=== PATIENT | male | born 1970 | race Caucasian/White ===

== ENCOUNTER 2018-03-15 10:19 | Emergency (ER) | payer MEDICAID, SELFPAY ==
[2018-03-15 10:20] VITALS: BP 207/126; PULSE 124; RESP 18; TEMP 36.4; O2SAT 98; BMI 34.8
--- NOTE | 2018-03-15 10:42 | EKG12_ITS ---
Test Reason : SOB Blood Pressure : / mmHG Vent. Rate : 107 BPM Atrial Rate : 107 BPM P-R Int : 154 ms QRS Dur : 100 ms QT Int : 342 ms P-R-T Axes : 047 016 053 degrees QTc Int : 456 ms Sinus tachycardia Otherwise normal ECG Confirmed by DOC ALVARADO, VICKI ([id number]), commercial production editor JEFF MROGAN ([id number]) on 03/20/2018 2:22:33 PM Referred By: YURIY Confirmed By:VICKI ROACH MD
--- NOTE | 2018-03-15 10:50 | RAD_ITS ---
STUDY: X-RAY CHEST REASON FOR EXAM: Male, 47 years old. 3 week history of right lower lateral rib pain. TECHNIQUE: Single AP portable view of the chest. COMPARISON: Comparison is made with prior study dated November 12, 2014. FINDINGS: Hyperinflation. Scattered calcified granulomas. No acute abnormality is seen. There is no demonstrated pleural abnormality. Normal size heart. Normal mediastinum and lupe. Normal visualized pulmonary arteries. There is atherosclerotic tortuosity of the aortic arch and descending thoracic aorta. There are diffuse degenerative changes of the visualized thoracic spine. Normal visualized ribs, clavicles, and shoulders. There is no demonstrated abnormality of the visualized soft tissue structures of the upper abdomen. RAD/Chest 1 View (Portable) IMPRESSION: No acute abnormality is seen. Electronically Signed: Iain Tracy MD at 11:18 EDT Tel [phone], Service support ,
[2018-03-15 10:53] VITALS: PULSE 105; RESP 18
[2018-03-15] MEDS: Ipratropium/Albuterol Sulfate 3 ML AMPUL.NEB INHALATION (10:53)
[2018-03-15 11:02] LABS: Absolute Lymphocyte Count 2.06 X10^3/ul (0.83-4.51); Absolute Neutrophil Count 4.1 X10^3/uL (2.0-7.7); Basophil# 0.03 X10^3/uL; Basophil% 0.4 % (0-1); Eosinophil# 0.17 X10^3/uL; Eosinophils% 2.4 % (0-5); Hematocrit 42.8 % (40-54); Hemoglobin 14.4 g/dl (13.0-16.5); Lymphocyte # 2.06 X10^3/ul (4.0); Lymphocyte % 29.5 % (19-41); Mean Corp Hgb Conc 33.6 g/gl (32-36); Mean Corpuscular Hgb 29.8 pg (27.0-32.0); Mean Corpuscular Volume 88.6 fL (80-94); Mean Platelet Vol. 8.5 fl (6.2-12.0); Monocyte# 0.59 X10^3/uL; Monocyte% 8.5 % (0-10); Neutrophil % 58.8 % (47-70); POSITIVE COUNT NO; POSITIVE DIFFERENTIAL NO; POSITIVE MORPHOLOGY NO; Platelet Count 309 K/mm3 (150-450); RBC Distribution Width CV 13.5 % (11.6-14.6); Red Blood Count 4.83 M/mm3 (4.6-6.2)
[2018-03-15 11:22] LABS: Anion Gap 8 (5-15); BUN 7 mg/dL (7-18); BUN/Creat Ratio 8.4 RATIO (10-20); Calcium,Total 8.6 mg/dL (8.5-10.1); Chloride 103 mmol/L (98-107); Creatinine, Serum 0.84 mg/dL (0.70-1.30); EST Glomerular Filtration Rate 104 mL/min (>60); Est Glom Filt Rate - Afr Amer 126 mL/min (>60); Estimated Creatinine Clearance 115.79 ml/min; Glucose 118 mg/dL (74-106); Sodium Level 137 mmol/L (136-145)
[2018-03-15 11:54] VITALS: BP 162/101; PULSE 105; RESP 17; O2SAT 93
[2018-03-15] MEDS: HYDROcodone Bitartrate/Apap 5/325 Tablet PO (11:59)
--- NOTE | 2018-03-15 12:33 | CT_ITS ---
STUDY: CTA CHEST REASON FOR EXAM: Male, 47 years old. Right-sided rib pain following cough. RADIATION DOSAGE (If Supplied By Facility): CTDIvol = ( 16.63 ) mGy, DLP = ( 702.53 ) mGycm TECHNIQUE: The examination was performed with the intravenous administration of 100 ml of Isovue 300 contrast material. Post-processing of the angiographic images was performed, with multiplanar reformation and 3D reconstruction. Individualized dose optimization techniques were used for this CT. COMPARISON: Comparison is made with prior study dated May 14, 2014. FINDINGS: Small nonocclusive intraluminal filling defects in branches of the right and left upper lobe pulmonary arteries in keeping with the small bilateral pulmonary emboli. There is also evidence of small intraluminal filling defects in branches of the left lower lobe pulmonary arterial branches. Normal thoracic aorta and visualized great vessels. There is no demonstrated aortic dissection. Normal heart and pericardium. There are visualized mediastinal lymph nodes, which are within normal size limits, and with normal morphology. Normal hilar regions. Normal visualized trachea and bronchi. The lungs are well expanded. Stable mild degree of emphysematous changes in the upper lobes with bullous formation worse in the right upper lobe. Normal pleura. Normal chest wall structures. There are degenerative changes of thoracic spine. Diffuse fatty infiltration of the liver. CT/CTA Chest W/WO Contrast IMPRESSION: Several small filling defects seen in branches of the right and left upper lobe pulmonary arterial branches as well as left lower lobe pulmonary arterial branches in keeping with pulmonary emboli. Electronically Signed: Iain Tracy MD at 13:14 EDT Tel [phone], Service support ,
[2018-03-15 13:11] VITALS: BP 164/127; PULSE 94; RESP 16; O2SAT 97
[2018-03-15 15:02] VITALS: BP 140/92; PULSE 86; RESP 18; O2SAT 100
--- NOTE | 2018-03-15 15:19 | ED.VISSUMM ---
- ER Visit Summary Date of Service: 03/15/18 Chief Complaint: [] History of Present Illness: The patient is a 47 M [] Physical Examination: [] Test Results: [] Emergency Department Course and Treatment: [] Treatment Plan: [] Disposition: [] Impression: [] This note was generated with [employer] dictation software. It may contain incorrect words, spelling, and punctuation that were not noted in review of the chart prior to signing ED Disposition - Plan for ED Patient: Disposition: Home or Assisted Living Chief Complaint: Chest Other Instructions: ED Strain Chest Wall Prescriptions: Hydrocodone Bitart/Apap 5-325 [[place] 5/325] 1 - 2 tab PO Q4H PRN PRN 5 Days #12 tab PRN Reason: Pain Naproxen [Naprosyn] 500 mg PO BID PRN #20 tab Referrals: Trevin Dacosta DO [Primary Care Provider] - 2 Days
[2018-03-15 15:28] VITALS: BP 147/89; PULSE 98; RESP 18; O2SAT 99
== END 2018-03-15 15:28 | disposition home or self-care (01) ==
PROVIDERS: Emergency Provider Emergency Medicine; Family Provider Family Medicine; PCP Family Medicine
DX: S29.011A Strain of muscle and tendon of front wall of thorax, initial encounter (principal); X58.XXXA Exposure to other specified factors, initial encounter; Y93.9 Activity, unspecified; Y92.9 Unspecified place or not applicable; R00.0 Tachycardia, unspecified; Z72.0 Tobacco use
CPT/HCPCS: 71045; 71275; 80048; 84484; 85025; 93005; 94640; 99285; Q9967; A4216

== ENCOUNTER 2018-03-22 05:38 | Observation (INO) | payer MEDICAID, SELFPAY ==
[2018-03-22] VITALS (14 sets, daily range): BP systolic 143–198; BP diastolic 89–114; PULSE 73–104; RESP 16–28; TEMP 36.2–37.1; O2SAT 92–97; BMI 37.8; BMI 36.7
--- NOTE | 2018-03-22 06:05 | EKG12_ITS ---
Test Reason : RIB PAIN Blood Pressure : / mmHG Vent. Rate : 098 BPM Atrial Rate : 098 BPM P-R Int : 166 ms QRS Dur : 104 ms QT Int : 360 ms P-R-T Axes : 041 027 073 degrees QTc Int : 459 ms Normal sinus rhythm Normal ECG Confirmed by DOC ALVARADO, VICKI ([id number]), editorial clerk JEFF MORGAN ([id number]) on 03/23/2018 1:17:52 PM Referred By: MAGGIE Confirmed By:VICKI ROACH MD
--- NOTE | 2018-03-22 06:08 | RAD_ITS ---
STUDY: X-RAY CHEST REASON FOR EXAM: Male, 47 years old. Chest pain TECHNIQUE: 1 view COMPARISON: None. FINDINGS: The lungs are clear and expanded. There is no demonstrated pleural abnormality. Normal size heart. Normal mediastinum and lupe. Normal visualized pulmonary arteries. Normal visualized aortic arch and descending thoracic aorta. Normal visualized thoracic spine. Normal visualized ribs, clavicles, and shoulders. There is no demonstrated abnormality of the visualized soft tissue structures of the upper abdomen. RAD/Chest 1 View (Portable) IMPRESSION: Normal x-ray examination of the chest. No acute findings in the lungs Electronically Signed: Dickson Charles, at 6:24 EDT Tel , Service support ,
[2018-03-22] MEDS: Ondansetron 4 MG/2 ML Vial IV (06:20)
[2018-03-22] MEDS: Morphine 4 MG/ML Syringe IV ×3 (06:21→19:44)
[2018-03-22 06:38] LABS: Absolute Lymphocyte Count 2.47 X10^3/ul (0.83-4.51); Absolute Neutrophil Count 3.9 X10^3/uL (2.0-7.7); Basophil# 0.03 X10^3/uL; Basophil% 0.4 % (0-1); Eosinophil# 0.24 X10^3/uL; Eosinophils% 3.2 % (0-5); Hemoglobin 13.2 g/dl (13.0-16.5); Lymphocyte # 2.47 X10^3/ul (4.0); Lymphocyte % 32.7 % (19-41); Mean Corp Hgb Conc 33.8 g/gl (32-36); Mean Corpuscular Volume 88.6 fL (80-94); Mean Platelet Vol. 8.9 fl (6.2-12.0); Monocyte# 0.85 X10^3/uL; Monocyte% 11.3 % (0-10); Neutrophil # 3.93 X10^3/uL (2.7-7.7); Platelet Count 382 K/mm3 (150-450); RBC Distribution Width SD 44.6 fl (35.1-43.9); White Blood Count 7.6 K/mm3 (4.4-11.0)
[2018-03-22 06:41] LABS: International Normalized Ratio 0.9; Prothrombin Time (Protime)PT. 12.3 SECONDS (11.7-14.9)
[2018-03-22 06:44] LABS: POSITIVE COUNT NO; POSITIVE DIFFERENTIAL NO; POSITIVE MORPHOLOGY NO
[2018-03-22 06:47] LABS: Anion Gap 10 (5-15); BUN 14 mg/dL (7-18); BUN/Creat Ratio 15.5 RATIO (10-20); Calcium,Total 9.4 mg/dL (8.5-10.1); Chloride 107 mmol/L (98-107); EST Glomerular Filtration Rate 95 mL/min (>60); Est Glom Filt Rate - Afr Amer 115 mL/min (>60); Estimated Creatinine Clearance 108.07 ml/min; Glucose 152 mg/dL (74-106); Potassium 3.8 mmol/L (3.5-5.1); Sodium Level 142 mmol/L (136-145)
--- NOTE | 2018-03-22 07:07 | PCM.HP.STD ---
Problem List (1) HTN (hypertension) Status: Chronic Qualifiers: Hypertension type: essential hypertension Qualified Code(s): I10 - Essential (primary) hypertension (2) Bipolar disorder Status: Chronic Qualifiers: Active/Remission status: remission status unspecified Qualified Code(s): F31.9 - Bipolar disorder, unspecified (3) Nicotine addiction Status: Chronic Qualifiers: Nicotine product type: cigarettes (4) Hepatitis C Status: Chronic Qualifiers: Viral hepatitis chronicity: chronic (5) Prediabetes Status: Chronic (6) Obesity (BMI 30-39.9) Status: Chronic History of Present Illness Date of Admission: 03/22/18 Chief Complaint: Chest pain The patient is a 47 y/o M w/ PMHx: Obesity, Tobacco use, Pre-Diabetes mellitus type II, HTN, Anxiety and Depression (Bipolar disorder), Possible Undiagnosed DHARMESH, Hepatitis C who presents to the [facility] ED on 03/22/18 w/ history of ongoing R sided focal lower rib pain, severe, wrapping around toward his back which started ~3-4 weeks prior when he had a severe coughing fit following a choking event with immediate sensation of something breaking following in this region w/ progressively worsening pain, severe debility with decreased activity and notably sedentary lifestyle w/ onset dyspnea, worse with deep inspiratory attempts over the last 2 weeks. He did present to the ED on 03/15/18 for this complaint and had evaluation at that time w/ dx chest wall strain. He returned as noted today and review of all studies from prior notable for CTPA study with evidence of several small filling defects in the branches of the right and left upper lobe pulmonary arterial branches as well as left lower lobe pulmonary arterial branches consistent with pulmonary emboli in addition to over-read today with noted displaced R 8th rib fracture. Given these findings and ongoing pain per discussion with ED physician, although likely secondary to decreased activity, obtained hypercoaguable panel to be cautious and patient initiated on xarelto therapy. Past Medical History Past Medical History (Chronic Problems): Chronic Problems Prediabetes (Chronic) Obesity (BMI 30-39.9) (Chronic) HTN (hypertension) (Chronic) Bipolar disorder (Chronic) Non-compliant patient (Chronic) Nicotine addiction (Chronic) Hepatitis C (Chronic) Allergies oxycodone [From OxyContin] Allergy (Verified 03/22/18 05:42) Itching Home Medications: Ambulatory Orders Medication Instructions Recorded Albuterol Sulfate [Ventolin Hfa] 2 puff INHALATION Q4H PRN PRN 03/15/18 Surgical History: total knee arthroplasty - On the left knee, - - Umbilical hernia repair, bilateral knee arthroscopic surgeries and ligament repair, great toe trauma with several follow-up surgical interventions. Psychiatric History: Anxiety, Bipolar - Not on any medication at the present time, Depression Lives: Alone Smoking Status: Current every day smoker - One half pack per day tobacco use ongoing. Tobacco Use: Cigarettes Alcohol: Occasional Drugs: Marijuana - Patient currently notes occasional cannabis but does admit to polysubstance use of various substances in the past. - *Family History Maternal History Items: High Cholesterol, Heart Disease, Hypertension Paternal History Items: High Cholesterol, Heart Disease, Hypertension Review of Systems Constitutional: Reports: Malaise, Weakness, Fatigue. Denies: Chills, Fever, Weight Change HEENT: Denies: Head Aches, Sinus Congestion, Sinus Drainage Cardiovascular: Reports: Chest Pain. Denies: Edema, Heaviness, Light Headedness, Orthopnea, Palpitations, Syncope Respiratory: Reports: Shortness of Breath, Shortness of breath at rest, Shortness of breath upon exertion. Denies: Cough, Sputum production, Wheezing Gastrointestinal: Denies: Abdominal Pain, Nausea, Vomiting Genitourinary: Denies: Dysuria Musculoskeletal: Reports: Back Pain. Denies: Joint Pain, Joint Tenderness Skin: Denies: Rash, Wounds Neurological: Denies: Numbness, Tingling, Focal weakness Psychiatric: Reports: Anxiety, Depression. Denies: Homicidal Ideations, Suicidal Ideations Hematologic/ Lymphatic: Denies: Easy Bruising, Easy Bleeding VTE Information - Inpt Only VTE Present on Admission: No VTE Mechan Device Prophylaxis: SCD's VTE Pharm Prophylaxis ordered?: Yes Subjective: Seated upright in bed, uncomfortable appearing. Objective: Physical Examination: General: awake, alert, oriented x 3 and cooperative, seated upright in bed in no apparent distress, but uncomfortable appearing. Skin: normal color, turgor, no icterus, cyanosis. HEENT: AT/NC, EOMI, PERRLA, mildly dry MM, no carotid bruits or JVD noted; however, thickened neck makes examination difficult. Lungs: Diminished BS bases, mild effort, reduced secondary to pain w/ increased effort, diffuse soft end expiratory wheeze noted, no rales or ronchi. Heart: Regular rate and rhythm; no gallop, rub audible. Abdomen: soft, obese, NTTP, ND, normal BS, no HSM; however, habitus makes examination difficult. Extremities: no cyanosis, clubbing, or edema. Neurological: patient awake, alert, oriented x 3; cognitive function intact; pupils equally reactive to light and accomodation; cranial nerves II-XII grossly normal, moving all 4 extremities, no focal deficits, strength moderately to severely globally decreased secondary to acute presentation. Psychiatric: affect appears normal, no acute evidence of depressive or anxiety feelings. - Physical Exam Vital Signs Temp Pulse Resp BP Pulse Ox 97.2 F L 104 H 28 H 173/114 H 96 03/22/18 05:38 03/22/18 05:38 03/22/18 05:38 03/22/18 05:38 03/22/18 05:38 Oxygen Flow Rate (L/min) 2 Oxygen Delivery Method Nasal Cannula Weight: 270 lb 11.642 oz Body Mass Index (BMI) 37.8 Laboratory Tests Past 24 Hrs 03/22/18 03/22/18 03/22/18 06:10 06:10 06:10 WBC 7.6 RBC 4.40 L Hgb 13.2 Hct 39.0 L MCV 88.6 MCH 30.0 MCHC 33.8 RDW 14.0 RDW Differential 44.6 H Plt Count 382 MPV 8.9 Immature Gran % (Auto) 0.400 Neut % (Auto) 52.0 Lymph % (Auto) 32.7 Orange % (Auto) 11.3 H Eos % (Auto) 3.2 Baso % (Auto) 0.4 Absolute Neuts (auto) 3.9 Absolute Lymphs (auto) 2.47 Total Counted Not Reportable PT 12.3 INR 0.9 Sodium 142 Potassium 3.8 Chloride 107 Carbon Dioxide 25.0 Anion Gap 10 BUN 14 Creatinine 0.90 Estim Creat Clear Calc 108.07 Est GFR (MDRD) Af Amer 115 Est GFR (MDRD) Non-Af 95 BUN/Creatinine Ratio 15.5 Glucose 152 H Calcium 9.4 Troponin I < 0.015 Assessment/Plan All Active Problems Chest pain on respiration (Acute) The patient is a 47 y/o M w/ PMHx: Obesity, Tobacco use, Pre-Diabetes mellitus type II, HTN, Anxiety and Depression, Possible Undiagnosed DHARMESH, Hepatitis C who presents to the [facility] ED on 03/22/18 w/ history of ongoing R sided focal lower rib pain, severe, wrapping around toward his back which started ~3-4 weeks prior when he had a severe coughing fit following a choking event with immediate sensation of something breaking following in this region w/ progressively worsening pain, severe debility with decreased activity and notably sedentary lifestyle w/ onset dyspnea, worse with deep inspiratory attempts over the last 2 weeks. (1) Dyspnea, chest pain secondary to Acute BL Pulmonary Embolism and Recent 8th R Rib Displaced fracture: EKG without acute findings, CXR without acute findings; however, review of prior 03/15/18 studies w/ noted CTPA study with evidence of several small filling defects in the branches of the right and left upper lobe pulmonary arterial branches as well as left lower lobe pulmonary arterial branches consistent with pulmonary emboli in addition to over-read today with noted displaced R 8th rib fracture, trop normal x 1, BNP obtained and normal. No family history of hypercoaguable state. Patient notes no marked recent travel but extremely sedentary following recent rib fracture. Will admit to PCU, maintain on cardiac telemetry. Will obtain ECHO. Preliminary read w/ negative BL LE DVT US. Hypercoaguable panel obtained in ED prior to administration anticoagulation w/ xarelto. Will continue therapeutic xarelto regimen with pending insurance oral regimen investigation. Rx sent to pharmacy and will discuss w/ CM in AM. (2) Hypertension, Untreated: BP elevated above goal since admission, has history noted, not on regimen, initiate low dose ACEI given concurrent DM as noted, continue to monitor and alter as needed, PRN hydralazine. (3) Diabetes mellitus type II, previous Pre-DM history: Not on regimen, HgBA1c obtained and noted 6.5% consistent now with diabetes mellitus type II diagnosis, will need to initiate metformin upon discharge, ADA diet initiated, accu checks w/ ISS, nutrition consultation for education and teaching. (4) Obesity: Weight loss and lifestyle changes encouraged, nutrition consulted for education and teaching. (5) Anxiety and Depression: Not on regimen, encourage outpatient follow-up. (6) Tobacco Abuse: Encouraged cessation, inpatient consultation per RT, NR if desired. (7) Possible DHARMESH: Notes fatigued during day, often wakes himself up at night, requested evaluation for possible set-up sleep study outpatient. (8) Chronic Hepatitis C: 05/15/15 noted HCV RNA quant testing, encouraged follow-up, admitted to remote polysubstance use in the past. (9) Suspect Possible Chronic COPD: Will initiate ATC duonebs, PRN albuterol, HOB, IS parameters. Notable wheezing on examination, tobacco use prolonged history, would benefit from PFTs outpatient. (10) DVT prophylaxis: SCDs (preliminary DVT studies negative, final read pending), Xarelto. Code Visit Inpatient E&M: 63273 Init Hosp L3
--- NOTE | 2018-03-22 07:12 | HP.PCM_ITS ---
Problem List (1) HTN (hypertension) Status: Chronic Qualifiers: Hypertension type: essential hypertension Qualified Code(s): I10 - Essential (primary) hypertension (2) Bipolar disorder Status: Chronic Qualifiers: Active/Remission status: remission status unspecified Qualified Code(s): F31.9 - Bipolar disorder, unspecified (3) Nicotine addiction Status: Chronic Qualifiers: Nicotine product type: cigarettes (4) Hepatitis C Status: Chronic Qualifiers: Viral hepatitis chronicity: chronic (5) Prediabetes Status: Chronic (6) Obesity (BMI 30-39.9) Status: Chronic History of Present Illness Date of Admission: 03/22/18 Chief Complaint: Chest pain The patient is a 47 y/o M w/ PMHx: Obesity, Tobacco use, Pre-Diabetes mellitus type II, HTN, Anxiety and Depression (Bipolar disorder), Possible Undiagnosed DHARMESH, Hepatitis C who presents to the [facility] ED on 03/22/18 w/ history of ongoing R sided focal lower rib pain, severe, wrapping around toward his back which started ~3-4 weeks prior when he had a severe coughing fit following a choking event with immediate sensation of something breaking following in this region w / progressively worsening pain, severe debility with decreased activity and notably sedentary lifestyle w/ onset dyspnea, worse with deep inspiratory attempts over the last 2 weeks. He did present to the ED on 03/15/18 for this complaint and had evaluation at that time w/ dx chest wall strain. He returned as noted today and review of all studies from prior notable for CTPA study with evidence of several small filling defects in the branches of the right and left upper lobe pulmonary arterial branches as well as left lower lobe pulmonary arterial branches consistent with pulmonary emboli in addition to over-read today with noted displaced R 8th rib fracture. Given these findings and ongoing pain per discussion with ED physician, although likely secondary to decreased activity, obtained hypercoaguable panel to be cautious and patient initiated on xarelto therapy. Past Medical History Past Medical History (Chronic Problems): Chronic Problems Prediabetes (Chronic) Obesity (BMI 30-39.9) (Chronic) HTN (hypertension) (Chronic) Bipolar disorder (Chronic) Non-compliant patient (Chronic) Nicotine addiction (Chronic) Hepatitis C (Chronic) Allergies oxycodone [From OxyContin] Allergy (Verified 03/22/18 05:42) Itching Home Medications: Ambulatory Orders Medication Instructions Recorded Albuterol Sulfate [Ventolin Hfa] 2 puff INHALATION Q4H PRN PRN 03/15/18 Surgical History: total knee arthroplasty - On the left knee, - - Umbilical hernia repair, bilateral knee arthroscopic surgeries and ligament repair, great toe trauma with several follow-up surgical interventions. Psychiatric History: Anxiety, Bipolar - Not on any medication at the present time, Depression Lives: Alone Smoking Status: Current every day smoker - One half pack per day tobacco use ongoing. Tobacco Use: Cigarettes Alcohol: Occasional Drugs: Marijuana - Patient currently notes occasional cannabis but does admit to polysubstance use of various substances in the past. - *Family History Maternal History Items: High Cholesterol, Heart Disease, Hypertension Paternal History Items: High Cholesterol, Heart Disease, Hypertension Review of Systems Constitutional: Reports: Malaise, Weakness, Fatigue. Denies: Chills, Fever, Weight Change HEENT: Denies: Head Aches, Sinus Congestion, Sinus Drainage Cardiovascular: Reports: Chest Pain. Denies: Edema, Heaviness, Light Headedness , Orthopnea, Palpitations, Syncope Respiratory: Reports: Shortness of Breath, Shortness of breath at rest, Shortness of breath upon exertion. Denies: Cough, Sputum production, Wheezing Gastrointestinal: Denies: Abdominal Pain, Nausea, Vomiting Genitourinary: Denies: Dysuria Musculoskeletal: Reports: Back Pain. Denies: Joint Pain, Joint Tenderness Skin: Denies: Rash, Wounds Neurological: Denies: Numbness, Tingling, Focal weakness Psychiatric: Reports: Anxiety, Depression. Denies: Homicidal Ideations, Suicidal Ideations Hematologic/ Lymphatic: Denies: Easy Bruising, Easy Bleeding VTE Information - Inpt Only VTE Present on Admission: No VTE Mechan Device Prophylaxis: SCD's VTE Pharm Prophylaxis ordered?: Yes Subjective: Seated upright in bed, uncomfortable appearing. Objective: Physical Examination: General: awake, alert, oriented x 3 and cooperative, seated upright in bed in no apparent distress, but uncomfortable appearing. Skin: normal color, turgor, no icterus, cyanosis. HEENT: AT/NC, EOMI, PERRLA, mildly dry MM, no carotid bruits or JVD noted; however, thickened neck makes examination difficult. Lungs: Diminished BS bases, mild effort, reduced secondary to pain w/ increased effort, diffuse soft end expiratory wheeze noted, no rales or ronchi. Heart: Regular rate and rhythm; no gallop, rub audible. Abdomen: soft, obese, NTTP, ND, normal BS, no HSM; however, habitus makes examination difficult. Extremities: no cyanosis, clubbing, or edema. Neurological: patient awake, alert, oriented x 3; cognitive function intact; pupils equally reactive to light and accomodation; cranial nerves II-XII grossly normal, moving all 4 extremities, no focal deficits, strength moderately to severely globally decreased secondary to acute presentation. Psychiatric: affect appears normal, no acute evidence of depressive or anxiety feelings. - Physical Exam Vital Signs Temp Pulse Resp BP Pulse Ox 97.2 F L 104 H 28 H 173/114 H 96 03/22/18 05:38 03/22/18 05:38 03/22/18 05:38 03/22/18 05:38 03/22/18 05:38 Oxygen Flow Rate (L/min) 2 Oxygen Delivery Method Nasal Cannula Weight: 270 lb 11.642 oz Body Mass Index (BMI) 37.8 Laboratory Tests Past 24 Hrs 03/22/18 03/22/18 03/22/18 06:10 06:10 06:10 WBC 7.6 RBC 4.40 L Hgb 13.2 Hct 39.0 L MCV 88.6 MCH 30.0 MCHC 33.8 RDW 14.0 RDW Differential 44.6 H Plt Count 382 MPV 8.9 Immature Gran % (Auto) 0.400 Neut % (Auto) 52.0 Lymph % (Auto) 32.7 Hudspeth % (Auto) 11.3 H Eos % (Auto) 3.2 Baso % (Auto) 0.4 Absolute Neuts (auto) 3.9 Absolute Lymphs (auto) 2.47 Total Counted Not Reportable PT 12.3 INR 0.9 Sodium 142 Potassium 3.8 Chloride 107 Carbon Dioxide 25.0 Anion Gap 10 BUN 14 Creatinine 0.90 Estim Creat Clear Calc 108.07 Est GFR (MDRD) Af Amer 115 Est GFR (MDRD) Non-Af 95 BUN/Creatinine Ratio 15.5 Glucose 152 H Calcium 9.4 Troponin I < 0.015 Assessment/Plan All Active Problems Chest pain on respiration (Acute) The patient is a 47 y/o M w/ PMHx: Obesity, Tobacco use, Pre-Diabetes mellitus type II, HTN, Anxiety and Depression, Possible Undiagnosed DHARMESH, Hepatitis C who presents to the [facility] ED on 03/22/18 w/ history of ongoing R sided focal lower rib pain, severe, wrapping around toward his back which started ~3-4 weeks prior when he had a severe coughing fit following a choking event with immediate sensation of something breaking following in this region w/ progressively worsening pain, severe debility with decreased activity and notably sedentary lifestyle w/ onset dyspnea, worse with deep inspiratory attempts over the last 2 weeks. (1) Dyspnea, chest pain secondary to Acute BL Pulmonary Embolism and Recent 8th R Rib Displaced fracture: EKG without acute findings, CXR without acute findings ; however, review of prior 03/15/18 studies w/ noted CTPA study with evidence of several small filling defects in the branches of the right and left upper lobe pulmonary arterial branches as well as left lower lobe pulmonary arterial branches consistent with pulmonary emboli in addition to over-read today with noted displaced R 8th rib fracture, trop normal x 1, BNP obtained and normal. No family history of hypercoaguable state. Patient notes no marked recent travel but extremely sedentary following recent rib fracture. Will admit to PCU , maintain on cardiac telemetry. Will obtain ECHO. Preliminary read w/ negative BL LE DVT US. Hypercoaguable panel obtained in ED prior to administration anticoagulation w/ xarelto. Will continue therapeutic xarelto regimen with pending insurance oral regimen investigation. Rx sent to pharmacy and will discuss w/ CM in AM. (2) Hypertension, Untreated: BP elevated above goal since admission, has history noted, not on regimen, initiate low dose ACEI given concurrent DM as noted, continue to monitor and alter as needed, PRN hydralazine. (3) Diabetes mellitus type II, previous Pre-DM history: Not on regimen, HgBA1c obtained and noted 6.5% consistent now with diabetes mellitus type II diagnosis , will need to initiate metformin upon discharge, ADA diet initiated, accu checks w/ ISS, nutrition consultation for education and teaching. (4) Obesity: Weight loss and lifestyle changes encouraged, nutrition consulted for education and teaching. (5) Anxiety and Depression: Not on regimen, encourage outpatient follow-up. (6) Tobacco Abuse: Encouraged cessation, inpatient consultation per RT, NR if desired. (7) Possible DHARMESH: Notes fatigued during day, often wakes himself up at night, requested evaluation for possible set-up sleep study outpatient. (8) Chronic Hepatitis C: 05/15/15 noted HCV RNA quant testing, encouraged follow- up, admitted to remote polysubstance use in the past. (9) Suspect Possible Chronic COPD: Will initiate ATC duonebs, PRN albuterol, HOB , IS parameters. Notable wheezing on examination, tobacco use prolonged history , would benefit from PFTs outpatient. (10) DVT prophylaxis: SCDs (preliminary DVT studies negative, final read pending ), Xarelto. Code Visit Inpatient E&M: 05670 Init Hosp L3
--- NOTE | 2018-03-22 07:16 | ED.VISSUMM ---
- ER Visit Summary Date of Service: 03/22/18 Chief Complaint: Rib pain History of Present Illness: The patient is a 47 M who presents with rib pain. This is been present for about 2 and half weeks. He complains of severe pain rated a 7 out of 10. This is worse with cough or deep inspiration. He states that he can feel a gap between his right lower ribs. He states he feels like he is going to explode. He was seen here last Monday. He was evaluated with labs and had a CTA of the chest which was reportedly normal. He is also seen his primary care physician. This is been attributed to chest wall strain. Physical Examination: Afebrile heart rate 104 respiratory rate 28 blood pressure 173/114 Moist mucous membranes Heart regular rhythm tachycardia Lungs are clear Abdomen soft nondistended upper quadrant tenderness there is a noticeable larger gap between ribs of the right lower lateral chest Test Results: EKG shows sinus rhythm at a rate of 98. CBC BMP unremarkable. Troponin negative. INR normal. Chest x-ray shows a displaced eighth rib fracture. Emergency Department Course and Treatment: Patient does have a new displaced eighth rib fracture. This is the reason for the palpable larger space of his lower ribs. The patient has been coughing. He denies any fall or traumatic injury. Of note on reviewing his recent CTA the CTA is notable for bilateral pulmonary emboli. There are bilateral upper pulmonary emboli as well as left lower pulmonary emboli. Patient does not have known risk factors. Patient was discussed with hospitalist. Hypercoagulable panel is drawn. Patient will be given Xarelto and admitted. He was given morphine for pain control here. Treatment Plan: [] Disposition: Admit Impression: Bilateral pulmonary emboli Right eighth rib fracture This note was generated with [employer] dictation software. It may contain incorrect words, spelling, and punctuation that were not noted in review of the chart prior to signing ED Disposition - Plan for ED Patient: Chief Complaint: Other, Pain/Inj Referrals: Chirag Calhoun MD [Primary Care Provider] -
[2018-03-22] MEDS: Rivaroxaban 15 MG Tablet PO ×2 (07:25→17:58)
[2018-03-22] MEDS: HYDROmorphone 1 MG/ML Syringe IV (08:14)
--- NOTE | 2018-03-22 08:27 | NURSING ---
Deepali notified patient may transfer to PCU.
--- NOTE | 2018-03-22 08:40 | VDLE_ITS ---
Reason For Study: PE RIGHT LEFT GSV is normal. GSV is normal. CFV is compressible, spontaneous, phasic, CFV is compressible, spontaneous, phasic, competent and demonstrates normal competent, and demonstrates normal augmentation. augmentation. FV is compressible, spontaneous, phasic, FV is compressible, spontaneous, phasic, competent and demonstrates normal competent and demonstrates normal augmentation. augmentation. POP V is compressible, spontaneous, phasic, POP V is compressible, spontaneous, phasic, competent and demonstrates normal competent and demonstrates normal augmentation. augmentation. T/P Trunk is compressible. T/P Trunk is compressible. PTV is compressible. PTV is compressible. RT PerV is compressible. LT PerV is compressible. Procedure Exam performed in department. The exam was diagnostic. A preliminary report was called and/or faxed to the pt's RN. Interpretation Summary Deep veins of the lower extremities are bilaterally patent and compressible segmentally. There is no evidence of deep vein thrombosis on either side. Valvular competence appears intact within the proximal deep venous systems bilaterally. The greater saphenous veins appear bilaterally patent and compressible segmentally. Ordering Physician: Kendra Menendez Performed By: Curtis Kenny RVT
--- NOTE | 2018-03-22 08:40 | ECHOCS_ITS ---
Reason For Study: CHEST PAIN Procedure This was a 2D Doppler, Color Flow transthoracic echocardiogram. The study was technically difficult. Exam performed portable in patient room. Left Ventricle Normal size and thickness. The estimated ejection fraction is 65 %. Normal diastology for age. No regional wall motion abnormalities noted. Right Ventricle Moderately dilated right ventricle. Normal systolic function. Atria Normal left atrium. Normal right atrium. Normal atrial septum. Mitral Valve The mitral valve is structurally normal. No prolapse or stenosis seen. Tricuspid Valve Normal tricuspid valve. Unable to estimate RV systolic pressure due to inadequate jet, pulmonary artery pressure probably normal. Aortic Valve Normal aortic valve. Trisinus/trileaflet aortic valve. Pulmonic Valve The pulmonic valve is not well visualized. Great Vessels Normal aortic root. Normal arch. Normal inferior vena cava. Inferior vena cava collapse with sniff. Pericardium/Pleural No pericardial effusion. Medication Diluted definity 2ml given slow IV push to enhance endocardial definition. MMode/2D Measurements & Calculations LVIDd: 4.0 cm IVSd: 1.4 cm Ao root diam: 3.8 cm LVIDs: 2.9 cm LVPWd: 1.5 cm LA dimension: 3.5 cm FS: 27.7 % LAV(MOD-sp4): 43.6 ml LA A4 area: 17.1 cm2 RA A4 area: 17.6 cm2 Time Measurements MV dec time: 0.33 sec Doppler Measurements & Calculations MV E max noah: 89.9 cm/sec Lat Peak E' Noah: 12.0 cm/sec Med Peak E' Noah: 10.7 cm/sec MV A max noah: 84.8 cm/sec E/E' lat: 7.5 E/E' med: 8.4 MV E/A: 1.1 Ao V2 max: 126.4 cm/sec LV V1 max: 105.2 cm/sec PA V2 max: 118.7 cm/sec Ao max P.4 mmHg LV V1 max P.4 mmHg Interpretation Summary The estimated ejection fraction is 65 %. Normal diastology for age. Moderately dilated right ventricle. Unable to estimate RV systolic pressure due to inadequate jet, pulmonary artery pressure probably normal. The study was technically difficult. There is no comparison study available. Contrast injection was performed. Ordering Physician: Melchor Menendez Referring Physician: MELCHOR BLANCAS Performed By: Mariah Hyman RDCS
[2018-03-22 08:51] LABS: Magnesium 1.7 mg/dL (1.6-2.6)
[2018-03-22 09:04] LABS: Hemoglobin A1c 6.5 % (4.2-6.3)
[2018-03-22 09:13] LABS: BNP,B-Type NATRIURETIC PEPTIDE 6.3 pg/mL (0-100)
[2018-03-22] MEDS: 0.9% Normal Saline 1,000 ML 125 ML IV (10:27)
[2018-03-22] MEDS: Famotidine 20 MG Tablet PO (10:27)
[2018-03-22] MEDS: Morphine 2 MG/ML Syringe IV (10:30)
[2018-03-22] MEDS: Albuterol 2.5 MG/3 ML VIAL.NEB. INHALATION (11:07)
[2018-03-22] MEDS: Ketorolac 30 MG/ML Syringe IV ×2 (12:48→17:58)
--- NOTE | 2018-03-22 14:35 | CASEMGMT ---
Face to Face with patient for initial transition planning/care coordination assessment. FLACO NAIDU introduced self and role at [facility], pt voices understanding and consents to assessment at this time. Pt is lying on left side in bed and grimaces in pain with movement. Pt is A/Ox4 at this time and answers all questions appropriately at this time. Care providers, pharmacy, and demographics verified. See attached link. Pt voices no further concerns/needs at this time. Advised pt to ask for CM if any further questions/concerns/needs arise, voices understanding. CM to follow for any further discharge planning/needs. PLAN: [place]
[2018-03-22] MEDS: Lisinopril 5 MG Tablet PO (16:30)
[2018-03-22 16:46] LABS: Bedside Glucose 119 mg/dL (70-110)
[2018-03-22] MEDS: oxyCODONE 5 MG Tablet PO ×2 (18:03→22:53)
[2018-03-22] MEDS: Ipratropium/Albuterol Sulfate 3 ML AMPUL.NEB INHALATION ×2 (19:15→22:56)
[2018-03-22] MEDS: 0.9% NaCl Peripheral Flush Adult/Peds IV (21:48)
[2018-03-22 23:36] LABS: Bedside Glucose 121 mg/dL (70-110)
[2018-03-23] VITALS (7 sets, daily range): BP systolic 132–164; BP diastolic 78–104; PULSE 78–103; RESP 16–18; TEMP 36.4–37.2; O2SAT 90–94
[2018-03-23] MEDS: Morphine 2 MG/ML Syringe IV (00:13)
[2018-03-23] MEDS: guaiFENesin 10 ML UDC (200MG/10ML) PO ×2 (00:13→06:55)
[2018-03-23] MEDS: 0.9% NaCl Peripheral Flush Adult/Peds IV ×2 (00:14→05:42)
[2018-03-23] MEDS: oxyCODONE 5 MG Tablet PO ×2 (04:02→08:02)
[2018-03-23] MEDS: Rivaroxaban 15 MG Tablet PO (05:41)
[2018-03-23] MEDS: Morphine 4 MG/ML Syringe IV ×2 (05:42→10:01)
[2018-03-23 06:26] LABS: Hematocrit 39.6 % (40-54); Hemoglobin 12.6 g/dl (13.0-16.5); Mean Corp Hgb Conc 31.8 g/gl (32-36); Mean Platelet Vol. 8.7 fl (6.2-12.0); Platelet Count 290 K/mm3 (150-450); RBC Distribution Width SD 46.4 fl (35.1-43.9); Red Blood Count 4.35 M/mm3 (4.6-6.2)
[2018-03-23 06:27] LABS: Scan Indicated on CBC? Y/N NO
[2018-03-23 06:48] LABS: Anion Gap 5 (5-15); BUN 10 mg/dL (7-18); BUN/Creat Ratio 13.2 RATIO (10-20); Calcium,Total 8.1 mg/dL (8.5-10.1); Chloride 107 mmol/L (98-107); Creatinine, Serum 0.76 mg/dL (0.70-1.30); EST Glomerular Filtration Rate 117 mL/min (>60); Est Glom Filt Rate - Afr Amer 141 mL/min (>60); Estimated Creatinine Clearance 127.98 ml/min; Glucose 115 mg/dL (74-106); Potassium 4.3 mmol/L (3.5-5.1); Sodium Level 139 mmol/L (136-145)
[2018-03-23] MEDS: Ipratropium/Albuterol Sulfate 3 ML AMPUL.NEB INHALATION ×2 (07:20→11:16)
--- NOTE | 2018-03-23 09:29 | CASEMGMT ---
Per Dr. Menendez, pt to be sent home on [facility] script and script was e-scribed to [facility] previously. Call to [facility] and per tech, med is covered and there is no co-pay for pt at this time. Pt provided with AD info per request at this time. Pt voices no further questions/concerns/needs at this time. Della SAM CM
[2018-03-23] MEDS: Lisinopril 5 MG Tablet PO (09:53)
[2018-03-23] MEDS: Famotidine 20 MG Tablet PO (09:53)
[2018-03-23 10:41] LABS: Bedside Glucose 127 mg/dL (70-110)
[2018-03-23] MEDS: fentaNYL 25 MCG Patch TRANSDERM. (10:49)
--- NOTE | 2018-03-23 11:58 | PCM.DC ---
- Discharge Diagnoses Current Active Problems: Current Active and Chronic Problems (1) Dyspnea, chest pain secondary to Acute BL Pulmonary Embolism and Recent 8th R Rib Displaced fracture (2) Hypertension, Untreated (3) Diabetes mellitus type II, previous Pre-DM history (4) Obesity (5) Anxiety and Depression (6) Tobacco Abuse (7) Possible DHARMESH (8) Chronic Hepatitis C (9) Suspect Possible Chronic COPD You will use the following diet at home:: Calorie/Carbohydrate Controlled (specify 1200, 1400, etc) - ADA/cardiac diet encouraged, 1800. Your food should be the consistency of: Regular Your liquids should be the consistency of: Regular/Thin Discharge Activity: - - Encourage regular activity. Out of bed during daytime. To table with all meals. Continue IS 10x/hr 7a-7p. You have requested utilization of a binder which again is not recommended for routine ongoing usage as this can lead to less inspiratory effort therefore we strongly recommend usage only with coughing. May resume sexual activity in: No Restrictions Weight Bearing Status: Weight bearing as tolerated Call your doctor if you observe: Fever of 101 or Higher, Inability to urinate, Inability to have a bowel movement, Shortness of breath, Dizziness, Fainting spells, Chest pain - Worsened or changed chest pain., Uncontrolled pain Instructions: Pulmonary Embolism, Rib Fracture (Broken Rib), Controlling High Blood Pressure, Taking JAY Inhibitors, Taking a Diuretic, What Are Snoring and Sleep Apnea?, Why Do You Smoke?, Planning to Quit Smoking, Getting Support for Quitting Smoking, Coping with Smoking Withdrawal, What Is Type 2 Diabetes?, Resources for People with Diabetes, Long-Term Complications of Diabetes, Oral Medications for Type 2 Diabetes Additional Instructions: During the admission several medications were added: Hypertension: Your blood pressures were elevated likely chronic and secondary to pain. We have started you on lisinopril/hydrochlorthiazide combination medication. Please have repeat basic metabolic panel at follow-up with your primary care physician as this may affect your electrolytes and renal function. Diabetes mellitus type II: Your HgbA1c is now consistent with diabetes mellitus. You have been started on metformin lower dose regimen twice daily with upward titration as able to tolerate per your primary care physician discretion. Pulmonary Embolism w/ R 8th Rib fracture: Please continue the xarelto dose pack. You will need to have refill from your primary care physician after the starter pack and will continue on this regimen for 6 months or per your primary care physician discretion. There are labs that are still pending to assess for an elevated risk of clotting that will need to be reviewed by your primary care physician. You have been given rx for pain regimen. Please also consider to follow with physical therapy to assist with improvement of your pain. Suspect Underlying Chronic Obstructive Pulmonary Disease: Given your tobacco use history and examination while admitted, we suspect underlying chronic disease. We have given you rx for inhalers. Please work with your primary care physician to perform pulmonary function testing once improved from your acute presentation to assess for this disease process. We encourage smoking cessation and nicotine rx has been given. Suspected Sleep Apnea: Please discuss sleep apnea testing with your primary care physician at follow-up. Allergies/Adverse Reactions: Allergies oxycodone [From OxyContin] Adverse Reaction (Mild, Verified 03/22/18 08:46) Itching Medications to take at Discharge Rivaroxaban [Xarelto] 1 tab PO UD #51 tab 03/22/18 Albuterol Sulfate [Ventolin Hfa] 2 puff INHALATION Q4H PRN PRN #1 hfa.aer.ad 03/23/18 Famotidine [Pepcid] 20 mg PO BID #60 tablet 03/23/18 Fluticasone/Salmeterol [Advair 250-50 Diskus] 1 ea IH BID #1 blst.w.dev 03/23/18 Guaifenesin [Robitussin] 10 ml PO Q6H PRN PRN #4 oz 03/23/18 Lisinopril/Hydrochlorothiazide [Zestoretic 10/12.5 Tablet] 1 tab PO DAILY #30 tab 03/23/18 Metformin HCl 500 mg PO BID #60 tab 03/23/18 Nicotine [Nicoderm] 14 mg TRANSDERM. DAILY #14 patch 03/23/18 Oxycodone [Oxyir] 5 - 10 mg PO Q4H PRN PRN 5 Days #30 tab 03/23/18 fentaNYL patch [Duragesic patch] 25 mcg TRANSDERM. Q3D 6 Days #2 patch 03/23/18 The following prescriptions were given: Albuterol Sulfate [Ventolin Hfa] 2 puff INHALATION Q4H PRN PRN #1 hfa.aer.ad PRN Reason: Sob &/Or Wheezing Oxycodone [Oxyir] 5 - 10 mg PO Q4H PRN PRN 5 Days #30 tab PRN Reason: Mod-Severe Pain (4-06/13) Guaifenesin [Robitussin] 10 ml PO Q6H PRN PRN #4 oz PRN Reason: COUGH fentaNYL patch [Duragesic patch] 25 mcg TRANSDERM. Q3D 6 Days #2 patch Lisinopril/Hydrochlorothiazide [Zestoretic 10/12.5 Tablet] 1 tab PO DAILY #30 tab Nicotine [Nicoderm] 14 mg TRANSDERM. DAILY #14 patch Rivaroxaban [Xarelto] 1 tab PO UD #51 tab Fluticasone/Salmeterol [Advair 250-50 Diskus] 1 ea IH BID #1 blst.w.dev Metformin HCl 500 mg PO BID #60 tab Primary Care Physician: Chirag Calhoun MD [Primary Care Provider] - Please follow up with your Primary Care Physician in: Follow-up 3-5 days to review admit, review new medications. Test Results: Test results from this visit will be discussed in further detail at your follow-up appointment, if applicable. Proposed Discharge Date: 03/23/18
--- NOTE | 2018-03-23 12:17 | PCM.DC.SUM ---
Discharge Date and Diagnosis Date of Admission: 03/22/18 Date of Discharge: 03/23/18 - Primary Discharge Diagnosis (1) Dyspnea, chest pain secondary to Acute BL Pulmonary Embolism and Recent 8th R Rib Displaced fracture (2) Hypertension, Untreated (3) Diabetes mellitus type II, previous Pre-DM history (4) Suspected COPD w/ Acute on Chronic Exacerbation (5) Obesity (6) Anxiety and Depression (7) Tobacco Abuse (8) Possible DHARMESH (9) Chronic Hepatitis C - Secondary Discharge Diagnosis Chronic Problems Prediabetes (Chronic) Obesity (BMI 30-39.9) (Chronic) HTN (hypertension) (Chronic) Bipolar disorder (Chronic) Non-compliant patient (Chronic) Nicotine addiction (Chronic) Hepatitis C (Chronic) Hospital Course and Treatment Operations: None Procedures: 2-D Echocardiogram, EKG Summary of Care Provided: The patient is a 47 y/o M w/ PMHx: Obesity, Tobacco use, Pre-Diabetes mellitus type II, HTN, Anxiety and Depression, Possible Undiagnosed DHARMESH, Hepatitis C who presented to the [facility] ED on 03/22/18 w/ history of ongoing R sided focal lower rib pain, severe, wrapping around toward his back which started ~3-4 weeks prior when he had a severe coughing fit following a choking event with immediate sensation of something breaking following in this region w/ progressively worsening pain, severe debility with decreased activity and notably sedentary lifestyle w/ onset dyspnea, worse with deep inspiratory attempts over the last 2 weeks. EKG without acute findings, CXR without acute findings; however, review of prior 03/15/18 studies w/ noted CTPA study with evidence of several small filling defects in the branches of the right and left upper lobe pulmonary arterial branches as well as left lower lobe pulmonary arterial branches consistent with pulmonary emboli in addition to over-read today with noted displaced R 8th rib fracture, trop normal x 1, BNP obtained and normal. No family history of hypercoaguable state. Patient notes no marked recent travel but extremely sedentary following recent rib fracture. Admitted to PCU, maintained on cardiac telemetry. ECHO obtained w/ estimated EF 65%, normal diastolic G for age, moderate dilated RV, unable to estimate RVSP secondary to inadequate jet however pulmonary artery pressure probably normal. Preliminary read DVT US w/ negative BL LE DVT US. Hypercoaguable panel obtained in ED prior to administration anticoagulation w/ xarelto w/ request for patient to follow-up these labs with his PCP. Maintained and discharged on therapeutic xarelto regimen which was noted to be affordable with $0 co-pay per case management investigation. Patient during admission with hypertension, uncontrolled, initiated on lisinopril-chlorothiazide regimen with encouragement for appropriate diet and follow-up with primary care physician with alterations as needed. Patient with previous history of prediabetes however hemoglobin A1c with 6.5% at this time therefore diabetic education initiated, maintain on ADA diet with Accu-Cheks with insulin sliding scale with nutrition consultation for education and teaching but patient refused. Patient amenable to oral metformin start upon discharge with continued ADA diet with glucometer prescription however deferred insulin sliding scale to avoid overload with encouraged PCP follow-up and initiation if appropriate. Encouraged tobacco cessation, inpatient consultation per RT, NR given upon discharge. Encourage patient to discuss DHARMESH evaluation secondary to ongoing daytime fatigue, waking himself up at night with audible snoring. Also suspected Underlying COPD with aerosols administered during admission secondary to wheezing with prolonged history of tobacco use with encouraged PFTs following acute presentation resolution per primary care direction w/ suspected Acute Exacerbation, Mild w/ IV solumedrol 125 mg IV x 1 administered and transitioned to prednisone 40 mg daily x 5 day burst with PRN albuterol inhaler refill and start on advair regimen. Patient discharged to home in improved condition with lessened pain with pain regimen, anticoagulation regimen, new hypertensive and diabetic regimen with follow-up with primary care physician within 3-5 days as well as with physical therapy outpatient recommendation and prescription given secondary to debility chronically with bilateral knee issues as well as acute pain with acute presentation. DAY OF DISCHARGE PROGRESS NOTE: Subjective: Patient without acute event overnight per self and nursing report. Patient this morning with pain regimen alterations with improvement with fentanyl low-dose patch and oral as needed breakthrough regimen. He is moving with greater ease. He was extremely adamant about using a brace during coughing which was started but strict instructions to not use continuously were given as this would encourage worsened atelectasis secondary to poor inspiratory expiratory effort and patient notes understanding. Patient also has ongoing wheezing mildly increased from day prior despite aerosols therefore he was willing to have IV Solu-Medrol and transition to a burst steroid regimen upon discharge. He notes breathing has improved. Patient agreeable to discharge to home with outpatient PT set-up given chronic knee OA and current acute R sided rib pain w/ fx and PEs. Patient will be discharged with follow-up with primary care physician within 3-5 days. Objective: T 99, heart rate 88, BP 132/78, respiratory rate 18, 92% room air, oxygenation testing performed with noted 98% on room air at rest, oxygenation ambulation on room air 89% therefore patient did not qualify. Physical Examination: General: awake, alert, oriented x 3 and cooperative, seated upright in the bedside chair, notes more comfortable with regimen changes. Skin: normal color, turgor, no icterus, cyanosis. HEENT: AT/NC, EOMI, PERRLA, MMM. Lungs: Improved air movement however ongoing expiratory wheezing mildly increased from day prior noted improved effort, no rales or rhonchi. Heart: Regular rate and rhythm; no gallop, rub audible. Abdomen: soft, obese, NTTP, ND, normal BS. Extremities: no cyanosis, clubbing or edema. Neurological: patient awake, alert, oriented x 3; cognitive function appears intact upon questioning,; pupils equally reactive to light and accomodation; cranial nerves II-XII grossly normal, moving all 4 extremities, strength improving, but remains moderately globally decreased secondary to acute presentation, discomfort. Psychiatric: affect appears normal, no acute evidence of depressive or anxiety feelings. Assessment and Plan: Please see hospital summary above. Discharge Activity: - - Encourage regular activity. Out of bed during daytime. To table with all meals. Continue IS 10x/hr 7a-7p. You have requested utilization of a binder which again is not recommended for routine ongoing usage as this can lead to less inspiratory effort therefore we strongly recommend usage only with coughing. May resume sexual activity in: No Restrictions Weight Bearing Status: Weight bearing as tolerated Call your doctor if you observe: Fever of 101 or Higher, Inability to urinate, Inability to have a bowel movement, Shortness of breath, Dizziness, Fainting spells, Chest pain - Worsened or changed chest pain., Uncontrolled pain Home Medications: Medications to take at Discharge Rivaroxaban [Xarelto] 1 tab PO UD #51 tab 03/22/18 Albuterol Sulfate [Ventolin Hfa] 2 puff INHALATION Q4H PRN PRN #1 hfa.aer.ad 03/23/18 Famotidine [Pepcid] 20 mg PO BID #60 tablet 03/23/18 Fluticasone/Salmeterol [Advair 250-50 Diskus] 1 ea IH BID #1 blst.w.dev 03/23/18 Guaifenesin [Robitussin] 10 ml PO Q6H PRN PRN #4 oz 03/23/18 Lisinopril/Hydrochlorothiazide [Zestoretic 10/12.5 Tablet] 1 tab PO DAILY #30 tab 03/23/18 Metformin HCl 500 mg PO BID #60 tab 03/23/18 Nicotine [Nicoderm] 14 mg TRANSDERM. DAILY #14 patch 03/23/18 Oxycodone [Oxyir] 5 - 10 mg PO Q4H PRN PRN 5 Days #30 tab 03/23/18 Prednisone [Deltasone] 40 mg PO DAILY 5 Days #10 tab 03/23/18 fentaNYL patch [Duragesic patch] 25 mcg TRANSDERM. Q3D 6 Days #2 patch 03/23/18 Following Prescrptions Were Given to Patient: Albuterol Sulfate [Ventolin Hfa] 2 puff INHALATION Q4H PRN PRN #1 hfa.aer.ad PRN Reason: Sob &/Or Wheezing Oxycodone [Oxyir] 5 - 10 mg PO Q4H PRN PRN 5 Days #30 tab PRN Reason: Mod-Severe Pain (4-06/13) Guaifenesin [Robitussin] 10 ml PO Q6H PRN PRN #4 oz PRN Reason: COUGH fentaNYL patch [Duragesic patch] 25 mcg TRANSDERM. Q3D 6 Days #2 patch Lisinopril/Hydrochlorothiazide [Zestoretic 10/12.5 Tablet] 1 tab PO DAILY #30 tab Nicotine [Nicoderm] 14 mg TRANSDERM. DAILY #14 patch Prednisone [Deltasone] 40 mg PO DAILY 5 Days #10 tab Rivaroxaban [Xarelto] 1 tab PO UD #51 tab Fluticasone/Salmeterol [Advair 250-50 Diskus] 1 ea IH BID #1 blst.w.dev Metformin HCl 500 mg PO BID #60 tab Other Amb Orders: Glucometer Location: None Selected Primary Care Physician: Chirag Calhoun MD [Primary Care Provider] - Please follow up with your Primary Care Physician in: Follow-up 3-5 days to review admit, review new medications. Patient Instructions: Pulmonary Embolism, Taking JAY Inhibitors, Controlling High Blood Pressure, Long-Term Complications of Diabetes, Resources for People with Diabetes, What Is Type 2 Diabetes?, Oral Medications for Type 2 Diabetes, What Are Snoring and Sleep Apnea?, Taking a Diuretic, Why Do You Smoke?, Planning to Quit Smoking, Getting Support for Quitting Smoking, Coping with Smoking Withdrawal, Rib Fracture (Broken Rib) Disposition: Home Minutes spent on discharge:: 35 Patient Condition:: Fair Medical Necessity - Tobacco Use Smoking Status: Current every day smoker - One half pack per day tobacco use ongoing. Tobacco Use: Cigarettes Meaningful Use Info Meaningful Use Diagnoses (Choose all that apply): VTE - VTE Anticoag overlap given w/in hospital stay or rx'd at dc?: No Pt receive overlap for 5 days?: No Reason overlap not ordered, prescribed, or given for 5 days: Treatment Not Indicated - Xarelto oral regimen. Code Visit Inpatient E&M: 31281 Disch Hosp
[2018-03-23] MEDS: Insulin Lispro 100 UNIT/ML INSULN.PEN SC (12:22)
[2018-03-23 12:41] LABS: Bedside Glucose 156 mg/dL (70-110)
[2018-03-23] MEDS: MethylPREDNISolone 125 MG/2 ML Vial IV (12:57)
--- NOTE | 2018-03-23 14:10 | CASEMGMT ---
This FLACO NAIDU received a call from Dr. Menendez stating that pt's advair script needs prior auth. Call to pharmacy and they verify the same. Call to [facility] prior auth line and per sales representative sales manager, the pt needs to trial Dulera, Brio or Airduo for 30 days before Advair will be authorized. Dr. Menendez aware and provided with phone number to [facility] to change this prescription at this time. SStaten FLACO NAIDU
--- NOTE | 2018-03-26 16:34 | CASEMGMT ---
RN CM Discharge F/U Phone Call LACE: 10 Strata: 3 Discharge date: 03/23/18 Call date: 03/26/18 Call time: [id number] Attempted to reach pt at this time without success at this time, message left with pt at this time to return call to this RN CM. SStaten RN CM Admission dx: Acute bilat PE
[2018-03-28 14:07] LABS: Protein C Antigen 116 % (60-150); Protein C, Functional 170 % (73-180)
[2018-03-28 14:47] LABS: Anti-Cardiolipin Ab, IgG, Qn < 9 GPL U/mL (0-14); Anti-Cardiolipin Ab, IgM, Qn < 9 MPL U/mL (0-12); Anti-Thrombin 3 AG, Immunol 89 % (72-124); Antithrombin 3 Function 120 % (75-135); Beta-2-Glycoprotein I IgA <9 (0-25); Beta-2-Glycoprotein I IgG <9 (0-20); Beta-2-Glycoprotein I IgM <9 (0-32)
== END 2018-03-23 13:29 | disposition home or self-care (01) | DRG 78 ==
LOC: ED 05:50 → PCU 07:43
PROVIDERS: Admitting Provider Family Medicine; Emergency Provider Emergency Medicine; Family Provider Family Medicine; PCP Family Medicine; Visit Provider Family Medicine
DX: I26.99 Other pulmonary embolism without acute cor pulmonale (principal); B18.2 Chronic viral hepatitis C; S22.31XA Fracture of one rib, right side, initial encounter for closed fracture; X58.XXXA Exposure to other specified factors, initial encounter; Y93.89 Activity, other specified; I10 Essential (primary) hypertension; E11.9 Type 2 diabetes mellitus without complications; E66.9 Obesity, unspecified; Z68.37 Body mass index [BMI] 37.0-37.9, adult; F31.9 Bipolar disorder, unspecified; F41.9 Anxiety disorder, unspecified; G47.33 Obstructive sleep apnea (adult) (pediatric); M17.0 Bilateral primary osteoarthritis of knee; F17.210 Nicotine dependence, cigarettes, uncomplicated; F12.90 Cannabis use, unspecified, uncomplicated; Z96.652 Presence of left artificial knee joint; Z91.14 Patient's other noncompliance with medication regimen; Z79.01 Long term (current) use of anticoagulants; Z79.84 Long term (current) use of oral hypoglycemic drugs; Z79.899 Other long term (current) drug therapy
CPT/HCPCS: 36415; 71045; 80048; 81240; 81241; 82962; 83036; 83735; 83880; 84484; 85025; 85027; 85300; 85301; 85302; 85303; 85610; 86146; 86147; 93005; 93306; 93970; 94640; 97162; 99218; 99283; 99406; J7030; Q9957; A4216; C8929; G0378; J2405

== ENCOUNTER 2018-03-27 07:04 | Inpatient (IN) | payer MEDICAID, SELFPAY ==
[2018-03-27] VITALS (12 sets, daily range): BP systolic 133–159; BP diastolic 82–105; PULSE 76–118; RESP 16–28; TEMP 36.5–37.1; O2SAT 91–96; BMI 36.2; BMI 35.8; BMI 36.3
--- NOTE | 2018-03-27 07:17 | CT_ITS ---
STUDY: CTA CHEST REASON FOR EXAM: Male, 47 years old. Shortness of breath and wheezing, recent pulmonary embolism. RADIATION DOSAGE (If Supplied By Facility): CTDIvol = ( 18.38 ) mGy, DLP = ( 1456.56 ) mGycm TECHNIQUE: The examination was performed with the intravenous administration of 200 ml of Isovue 300 contrast material. Post-processing of the angiographic images was performed, with multiplanar reformation and 3D reconstruction. The study was repeated due to suboptimal contrast enhancement. Despite the study being repeated, the contrast bolus remains somewhat suboptimal. Individualized dose optimization techniques were used for this CT. COMPARISON: 03/15/2018 FINDINGS: Normal enhancement of the main pulmonary artery and right and left pulmonary arteries. There is a filling defect within the lingular branch of the left pulmonary artery. Small filling defects are seen within the left lower lobe pulmonary artery branches filling defects are seen within the left and right upper lobe pulmonary artery branches. Findings are very similar to the comparison study. Normal thoracic aorta and visualized great vessels. There is no demonstrated aortic dissection. Normal heart and pericardium. Normal mediastinum. Normal hilar regions. Normal visualized trachea and bronchi. The lungs are well expanded. Emphysematous changes are similar. There is some pleural thickening on the right adjacent to the right-sided rib fractures. Normal chest wall structures. There are new fractures of the right posterior lateral seventh and eighth ribs. The liver demonstrates low attenuation consistent with steatosis. CT/CTA Chest W/WO Contrast IMPRESSION: There is no significant change to the multiple small bilateral subsegmental pulmonary emboli when compared to the study of 12 days previously. These are found within the upper lobes and left lower lobe. New right-sided seventh and eighth rib fractures compared to the prior CT. These were present on chest x-ray of 03/22/2018. Emphysematous changes without pneumothorax. Despite the study being repeated, the contrast bolus remains somewhat suboptimal. Electronically Signed: Robby Enriquez DO at 9:01 EDT Tel , Service support ,
--- NOTE | 2018-03-27 07:17 | EKG12_ITS ---
Test Reason : SOB Blood Pressure : / mmHG Vent. Rate : 099 BPM Atrial Rate : 099 BPM P-R Int : 148 ms QRS Dur : 102 ms QT Int : 356 ms P-R-T Axes : 031 023 071 degrees QTc Int : 456 ms Normal sinus rhythm Normal ECG Confirmed by MAIA ALVARADO, KHOI ([id number]), proposal editor JEFF MORGAN ([id number] on 03/30/2018 1:16:51 PM Referred By: ROXANA Confirmed By:KHOI CARVALHO MD
[2018-03-27] MEDS: Ipratropium/Albuterol Sulfate 3 ML AMPUL.NEB INHALATION ×2 (07:27→13:26)
[2018-03-27] MEDS: morphine 8 MG/ML Syringe IV (07:27)
[2018-03-27 07:30] LABS: Absolute Lymphocyte Count 2.59 X10^3/ul (0.83-4.51); Absolute Neutrophil Count 6.6 X10^3/uL (2.0-7.7); Basophil# 0.02 X10^3/uL; Basophil% 0.2 % (0-1); Eosinophil# 0.01 X10^3/uL; Eosinophils% 0.1 % (0-5); Hematocrit 42.7 % (40-54); Hemoglobin 14.3 g/dl (13.0-16.5); Lymphocyte # 2.59 X10^3/ul (4.0); Lymphocyte % 24.6 % (19-41); Mean Corp Hgb Conc 33.5 g/gl (32-36); Mean Corpuscular Hgb 29.9 pg (27.0-32.0); Mean Corpuscular Volume 89.3 fL (80-94); Monocyte# 1.23 X10^3/uL; Monocyte% 11.7 % (0-10); Neutrophil # 6.62 X10^3/uL (2.7-7.7); Platelet Count 474 K/mm3 (150-450); RBC Distribution Width CV 13.7 % (11.6-14.6); RBC Distribution Width SD 44.3 fl (35.1-43.9); Red Blood Count 4.78 M/mm3 (4.6-6.2); White Blood Count 10.5 K/mm3 (4.4-11.0)
[2018-03-27 07:31] LABS: POSITIVE COUNT NO; POSITIVE DIFFERENTIAL NO; POSITIVE MORPHOLOGY NO
[2018-03-27 07:53] LABS: Anion Gap 7 (5-15); BUN 20 mg/dL (7-18); BUN/Creat Ratio 16.7 RATIO (10-20); Calcium,Total 9.7 mg/dL (8.5-10.1); Chloride 98 mmol/L (98-107); EST Glomerular Filtration Rate 69 mL/min (>60); Est Glom Filt Rate - Afr Amer 83 mL/min (>60); Estimated Creatinine Clearance 81.05 ml/min; Glucose 148 mg/dL (74-106); Potassium 4.5 mmol/L (3.5-5.1); Sodium Level 135 mmol/L (136-145)
[2018-03-27] MEDS: Morphine 4 MG/ML Syringe IV (08:38)
--- NOTE | 2018-03-27 09:14 | ED.VISSUMM ---
- ER Visit Summary Date of Service: 03/27/18 Chief Complaint: Chest pain and shortness of breath History of Present Illness: The patient is a 47 M with chest pain and shortness of breath. The patient was admitted last week. He has bilateral PEs and right sided rib fractures. He was discharged with a prescription for fentanyl patches and he is taking Xarelto. He reports that his pain and shortness of breath have not improved and his pain is actually worsened despite taking his medications. His rib fractures occurred several weeks ago after a coughing fit. They were diagnosed on an x-ray on the . His PEs were diagnosed on the CTA on the . At this time, it is unclear what provoked his PEs. Physical Examination: Afebrile and vital signs unremarkable. Patient is tearful and appears very uncomfortable. Reluctant to move or take a deep breath. Skin appears normal without pallor or diaphoresis. Heart tachycardic but regular. Lungs diminished throughout secondary to poor inspiration. Calves soft and supple. Test Results: EKG showed sinus rhythm. No sign of acute ischemia or infarction pattern. CBC, BMP, troponin all unremarkable. CTA was repeated given his worsening symptoms. There was no sign of pneumothorax or hemothorax. He has the right seventh and eighth rib fractures and the bilateral small pulmonary embolisms, but nothing acute. Emergency Department Course and Treatment: Patient received a breathing treatment and morphine. This helped somewhat but he was still having a lot of pain. He required additional morphine. He was tearful and still very reluctant to move. I explained to him that I did not identify any other new issues or different issues on the workup, but it takes several weeks for his ribs to heal, and he may have pain from PEs for several weeks as well. Though I suspect most of the pain is from his rib fractures. I talked to the patient about increasing his pain medicine at home. It sounds like he is not doing very well. Having hard time functioning. He is not sure if he can get his pain medicines covered. He is not sure if he can afford them. He does not seem to be doing well at home secondary to this intractable pain. I spoke with the hospitalist about admitting him for pain control, and he will be admitted to [facility]. Treatment Plan: Above Disposition: Admit to [facility] Impression: 1. Intractable pain 2. Right-sided rib fractures, 7 and 8 3. Bilateral PEs This note was generated with SLID dictation software. It may contain incorrect words, spelling, and punctuation that were not noted in review of the chart prior to signing ED Disposition - Plan for ED Patient: Chief Complaint: Shortness of Breath Referrals: Chirag Calhoun MD [Primary Care Provider] -
--- NOTE | 2018-03-27 09:19 | ED.DCSUM_ITS ---
- ER Visit Summary Date of Service: 03/27/18 Chief Complaint: Chest pain and shortness of breath History of Present Illness: The patient is a 47 M with chest pain and shortness of breath. The patient was admitted last week. He has bilateral PEs and right sided rib fractures. He was discharged with a prescription for fentanyl patches and he is taking Xarelto. He reports that his pain and shortness of breath have not improved and his pain is actually worsened despite taking his medications. His rib fractures occurred several weeks ago after a coughing fit. They were diagnosed on an x-ray on the . His PEs were diagnosed on the CTA on the . At this time, it is unclear what provoked his PEs. Physical Examination: Afebrile and vital signs unremarkable. Patient is tearful and appears very uncomfortable. Reluctant to move or take a deep breath. Skin appears normal without pallor or diaphoresis. Heart tachycardic but regular. Lungs diminished throughout secondary to poor inspiration. Calves soft and supple. Test Results: EKG showed sinus rhythm. No sign of acute ischemia or infarction pattern. CBC, BMP, troponin all unremarkable. CTA was repeated given his worsening symptoms. There was no sign of pneumothorax or hemothorax. He has the right seventh and eighth rib fractures and the bilateral small pulmonary embolisms, but nothing acute. Emergency Department Course and Treatment: Patient received a breathing treatment and morphine. This helped somewhat but he was still having a lot of pain. He required additional morphine. He was tearful and still very reluctant to move. I explained to him that I did not identify any other new issues or different issues on the workup, but it takes several weeks for his ribs to heal, and he may have pain from PEs for several weeks as well. Though I suspect most of the pain is from his rib fractures. I talked to the patient about increasing his pain medicine at home. It sounds like he is not doing very well. Having hard time functioning. He is not sure if he can get his pain medicines covered. He is not sure if he can afford them. He does not seem to be doing well at home secondary to this intractable pain. I spoke with the hospitalist about admitting him for pain control, and he will be admitted to [facility]. Treatment Plan: Above Disposition: Admit to [facility] Impression: 1. Intractable pain 2. Right-sided rib fractures, 7 and 8 3. Bilateral PEs This note was generated with blueKiwi dictation software. It may contain incorrect words, spelling, and punctuation that were not noted in review of the chart prior to signing ED Disposition - Plan for ED Patient: Chief Complaint: Shortness of Breath Referrals: Chirag Calhoun MD [Primary Care Provider] -
--- NOTE | 2018-03-27 11:25 | PCM.HP.STD ---
Problem List (1) Prediabetes Status: Chronic (2) HTN (hypertension) Status: Chronic Qualifiers: Hypertension type: essential hypertension Qualified Code(s): I10 - Essential (primary) hypertension (3) Bipolar disorder Status: Chronic Qualifiers: Active/Remission status: remission status unspecified Qualified Code(s): F31.9 - Bipolar disorder, unspecified (4) Non-compliant patient Status: Chronic (5) Nicotine addiction Status: Chronic Qualifiers: Nicotine product type: cigarettes (6) Hepatitis C Status: Chronic Qualifiers: Viral hepatitis chronicity: chronic History of Present Illness Date of Admission: 03/27/18 Chief Complaint: Chest pain, shortness of breath. The patient is a 47 year old M with past medical history as mentioned above presented to the emergency room because of worsening right lateral chest pain or shortness of breath. On March 15, 2018, this patient presented to the emergency room because of chest pain and he was discharged home on pain medicine. On the same day, he had CTA chest that revealed several bilateral upper lungs as well as left lower lung pulmonary emboli. Patient returned back to ED on March 22, 2018 and and upon review of the CTA chest that was done on March 15, 2018, he tends to has multiple bilateral pulmonary emboli. He was discharged on March 23, 2018 on Xarelto for PEs as well as OxyIR and fentanyl patch for pain control. Patient returned back to ED today because of worsening right lateral chest pain and shortness of breath. He mentioned that his pain did not go away and has been getting worse over the last couple of days, it is on the right lateral chest, sharp pain, 9 out of 10 in severity, extends across the right lateral chest as well as underneath the right scapula, aggravated by movement and taking a deep breath, no relieving factor and associated with shallow breathing and shortness of breath. He reported vigorous coughing for the last few days with minimal sputum. He denies fever chills. He denied anterior chest pain, dizziness, lightheadedness, syncope or presyncope. In the emergency department, his blood pressure was slightly elevated, other vital signs were stable. He was in severe pain. He received a total of 12 mg of IV morphine without any improvement. His routine blood work was unremarkable. His EKG revealed normal sinus rhythm, normal GA interval, normal QRS and no evidence of acute ischemic changes. CTA chest done again today and revealed multiple small bilateral subsegmental pulmonary emboli on bilateral upper lobes as well as left lower lobe. Also, there is a new right-sided seventh and eighth rib fractures. He is being admitted for intractable right lateral chest pain due to rib fractures as well as probably secondary to multiple pulmonary emboli. Past Medical History Past Medical History (Chronic Problems): Chronic Problems Prediabetes (Chronic) Obesity (BMI 30-39.9) (Chronic) HTN (hypertension) (Chronic) Bipolar disorder (Chronic) Non-compliant patient (Chronic) Nicotine addiction (Chronic) Hepatitis C (Chronic) Allergies oxycodone [From OxyContin] Adverse Reaction (Mild, Verified 03/27/18 07:07) Itching Home Medications: Ambulatory Orders Medication Instructions Recorded Rivaroxaban [Xarelto] 1 tab PO UD #51 tab 03/22/18 Albuterol Sulfate [Ventolin Hfa] 2 puff INHALATION Q4H PRN PRN #1 03/23/18 hfa.aer.[email or web address] Famotidine [Pepcid] 20 mg PO BID #60 tablet 03/23/18 Fluticasone/Salmeterol [Advair 1 ea IH BID #1 blst.w.dev 03/23/18 250-50 Diskus] Guaifenesin [Robitussin] 10 ml PO Q6H PRN PRN #4 oz 03/23/18 Lisinopril/Hydrochlorothiazide 1 tab PO DAILY #30 tab 03/23/18 [Zestoretic 06/15.5 Tablet] Metformin HCl 500 mg PO BID #60 tab 03/23/18 Nicotine [Nicoderm] 14 mg TRANSDERM. DAILY #14 patch 03/23/18 Oxycodone [Oxyir] 5 - 10 mg PO Q4H PRN PRN 5 Days 03/23/18 #30 tab Prednisone [Deltasone] 40 mg PO DAILY 5 Days #10 tab 03/23/18 fentaNYL patch [Duragesic patch] 25 mcg TRANSDERM. Q3D 6 Days #2 03/23/18 patch Surgical History: total knee arthroplasty - On the left knee, - - Umbilical hernia repair, bilateral knee arthroscopic surgeries and ligament repair, great toe trauma with several follow-up surgical interventions. Psychiatric History: Anxiety, Bipolar - Not on any medication at the present time, Depression Smoking Status: Former smoker Alcohol: None Drugs: None - *Family History Maternal History Items: High Cholesterol, Heart Disease, Hypertension Paternal History Items: High Cholesterol, Heart Disease, Hypertension Review of Systems Constitutional: Denies: Anorexia, Chills, Fever, Weakness Eyes: Denies: Blurred vision, Double vision, Drainage, Redness HEENT: Denies: Difficulty Hearing, Ear Pain, Eye Pain, Nasal Congestion, Sore Throat Cardiovascular: Reports: Chest Pain. Denies: Chest Pressure, Chest Tightness, Edema, Heaviness, Light Headedness, Orthopnea, Paroxysmal Noc. Dyspnea, Syncope Respiratory: Reports: Cough, Pleuritic Pain, Shortness of Breath. Denies: Sputum production, Wheezing Gastrointestinal: Denies: Abdominal Pain, Constipation, Diarrhea, Nausea, Vomiting Genitourinary: Denies: Dysuria, Frequency, Hematuria Musculoskeletal: Denies: Arm Pain, Back Pain, Foot Pain Skin: Denies: Dryness, Rash Neurological: Denies: Balance problems, Double vision, Change in Speech, Slurred speech, Confusion, Focal weakness, Headaches, Incoordination, Numbness Psychiatric: Reports: Anxiety. Denies: Depression VTE Information - Inpt Only VTE Present on Admission: No VTE Mechan Device Prophylaxis: None VTE Pharm Prophylaxis ordered?: No - Physical Exam General: Alert, Oriented x3, Cooperative, - - He is in severe pain. HEENT: Atraumatic, PERRLA, EOMI, Normocephalic Oral: Moist Mucosa, No Gingival or Mucosal Lesions/ Ulcerations Neck: Supple, No JVD, Negative Carotid Bruits, Trachea Midline, Thyroid Normal Size and Texture Lungs: Clear to auscultation, No rhonchi, No wheeze, No rales, Diminished Cardiovascular: Regular rate, Regular Rhythm, Normal S1, Normal S2, No murmurs, PMI Normal Abdomen: Bowel Sounds Present, Soft, Non Tender, Non-Distended, No Hepato-splenomegaly Extremities: No clubbing, No cyanosis, No edema Skin: No rashes, No breakdown Lymphatic: No Cervical, Supraclavicular, or Inguinal Adenopathy Neurological: Cranial nerves II-XII grossly intact, Motor Exam 5/5 strength throughout Psych/Mental Status: Normal Affect, Appropriate, Alert and oriented to time, place, person, mood and affect Vital Signs Temp Pulse Resp BP Pulse Ox 97.7 F L 87 20 H 159/105 H 93 07/24/18 10:41 03/27/18 10:41 03/27/18 10:41 03/27/18 10:41 03/27/18 10:41 Oxygen Delivery Method Room Air Weight: 257 lb 0.944 oz Body Mass Index (BMI) 35.8 Laboratory Tests 03/27/18 03/27/18 Range/Units 07:20 07:20 WBC 10.5 (4.4-11.0) K/mm3 RBC 4.78 (4.6-6.2) M/mm3 Hgb 14.3 (13.0-16.5) g/dl Hct 42.7 (40-54) % MCV 89.3 (80-94) fL MCH 29.9 (27.0-32.0) pg MCHC 33.5 (32-36) g/gl RDW 13.7 (11.6-14.6) % RDW Differential 44.3 H (35.1-43.9) fl Plt Count 474 H (150-450) K/mm3 MPV 9.0 (6.2-12.0) fl Immature Gran % (Auto) 0.400 (0.0-0.9) % Neut % (Auto) 63.0 (47-70) % Lymph % (Auto) 24.6 (19-41) % [place] % (Auto) 11.7 H (0-10) % Eos % (Auto) 0.1 (0-5) % Baso % (Auto) 0.2 (0-1) % Absolute Neuts (auto) 6.6 (2.0-7.7) X10^3/uL Absolute Lymphs (auto) 2.59 (0.83-4.51) X10^3/ul Total Counted Not Reportable Sodium 135 L (136-145) mmol/L Potassium 4.5 (3.5-5.1) mmol/L Chloride 98 (98-107) mmol/L Carbon Dioxide 30.0 (21.0-32.0) mmol/L Anion Gap 7 (5-15) BUN 20 H (7-18) mg/dL Creatinine 1.20 (0.70-1.30) mg/dL Estim Creat Clear Calc 81.05 ml/min Est GFR (MDRD) Af Amer 83 (>60) mL/min Est GFR (MDRD) Non-Af 69 (>60) mL/min BUN/Creatinine Ratio 16.7 (10-20) RATIO Glucose 148 H (74-106) mg/dL Calcium 9.7 (8.5-10.1) mg/dL Troponin I < 0.015 (<0.045) ng/mL Clinical Impression(s) from Imaging Studies Chest CTA 03/27/18 07:17 IMPRESSION: There is no significant change to the multiple small bilateral subsegmental pulmonary emboli when compared to the study of 12 days previously. These are found within the upper lobes and left lower lobe. New right-sided seventh and eighth rib fractures compared to the prior CT. These were present on chest x-ray of 03/22/2018. Emphysematous changes without pneumothorax. Despite the study being repeated, the contrast bolus remains somewhat suboptimal. Electronically Signed: Robby Enriquez DO at 9:01 EDT Tel , Service support , Assessment/Plan This is a 47 years old male patient presented to the ED because of worsening right lateral chest pain and shortness of breath in context of recent diagnosis of multiple small bilateral upper lobes and left lower lobe PEs and he was found to have new acute right seventh and eighth rib fractures and he is being admitted for intractable right lateral chest pain that is not responding to IV narcotics in the ED. #1 intractable right lateral chest pain/shortness of breath: This is secondary to right seventh and eighth rib fractures and probably secondary to multiple PEs. It is pleuritic chest pain. EKG revealed normal sinus rhythm without evidence of acute ischemic changes. Troponin is negative. CTA chest reviewed, positive for PEs and rib fractures as mentioned, no pneumothorax or pleural effusion. Patient received total of 12 mg of IV morphine in the ED without improvement. His blood pressure slightly elevated, other vital signs are stable. Plan: Admit to MedSurg floor, cardiac monitoring, IV hydromorphone as needed for pain, IV Toradol as needed, [place] as needed, IV antiemetics, IV fluids, incentive spirometer, lidocaine patch topical to the right lateral chest, PT OT evaluation and treatment. #2 recent diagnosis of multiple small subsegmental bilateral pulmonary emboli: CTA chest from March 15, 2013 as well as from today reviewed, revealed small multiple bilateral upper lobe PEs as well as small PEs on the left lower lobe. During the last admission, patient had 2D echocardiogram done and revealed ejection fraction 65%, moderately dilated right ventricle. He has been on Xarelto. Plan to continue Xarelto for now. #3 acute right seventh and eighth rib fractures: This is a new finding on CTA chest that was done yesterday. It is likely due to vigorous and persistent strong cough. Patient denies any mechanical fall or trauma. Plan: IV hydromorphone as needed for pain, lidocaine patch topical, incentive spirometer. #4 hypertension: Blood pressure slightly elevated likely because of pain. Plan to continue Zestoretic, IV hydralazine as needed. #5 type 2 diabetes mellitus: ADA diet, Accu-Cheks, insulin sliding scale, continue metformin. #6 chronic hepatitis C: Not on treatment, recommend follow-up as outpatient with his doctor. #7 suspected chronic COPD: Based on prolonged history of smoking. He has been on albuterol and Advair at home. At this time, pulse ox is maintained on room air. Plan: DuoNeb every 6 hours, albuterol as needed, incentive spirometer. #8 anxiety/depression: Is not on any medication at home. #9 tobacco abuse: NicoDerm patch. #10 DVT prophylaxis: Continue Xarelto. This note was generated with [employer] dictation software. It may contain incorrect words, spelling, and punctuation that were not noted in checking the note before signing. Code Visit Inpatient E&M: 19552 Init Hosp L3
[2018-03-27] MEDS: HYDROmorphone 1 MG/ML Syringe IV ×4 (11:27→21:21)
--- NOTE | 2018-03-27 11:40 | NURSING ---
pt had 25mcg Fentanyl patch located on Left outer arm - pt states placed it yesterday 03/26 @ 1700. Patch was removed and flushed in toilet - witnessed by Ana SAM
[2018-03-27 12:00] LABS: Bedside Glucose 137 mg/dL (70-110)
[2018-03-27] MEDS: Famotidine 20 MG Tablet PO ×2 (12:43→21:21)
[2018-03-27] MEDS: Lidocaine 5% Patch 1 PATCH TOPICAL (12:56)
[2018-03-27] MEDS: Ketorolac 30 MG/ML Syringe IV ×2 (12:56→23:33)
[2018-03-27] MEDS: HYDROcodone Bitartrate/Apap 5/325 Tablet PO ×2 (12:57→23:32)
[2018-03-27] MEDS: Magnesium Hydroxide 30 ML UDC PO (12:57)
[2018-03-27] MEDS: Insulin Lispro 100 UNIT/ML INSULN.PEN SC ×2 (16:26→21:19)
[2018-03-27 17:00] LABS: Bedside Glucose 173 mg/dL (70-110)
[2018-03-27] MEDS: Rivaroxaban 15 MG Tablet PO (17:53)
[2018-03-27] MEDS: 0.9% NaCl Peripheral Flush Adult/Peds IV (18:18)
[2018-03-27 22:51] LABS: Bedside Glucose 167 mg/dL (70-110)
[2018-03-27] MEDS: guaiFENesin 10 ML UDC (200MG/10ML) PO (23:32)
[2018-03-28] VITALS (19 sets, daily range): BP systolic 114–158; BP diastolic 71–108; PULSE 74–106; RESP 18–21; TEMP 36.3–37.1; O2SAT 86–96
[2018-03-28] MEDS: HYDROmorphone 1 MG/ML Syringe IV ×8 (00:41→21:23)
[2018-03-28] MEDS: Ipratropium/Albuterol Sulfate 3 ML AMPUL.NEB INHALATION ×4 (01:09→23:10)
[2018-03-28] MEDS: HYDROcodone Bitartrate/Apap 5/325 Tablet PO (05:48)
[2018-03-28] MEDS: Rivaroxaban 15 MG Tablet PO ×2 (05:49→17:31)
[2018-03-28] MEDS: guaiFENesin 10 ML UDC (200MG/10ML) PO ×2 (05:49→13:03)
[2018-03-28 07:11] LABS: Bedside Glucose 126 mg/dL (70-110)
[2018-03-28] MEDS: Lidocaine 5% Patch 1 PATCH TOPICAL (08:34)
[2018-03-28] MEDS: Famotidine 20 MG Tablet PO ×2 (08:34→21:34)
[2018-03-28] MEDS: Lisinopril 10 MG Tablet PO (08:35)
[2018-03-28] MEDS: HYDROCHLOROTHIAZIDE 12.5 MG CAPSULE PO (08:35)
--- NOTE | 2018-03-28 08:48 | PCM.PROGNOTE ---
Subjective: Chief complaint: Follow-up after admission for intractable right lateral chest pain, acute right seventh and eighth rib fractures, recent history of PE. Patient seen and examined. No acute events overnight. He is still symptomatic with left right lateral chest pain, pain is not controlled. Pain is worsening upon taking a deep breath or movement. Also, he complains of shortness of breath and wheezing. His vital signs are stable. - Physical Exam General: Alert, Oriented x3, Cooperative, - - He is in mild to moderate pain. HEENT: Atraumatic, PERRLA, EOMI, Normocephalic Oral: Moist Mucosa, No Gingival or Mucosal Lesions/ Ulcerations Neck: Supple, No JVD, Negative Carotid Bruits, Trachea Midline, Thyroid Normal Size and Texture Lungs: No rales, Diminished, Rhonchi, Short of Breath, Wheezes, - - Decreased breath sounds bilateral, bilateral expiratory wheezes, rhonchi. Cardiovascular: Regular rate, Regular Rhythm, Normal S1, Normal S2, No murmurs, PMI Normal Abdomen: Bowel Sounds Present, Soft, Non Tender, Non-Distended, No Hepato-splenomegaly Extremities: No clubbing, No cyanosis, No edema Skin: No rashes, No breakdown Lymphatic: No Cervical, Supraclavicular, or Inguinal Adenopathy Neurological: Cranial nerves II-XII grossly intact, Motor Exam 5/5 strength throughout Psych/Mental Status: Normal Affect, Appropriate, Alert and oriented to time, place, person, mood and affect Vital Signs Temp Pulse Resp BP Pulse Ox 98.0 F 80 18 121/94 H 92 03/28/18 08:27 03/28/18 08:27 03/28/18 08:27 03/28/18 08:27 03/28/18 08:27 Oxygen Delivery Method Room Air Weight: 257 lb 0.944 oz Body Mass Index (BMI) 35.8 Intake and Output for Last 24 Hours 03/26/18 03/27/18 03/28/18 23:59 23:59 23:59 Intake Total 300 / 300 Output Total 250 / 250 Balance 50 / 50 POC Glucose 03/28/18 03/27/18 03/27/18 06:55 21:14 16:22 POC Glucose 126 H 167 H 173 H 03/27/18 11:51 POC Glucose 137 H Medical Necessity - Tobacco Use Smoking Status: Former smoker Assessment/Plan This is a 47 years old male patient presented to the ED because of worsening right lateral chest pain and shortness of breath in context of recent diagnosis of multiple small bilateral upper lobes and left lower lobe PEs and he was found to have new acute right seventh and eighth rib fractures and he is being admitted for intractable right lateral chest pain that is not responding to IV narcotics in the ED. #1 intractable right lateral chest pain/shortness of breath: IV Dilaudid, [place] as needed and lidocaine patch. He is still symptomatic, pain is not well controlled. His vital signs are stable. It is pleuritic chest pain. EKG revealed normal sinus rhythm without evidence of acute ischemic changes. Troponin is negative. CTA chest reviewed, positive for PEs and rib fractures as mentioned, no pneumothorax or pleural effusion. Plan: DC [place], start OxyIR, start Flexeril as needed, continue IV Dilaudid. #2 probable COPD exacerbation: Today, patient complains of increasing shortness of breath and wheezing. Chest auscultation revealed diffuse expiratory wheezes. Pulse ox is maintained on room air. Chest x-ray from yesterday reviewed, no acute findings. Plan: Change DuoNeb to every 4 hours, start oral prednisone. #3 recent diagnosis of multiple small subsegmental bilateral pulmonary emboli: Continue Xarelto. Respiratory status is stable. CTA chest from March 15, 2013 as well as from today reviewed, revealed small multiple bilateral upper lobe PEs as well as small PEs on the left lower lobe. During the last admission, patient had 2D echocardiogram done and revealed ejection fraction 65%, moderately dilated right ventricle. #4 acute right seventh and eighth rib fractures: Plan as above, encourage incentive spirometer. It is likely due to vigorous and persistent strong cough. Patient denies any mechanical fall or trauma. #5 hypertension: Blood pressure stable, continue Zestoretic, IV metoprolol as needed. #6 type 2 diabetes mellitus: Blood sugar stable, continue ADA diet, Accu-Cheks, insulin sliding scale, continue metformin. #7 chronic hepatitis C: Not on treatment, recommend follow-up as outpatient with his doctor. #8 anxiety/depression: Is not on any medication at home. #9 tobacco abuse: NicoDerm patch. #10 DVT prophylaxis: Continue Xarelto. This note was generated with [employer] software. It may contain incorrect words, spelling, and punctuation that were not noted in checking the note before signing. Code Visit Inpatient E&M: 13641 Subs Hosp L2
--- NOTE | 2018-03-28 08:56 | PN_ITS ---
Subjective: Chief complaint: Follow-up after admission for intractable right lateral chest pain, acute right seventh and eighth rib fractures, recent history of PE. Patient seen and examined. No acute events overnight. He is still symptomatic with left right lateral chest pain, pain is not controlled. Pain is worsening upon taking a deep breath or movement. Also, he complains of shortness of breath and wheezing. His vital signs are stable. - Physical Exam General: Alert, Oriented x3, Cooperative, - - He is in mild to moderate pain. HEENT: Atraumatic, PERRLA, EOMI, Normocephalic Oral: Moist Mucosa, No Gingival or Mucosal Lesions/ Ulcerations Neck: Supple, No JVD, Negative Carotid Bruits, Trachea Midline, Thyroid Normal Size and Texture Lungs: No rales, Diminished, Rhonchi, Short of Breath, Wheezes, - - Decreased breath sounds bilateral, bilateral expiratory wheezes, rhonchi. Cardiovascular: Regular rate, Regular Rhythm, Normal S1, Normal S2, No murmurs, PMI Normal Abdomen: Bowel Sounds Present, Soft, Non Tender, Non-Distended, No Hepato- splenomegaly Extremities: No clubbing, No cyanosis, No edema Skin: No rashes, No breakdown Lymphatic: No Cervical, Supraclavicular, or Inguinal Adenopathy Neurological: Cranial nerves II-XII grossly intact, Motor Exam 5/5 strength throughout Psych/Mental Status: Normal Affect, Appropriate, Alert and oriented to time, place, person, mood and affect Vital Signs Temp Pulse Resp BP Pulse Ox 98.0 F 80 18 121/94 H 92 03/28/18 08:27 03/28/18 08:27 03/28/18 08:27 03/28/18 08:27 03/28/18 08:27 Oxygen Delivery Method Room Air Weight: 257 lb 0.944 oz Body Mass Index (BMI) 35.8 Intake and Output for Last 24 Hours 03/26/18 03/27/18 03/28/18 23:59 23:59 23:59 Intake Total 300 / 300 Output Total 250 / 250 Balance 50 / 50 POC Glucose 03/28/18 03/27/18 03/27/18 06:55 21:14 16:22 POC Glucose 126 H 167 H 173 H 03/27/18 11:51 POC Glucose 137 H Medical Necessity - Tobacco Use Smoking Status: Former smoker Assessment/Plan This is a 47 years old male patient presented to the ED because of worsening right lateral chest pain and shortness of breath in context of recent diagnosis of multiple small bilateral upper lobes and left lower lobe PEs and he was found to have new acute right seventh and eighth rib fractures and he is being admitted for intractable right lateral chest pain that is not responding to IV narcotics in the ED. #1 intractable right lateral chest pain/shortness of breath: IV Dilaudid, [place] as needed and lidocaine patch. He is still symptomatic, pain is not well controlled. His vital signs are stable. It is pleuritic chest pain. EKG revealed normal sinus rhythm without evidence of acute ischemic changes. Troponin is negative. CTA chest reviewed, positive for PEs and rib fractures as mentioned, no pneumothorax or pleural effusion. Plan: DC [place], start OxyIR , start Flexeril as needed, continue IV Dilaudid. #2 probable COPD exacerbation: Today, patient complains of increasing shortness of breath and wheezing. Chest auscultation revealed diffuse expiratory wheezes. Pulse ox is maintained on room air. Chest x-ray from yesterday reviewed, no acute findings. Plan: Change DuoNeb to every 4 hours, start oral prednisone. #3 recent diagnosis of multiple small subsegmental bilateral pulmonary emboli: Continue Xarelto. Respiratory status is stable. CTA chest from March 15, 2013 as well as from today reviewed, revealed small multiple bilateral upper lobe PEs as well as small PEs on the left lower lobe. During the last admission, patient had 2D echocardiogram done and revealed ejection fraction 65%, moderately dilated right ventricle. #4 acute right seventh and eighth rib fractures: Plan as above, encourage incentive spirometer. It is likely due to vigorous and persistent strong cough. Patient denies any mechanical fall or trauma. #5 hypertension: Blood pressure stable, continue Zestoretic, IV metoprolol as needed. #6 type 2 diabetes mellitus: Blood sugar stable, continue ADA diet, Accu-Cheks, insulin sliding scale, continue metformin. #7 chronic hepatitis C: Not on treatment, recommend follow-up as outpatient with his doctor. #8 anxiety/depression: Is not on any medication at home. #9 tobacco abuse: NicoDerm patch. #10 DVT prophylaxis: Continue Xarelto. This note was generated with [employer] software. It may contain incorrect words, spelling, and punctuation that were not noted in checking the note before signing. Code Visit Inpatient E&M: 58108 Subs Hosp L2
[2018-03-28] MEDS: Polyethylene Glycol 3350 17 GM PACKET PO (10:10)
[2018-03-28] MEDS: 0.9% NaCl Peripheral Flush Adult/Peds IV ×4 (10:10→21:23)
[2018-03-28] MEDS: oxyCODONE 5 MG Tablet PO (10:29)
--- NOTE | 2018-03-28 11:44 | CASEMGMT ---
RN ELYSIA Face to Face with patient for initial transition planning/care coordination assessment. RN CM introduced self and role at [facility]. Patient lying in bed, alert and oriented. Patient willing to participate in assessment and is able to answer all questions appropriately. Care providers, pharmacy, and demographics verified. See link attached. Patient wishes to discharge home, denies need for home health at this time. Patient states he has no further needs or concerns at this time. CM to follow for discharge planning needs that may arise. Disposition Plan: Patient to discharge home with follow-up plans in place.
[2018-03-28 12:16] LABS: Bedside Glucose 110 mg/dL (70-110)
[2018-03-28] MEDS: ALPRAZolam 0.5 MG Tablet PO (13:03)
[2018-03-28] MEDS: predniSONE 20 MG Tablet 40 MG PO (13:03)
[2018-03-28] MEDS: Senna Tablet 2 TABLET PO (13:03)
--- NOTE | 2018-03-28 14:21 | NURSING ---
Nurse was ready to notify physician that pt's pain is worse than yesterday, and Dr. Morales walked into the room. Said he would notify Dr. López, and order a CT scan.
--- NOTE | 2018-03-28 14:23 | CT_ITS ---
STUDY: CT CHEST WITHOUT CONTRAST REASON FOR EXAM: Male, 47 years old. Pain. RADIATION DOSAGE (If Supplied By Facility): CTDIvol = ( 20.73 ) mGy, DLP = ( 605.02 ) mGycm TECHNIQUE: Transaxial imaging was performed without the administration of intravenous contrast material. Multiplanar coronal and sagittal images were reformatted. Individualized dose optimization techniques were used for this CT. COMPARISON: March 27, 2018. FINDINGS: There is emphysematous change with fibrotic densities of the right lung apex There is development of right mid and lower lung consolidation. There is mild left mid lung atelectasis . There is moderate right pleural effusion There is no demonstrated pleural abnormality. There are calcifications of the coronary arteries. This Normal mediastinum. Normal hilar regions. Normal unenhanced pulmonary arteries. Normal aorta arch and descending thoracic aorta. Right seventh and eighth rib fractures. There is fatty infiltration of the liver. CT/Chest without Contrast IMPRESSION: There is development of right lower lung consolidation and pleural effusion. Stable right rib fractures. Electronically Signed: Lex Calderón MD at 16:21 EDT , Service support ,
[2018-03-28 16:26] LABS: Bedside Glucose 178 mg/dL (70-110)
[2018-03-28] MEDS: Insulin Lispro 100 UNIT/ML INSULN.PEN SC ×2 (17:30→21:34)
--- NOTE | 2018-03-28 19:26 | NURSING ---
1824 Dr Moore visited pt, no new meds ordered, he is considering doing an intercostal nerve block on Monday, pt was given information about it.
[2018-03-28 22:41] LABS: Bedside Glucose 176 mg/dL (70-110)
[2018-03-29] VITALS (15 sets, daily range): BP systolic 136–161; BP diastolic 85–101; PULSE 73–102; RESP 16–18; TEMP 36.4–36.7; O2SAT 90–95
[2018-03-29] MEDS: HYDROmorphone 1 MG/ML Syringe IV ×7 (00:34→22:52)
[2018-03-29] MEDS: 0.9% NaCl Peripheral Flush Adult/Peds IV ×9 (00:46→17:29)
--- NOTE | 2018-03-29 01:02 | NURSING ---
pt has been reeducated on use if IS and encouraged to do deep breathing and coughing by nursing and respiratory. pt also encouraged to sit up in chair
[2018-03-29] MEDS: guaiFENesin 10 ML UDC (200MG/10ML) PO ×2 (04:54→21:15)
[2018-03-29] MEDS: Rivaroxaban 15 MG Tablet PO (05:13)
[2018-03-29] MEDS: Insulin Lispro 100 UNIT/ML INSULN.PEN SC ×4 (06:19→21:15)
[2018-03-29 06:26] LABS: Bedside Glucose 166 mg/dL (70-110)
[2018-03-29] MEDS: Ipratropium/Albuterol Sulfate 3 ML AMPUL.NEB INHALATION ×4 (06:53→23:55)
--- NOTE | 2018-03-29 07:32 | NURSING ---
RESTING IN BED, NO NEEDS VOICED AT THIS TIME
[2018-03-29] MEDS: Famotidine 20 MG Tablet PO ×2 (08:25→21:15)
[2018-03-29] MEDS: Lisinopril 10 MG Tablet PO (08:25)
[2018-03-29] MEDS: HYDROCHLOROTHIAZIDE 12.5 MG CAPSULE PO (08:26)
[2018-03-29] MEDS: Polyethylene Glycol 3350 17 GM PACKET PO (08:26)
[2018-03-29] MEDS: Lidocaine 5% Patch 1 PATCH TOPICAL (08:26)
--- NOTE | 2018-03-29 08:42 | PCM.PROGNOTE ---
Subjective: Chief complaint: Follow-up after admission for intractable right lateral chest pain, acute right seventh and eighth rib fractures and recent diagnosis of pulmonary embolism. Hospital course complicated by new right pleural effusion as well as right lower lobe consolidation consistent with probable pneumonia. Patient seen and examined. No acute events overnight. He is still symptomatic, complaining of right lateral chest pain, worsened with deep breathing and movement. Denies any significant shortness of breath. Denied fever chills. He has been afebrile, heart rate stable, blood pressure slightly elevated, pulse ox is 92% on room air. - Physical Exam General: Alert, Oriented x3, Cooperative, - - He is in moderate pain. HEENT: Atraumatic, PERRLA, EOMI, Normocephalic Oral: Moist Mucosa, No Gingival or Mucosal Lesions/ Ulcerations Neck: Supple, No JVD, Negative Carotid Bruits, Trachea Midline, Thyroid Normal Size and Texture Lungs: No rhonchi, No wheeze, No rales, Diminished, Short of Breath, - - Decreased breath sounds on the whole right lung, no other sounds and left lung is clear. Cardiovascular: Regular rate, Regular Rhythm, Normal S1, Normal S2, No murmurs, PMI Normal Abdomen: Bowel Sounds Present, Soft, Non Tender, Non-Distended, No Hepato-splenomegaly Extremities: No clubbing, No cyanosis, No edema Skin: No rashes, No breakdown Lymphatic: No Cervical, Supraclavicular, or Inguinal Adenopathy Neurological: Cranial nerves II-XII grossly intact, Motor Exam 5/5 strength throughout Psych/Mental Status: Normal Affect, Appropriate, Alert and oriented to time, place, person, mood and affect Vital Signs Temp Pulse Resp BP Pulse Ox 97.7 F L 92 18 161/101 H 93 03/29/18 08:22 03/29/18 08:22 03/29/18 08:22 03/29/18 08:22 03/29/18 08:22 Oxygen Flow Rate (L/min) 2 Oxygen Delivery Method Room Air Weight: 257 lb 0.944 oz Body Mass Index (BMI) 35.8 Intake and Output for Last 24 Hours 03/27/18 03/28/18 03/29/18 23:59 23:59 23:59 Intake Total 300 / 300 1260 / 1260 Output Total 650 / 650 1475 / 1475 Balance -350 / -350 -215 / -215 POC Glucose 03/29/18 03/28/18 03/28/18 06:18 21:33 16:23 POC Glucose 166 H 176 H 178 H 03/28/18 11:31 POC Glucose 110 Clinical Impression(s) from Imaging Studies Chest CT 03/28/18 14:23 IMPRESSION: There is development of right lower lung consolidation and pleural effusion. Stable right rib fractures. Electronically Signed: Lex Calderón MD at 16:21 EDT , Service support , Medical Necessity - Tobacco Use Smoking Status: Former smoker Assessment/Plan This is a 47 years old male patient presented to the ED because of worsening right lateral chest pain and shortness of breath in context of recent diagnosis of multiple small bilateral upper lobes and left lower lobe PEs and he was found to have new acute right seventh and eighth rib fractures and he is being admitted for intractable right lateral chest pain that is not responding to IV narcotics in the ED. while in the hospital, he developed new right pleural effusion and right lower lobe consolidation diagnosed with probable pneumonia #1 intractable right lateral chest pain/shortness of breath: He is on IV Dilaudid, Toradol, OxyIR, lidocaine patch and Flexeril. Patient still symptomatic, no significant improvement. Respiratory status is stable. Dr. El consulted and recommended nerve block which will be done tomorrow. Recommended to use incentive spirometer, ambulate. #2 probable right lower lobe pneumonia: Probably healthcare associated. CT scan chest without contrast revealed new right pleural effusion and right lower lobe consolidation. Patient has been complaining of productive cough. He has been afebrile. Plan: Stat CBC, BMP, start IV Zosyn, sputum culture. #3 new right pleural effusion: This was not evident on CTA chest that was done on admission. Could be due to hemothorax as patient has been on Xarelto or could be parapneumonic effusion. Plan to start IV antibiotic as above, hold Xarelto, pulmonology consult. #4 probable COPD exacerbation: He is on oral prednisone and bronchodilators. Respiratory status is stabilized, pulse ox is maintained on room air. Plan to continue same treatment. #5 recent diagnosis of multiple small subsegmental bilateral pulmonary emboli: He has been on Xarelto. CT chest revealed new pleural effusion could be hemothorax. Plan to hold Xarelto for now. #6 acute right seventh and eighth rib fractures: He is on pain medication as mentioned above but still symptomatic, pain is well controlled. He developed pleural effusion and consolidation on the right lung. Pain management consulted, planning for nerve block tomorrow. #7 hypertension: Blood pressure slightly elevated, continue Zestoretic, IV metoprolol as needed. #8 type 2 diabetes mellitus: Blood sugar stable, continue ADA diet, Accu-Cheks, insulin sliding scale, continue metformin. #9 chronic hepatitis C: Not on treatment, recommend follow-up as outpatient with his doctor. #10 anxiety/depression: Started on Xanax as needed. #11 tobacco abuse: NicoDerm patch. #12 DVT prophylaxis: DC Xarelto, start SCDs. This note was generated with [employer] dictation software. It may contain incorrect words, spelling, and punctuation that were not noted in checking the note before signing. Code Visit Inpatient E&M: 09570 Subs Hosp L3
[2018-03-29] MEDS: predniSONE 20 MG Tablet 40 MG PO (08:44)
[2018-03-29] MEDS: ALPRAZolam 0.5 MG Tablet PO ×2 (08:44→22:52)
[2018-03-29] MEDS: Senna Tablet 2 TABLET PO (08:44)
[2018-03-29 08:47] LABS: Absolute Lymphocyte Count 1.55 X10^3/ul (0.83-4.51); Absolute Neutrophil Count 10.1 X10^3/uL (2.0-7.7); Basophil# 0.01 X10^3/uL; Basophil% 0.1 % (0-1); Eosinophil# 0.01 X10^3/uL; Eosinophils% 0.1 % (0-5); Hematocrit 42.6 % (40-54); Hemoglobin 13.6 g/dl (13.0-16.5); Lymphocyte # 1.55 X10^3/ul (4.0); Mean Corp Hgb Conc 31.9 g/gl (32-36); Mean Corpuscular Hgb 29.4 pg (27.0-32.0); Mean Corpuscular Volume 92.2 fL (80-94); Mean Platelet Vol. 8.9 fl (6.2-12.0); Monocyte# 1.22 X10^3/uL; Monocyte% 9.4 % (0-10); Neutrophil # 10.12 X10^3/uL (2.7-7.7); Neutrophil % 78.1 % (47-70); POSITIVE COUNT NO; POSITIVE DIFFERENTIAL NO; POSITIVE MORPHOLOGY NO; Platelet Count 392 K/mm3 (150-450); RBC Distribution Width CV 13.6 % (11.6-14.6); RBC Distribution Width SD 45.3 fl (35.1-43.9); Red Blood Count 4.62 M/mm3 (4.6-6.2)
--- NOTE | 2018-03-29 08:52 | PN_ITS ---
Subjective: Chief complaint: Follow-up after admission for intractable right lateral chest pain, acute right seventh and eighth rib fractures and recent diagnosis of pulmonary embolism. Hospital course complicated by new right pleural effusion as well as right lower lobe consolidation consistent with probable pneumonia. Patient seen and examined. No acute events overnight. He is still symptomatic , complaining of right lateral chest pain, worsened with deep breathing and movement. Denies any significant shortness of breath. Denied fever chills. He has been afebrile, heart rate stable, blood pressure slightly elevated, pulse ox is 92% on room air. - Physical Exam General: Alert, Oriented x3, Cooperative, - - He is in moderate pain. HEENT: Atraumatic, PERRLA, EOMI, Normocephalic Oral: Moist Mucosa, No Gingival or Mucosal Lesions/ Ulcerations Neck: Supple, No JVD, Negative Carotid Bruits, Trachea Midline, Thyroid Normal Size and Texture Lungs: No rhonchi, No wheeze, No rales, Diminished, Short of Breath, - - Decreased breath sounds on the whole right lung, no other sounds and left lung is clear. Cardiovascular: Regular rate, Regular Rhythm, Normal S1, Normal S2, No murmurs, PMI Normal Abdomen: Bowel Sounds Present, Soft, Non Tender, Non-Distended, No Hepato- splenomegaly Extremities: No clubbing, No cyanosis, No edema Skin: No rashes, No breakdown Lymphatic: No Cervical, Supraclavicular, or Inguinal Adenopathy Neurological: Cranial nerves II-XII grossly intact, Motor Exam 5/5 strength throughout Psych/Mental Status: Normal Affect, Appropriate, Alert and oriented to time, place, person, mood and affect Vital Signs Temp Pulse Resp BP Pulse Ox 97.7 F L 92 18 161/101 H 93 03/29/18 08:22 03/29/18 08:22 03/29/18 08:22 03/29/18 08:22 03/29/18 08:22 Oxygen Flow Rate (L/min) 2 Oxygen Delivery Method Room Air Weight: 257 lb 0.944 oz Body Mass Index (BMI) 35.8 Intake and Output for Last 24 Hours 03/27/18 03/28/18 03/29/18 23:59 23:59 23:59 Intake Total 300 / 300 1260 / 1260 Output Total 650 / 650 1475 / 1475 Balance -350 / -350 -215 / -215 POC Glucose 03/29/18 03/28/18 03/28/18 06:18 21:33 16:23 POC Glucose 166 H 176 H 178 H 03/28/18 11:31 POC Glucose 110 Clinical Impression(s) from Imaging Studies Chest CT 03/28/18 14:23 IMPRESSION: There is development of right lower lung consolidation and pleural effusion. Stable right rib fractures. Electronically Signed: Lex Calderón MD at 16:21 EDT , Service support , Medical Necessity - Tobacco Use Smoking Status: Former smoker Assessment/Plan This is a 47 years old male patient presented to the ED because of worsening right lateral chest pain and shortness of breath in context of recent diagnosis of multiple small bilateral upper lobes and left lower lobe PEs and he was found to have new acute right seventh and eighth rib fractures and he is being admitted for intractable right lateral chest pain that is not responding to IV narcotics in the ED. while in the hospital, he developed new right pleural effusion and right lower lobe consolidation diagnosed with probable pneumonia #1 intractable right lateral chest pain/shortness of breath: He is on IV Dilaudid, Toradol, OxyIR, lidocaine patch and Flexeril. Patient still symptomatic, no significant improvement. Respiratory status is stable. Dr. El consulted and recommended nerve block which will be done tomorrow. Recommended to use incentive spirometer, ambulate. #2 probable right lower lobe pneumonia: Probably healthcare associated. CT scan chest without contrast revealed new right pleural effusion and right lower lobe consolidation. Patient has been complaining of productive cough. He has been afebrile. Plan: Stat CBC, BMP, start IV Zosyn, sputum culture. #3 new right pleural effusion: This was not evident on CTA chest that was done on admission. Could be due to hemothorax as patient has been on Xarelto or could be parapneumonic effusion. Plan to start IV antibiotic as above, hold Xarelto, pulmonology consult. #4 probable COPD exacerbation: He is on oral prednisone and bronchodilators. Respiratory status is stabilized, pulse ox is maintained on room air. Plan to continue same treatment. #5 recent diagnosis of multiple small subsegmental bilateral pulmonary emboli: He has been on Xarelto. CT chest revealed new pleural effusion could be hemothorax. Plan to hold Xarelto for now. #6 acute right seventh and eighth rib fractures: He is on pain medication as mentioned above but still symptomatic, pain is well controlled. He developed pleural effusion and consolidation on the right lung. Pain management consulted , planning for nerve block tomorrow. #7 hypertension: Blood pressure slightly elevated, continue Zestoretic, IV metoprolol as needed. #8 type 2 diabetes mellitus: Blood sugar stable, continue ADA diet, Accu-Cheks, insulin sliding scale, continue metformin. #9 chronic hepatitis C: Not on treatment, recommend follow-up as outpatient with his doctor. #10 anxiety/depression: Started on Xanax as needed. #11 tobacco abuse: NicoDerm patch. #12 DVT prophylaxis: DC Xarelto, start SCDs. This note was generated with [employer] dictation software. It may contain incorrect words, spelling, and punctuation that were not noted in checking the note before signing. Code Visit Inpatient E&M: 15534 Subs Hosp L3
[2018-03-29 08:58] LABS: Anion Gap 5 (5-15); BUN 12 mg/dL (7-18); BUN/Creat Ratio 14.5 RATIO (10-20); Calcium,Total 9.1 mg/dL (8.5-10.1); Chloride 96 mmol/L (98-107); Creatinine, Serum 0.82 mg/dL (0.70-1.30); EST Glomerular Filtration Rate 106 mL/min (>60); Est Glom Filt Rate - Afr Amer 128 mL/min (>60); Estimated Creatinine Clearance 118.61 ml/min; Glucose 152 mg/dL (74-106); Sodium Level 135 mmol/L (136-145)
[2018-03-29] MEDS: DiphenhydrAMINE 50 MG/ML Syringe 6.25 MG IV ×2 (10:38→17:29)
[2018-03-29] MEDS: oxyCODONE 5 MG Tablet PO ×3 (10:38→21:32)
[2018-03-29] MEDS: Ketorolac 30 MG/ML Syringe IV (10:39)
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
[2018-03-29 11:11] LABS: Bedside Glucose 208 mg/dL (70-110)
[2018-03-29] MEDS: Piperacil/Tazobactam 3.375 GM/50 ML ML IV ×2 (12:52→21:15)
[2018-03-29 16:11] LABS: Hematocrit 40.6 % (40-54); Hemoglobin 12.9 g/dl (13.0-16.5)
[2018-03-29 16:36] LABS: Bedside Glucose 210 mg/dL (70-110)
[2018-03-29 21:26] LABS: Bedside Glucose 165 mg/dL (70-110)
[2018-03-30] VITALS (17 sets, daily range): BP systolic 110–137; BP diastolic 67–94; PULSE 77–108; RESP 16–21; TEMP 36.4–36.9; O2SAT 92–96; BMI 35.8
[2018-03-30] MEDS: HYDROmorphone 1 MG/ML Syringe IV ×5 (03:02→20:44)
[2018-03-30] MEDS: Ipratropium/Albuterol Sulfate 3 ML AMPUL.NEB INHALATION ×4 (03:25→22:56)
--- NOTE | 2018-03-30 05:00 | EKG12_ITS ---
Test Reason : PRE OP Blood Pressure : / mmHG Vent. Rate : 077 BPM Atrial Rate : 077 BPM P-R Int : 150 ms QRS Dur : 112 ms QT Int : 388 ms P-R-T Axes : 030 039 073 degrees QTc Int : 439 ms Normal sinus rhythm Normal ECG Confirmed by MAIA ALVARADO, KHOI ([id number]), video news editor JEFF MORGAN ([id number] on 04/09/2018 4:06:16 PM Referred By: ARACELI HUSTON Confirmed By:KHOI CARVALHO MD
[2018-03-30] MEDS: Piperacil/Tazobactam 3.375 GM/50 ML ML IV ×3 (06:08→22:35)
[2018-03-30 06:21] LABS: Absolute Lymphocyte Count 2.14 X10^3/ul (0.83-4.51); Absolute Neutrophil Count 8.1 X10^3/uL (2.0-7.7); Basophil# 0.02 X10^3/uL; Basophil% 0.2 % (0-1); Eosinophil# 0.04 X10^3/uL; Eosinophils% 0.4 % (0-5); Hematocrit 41.1 % (40-54); Hemoglobin 12.8 g/dl (13.0-16.5); Lymphocyte # 2.14 X10^3/ul (4.0); Lymphocyte % 18.8 % (19-41); Mean Corp Hgb Conc 31.1 g/gl (32-36); Mean Corpuscular Hgb 29.1 pg (27.0-32.0); Mean Corpuscular Volume 93.4 fL (80-94); Mean Platelet Vol. 9.1 fl (6.2-12.0); Monocyte# 1.02 X10^3/uL; Neutrophil # 8.08 X10^3/uL (2.7-7.7); Platelet Count 407 K/mm3 (150-450); RBC Distribution Width CV 13.7 % (11.6-14.6); RBC Distribution Width SD 46.7 fl (35.1-43.9); White Blood Count 11.4 K/mm3 (4.4-11.0)
[2018-03-30 06:36] LABS: Anion Gap 8 (5-15); BUN 14 mg/dL (7-18); BUN/Creat Ratio 16.6 RATIO (10-20); Calcium,Total 8.9 mg/dL (8.5-10.1); Chloride 99 mmol/L (98-107); Creatinine, Serum 0.84 mg/dL (0.70-1.30); EST Glomerular Filtration Rate 103 mL/min (>60); Est Glom Filt Rate - Afr Amer 125 mL/min (>60); Estimated Creatinine Clearance 115.79 ml/min; Glucose 138 mg/dL (74-106); Potassium 4.4 mmol/L (3.5-5.1); Sodium Level 139 mmol/L (136-145)
[2018-03-30 06:37] LABS: POSITIVE COUNT NO; POSITIVE DIFFERENTIAL NO; POSITIVE MORPHOLOGY NO
[2018-03-30] MEDS: Insulin Lispro 100 UNIT/ML INSULN.PEN SC (06:45)
[2018-03-30 06:51] LABS: Bedside Glucose 178 mg/dL (70-110)
[2018-03-30] MEDS: DiphenhydrAMINE 50 MG/ML Syringe 6.25 MG IV ×2 (07:57→22:35)
[2018-03-30] MEDS: oxyCODONE 5 MG Tablet PO ×4 (07:58→22:36)
[2018-03-30] MEDS: ALPRAZolam 0.5 MG Tablet PO ×2 (07:58→22:35)
[2018-03-30] MEDS: 0.9% NaCl Peripheral Flush Adult/Peds IV ×2 (07:58→14:19)
--- NOTE | 2018-03-30 08:36 | NURSING ---
orders received to give pt mag citrate, ok to give after scheduled procedure
--- NOTE | 2018-03-30 08:55 | PN_ITS ---
Subjective: Chief complaint: Follow-up after admission for intractable right lateral chest pain, acute right seventh and eighth rib fractures and recent diagnosis of pulmonary embolism. Hospital course complicated by new right pleural effusion as well as right lower lobe consolidation consistent with probable pneumonia. Patient seen and examined. No acute events overnight. Still complaining of lateral chest pain, minimal improvement. Pain is worsened with movement or deep breath. His vital signs are stable, has been afebrile. - Physical Exam General: Alert, Oriented x3, Cooperative, - - He is in minimal pain. HEENT: Atraumatic, PERRLA, EOMI, Normocephalic Oral: Moist Mucosa, No Gingival or Mucosal Lesions/ Ulcerations Neck: Supple, No JVD, Negative Carotid Bruits, Trachea Midline, Thyroid Normal Size and Texture Lungs: No rales, Diminished, Rhonchi, Short of Breath, Wheezes, - - Decreased breath sounds on the right base,, rhonchi, occasional wheezes. Cardiovascular: Regular rate, Regular Rhythm, Normal S1, Normal S2, No murmurs Abdomen: Bowel Sounds Present, Soft, Non Tender, Non-Distended, No Hepato- splenomegaly Extremities: No clubbing, No cyanosis, No edema Skin: No rashes, No breakdown Lymphatic: No Cervical, Supraclavicular, or Inguinal Adenopathy Neurological: Cranial nerves II-XII grossly intact, Motor Exam 5/5 strength throughout Psych/Mental Status: Normal Affect, Appropriate, Alert and oriented to time, place, person, mood and affect Vital Signs Temp Pulse Resp BP Pulse Ox 97.8 F 77 20 H 124/82 H 96 03/30/18 08:00 03/30/18 08:00 03/30/18 08:00 03/30/18 08:00 03/30/18 08:00 Oxygen Flow Rate (L/min) 2 Oxygen Delivery Method Nasal Cannula Weight: 257 lb 0.944 oz Body Mass Index (BMI) 35.8 Intake and Output for Last 24 Hours 03/28/18 03/29/18 03/30/18 23:59 23:59 23:59 Intake Total 300 / 300 2019 / 2019 680 / 680 Output Total 650 / 650 1825 / 1825 3000 / 3000 Balance -350 / -350 195 / 195 -2320 / -2320 Laboratory Tests Past 24 Hrs 03/29/18 03/29/18 03/30/18 08:35 16:00 05:40 WBC 11.4 H RBC 4.40 L Hgb 12.9 L 12.8 L Hct 40.6 41.1 MCV 93.4 MCH 29.1 MCHC 31.1 L RDW 13.7 RDW Differential 46.7 H Plt Count 407 MPV 9.1 Immature Gran % (Auto) 0.600 Neut % (Auto) 71.0 H Lymph % (Auto) 18.8 L [place] % (Auto) 9.0 Eos % (Auto) 0.4 Baso % (Auto) 0.2 Absolute Neuts (auto) 8.1 H Absolute Lymphs (auto) 2.14 Total Counted Not Reportable Sodium 135 L Potassium 5.0 Chloride 96 L Carbon Dioxide 34.0 H Anion Gap 5 BUN 12 Creatinine 0.82 Estim Creat Clear Calc 118.61 Est GFR (MDRD) Af Amer 128 Est GFR (MDRD) Non-Af 106 BUN/Creatinine Ratio 14.5 Glucose 152 H Hemoglobin A1c Calcium 9.1 03/30/18 03/30/18 05:40 05:40 WBC RBC Hgb Hct MCV MCH MCHC RDW RDW Differential Plt Count MPV Immature Gran % (Auto) Neut % (Auto) Lymph % (Auto) [place] % (Auto) Eos % (Auto) Baso % (Auto) Absolute Neuts (auto) Absolute Lymphs (auto) Total Counted Sodium 139 Potassium 4.4 Chloride 99 Carbon Dioxide 32.0 Anion Gap 8 BUN 14 Creatinine 0.84 Estim Creat Clear Calc 115.79 Est GFR (MDRD) Af Amer 125 Est GFR (MDRD) Non-Af 103 BUN/Creatinine Ratio 16.6 Glucose 138 H Hemoglobin A1c Pending Calcium 8.9 POC Glucose 03/30/18 03/29/18 03/29/18 06:42 21:12 16:22 POC Glucose 178 H 165 H 210 H 03/29/18 10:52 POC Glucose 208 H Medical Necessity - Tobacco Use Smoking Status: Former smoker Assessment/Plan This is a 47 years old male patient presented to the ED because of worsening right lateral chest pain and shortness of breath in context of recent diagnosis of multiple small bilateral upper lobes and left lower lobe PEs and he was found to have new acute right seventh and eighth rib fractures and he is being admitted for intractable right lateral chest pain that is not responding to IV narcotics in the ED. while in the hospital, he developed new right pleural effusion and right lower lobe consolidation diagnosed with probable pneumonia #1 intractable right lateral chest pain/shortness of breath: Remains on on IV Dilaudid, Toradol, OxyIR, lidocaine patch and Flexeril. Still complaining of chest pain with minimal improvement. Respiratory status is stable. Dr. El consulted, plan for now block today. #2 probable right lower lobe pneumonia: Probably healthcare associated. Started on IV Zosyn empirically. Patient has been afebrile, white blood cell count is trending down. CT scan chest without contrast revealed new right pleural effusion and right lower lobe consolidation. Pulmonology on the case. #3 new right pleural effusion: Probably due to atelectasis versus parapneumonic effusion which is less likely. Hemothorax is the other differential but patient 's hemoglobin and hematocrit remained stable. Xarelto held. Plan to potassium treatment, close monitoring. #4 probable COPD exacerbation: He is on oral prednisone and bronchodilators. Pulse ox is maintained on 2 L. #5 recent diagnosis of multiple small subsegmental bilateral pulmonary emboli: Xarelto held because of concern of hemothorax. Hematocrit on hemoglobin are stable. Plan to keep holding Xarelto for now. #6 acute right seventh and eighth rib fractures: He is on pain medication as mentioned above but still symptomatic, pain is well controlled. He developed pleural effusion and consolidation on the right lung. Plan for nerve block today. #7 hypertension: Blood pressure under better control, continue Zestoretic, IV metoprolol as needed. #8 type 2 diabetes mellitus: Blood sugar stable, continue ADA diet, Accu-Cheks, insulin sliding scale, continue metformin. #9 chronic hepatitis C: Not on treatment, recommend follow-up as outpatient with his doctor. #10 anxiety/depression: on Xanax as needed. #11 tobacco abuse: NicoDerm patch. #12 DVT prophylaxis: SCDs. This note was generated with [employer] dictation software. It may contain incorrect words, spelling, and punctuation that were not noted in checking the note before signing. Code Visit Inpatient E&M: 36898 Subs Hosp L2
[2018-03-30] MEDS: Ondansetron 4 MG/2 ML Vial IV (10:41)
[2018-03-30 12:41] LABS: Bedside Glucose 109 mg/dL (70-110)
--- NOTE | 2018-03-30 12:55 | PN_ITS ---
Subjective: Patient continues to report significant right sided chest pain. Unfortunately, patient's block has been pushed off till 3:00 this afternoon. Patient has reported using incentive spirometer sporadically. Patient has walked in the hallways and reports some productive cough. No fever was noted overnight. Patient remains on 2 L nasal cannula oxygen. - Physical Exam General: Alert, Oriented x3, Cooperative, - - Mild distress. Obese. Speaking in full sentences. HEENT: Atraumatic, PERRLA, EOMI, Normocephalic, - - No scleral icterus or injection noted. Oral: Moist Mucosa, No Gingival or Mucosal Lesions/ Ulcerations, - - Fair dentition Neck: Supple, No JVD, No Nodes, Trachea Midline Lungs: No rhonchi, No wheeze, Diminished, Rales - Right base, - - Symmetric expansion. Patient not tolerating percussion Cardiovascular: Regular rate, Regular Rhythm, Normal S1, Normal S2, No murmurs, No rub noted, No Gallop Abdomen: Bowel Sounds Present, Soft, Non Tender, Non-Distended Extremities: No clubbing, No cyanosis, No edema Skin: No rashes, No breakdown Musculoskeletal: No Tenderness to Palpation of Joints or Extremities, No Muscle Wasting Lymphatic: No Cervical, Supraclavicular, or Inguinal Adenopathy Neurological: Cranial nerves II-XII grossly intact, Neuro grossly intact, Motor Exam 5/5 strength throughout Psych/Mental Status: Anxious, Restless Vital Signs Temp Pulse Resp BP Pulse Ox 36.5 C L 80 18 124/82 H 93 03/30/18 12:46 03/30/18 12:46 03/30/18 12:46 03/30/18 12:46 03/30/18 12:46 Oxygen Flow Rate (L/min) 2 Oxygen Delivery Method Room Air Weight: 116.6 kg Body Mass Index (BMI) 35.8 Intake and Output for Last 24 Hours 03/28/18 03/29/18 03/30/18 23:59 23:59 23:59 Intake Total 300 / 300 2019 765 / 765 Output Total 650 / 650 1825 / 1825 3400 / 3400 Balance -350 / -350 195 / 195 -2635 / -2635 Microbiology Past 72 Hours 03/29/18 11:10 Gram Stain - Final Sputum, Expectorated/Coughed Respiratory Culture - Preliminary Appears to be normal respiratory óscar. Further studies to follow. Laboratory Tests Past 24 Hrs 03/29/18 03/30/18 03/30/18 16:00 05:40 05:40 WBC 11.4 H RBC 4.40 L Hgb 12.9 L 12.8 L Hct 40.6 41.1 MCV 93.4 MCH 29.1 MCHC 31.1 L RDW 13.7 RDW Differential 46.7 H Plt Count 407 MPV 9.1 Immature Gran % (Auto) 0.600 Neut % (Auto) 71.0 H Lymph % (Auto) 18.8 L [place] % (Auto) 9.0 Eos % (Auto) 0.4 Baso % (Auto) 0.2 Absolute Neuts (auto) 8.1 H Absolute Lymphs (auto) 2.14 Total Counted Not Reportable Sodium 139 Potassium 4.4 Chloride 99 Carbon Dioxide 32.0 Anion Gap 8 BUN 14 Creatinine 0.84 Estim Creat Clear Calc 115.79 Est GFR (MDRD) Af Amer 125 Est GFR (MDRD) Non-Af 103 BUN/Creatinine Ratio 16.6 Glucose 138 H Hemoglobin A1c Calcium 8.9 03/30/18 05:40 WBC RBC Hgb Hct MCV MCH MCHC RDW RDW Differential Plt Count MPV Immature Gran % (Auto) Neut % (Auto) Lymph % (Auto) [place] % (Auto) Eos % (Auto) Baso % (Auto) Absolute Neuts (auto) Absolute Lymphs (auto) Total Counted Sodium Potassium Chloride Carbon Dioxide Anion Gap BUN Creatinine Estim Creat Clear Calc Est GFR (MDRD) Af Amer Est GFR (MDRD) Non-Af BUN/Creatinine Ratio Glucose Hemoglobin A1c Pending Calcium POC Glucose 03/30/18 03/30/18 03/29/18 12:22 06:42 21:12 POC Glucose 109 178 H 165 H 03/29/18 16:22 POC Glucose 210 H Medical Necessity - Tobacco Use Smoking Status: Former smoker Assessment/Plan RECOMMENDATIONS: 1. Encourage incentive spirometer 2. Await rib block 3. Repeat CBC in a.m. 4. Increase mobility as tolerated 5. Empiric antibiotics for 24-48 hours until culture negative 6. Hold anticoagulation, continue bronchodilator therapy 7. Steroids can be weaned over the next 12-14 days. IMPRESSIONS: 1. Pleural effusions associated with rib fracture Concern given patient is on full anticoagulation secondary to recent pulmonary embolism. Patient did not have any pleural effusion on presentation, but rib fractures were present. Some concern the patient is having atelectasis secondary to voluntary splinting. Patient would benefit from a rib block, improved compliance with incentive spirometer and ambulation. Patient's hemoglobin was relatively consistent over the last 24 hours. Low clinical suspicion for the development of a hemothorax. Timing of re-coagulation would be difficult. Patient encouraged to be better compliant with incentive spirometer, but I am waiting from a rib block. 2. Pulmonary embolism Patient on Xarelto therapy previously. Patient's anticoagulation has been held secondary to concern for possible hemothorax. Anticipate holding anticoagulation for 2 days. Patient may need to be initiated on heparin drip. Eliquis may be a better option moving forward if a 10 a inhibitor is requested. Patient will need to complete 3-6 months of therapy. 3. Probable COPD Patient does have an extensive smoking history. Significant emphysematous changes are noted throughout the lungs. Patient would need to have complete pulmonary function test completed as an outpatient, but this will likely be delayed given patient's current rib fractures. Obtaining PFT at this time would likely lead to spuriously low lung volumes and the impression of restriction. Continuing with bronchodilators and steroids are reasonable at this time. Code Visit Inpatient E&M: 34057 Subs Hosp L2
[2018-03-30 14:27] LABS: Hemoglobin A1c 6.3 % (4.2-6.3)
--- NOTE | 2018-03-30 15:22 | NURSING ---
PT OFF UNIT VIA BED FOR SCHEDULED PROCEDURE. REPORT CALLED TO MARIANNE IN [facility].
--- NOTE | 2018-03-30 16:40 | RAD_ITS ---
STUDY: X-RAY CHEST REASON FOR EXAM: Male, 47 years old. Pleural effusion TECHNIQUE: Frontal and lateral views of the chest. COMPARISON: CT March 28, 2018 FINDINGS: Bilateral lower lobe atelectasis. Question small bilateral pleural effusions. Normal size heart. Normal mediastinum and lupe. Normal visualized pulmonary arteries. Normal visualized aortic arch and descending thoracic aorta. Normal visualized thoracic spine. Healed right rib fractures. There is no demonstrated abnormality of the visualized soft tissue structures of the upper abdomen. RAD/O.R. Fluoro for C-Arm IMPRESSION: Bilateral lower lobe atelectasis. Question small bilateral pleural effusions. Electronically Signed: Eduar Archer MD at 8:45 EDT , Service support ,
[2018-03-30] MEDS: Triamcinolone Acetonide 40 MG/ML Vial (16:43)
[2018-03-30] MEDS: Bupivacaine 0.25% 30 ML Vial (16:44)
--- NOTE | 2018-03-30 17:10 | RAD_ITS ---
PROCEDURE: Intercostal nerve blocks DATE OF EXAMINATION: 03/30/2018 INDICATION: Male, 47 years old. Intractable pain PHYSICIAN: Dr. El FLUOROSCOPY TIME (if supplied): (0:40) minutes/seconds 3 fluoroscopic images obtained CONSENT: The risks, benefits and alternatives to the procedure were explained to the patient, and the patient agreed to the procedure and signed the consent. SEDATION: STERILE BARRIER TECHNIQUE: The following sterile barrier precautions were used during the procedure: hand hygiene; use of 2% chlorhexidine aseptic; use of a cap, mask, sterile gown, sterile gloves, sterile full body drape, and a large sterile sheet. PROCEDURE/TECHNIQUE: (All elements of maximal sterile barrier technique followed, including US elements as applicable) The risks, benefits, and alternatives to the procedure were explained to patient, and the patient agreed to the procedure and signed a consent form for the procedure. A timeout was performed to confirm the patient's identity, the type of procedure, to be performed and the site of entry. Patient has undergone intercostal nerve blocks T6, T7 and T8. 3 fluoroscopic images obtained. RAD/Fluoro Guided Needle Placement IMPRESSION: Intercostal nerve blocks at T6, T7, T8 Electronically Signed: Sony Wong MD at 21:26 EDT , Service support ,
--- NOTE | 2018-03-30 17:36 | NURSING ---
PT HAS RETURNED TO UNIT. FINISHED HIS LUNCH THAT HE ORDERED PRIOR TO HIS PROCEDURE AND IS NOW ORDERING SUPPER.
[2018-03-30] MEDS: HYDROCHLOROTHIAZIDE 12.5 MG CAPSULE PO (18:16)
[2018-03-30] MEDS: Lisinopril 10 MG Tablet PO (18:16)
[2018-03-30] MEDS: Magnesium Citrate 300 ML PO (18:17)
[2018-03-30] MEDS: predniSONE 20 MG Tablet 40 MG PO (18:17)
[2018-03-30] MEDS: guaiFENesin 10 ML UDC (200MG/10ML) PO (18:29)
[2018-03-30 18:31] LABS: Bedside Glucose 147 mg/dL (70-110)
[2018-03-30] MEDS: Famotidine 20 MG Tablet PO (22:37)
--- NOTE | 2018-03-30 23:14 | NURSING ---
Went in pt's room to place his telemetry leads back on. The telemetry unit and all of his leads are laying on his bedside table. He states they are driving him crazy and he wants them taken away. Will notify hospitalist.
[2018-03-31] MEDS: HYDROmorphone 1 MG/ML Syringe IV ×5 (00:23→15:08)
[2018-03-31] MEDS: guaiFENesin 10 ML UDC (200MG/10ML) PO ×2 (00:30→06:41)
[2018-03-31 01:11] LABS: Bedside Glucose 138 mg/dL (70-110)
[2018-03-31 02:34] VITALS: BP 127/86; PULSE 93; RESP 18; TEMP 36.7; O2SAT 93
[2018-03-31] MEDS: oxyCODONE 5 MG Tablet PO ×4 (02:45→23:00)
[2018-03-31] MEDS: Ipratropium/Albuterol Sulfate 3 ML AMPUL.NEB INHALATION ×4 (03:00→15:00)
[2018-03-31] MEDS: Insulin Lispro 100 UNIT/ML INSULN.PEN SC ×4 (06:41→22:02)
[2018-03-31] MEDS: Piperacil/Tazobactam 3.375 GM/50 ML ML IV ×3 (06:41→21:59)
[2018-03-31 06:55] LABS: Bedside Glucose 182 mg/dL (70-110)
[2018-03-31 07:19] LABS: Hematocrit 43.5 % (40-54); Mean Corp Hgb Conc 32.2 g/gl (32-36); Mean Corpuscular Volume 93.1 fL (80-94); Mean Platelet Vol. 9.4 fl (6.2-12.0); Platelet Count 513 K/mm3 (150-450); RBC Distribution Width CV 13.2 % (11.6-14.6); Red Blood Count 4.67 M/mm3 (4.6-6.2); White Blood Count 13.4 K/mm3 (4.4-11.0)
[2018-03-31 07:20] LABS: Scan Indicated on CBC? Y/N NO
[2018-03-31 07:37] VITALS: PULSE 88; RESP 16; O2SAT 91
[2018-03-31 08:29] VITALS: BP 152/84; PULSE 98; RESP 18; TEMP 36.7; O2SAT 92
[2018-03-31] MEDS: Famotidine 20 MG Tablet PO ×2 (08:33→22:00)
[2018-03-31] MEDS: predniSONE 20 MG Tablet 40 MG PO (08:33)
[2018-03-31] MEDS: Lisinopril 10 MG Tablet PO (08:33)
[2018-03-31] MEDS: HYDROCHLOROTHIAZIDE 12.5 MG CAPSULE PO (08:33)
[2018-03-31] MEDS: Polyethylene Glycol 3350 17 GM PACKET PO (08:34)
[2018-03-31] MEDS: Lidocaine 5% Patch 1 PATCH TOPICAL (08:34)
--- NOTE | 2018-03-31 09:01 | PN_ITS ---
Subjective: Chief complaint: Follow-up after admission for intractable right lateral chest pain, acute right seventh and eighth rib fractures and recent diagnosis of pulmonary embolism. Hospital course complicated by new right pleural effusion as well as right lower lobe consolidation consistent with probable pneumonia. Patient seen and examined. No acute events overnight. Nerve block procedure was performed yesterday. Today, patient reported some improvement of his pain mainly on the back but still having pain on the right lateral chest with minimal improvement. He still complaining of cough with sputum production. Denies fever chills. All over, is feeling a little bit better. His vital signs are stable, pulse ox is maintained on room air. - Physical Exam General: Alert, Oriented x3, Cooperative, - - Minimal discomfort, shortness of breath. HEENT: Atraumatic, PERRLA, EOMI Oral: Moist Mucosa, No Gingival or Mucosal Lesions/ Ulcerations Neck: Supple, No JVD, Negative Carotid Bruits, Trachea Midline, Thyroid Normal Size and Texture Lungs: No wheeze, Diminished, Rales, Rhonchi, - - Decreased breath sounds bilateral, bilateral rhonchi, crackles on the right lung. Cardiovascular: Regular rate, Regular Rhythm, Normal S1, Normal S2, No murmurs, No Ectopic Activity Abdomen: Soft, Non Tender, Non-Distended, No Hepato-splenomegaly Extremities: No clubbing, No cyanosis, No edema Skin: No rashes, No breakdown Lymphatic: No Cervical, Supraclavicular, or Inguinal Adenopathy Neurological: Cranial nerves II-XII grossly intact, Motor Exam 5/5 strength throughout Psych/Mental Status: Normal Affect, Appropriate, Alert and oriented to time, place, person, mood and affect Vital Signs Temp Pulse Resp BP Pulse Ox 98.1 F 98 18 152/84 H 92 03/31/18 08:29 03/31/18 08:29 03/31/18 08:29 03/31/18 08:29 03/31/18 08:29 Oxygen Flow Rate (L/min) 2 Oxygen Delivery Method Room Air Weight: 257 lb 0.944 oz Body Mass Index (BMI) 35.8 Intake and Output for Last 24 Hours 03/29/18 03/30/18 03/31/18 23:59 23:59 23:59 Intake Total 2019 / 2019 865 / 865 1700 / 1700 Output Total 1825 / 1825 3800 / 3800 2800 / 2800 Balance 195 / 195 -2935 / -2935 -1100 / -1100 Microbiology Past 72 Hours 03/29/18 11:10 Gram Stain - Final Sputum, Expectorated/Coughed Respiratory Culture - Preliminary Appears to be normal respiratory óscar. Further studies to follow. Laboratory Tests Past 24 Hrs 03/30/18 03/31/18 05:40 06:37 WBC 13.4 H RBC 4.67 Hgb 14.0 Hct 43.5 MCV 93.1 MCH 30.0 MCHC 32.2 RDW 13.2 RDW Differential 44.0 H Plt Count 513 H MPV 9.4 Hemoglobin A1c 6.3 POC Glucose 03/31/18 03/30/18 03/30/18 06:38 22:39 18:06 POC Glucose 182 H 138 H 147 H 03/30/18 12:22 POC Glucose 109 Medical Necessity - Tobacco Use Smoking Status: Former smoker Assessment/Plan This is a 47 years old male patient presented to the ED because of worsening right lateral chest pain and shortness of breath in context of recent diagnosis of multiple small bilateral upper lobes and left lower lobe PEs and he was found to have new acute right seventh and eighth rib fractures and he is being admitted for intractable right lateral chest pain that is not responding to IV narcotics in the ED. while in the hospital, he developed new right pleural effusion and right lower lobe consolidation diagnosed with probable pneumonia #1 intractable right lateral chest pain/shortness of breath: Status post nerve block, no operative report describing the procedure. Remains on on IV Dilaudid , Toradol, OxyIR, lidocaine patch and Flexeril. Patient reported some improvement of his symptoms, his back pain improved more than the right lateral chest. All over, he is feeling better. Vital signs stable. Plan to continue same treatment, encourage incentive spirometer, ambulate. #2 probable right lower lobe pneumonia: Probably healthcare associated. He is on IV Zosyn empirically. Patient has been afebrile, white blood cell count is trending up but he has been on prednisone. CT scan chest without contrast revealed new right pleural effusion and right lower lobe consolidation. Sputum culture revealed mixed respiratory óscar, final is pending. Plan to repeat chest x-ray tomorrow morning. #3 new right pleural effusion: Probably due to atelectasis versus parapneumonic effusion which is less likely. Hemoglobin and hematocrit are stable and hemothorax is slightly this time. Plan to encourage incentive spirometer, ambulate, repeat chest x-ray tomorrow morning. #4 probable COPD exacerbation: He is on oral prednisone and bronchodilators. Pulse ox is maintained on room air this morning. #5 recent diagnosis of multiple small subsegmental bilateral pulmonary emboli: Xarelto held because of concern of hemothorax. Hematocrit on hemoglobin are stable. Probably will resume Xarelto tomorrow after the chest x-ray. #6 acute right seventh and eighth rib fractures: Status post nerve block, no operative report describing the procedure. He is on pain medication as mentioned above. Patient reports some improvement as mentioned above. Plan to continue same treatment. #7 hypertension: Blood pressure under better control, continue Zestoretic, IV metoprolol as needed. #8 type 2 diabetes mellitus: Blood sugar stable, continue ADA diet, Accu-Cheks, insulin sliding scale, continue metformin. #9 chronic hepatitis C: Not on treatment, recommend follow-up as outpatient with his doctor. #10 anxiety/depression: on Xanax as needed. #11 tobacco abuse: NicoDerm patch. #12 DVT prophylaxis: SCDs. This note was generated with [employer] dictation software. It may contain incorrect words, spelling, and punctuation that were not noted in checking the note before signing. Code Visit Inpatient E&M: 26082 Subs Hosp L2
--- NOTE | 2018-03-31 10:30 | PCM.PROGNOTE ---
Subjective: Patient was able to get his rib block yesterday. Patient states this significantly helped his external pain, but is still feeling significant discomfort with inhalation from the inside. Patient has had a productive cough with significant improvement in oxygenation compared to previous. Patient has been walking and feels this is somewhat improved - Physical Exam General: Alert, Oriented x3, Cooperative, - - Mild distress HEENT: Atraumatic, PERRLA, EOMI, Normocephalic, - - Slight scleral injection without icterus Oral: Moist Mucosa, No Gingival or Mucosal Lesions/ Ulcerations Neck: Supple, No JVD, No Nodes, Trachea Midline Lungs: No wheeze, Diminished, Rales - Improved from previous, Rhonchi, - - Slightly decreased expansion on the right. No tympany noted. Cardiovascular: Normal S1, Normal S2, No murmurs, No rub noted, No Gallop, Tachycardic Abdomen: Bowel Sounds Present, Soft, Non Tender, Non-Distended, Obese Extremities: No clubbing, No cyanosis, No edema, Capillary Refill Less than 3 Seconds Skin: - - Grossly unchanged compared to previous Musculoskeletal: No Tenderness to Palpation of Joints or Extremities, No Muscle Wasting Lymphatic: No Cervical, Supraclavicular, or Inguinal Adenopathy Neurological: Cranial nerves II-XII grossly intact, Neuro grossly intact, Motor Exam 5/5 strength throughout Psych/Mental Status: Alert and oriented to time, place, person, mood and affect Vital Signs Temp Pulse Resp BP Pulse Ox 36.7 C 98 18 152/84 H 92 03/31/18 08:29 03/31/18 08:29 03/31/18 08:29 03/31/18 08:29 03/31/18 08:29 Oxygen Flow Rate (L/min) 2 Oxygen Delivery Method Room Air Weight: 116.6 kg Body Mass Index (BMI) 35.8 Intake and Output for Last 24 Hours 03/29/18 03/30/18 03/31/18 23:59 23:59 23:59 Intake Total 2019 865 / 865 1700 / 1700 Output Total 1825 / 1825 3800 / 3800 2800 / 2800 Balance 195 / 195 -2935 / -2935 -1100 / -1100 Microbiology Past 72 Hours 03/29/18 11:10 Gram Stain - Final Sputum, Expectorated/Coughed Respiratory Culture - Final Mixed normal respiratory óscar. No Haemophilus, Streptococcus pneumoniae, beta-hemolytic Streptococcus or Staphylococcus aureus isolated. Laboratory Tests Past 24 Hrs 03/30/18 03/31/18 05:40 06:37 WBC 13.4 H RBC 4.67 Hgb 14.0 Hct 43.5 MCV 93.1 MCH 30.0 MCHC 32.2 RDW 13.2 RDW Differential 44.0 H Plt Count 513 H MPV 9.4 Hemoglobin A1c 6.3 POC Glucose 03/31/18 03/30/18 03/30/18 06:38 22:39 18:06 POC Glucose 182 H 138 H 147 H 03/30/18 12:22 POC Glucose 109 Medical Necessity - Tobacco Use Smoking Status: Former smoker Assessment/Plan RECOMMENDATIONS: 1. Encourage incentive spirometer 2. Continue aggressive pulmonary toileting 3. Repeat CXR in a.m. 4. Increase mobility as tolerated 5. Okay to discontinue antibiotics from my perspective 6. Hold anticoagulation, continue bronchodilator therapy 7. Steroids can be weaned over the next 12-14 days 8. Likely reinitiate anticoagulation prior to discharge IMPRESSIONS: 1. Pleural effusions associated with rib fracture Patient reporting some improvement with rib block. Residual pain likely secondary to pleuritis associated with rib fractures. Patient is on Toradol therapy. Low clinical suspicion for hemothorax given improvement in hemoglobin compared to yesterday. Still with an element of leukocytosis, but patient is on steroid therapy. Sputum culture shows no growth to date. 2. Pulmonary embolism Patient on Xarelto therapy previously. Patient's anticoagulation has been held secondary to concern for possible hemothorax. Anticipate holding anticoagulation until discharge from the hospital. Eliquis may be a better option moving forward if a 10 a inhibitor is requested. Patient will need to complete 3-6 months of therapy. 3. Probable COPD Patient does have an extensive smoking history. Significant emphysematous changes are noted throughout the lungs. Patient would need to have complete pulmonary function test completed as an outpatient, but this will likely be delayed given patient's current rib fractures. Obtaining PFT at this time would likely lead to spuriously low lung volumes and the impression of restriction. Continuing with bronchodilators and steroids are reasonable at this time. Code Visit Inpatient E&M: 00172 Subs Hosp L2
[2018-03-31] MEDS: ALPRAZolam 0.5 MG Tablet PO ×2 (11:25→19:24)
[2018-03-31 11:40] VITALS: PULSE 99; RESP 18
[2018-03-31 11:45] LABS: Bedside Glucose 194 mg/dL (70-110)
[2018-03-31] MEDS: Ketorolac 30 MG/ML Syringe IV ×2 (13:49→22:07)
[2018-03-31 15:00] VITALS: PULSE 102; RESP 18
[2018-03-31] MEDS: Bisacodyl 10 MG Suppository RECTAL (15:15)
[2018-03-31 17:20] LABS: Bedside Glucose 212 mg/dL (70-110)
--- NOTE | 2018-03-31 19:26 | NURSING ---
This RN notified that patient notified that patient disconnected his own IV tubing and threw on floor and then went into bathroom and gave himself a shower. Patient then returned to bed and used call light - stated it was past time for his dilaudid and he wants it now. This RN entered room- notified patient that it is unacceptable to disconnect own IV tubing and noted that he was able to take a shower on his own. Patient stated, I've taken a shower before- just get me dilaudid. Patient yells, I don't need you telling me what I need to be doing I just need you to do your job and get my medicine. Patient resting in bed, watching TV- nonverbal pain score 5/10. Notified patient that we should transition to PO pain medication due to potential for discharge home and due to fact patient has been her 5 days and has had block. Patient became belligerent and states, oh you are my doctor now? This RN notified patient that he cannot take IV dilaudid home with him- pt states, just get me through the night and then I will worry about that when I return home. This RN asked patient directly how he would take care of it and pt stated don't worry about it. Patient notified that safety is this RN's job and that we have to make sure he will be able to be discharge home safely. reminded pt that he was taking oxyir5-10mg at home, and fentanyl [id number] and home and that those were the only prescriptions in home med summary. Patient reminded that here he has oxyir 5mg, xanax, lidoderm patch, flexeril and had block for pain. Patient began yelling and stated he was calling the physician himself- he began dialing numbers on room phone. patient yelling at RN- then your just going to leave me here and not give me anything? This RN reentered patient's room to give 5mg of oxy that was available until Doctor called this RN- Patient was staring down this RN with jaw set and had tape in his hand, repeatedly hitting on side table as he started at this nurse. called and this RN stepped outside of room to discuss with doctor schmidt. This RN spoke with Dr. Schmidt- notifying him of patient's behaviors (yelling at staff, disconnecting own IV, taking showers on own) and request for change in pain medications due to plan to d/c home and nonverbal pain of 5/10. Dr. Schmidt ordered for dilaudid to be d/c'ed per this RN's request and that oxyir be increased to 5-10mg. This RN notified Tamiko charger operator of situation and called security. All 3 of us entered patient's room and this RN attempted to give pt PO med, however, when this RN attempted to scan patient's bracelet he yanked his arm away. He looked at security and stated, what are you doing here? Security notified patient that he was here because staff were concerned about his behavior. Patient notified of new orders- that dilaudid was discontinued and that oxyir was increased to 5-10mg q4h prn and that all other pain medication remains the same. patient states if you discontinue the dilaudid you will have to increase all of the other ones. Notified patient that cannot be done. New order for 10mg oxyir given to patient and he took pills and threw med cup on floor in anger. This RN apologized that patient feels this RN is being mean- but educated him that this RN's job includes patient safety and monitoring medications. Patient put his hand up and looked away from this RN.
[2018-03-31 20:00] VITALS: BP 145/83; PULSE 96; RESP 20; TEMP 36.9; O2SAT 94
[2018-03-31 22:15] LABS: Bedside Glucose 236 mg/dL (70-110)
[2018-04-01 02:00] VITALS: BP 153/88; PULSE 79; RESP 18; TEMP 37; O2SAT 94
--- NOTE | 2018-04-01 02:55 | NURSING ---
In to see pt. Pt sleeping in bed. Pt did not awake after his name was said 3x. Placed hand on pt shoulder and said his name several time in order to wake him, After waking pt he stated his pain was a 9/10 and was unable to rest all night.VS were obtained and pt was given prn pain medication.
[2018-04-01] MEDS: oxyCODONE 5 MG Tablet PO ×2 (02:57→06:58)
[2018-04-01] MEDS: Piperacil/Tazobactam 3.375 GM/50 ML ML IV (05:25)
[2018-04-01 07:05] LABS: Bedside Glucose 144 mg/dL (70-110)
[2018-04-01 08:00] VITALS: PULSE 80
[2018-04-01 08:11] VITALS: O2SAT 94
--- NOTE | 2018-04-01 08:15 | RAD_ITS ---
STUDY: X-RAY CHEST REASON FOR EXAM: Male, 47 years old. Pleural effusion TECHNIQUE: Frontal and lateral views of the chest. COMPARISON: CT March 28, 2018 FINDINGS: Bilateral lower lobe atelectasis. Question small bilateral pleural effusions. Normal size heart. Normal mediastinum and lupe. Normal visualized pulmonary arteries. Normal visualized aortic arch and descending thoracic aorta. Normal visualized thoracic spine. Healed right rib fractures. There is no demonstrated abnormality of the visualized soft tissue structures of the upper abdomen. RAD/Chest PA and Lateral IMPRESSION: Bilateral lower lobe atelectasis. Question small bilateral pleural effusions. Electronically Signed: Eduar Archer MD at 8:45 EDT , Service support ,
[2018-04-01] MEDS: ALPRAZolam 0.5 MG Tablet PO (08:45)
[2018-04-01] MEDS: predniSONE 20 MG Tablet 40 MG PO (09:05)
[2018-04-01] MEDS: Lidocaine 5% Patch 1 PATCH TOPICAL (09:05)
[2018-04-01] MEDS: Lisinopril 10 MG Tablet PO (09:05)
[2018-04-01] MEDS: HYDROCHLOROTHIAZIDE 12.5 MG CAPSULE PO (09:06)
[2018-04-01] MEDS: Famotidine 20 MG Tablet PO (09:06)
--- NOTE | 2018-04-01 09:11 | NURSING ---
0845 to room as per pt reported to Dr. Hernandez when he was in seeing pt that pt would like his xanax. Said nurse to room. pt will not make eye contact with said nurse. prn medication given. updated on plan as per Dr. Hernandez. Pt states i am leaving today whether i am discharged today or not. informed pt that is his right, informed the same as per yesterday verbal instructions that were provided on same, if he is not discharged medically, he can sign out AMA, he can agree to sign the ama paper or not sign, however, we request that he notify the nurses he wants to leave so his IV can be removed prior to him leaving. asked if pt has any further questions or concerns- pt holds his hand up towards this nurse and says no.
[2018-04-01] MEDS: guaiFENesin 10 ML UDC (200MG/10ML) PO (09:12)
[2018-04-01 09:22] VITALS: O2SAT 88
[2018-04-01 09:24] VITALS: O2SAT 88; O2SAT 97
--- NOTE | 2018-04-01 09:34 | PCM.DC ---
You will use the following diet at home:: Calorie/Carbohydrate Controlled (specify 1200, 1400, etc) - 1800 yaa, Cardiac Your food should be the consistency of: Regular Discharge Activity: Return to Normal Activity, May not drive while taking narcotic pain medications. Weight Bearing Status: Weight bearing as tolerated Call your doctor if you observe: Fever of 101 or Higher, Shortness of breath, Dizziness, Fainting spells, Chest pain, Increased palpitations (irregular heartbeat), Uncontrolled pain Instructions: Rib Fracture (Broken Rib), Discharge Instructions for Pulmonary Embolism, Atelectasis Allergies/Adverse Reactions: Allergies oxycodone [From OxyContin] Adverse Reaction (Mild, Verified 03/27/18 07:07) Itching Medications to take at Discharge Rivaroxaban [Xarelto] 1 tab PO UD #51 tab 03/22/18 Albuterol Sulfate [Ventolin Hfa] 2 puff INHALATION Q4H PRN PRN #1 hfa.aer.ad 03/23/18 Famotidine [Pepcid] 20 mg PO BID #60 tablet 03/23/18 Fluticasone/Salmeterol [Advair 250-50 Diskus] 1 ea IH BID #1 blst.w.dev 03/23/18 Guaifenesin [Robitussin] 10 ml PO Q6H PRN PRN #4 oz 03/23/18 Lisinopril/Hydrochlorothiazide [Zestoretic 06/15.5 Tablet] 1 tab PO DAILY #30 tab 03/23/18 Metformin HCl 500 mg PO BID #60 tab 03/23/18 Nicotine [Nicoderm] 14 mg TRANSDERM. DAILY #14 patch 03/23/18 Cyclobenzaprine [Flexeril] 10 mg PO TID PRN PRN #20 tab 04/01/18 Levofloxacin [Levaquin] 750 mg PO DAILY #5 tab 04/01/18 Oxycodone [Oxyir] 5 - 10 mg PO Q4H PRN PRN 5 Days #30 tab 04/01/18 Prednisone 10 mg PO DAILY #30 tab 04/01/18 The following prescriptions were given: Oxycodone [Oxyir] 5 - 10 mg PO Q4H PRN PRN 5 Days #30 tab PRN Reason: Mod-Severe Pain (-06/13) Cyclobenzaprine [Flexeril] 10 mg PO TID PRN PRN #20 tab PRN Reason: Muscle spasm, pain Levofloxacin [Levaquin] 750 mg PO DAILY #5 tab Prednisone 10 mg PO DAILY #30 tab Primary Care Physician: Chirag Calhoun MD [Primary Care Provider] - Please follow up with your Primary Care Physician in: 1 week. Test Results: Test results from this visit will be discussed in further detail at your follow-up appointment, if applicable.
--- NOTE | 2018-04-01 10:19 | NURSING ---
spoke with Jalyn manager [employer] regarding pt concerns for pre-authorization for medications due to [employer] per pt report. Jalyn states unable to do pre-authorizations on weekends. Suggests to phone pharmacy and check pricing with them. Said nurse phoned [facility] and spoke with male pharmacist- states he should have no copays for any of his medications (levaquin, prednisone, flexeril, oxyir). pt updated
[2018-04-01] MEDS: Rivaroxaban 20 MG Tablet PO (10:46)
--- NOTE | 2018-04-01 11:13 | PCM.DC.SUM ---
Discharge Date and Diagnosis Date of Admission: 03/27/18 Date of Discharge: 04/01/18 - Primary Discharge Diagnosis #1 acute nontraumatic right seventh and eighth rib fractures. #2 intractable right lateral chest pain. #3 probable right lower lobe pneumonia, possibly healthcare associated. #4 new small right pleural effusion. #5 recent diagnosis of multiple small subsegmental bilateral mammary emboli. #6 probable COPD exacerbation. - Secondary Discharge Diagnosis Chronic Problems Prediabetes (Chronic) Obesity (BMI 30-39.9) (Chronic) HTN (hypertension) (Chronic) Bipolar disorder (Chronic) Non-compliant patient (Chronic) Nicotine addiction (Chronic) Hepatitis C (Chronic) Hospital Course and Treatment Imaging Results: 04/01/18 08:15 CXR [Chest PA and Lateral] [RAD] AM (NON MEDS) Clinical Impression(s) from Imaging Studies Chest CTA 03/27/18 07:17 IMPRESSION: There is no significant change to the multiple small bilateral subsegmental pulmonary emboli when compared to the study of 12 days previously. These are found within the upper lobes and left lower lobe. New right-sided seventh and eighth rib fractures compared to the prior CT. These were present on chest x-ray of 03/22/2018. Emphysematous changes without pneumothorax. Despite the study being repeated, the contrast bolus remains somewhat suboptimal. Electronically Signed: Robby Enriquez DO at 9:01 EDT Tel , Service support , ADDENDUM: 03/28/[address] 03/28/18 14:23 IMPRESSION: There is development of right lower lung consolidation and pleural effusion. Stable right rib fractures. Electronically Signed: Lex Calderón MD at 16:21 EDT , Service support , Guidance Fluoroscopy 03/30/18 17:10 IMPRESSION: Intercostal nerve blocks at T6, T7, T8 Electronically Signed: Sony Wong MD at 21:26 EDT , Service support , Chest X-Ray 04/01/18 08:15 IMPRESSION: Bilateral lower lobe atelectasis. Question small bilateral pleural effusions. Electronically Signed: Eduar Archer MD at 8:45 EDT , Service support , Dr. Ibrahim, pulmonology. Operations: None Procedures: - - Nerve block for right seventh and eighth rib fractures. Summary of Care Provided: Patient seen and examined on the day of discharge and appeared to be stable to be discharged home. He continued to complain of right lateral chest pain. Yesterday, we tried to cut down on his IV Dilaudid and he was very upset. He has been on Toradol, OxyIR and IV Dilaudid. His symptoms improved as well as his respiratory status and he has been maintaining pulse ox on room air. Again this morning, he was upset again because he did not receive his IV Dilaudid. I explained to him that we need to go down on those IV pain medicine once the pain started to get better and he was not convinced. Chest x-ray done today and revealed small bilateral pleural effusion when bilateral atelectasis. His walking pulse oximeter was normal, pulse ox went down to 80% with ambulation but went up to 97% very quick with amputation as well. Patient was seen again and felt to be stable to be discharged home. - Physical Exam General: Alert, Oriented x3, Cooperative. HEENT: Atraumatic, PERRLA, EOMI. Neck: Supple, No JVD, Negative Carotid Bruits, Trachea Midline, Thyroid Normal. Lungs: Decreased breath sounds at the bases, more on the right base, rhonchi. No wheeze, No rales. Cardiovascular: Regular rate, Regular Rhythm, Normal S1, Normal S2, PMI Normal. Abdomen: Bowel Sounds Present, Soft, Non Tender, Non-Distended, No Hepato-splenomegaly. Extremities: No clubbing, No cyanosis, No edema Skin: No rashes, No breakdown Neurological: Neuro grossly intact Vital Signs are stable. Hospital course: The patient is a 47 year old M admitted because of intractable right lateral chest pain and shortness of breath in context of recent diagnosis of multiple small bilateral upper lobe and left lower lobe pulmonary emboli and he was found to have new acute nontraumatic right seventh and eighth rib fractures. Upon admission, CTA chest done and revealed multiple small bilateral subsegmental PEs and also found to have new right seventh and eighth rib fractures. He was treated with IV Dilaudid, OxyIR and IV Toradol as well as incentive spirometer. Patient symptoms were very difficult to control. Patient continued to complain of severe intractable right lateral chest pain for which CT scan chest without contrast performed and revealed development of right lower lobe consolidation and small pleural effusion. He was started on empiric IV antibiotics for probable pneumonia. His routine blood work was remarkable for mild leukocytosis which is attributed for steroids. His EKG revealed no acute ischemic changes. He was started on oral prednisone for probable COPD exacerbation and also started on bronchodilators. Dr. El was consulted and patient underwent nerve block procedure for right seventh and eighth rib fractures. After the procedure, patient felt better and he was able to manage his pain with pain medication. We tried to cut down on his IV Dilaudid but patient was very upset. I explained to the patient that we needed to cut down on his IV Dilaudid and control his pain with oral pain medications. He was upset again and he was not convinced. Chest x-ray was done on the day of discharge and revealed small bilateral pleural effusion and atelectasis, x-ray looked better actually. Walking pulse oximeter was done and his pulse ox went down to 80% but went up to 97% right away when he was asked to take a deep breath. He did not qualify for home oxygen. Patient discharged home in a stable medical condition, discharged on Levaquin 750 g p.o. daily for 5 days of treatment, discharged on tapering course of prednisone, resumed back on Xarelto for recent history of PE, discharged on OxyIR as needed for pain, Flexeril as needed for pain, recommended to use incentive spirometer, recommended follow-up with PCP in 1 week. Discharge Activity: Return to Normal Activity, May not drive while taking narcotic pain medications. Weight Bearing Status: Weight bearing as tolerated Call your doctor if you observe: Fever of 101 or Higher, Shortness of breath, Dizziness, Fainting spells, Chest pain, Increased palpitations (irregular heartbeat), Uncontrolled pain Home Medications: Medications to take at Discharge Rivaroxaban [Xarelto] 1 tab PO UD #51 tab 07/19/18 Albuterol Sulfate [Ventolin Hfa] 2 puff INHALATION Q4H PRN PRN #1 hfa.aer.ad 03/23/18 Famotidine [Pepcid] 20 mg PO BID #60 tablet 03/23/18 Fluticasone/Salmeterol [Advair 250-50 Diskus] 1 ea IH BID #1 blst.w.dev 03/23/18 Guaifenesin [Robitussin] 10 ml PO Q6H PRN PRN #4 oz 03/23/18 Lisinopril/Hydrochlorothiazide [Zestoretic 06/15.5 Tablet] 1 tab PO DAILY #30 tab 03/23/18 Metformin HCl 500 mg PO BID #60 tab 03/23/18 Nicotine [Nicoderm] 14 mg TRANSDERM. DAILY #14 patch 03/23/18 Cyclobenzaprine [Flexeril] 10 mg PO TID PRN PRN #20 tab 04/01/18 Levofloxacin [Levaquin] 750 mg PO DAILY #5 tab 04/01/18 Oxycodone [Oxyir] 5 - 10 mg PO Q4H PRN PRN 5 Days #30 tab 04/01/18 Prednisone 10 mg PO DAILY #30 tab 04/01/18 Following Prescrptions Were Given to Patient: Oxycodone [Oxyir] 5 - 10 mg PO Q4H PRN PRN 5 Days #30 tab PRN Reason: Mod-Severe Pain (4-10/10) Cyclobenzaprine [Flexeril] 10 mg PO TID PRN PRN #20 tab PRN Reason: Muscle spasm, pain Levofloxacin [Levaquin] 750 mg PO DAILY #5 tab Prednisone 10 mg PO DAILY #30 tab Primary Care Physician: Chirag Calhoun MD [Primary Care Provider] - Please follow up with your Primary Care Physician in: 1 week. Patient Instructions: Atelectasis, Rib Fracture (Broken Rib), Discharge Instructions for Pulmonary Embolism Disposition: Home Minutes spent on discharge:: 34 Patient Condition:: Stable Medical Necessity - Tobacco Use Smoking Status: Former smoker Meaningful Use Info Meaningful Use Diagnoses (Choose all that apply): None applicable Code Visit Inpatient E&M: 41526 Disch Hosp
--- NOTE | 2018-04-01 11:25 | DS.PCM_ITS ---
Discharge Date and Diagnosis Date of Admission: 03/27/18 Date of Discharge: 04/01/18 - Primary Discharge Diagnosis #1 acute nontraumatic right seventh and eighth rib fractures. #2 intractable right lateral chest pain. #3 probable right lower lobe pneumonia, possibly healthcare associated. #4 new small right pleural effusion. #5 recent diagnosis of multiple small subsegmental bilateral mammary emboli. #6 probable COPD exacerbation. - Secondary Discharge Diagnosis Chronic Problems Prediabetes (Chronic) Obesity (BMI 30-39.9) (Chronic) HTN (hypertension) (Chronic) Bipolar disorder (Chronic) Non-compliant patient (Chronic) Nicotine addiction (Chronic) Hepatitis C (Chronic) Hospital Course and Treatment Imaging Results: 04/01/18 08:15 CXR [Chest PA and Lateral] [RAD] AM (NON MEDS) Clinical Impression(s) from Imaging Studies Chest CTA 03/27/18 07:17 IMPRESSION: There is no significant change to the multiple small bilateral subsegmental pulmonary emboli when compared to the study of 12 days previously. These are found within the upper lobes and left lower lobe. New right-sided seventh and eighth rib fractures compared to the prior CT. These were present on chest x-ray of 03/22/2018. Emphysematous changes without pneumothorax. Despite the study being repeated, the contrast bolus remains somewhat suboptimal. Electronically Signed: Robby Enriquez DO at 9:01 EDT Tel , Service support , ADDENDUM: 03/28/[address] 03/28/18 14:23 IMPRESSION: There is development of right lower lung consolidation and pleural effusion. Stable right rib fractures. Electronically Signed: Lex Calderón MD at 16:21 EDT , Service support , Guidance Fluoroscopy 03/30/18 17:10 IMPRESSION: Intercostal nerve blocks at T6, T7, T8 Electronically Signed: Sony Wong MD at 21:26 EDT , Service support , Chest X-Ray 04/01/18 08:15 IMPRESSION: Bilateral lower lobe atelectasis. Question small bilateral pleural effusions. Electronically Signed: Eduar Archer MD at 8:45 EDT , Service support , Dr. Ibrahim, pulmonology. Operations: None Procedures: - - Nerve block for right seventh and eighth rib fractures. Summary of Care Provided: Patient seen and examined on the day of discharge and appeared to be stable to be discharged home. He continued to complain of right lateral chest pain. Yesterday, we tried to cut down on his IV Dilaudid and he was very upset. He has been on Toradol, OxyIR and IV Dilaudid. His symptoms improved as well as his respiratory status and he has been maintaining pulse ox on room air. Again this morning, he was upset again because he did not receive his IV Dilaudid. I explained to him that we need to go down on those IV pain medicine once the pain started to get better and he was not convinced. Chest x-ray done today and revealed small bilateral pleural effusion when bilateral atelectasis. His walking pulse oximeter was normal, pulse ox went down to 80% with ambulation but went up to 97% very quick with amputation as well. Patient was seen again and felt to be stable to be discharged home. - Physical Exam General: Alert, Oriented x3, Cooperative. HEENT: Atraumatic, PERRLA, EOMI. Neck: Supple, No JVD, Negative Carotid Bruits, Trachea Midline, Thyroid Normal. Lungs: Decreased breath sounds at the bases, more on the right base, rhonchi. No wheeze, No rales. Cardiovascular: Regular rate, Regular Rhythm, Normal S1, Normal S2, PMI Normal. Abdomen: Bowel Sounds Present, Soft, Non Tender, Non-Distended, No Hepato- splenomegaly. Extremities: No clubbing, No cyanosis, No edema Skin: No rashes, No breakdown Neurological: Neuro grossly intact Vital Signs are stable. Hospital course: The patient is a 47 year old M admitted because of intractable right lateral chest pain and shortness of breath in context of recent diagnosis of multiple small bilateral upper lobe and left lower lobe pulmonary emboli and he was found to have new acute nontraumatic right seventh and eighth rib fractures. Upon admission, CTA chest done and revealed multiple small bilateral subsegmental PEs and also found to have new right seventh and eighth rib fractures. He was treated with IV Dilaudid, OxyIR and IV Toradol as well as incentive spirometer. Patient symptoms were very difficult to control. Patient continued to complain of severe intractable right lateral chest pain for which CT scan chest without contrast performed and revealed development of right lower lobe consolidation and small pleural effusion. He was started on empiric IV antibiotics for probable pneumonia. His routine blood work was remarkable for mild leukocytosis which is attributed for steroids. His EKG revealed no acute ischemic changes. He was started on oral prednisone for probable COPD exacerbation and also started on bronchodilators. Dr. El was consulted and patient underwent nerve block procedure for right seventh and eighth rib fractures. After the procedure, patient felt better and he was able to manage his pain with pain medication. We tried to cut down on his IV Dilaudid but patient was very upset. I explained to the patient that we needed to cut down on his IV Dilaudid and control his pain with oral pain medications. He was upset again and he was not convinced. Chest x-ray was done on the day of discharge and revealed small bilateral pleural effusion and atelectasis, x- ray looked better actually. Walking pulse oximeter was done and his pulse ox went down to 80% but went up to 97% right away when he was asked to take a deep breath. He did not qualify for home oxygen. Patient discharged home in a stable medical condition, discharged on Levaquin 750 g p.o. daily for 5 days of treatment, discharged on tapering course of prednisone, resumed back on Xarelto for recent history of PE, discharged on OxyIR as needed for pain, Flexeril as needed for pain, recommended to use incentive spirometer, recommended follow-up with PCP in 1 week. Discharge Activity: Return to Normal Activity, May not drive while taking narcotic pain medications. Weight Bearing Status: Weight bearing as tolerated Call your doctor if you observe: Fever of 101 or Higher, Shortness of breath, Dizziness, Fainting spells, Chest pain, Increased palpitations (irregular heartbeat), Uncontrolled pain Home Medications: Medications to take at Discharge Rivaroxaban [Xarelto] 1 tab PO UD #51 tab 07/19/18 Albuterol Sulfate [Ventolin Hfa] 2 puff INHALATION Q4H PRN PRN #1 hfa.aer.ad Famotidine [Pepcid] 20 mg PO BID #60 tablet 03/23/18 Fluticasone/Salmeterol [Advair 250-50 Diskus] 1 ea IH BID #1 blst.w.dev Guaifenesin [Robitussin] 10 ml PO Q6H PRN PRN #4 oz 03/23/18 Lisinopril/Hydrochlorothiazide [Zestoretic 06/15.5 Tablet] 1 tab PO DAILY #30 tab 03/23/18 Metformin HCl 500 mg PO BID #60 tab 03/23/18 Nicotine [Nicoderm] 14 mg TRANSDERM. DAILY #14 patch 03/23/18 Cyclobenzaprine [Flexeril] 10 mg PO TID PRN PRN #20 tab 04/01/18 Levofloxacin [Levaquin] 750 mg PO DAILY #5 tab 04/01/18 Oxycodone [Oxyir] 5 - 10 mg PO Q4H PRN PRN 5 Days #30 tab 04/01/18 Prednisone 10 mg PO DAILY #30 tab 04/01/18 Following Prescrptions Were Given to Patient: Oxycodone [Oxyir] 5 - 10 mg PO Q4H PRN PRN 5 Days #30 tab PRN Reason: Mod-Severe Pain (4-10/10) Cyclobenzaprine [Flexeril] 10 mg PO TID PRN PRN #20 tab PRN Reason: Muscle spasm, pain Levofloxacin [Levaquin] 750 mg PO DAILY #5 tab Prednisone 10 mg PO DAILY #30 tab Primary Care Physician: Chirag Calhoun MD [Primary Care Provider] - Please follow up with your Primary Care Physician in: 1 week. Patient Instructions: Atelectasis, Rib Fracture (Broken Rib), Discharge Instructions for Pulmonary Embolism Disposition: Home Minutes spent on discharge:: 34 Patient Condition:: Stable Medical Necessity - Tobacco Use Smoking Status: Former smoker Meaningful Use Info Meaningful Use Diagnoses (Choose all that apply): None applicable Code Visit Inpatient E&M: 05171 Disch Hosp
--- NOTE | 2018-04-02 15:54 | CASEMGMT ---
RN CM Discharge Follow-up Phone Call: LUIS: Mansi Strata: 4 Call Date: 04/02/18 Discharge Date: 04/01/18 Time of Call: 1555 Duration: 1 min Admitting Diagnosis: Intractable rib/chest pain SOB RN ELYSIA attempted to complete follow up phone call after recent hospitalization. Phone number not working and unable to leave contact information.
== END 2018-04-01 10:48 | disposition home or self-care (01) | DRG 78 ==
LOC: ED 07:20 → MS3 09:57
PROVIDERS: Anesthesiology; Anesthesiology Pain Medicine; Internal Medicine Critical Care Medicine; Admitting Provider Hospitalist; Emergency Provider Emergency Medicine; Family Provider Family Medicine; PCP Family Medicine; Visit Provider Hospitalist
PROC: 3E0T3BZ Introduction of Anesthetic Agent into Peripheral Nerves and Plexi, Percutaneous Approach (ICD-10-PCS; principal; 2018-03-30 07:25)
DX: I26.99 Other pulmonary embolism without acute cor pulmonale (principal); S22.41XA Multiple fractures of ribs, right side, initial encounter for closed fracture; B18.2 Chronic viral hepatitis C; J90 Pleural effusion, not elsewhere classified; J44.1 Chronic obstructive pulmonary disease with (acute) exacerbation; J18.9 Pneumonia, unspecified organism; J98.11 Atelectasis; I10 Essential (primary) hypertension; E11.9 Type 2 diabetes mellitus without complications; F41.9 Anxiety disorder, unspecified; F31.9 Bipolar disorder, unspecified; F17.200 Nicotine dependence, unspecified, uncomplicated; E66.9 Obesity, unspecified; Z91.19 Patient's noncompliance with other medical treatment and regimen; Z79.01 Long term (current) use of anticoagulants
CPT/HCPCS: 36415; 71046; 71250; 71275; 76000; 77002; 80048; 82962; 83036; 84484; 85014; 85018; 85025; 85027; 87070; 87205; 93005; 94640; 97110; 97116; 97162; 97165; 97530; 99283; 99406; Q9967; A4216; J2405

== ENCOUNTER 2018-04-25 15:50 | Emergency (ER) | payer MEDICAID, SELFPAY ==
[2018-04-25 15:51] VITALS: BP 153/101; PULSE 135; RESP 36; TEMP 36.8; O2SAT 98; BMI 36.2
[2018-04-25 15:57] VITALS: O2SAT 98
--- NOTE | 2018-04-25 16:03 | ED.VISSUMM ---
- ER Visit Summary Date of Service: 04/25/18 Chief Complaint: Dyspnea History of Present Illness: The patient is a 47 M who presents with shortness of breath and chest pain that became worse today. Patient was recently diagnosed with rib fractures, pneumonia, and pulmonary embolism and was admitted here. Patient states that the pain became worse again today. Patient states his breathing is worse with any exertion. Patient states his pain is worse with any movement of his chest. Patient admits to subjective chills and sweats. Patient states the pain is over the right side of his chest and into his back. Patient denies any nausea or vomiting. Patient states he has been compliant with his medications. Physical Examination: Vital signs show blood pressure 153/101, heart rate of 135, respiratory rate of 36, pulse oximeter of 98% on room air. Patient is afebrile. Oral mucosa is pink and moist. Neck is supple. There is no JVD noted. Heart was regular and tachycardic. Lungs showed diffuse expiratory wheezing. There are diminished breath sounds as well due to the patient's lack of effort. There is reproducible tenderness over the right chest and right thoracic area. There is no edema or ecchymosis noted. Abdomen is soft and nontender. Cranial nerves II through XII are intact. There are no focal motor or sensory deficits noted. Test Results: EKG showed sinus tachycardia with a rate of 124. There are no acute ST or T-wave changes. This was unchanged compared to previous EKG dated 03/30/2018. Chest x-ray does not show any acute cardiopulmonary process. CBC shows a slight leukocytosis of 11.4. Basic metabolic profile shows sodium 135 and potassium was slightly elevated at 5.4. Glucose was slightly elevated 156. Troponin was normal. Emergency Department Course and Treatment: Patient was given a DuoNeb aerosol here. Patient was given IV fluids. Patient was given injections of morphine. Patient states his pain is improved. His heart rate has improved to 106. Patient was given a prescription for a short course of [place]. Patient was instructed to follow-up with his primary care physician in 3-5 days. Patient was instructed on signs and symptoms which should prompt return to the emergency department. Patient understood and was agreeable with the plan. All questions were answered. Disposition: Discharged home Impression: Dyspnea This note was generated with [employer] / ?.??ation software. It may contain incorrect words, spelling, and punctuation that were not noted in review of the chart prior to signing ED Disposition - Plan for ED Patient: Disposition: Home or Assisted Living Chief Complaint: Shortness of Breath Diagnosis: Dyspnea Instructions: ED Dyspnea Shortness of Breath Prescriptions: Hydrocodone Bitart/Apap 5-325 [[place] 5MG-325MG] 1 tab PO Q6H PRN PRN 3 Days #10 tab PRN Reason: Pain Referrals: Chirag Calhoun MD [Primary Care Provider] -
[2018-04-25 16:17] VITALS: PULSE 122; RESP 22
[2018-04-25] MEDS: 0.9% Normal Saline 1,000 ML 1000 ML IV (16:17)
[2018-04-25] MEDS: Ipratropium/Albuterol Sulfate 3 ML AMPUL.NEB INHALATION (16:18)
[2018-04-25] MEDS: Morphine 4 MG/ML Syringe IV ×2 (16:18→17:28)
[2018-04-25 16:21] LABS: Absolute Lymphocyte Count 3.34 X10^3/ul (0.83-4.51); Basophil# 0.02 X10^3/uL; Basophil% 0.2 % (0-1); Eosinophils% 0.9 % (0-5); Hematocrit 44.7 % (40-54); Hemoglobin 15.1 g/dl (13.0-16.5); Lymphocyte # 3.34 X10^3/ul (4.0); Lymphocyte % 29.2 % (19-41); Mean Corp Hgb Conc 33.8 g/gl (32-36); Mean Corpuscular Hgb 30.1 pg (27.0-32.0); Mean Platelet Vol. 8.8 fl (6.2-12.0); Monocyte# 0.97 X10^3/uL; Monocyte% 8.5 % (0-10); Neutrophil # 6.97 X10^3/uL (2.7-7.7); Platelet Count 355 K/mm3 (150-450); RBC Distribution Width CV 13.4 % (11.6-14.6); RBC Distribution Width SD 43.5 fl (35.1-43.9); Red Blood Count 5.02 M/mm3 (4.6-6.2); White Blood Count 11.4 K/mm3 (4.4-11.0)
[2018-04-25 16:27] LABS: POSITIVE COUNT NO; POSITIVE DIFFERENTIAL NO; POSITIVE MORPHOLOGY NO
[2018-04-25 16:36] LABS: International Normalized Ratio 0.9; Prothrombin Time (Protime)PT. 12.5 SECONDS (11.7-14.9)
[2018-04-25 16:37] LABS: Partial Thromboplast Time 25.2 Seconds (24.1-36.2)
[2018-04-25 16:45] LABS: Anion Gap 13 (5-15); BUN 10 mg/dL (7-18); BUN/Creat Ratio 7.8 RATIO (10-20); Chloride 100 mmol/L (98-107); Creatinine, Serum 1.28 mg/dL (0.70-1.30); EST Glomerular Filtration Rate 64 mL/min (>60); Est Glom Filt Rate - Afr Amer 77 mL/min (>60); Estimated Creatinine Clearance 75.99 ml/min; Glucose 156 mg/dL (74-106); Potassium 5.4 mmol/L (3.5-5.1); Sodium Level 135 mmol/L (136-145)
[2018-04-25 17:29] VITALS: BP 142/101; PULSE 119; RESP 27; O2SAT 94
--- NOTE | 2018-04-25 18:34 | ED.RN ---
PT REPORTS TO THIS RN THAT HE RAN OUT OF HIS XARELTO AND HAS NOT BEEN TAKING IT FOR A COUPLE OF DAYS. DR. ANNE INFORMED.
[2018-04-25 18:53] VITALS: BP 142/110; PULSE 104; RESP 22; O2SAT 94
--- NOTE | 2018-04-25 18:54 | ED.RN ---
PT GIVEN WRITTEN AND VERBAL DISCHARGE INSTRUCTIONS AND HOME GOING INSTRUCTIONS. PT VERBALIZES UNDERSTANDING. PT EDUCATED NOT TO DRIVE WHEN TAKING MEDICATIONS THAT ARE NARCOTIC. PT IV D/C AND COVERED WITH 2X2 GAUZE DRESSING. PT EDUCATED ON IMPORTANCE OF TAKING MEDICATION AND FOLLOWING UP WITH DR. BLANCAS.
--- NOTE | 2018-04-26 12:57 | CM.ED ---
ED CALLBACK: Follow-up call, to patient, attempted. Message states number listed is not a working number.
== END 2018-04-25 18:57 | disposition home or self-care (01) ==
PROVIDERS: Emergency Provider Emergency Medicine; Family Provider Family Medicine; PCP Family Medicine
DX: R06.00 Dyspnea, unspecified (principal); R07.9 Chest pain, unspecified; Z86.711 Personal history of pulmonary embolism; Z79.01 Long term (current) use of anticoagulants; Z79.899 Other long term (current) drug therapy
CPT/HCPCS: 71046; 80048; 84484; 85025; 85610; 85730; 93005; 94640; 96361; 96374; 96376; 99285; J7030; A4216

== ENCOUNTER 2018-07-05 07:47 | Emergency (ER) | payer MEDICAID, SELFPAY ==
[2018-07-05 07:48] VITALS: BP 192/140; PULSE 101; RESP 22; TEMP 36.7; O2SAT 95; BMI 33.9
[2018-07-05 07:50] VITALS: PULSE 110; RESP 24
--- NOTE | 2018-07-05 07:54 | CT_ITS ---
STUDY: CTA CHEST REASON FOR EXAM: Male, 47 years old. Chest pain. Right rib pain. Emphysema. RADIATION DOSAGE (If Supplied By Facility): CTDIvol = ( 23.37 ) mGy, DLP = ( 750.90 ) mGycm TECHNIQUE: The examination was performed with the intravenous administration of 100 ml of Isovue 370 contrast material. Post-processing of the angiographic images was performed, with multiplanar reformation and 3D reconstruction. Individualized dose optimization techniques were used for this CT. COMPARISON: Comparison is made with prior examination dated March 28, 2018. FINDINGS: Normal enhancement of the main pulmonary artery and right and left pulmonary arteries. Normal enhancement of the bilateral peripheral pulmonary arteries. There is no demonstrated pulmonary embolism. Normal thoracic aorta and visualized great vessels. There is no demonstrated aortic dissection. There are calcifications of the coronary arteries. Normal mediastinum. Normal hilar regions. Normal visualized trachea and bronchi. Hyperinflation. There is evidence of emphysema with cystic changes worse in the right upper lobe. There is evidence of multiple healed right rib fractures with focal pleural thickening. Normal chest wall structures. There are degenerative changes of thoracic spine. There is fatty infiltration of the liver. CT/CTA Chest W/WO Contrast IMPRESSION: No evidence of pulmonary embolism. Healed multiple right rib fractures with underlying pleural thickening. Emphysematous changes. Electronically Signed: Iain Tracy MD at 9:40 EDT Tel [phone], Service support ,
--- NOTE | 2018-07-05 07:56 | ED.VISSUMM ---
- ER Visit Summary Date of Service: 07/05/18 Chief Complaint: Right lower rib pain History of Present Illness: The patient is a 47 M who presents with right lower rib pain. It started when he woke up today. Patient had similar symptoms back in February. After multiple visits it was found he had seventh and eighth rib fractures as well as pulmonary embolism at that time. They had a hard time controlling his pain and he had a readmission for intractable pain. He was placed on fentanyl patches at that time. He went home with patches at that time but has not had anything since. He is supposed to be taking Xarelto for the PEs but he did not fill this once he was out. He feels like it hurts to take a deep breath. He denies any fevers. Physical Examination: Vital signs reviewed. HEENT exam unremarkable. Heart is regular rate and rhythm without murmurs. Lungs are clear to auscultation. Chest wall is tender on the right lower rib area. There is a palpable gap which is been there previously which he states is from the rib fractures. Abdomen is soft and nontender. Extremities reveal no edema. Skin exam normal. Neurologic exam normal. Test Results: Laboratory studies normal except for glucose of 142. CT of the chest reveals no PE. Healed rib fractures noted. CAT scan of the abdomen pelvis reveals healed rib fractures with a fatty liver. Emergency Department Course and Treatment: She required fentanyl, morphine, Toradol and then finally Dilaudid for pain control. I informed him that his CAT scan revealed no pulmonary embolism. However, I did recommend he restart his Xarelto since we do not know what provoked his pulmonary embolism. He states that he did not want to restart it as he did not see the reason why he needed to. He keeps saying that there is something wrong with the right chest wall area that his got protrude through his ribs. He does have some separation of his ribs which was seen on a CAT scan a few months ago. I told him that he needs to see his primary care physician who can do further testing to find the etiology of this pain. However, I do not feel that admission to the hospital for pain control would be prudent. During his last admission they had a hard time weaning him off of Dilaudid. I will send her home with some [place] for pain. Treatment Plan: [] Disposition: Discharge Impression: Right chest wall pain This note was generated with [employer] dictation software. It may contain incorrect words, spelling, and punctuation that were not noted in review of the chart prior to signing ED Disposition - Plan for ED Patient: Chief Complaint: Chest Other Referrals: Chirag Calhoun MD [Primary Care Provider] -
[2018-07-05] MEDS: fentaNYL 100 MCG/2 ML Ampul 50 MCG IV (08:11)
[2018-07-05 08:18] LABS: Absolute Lymphocyte Count 2.12 X10^3/ul (0.83-4.51); Absolute Neutrophil Count 4.4 X10^3/uL (2.0-7.7); Basophil# 0.04 X10^3/uL; Basophil% 0.5 % (0-1); Eosinophil# 0.13 X10^3/uL; Eosinophils% 1.7 % (0-5); Hemoglobin 15.7 g/dl (13.0-16.5); Lymphocyte # 2.12 X10^3/ul (4.0); Lymphocyte % 28.5 % (19-41); Mean Corp Hgb Conc 33.4 g/gl (32-36); Mean Corpuscular Hgb 30.4 pg (27.0-32.0); Mean Corpuscular Volume 90.9 fL (80-94); Mean Platelet Vol. 9.4 fl (6.2-12.0); Monocyte# 0.71 X10^3/uL; Monocyte% 9.5 % (0-10); Neutrophil # 4.41 X10^3/uL (2.7-7.7); Neutrophil % 59.3 % (47-70); Platelet Count 411 K/mm3 (150-450); RBC Distribution Width CV 13.3 % (11.6-14.6); Red Blood Count 5.17 M/mm3 (4.6-6.2); White Blood Count 7.5 K/mm3 (4.4-11.0)
[2018-07-05 08:19] LABS: POSITIVE COUNT NO; POSITIVE DIFFERENTIAL NO; POSITIVE MORPHOLOGY NO
[2018-07-05] MEDS: morphine 8 MG/ML Syringe IV (08:31)
[2018-07-05 08:32] VITALS: BP 183/132; PULSE 93; RESP 20; O2SAT 95
[2018-07-05] MEDS: Albuterol 2.5 MG/3 ML VIAL.NEB. INHALATION (08:32)
[2018-07-05 08:41] LABS: Anion Gap 10 (5-15); BUN 11 mg/dL (7-18); BUN/Creat Ratio 11.4 RATIO (10-20); Calcium,Total 8.8 mg/dL (8.5-10.1); Chloride 102 mmol/L (98-107); Creatinine, Serum 0.97 mg/dL (0.70-1.30); EST Glomerular Filtration Rate 88 mL/min (>60); Est Glom Filt Rate - Afr Amer 107 mL/min (>60); Estimated Creatinine Clearance 103.33 ml/min; Glucose 142 mg/dL (74-106); Potassium 4.3 mmol/L (3.5-5.1); Sodium Level 140 mmol/L (136-145)
[2018-07-05] MEDS: Ketorolac 30 MG/ML Syringe IV (09:10)
--- NOTE | 2018-07-05 09:48 | CT_ITS ---
STUDY: CT ABDOMEN AND PELVIS WITHOUT CONTRAST REASON FOR EXAM: Male, 47 years old. Abdominal pain. Frequent urination. RADIATION DOSAGE (If Supplied By Facility): CTDIvol = ( 23.00 ) mGy, DLP = ( 1264.29 ) mGycm TECHNIQUE: Transaxial images were obtained from the dome of the diaphragm to the symphysis pubis without oral contrast, and without intravenous contrast. Sagittal and coronal images were reconstructed. Individualized dose optimization techniques were used for this CT. COMPARISON: Comparison is made with prior study dated December 24, 2015. FINDINGS: There is evidence of a healed rib fractures in the lower right hemithorax with a resultant overlying pleural thickening. The visualized portions of the heart are within normal limits. There is decreased attenuation of the liver consistent with steatosis. Normal gallbladder and extrahepatic biliary system. Normal spleen. Normal pancreas. Normal bilateral adrenal glands. Normal right kidney. Normal left kidney. There is a small hiatal hernia. Normal small intestine. Moderate amount of fecal material is seen in the colon. There is non-visualization of the appendix. There is scattered atherosclerotic calcification of the abdominal aorta, without a demonstrated aneurysm. Normal inferior vena cava. Normal retroperitoneum. Normal urinary bladder. There is a small umbilical hernia containing fat. The neck of the hernia measures 2.9 cm. There are degenerative changes of the visualized lumbar spine. CT/Abdomen/Pelvis without Cont IMPRESSION: Diffuse fatty infiltration of the liver. Healed right lower rib fractures with overlying pleural thickening. Electronically Signed: Iian Tracy MD at 10:57 EDT Tel [phone], Service support ,
[2018-07-05 10:20] VITALS: BP 159/68; PULSE 86; RESP 18; O2SAT 96
[2018-07-05] MEDS: HYDROmorphone 1 MG/ML Syringe IV (10:58)
--- NOTE | 2018-07-05 11:02 | ED.DEP ---
ED Disposition - Plan for ED Patient: Disposition: Home or Assisted Living Chief Complaint: Chest Other Instructions: ED Chest Pain Atypical Unkn Cause Prescriptions: Hydrocodone Bitart/Apap 5-325 [[place] 5MG-325MG] 1 tab PO Q6H PRN PRN 3 Days #10 tab PRN Reason: Pain Referrals: Chirag Calhoun MD [Primary Care Provider] -
[2018-07-05 11:08] VITALS: BP 239/146; PULSE 87; RESP 16; O2SAT 98
== END 2018-07-05 11:09 | disposition home or self-care (01) ==
PROVIDERS: Emergency Provider Emergency Medicine; Family Provider Family Medicine; PCP Family Medicine
DX: R07.89 Other chest pain (principal); Z86.711 Personal history of pulmonary embolism; Z79.01 Long term (current) use of anticoagulants; Z72.0 Tobacco use
CPT/HCPCS: 71275; 74176; 80048; 84484; 85025; 94640; 96374; 96375; 99285; Q9967

== ENCOUNTER 2019-07-30 01:56 | Observation (INO) | payer MEDICAID, SELFPAY ==
[2019-07-30] VITALS (26 sets, daily range): BP systolic 152–194; BP diastolic 89–136; PULSE 72–128; RESP 16–23; TEMP 36.4–37.2; O2SAT 88–97; BMI 35.9; BMI 31.7; BMI 31.8
--- NOTE | 2019-07-30 02:00 | EKG12_ITS ---
Test Reason : SOB Blood Pressure : / mmHG Vent. Rate : 114 BPM Atrial Rate : 114 BPM P-R Int : 160 ms QRS Dur : 108 ms QT Int : 332 ms P-R-T Axes : 049 039 080 degrees QTc Int : 457 ms Sinus tachycardia Incomplete right bundle branch block Borderline ECG Confirmed by DOC ALVARADO, VICKI ([id number]), mapping editor AMADA HARDY ([id number]) on 07/31/2019 10:47:43 AM Referred By: [facility] Confirmed By:VICKI ROACH MD
--- NOTE | 2019-07-30 02:00 | RAD_ITS ---
STUDY: X-RAY CHEST REASON FOR EXAM: Male, 48 years old. Left-sided chest pain and shortness of breath x1 week, history of COPD. Right-sided rib pain secondary to injury over a year ago. TECHNIQUE: Single AP portable view of the chest. COMPARISON: 04/25/2018. 04/01/2018. FINDINGS: There are superimposed monitor leads. Mild elevation right hemidiaphragm. Component off COPD, mild interstitial prominence in the left base increased since previous examination. There is no focal parenchymal abnormality.. Pleural thickening along the right lower chest wall, decreased since previous exam. Normal size heart. Normal mediastinum and lupe. Normal visualized pulmonary arteries. Normal visualized aortic arch and descending thoracic aorta. Normal visualized thoracic spine. Healed right rib deformities. Remote healed distal right clavicular deformity. There is no demonstrated abnormality of the visualized soft tissue structures of the upper abdomen. RAD/Chest 1 View (Portable) IMPRESSION: Component of COPD and chronic appearing interstitial lung disease, increased interstitial markings in the left base possible due to an inflammatory process. No confluent pneumonia or pneumothorax. Remote healed right rib deformities, decreased pleural thickening. Electronically Signed: Kenisha Mota MD at 2:26 EST , Service support ,
--- NOTE | 2019-07-30 02:02 | ED.DCSUM_ITS ---
History of Present Illness Chief Complaint: Chest Pain Informant: Patient Onset: Days Context: Gradual Onset Timing: Continuous Current Severity: Moderate Maximum Severity: Moderate Narrative: Patient is a 48-year-old male with significant smoking history and history of prior pulmonary embolus the presents to the emergency department left-sided chest pain. Patient states this pain began about 3 days ago. He states he woke and had some pain especially when you take a deep breath. He describes cough with sputum. He states he also just feels like he cannot catch his breath. He has not had fever. He denies any chills or sweats. He states he had the similar symptoms before when he had blood clots with pneumonia. He is not currently on anticoagulants. He does smoke. He states has not seen a doctor in some time. Prior similar symptoms: Yes Recent Illness/Hospitalization: No Past Medical History - Allergies and Home Meds Allergies/Adverse Reactions: Allergies oxycodone [From OxyContin] Adverse Reaction (Mild, Verified 07/05/18 07:51) Itching Primary Care Physician: Chirag Calhoun MD [Primary Care Provider] - Prior records reviewed: Yes Past Medical History: - - Prior PE, smoking, prior rib fracture Surgical History: total knee arthroplasty - On the left knee, - - Umbilical hernia repair, bilateral knee arthroscopic surgeries and ligament repair, great toe trauma with several follow-up surgical interventions. Smoking Status: Current every day smoker - Family History Maternal Family History: Reports: High Cholesterol, Heart Disease, Hypertension Paternal Family History: Reports: High Cholesterol, Heart Disease, Hypertension Review of Systems General: Denies: Chills, Fever, Sweats Eyes: Denies: Visual changes - bilaterally, Diplopia ENT: Denies: Rhinorrhea, Sore throat Cardiovascular: Reports: Chest pain. Denies: Palpitations Respiratory: Reports: Dyspnea. Denies: Cough, Dyspnea on exertion Gastrointestinal: Denies: Abdominal pain, Nausea, Vomiting, Diarrhea, Melena, Hematochezia Genitourinary: Denies: Dysuria, Hematuria, Frequency Musculoskeletal: Denies: Back pain, Extremity Pain Skin: Denies: Rash, Wounds Neurological: Denies: Headache, Weakness, Numbness Physical Exam Vital Signs/Narrative: Vital Signs Temp Pulse Resp BP Pulse Ox 07/30/19 01:57 98.9 F 128 H 21 H 194/136 H 94 Inital Vital Signs reviewed: Yes General: Well nourished, Well developed, No Acute Distress Head: Normocephalic, Atraumatic Eyes: Perrl, EOMI ENT: Moist mucous membranes, No rhinorrhea Neck: Supple, Nontender Cardiovascular: Regular rate, Regular rhythm, No murmurs Respiratory: No distress, Chest nontender, Wheezing, Decreased Air Movement Abdomen: Soft, Nontender, Nondistended, Normal bowel sounds Back: Nontender, Normal Inspection Extremities: Nontender, No edema Skin: Normal color, No rash Neurological: Alert, Oriented x3, Cranial nerves II-XII grossly intact, Normal Strength, Normal Sensation Psychological: Normal affect, Normal Mood Diagnostic/Tx/Re-eval Chest X-Ray - ED: 1 View, Normal, Heart, Lungs, Mediastinum, Right Rib Fx Clinical Impression(s) from Imaging Studies Chest X-Ray 07/30/19 02:00 IMPRESSION: Component of COPD and chronic appearing interstitial lung disease, increased interstitial markings in the left base possible due to an inflammatory process. No confluent pneumonia or pneumothorax. Remote healed right rib deformities, decreased pleural thickening. Electronically Signed: Kenisha Mota MD at 2:26 EST , Service support , Abnormal Lab Results 07/30/19 07/30/19 02:03 02:03 WBC 10.0 RBC 5.63 Hgb 16.9 H Hct 50.1 MCV 89.0 MCH 30.0 MCHC 33.7 RDW Std Deviation 42.7 RDW Coeff of Shirin 13.2 Plt Count 401 MPV 8.4 Immature Gran % (Auto) 0.200 Neut % (Auto) 41.3 L Lymph % (Auto) 48.8 H [place] % (Auto) 8.6 Eos % (Auto) 0.4 Baso % (Auto) 0.7 Absolute Neuts (auto) 4.1 Absolute Lymphs (auto) 4.89 H Nucleated RBC % 0 Sodium 140 Potassium 3.3 L Chloride 101 Carbon Dioxide 24.0 Anion Gap 15 BUN 8 Creatinine 0.82 Estim Creat Clear Calc 120.92 Est GFR (MDRD) Af Amer 129 Est GFR (MDRD) Non-Af 107 BUN/Creatinine Ratio 9.8 L Glucose 131 H Calcium 9.0 Troponin I < 0.015 - Rhythm Strip Rhythm Strip: Sinus Tach Rate: 115 Ectopy: None - EKG Initial EKG Interpretation: No Acute Injury Pattern, Sinus Tachycardia Prior: Unchanged - Medical Decision Making The patient presents to the emergency department left-sided chest pain, shortness of breath, and dyspnea. He does have wheezing in all lung eddy. He was given nebulized breathing treatments and steroids. He was also given pain control. EKG demonstrates sinus tachycardia without acute ischemic change. It was unchanged from prior. Chest x-ray shows healed fractures on the right, but no focal infiltrative process. With the patient's tachycardia and tachypnea, along with his history of pulmonary embolus, I did feel that this effectively needed to be ruled out as a cause of his symptoms. CTA was obtained. There is no evidence of acute PE, pneumothorax, or infiltrative process. After nebulized breathing treatments, the patient's aeration had improved. However, he was now requiring supplemental oxygen. When he was removed the oxygen just in the room, his oxygen saturation was 88%. I do feel that this is more likely a COPD exacerbation. I do feel the patient will benefit from admission for continued respiratory care especially given his hypoxia. He is comfortable with this plan. Impression 1. COPD exacerbation with hypoxia ED Disposition - Plan for ED Patient: Referrals: Chirag Calhoun MD [Primary Care Provider] -
[2019-07-30] MEDS: MethylPREDNISolone 125 MG/2 ML Vial IV (02:09)
[2019-07-30 02:10] LABS: Absolute Lymphocyte Count 4.89 X10^3/uL (0.83-4.51); Absolute Neutrophil Count 4.1 X10^3/uL (2.0-7.7); Basophil# 0.07 X10^3/uL; Basophil% 0.7 % (0-1); Eosinophil# 0.04 X10^3/uL; Eosinophils% 0.4 % (0-5); Hematocrit 50.1 % (40-54); Hemoglobin 16.9 g/dL (13.0-16.5); Lymphocyte # 4.89 X10^3/ul (4.0); Lymphocyte % 48.8 % (19-41); Mean Corp Hgb Conc 33.7 g/dL (32-36); Mean Platelet Vol. 8.4 fl (6.2-12.0); Monocyte# 0.86 X10^3/uL; Monocyte% 8.6 % (0-10); NRBC Flagged by Analyzer 0 % (0-5); Neutrophil # 4.14 X10^3/uL (2.7-7.7); Neutrophil % 41.3 % (47-70); Platelet Count 401 K/mm3 (150-450); RBC Distribution Width CV 13.2 % (11.6-14.6); RBC Distribution Width SD 42.7 fl (35.1-43.9); Red Blood Count 5.63 M/mm3 (4.6-6.2)
[2019-07-30] MEDS: Ondansetron 4 MG/2 ML Vial IV ×2 (02:10→20:31)
[2019-07-30] MEDS: 0.9% Normal Saline 1,000 ML 999 ML IV (02:10)
[2019-07-30] MEDS: Morphine 4 MG/ML Syringe IV (02:10)
[2019-07-30] MEDS: Ipratropium/Albuterol Sulfate 3 ML AMPUL.NEB INHALATION ×6 (02:15→22:55)
[2019-07-30] MEDS: Albuterol 2.5 MG/3 ML VIAL.NEB. INHALATION ×2 (02:15)
--- NOTE | 2019-07-30 02:19 | CT_ITS ---
STUDY: CTA CHEST REASON FOR EXAM: Male, 48 years old. Left-sided chest pain x1 week, shortness of breath, elevated blood pressure. History of asthma, hypertension, diabetes, hepatitis C, PE, smoker RADIATION DOSAGE (If Supplied By Facility): CTDIvol = ( 14.76 ) mGy, DLP = ( 532.56 ) mGycm TECHNIQUE: The examination was performed with the intravenous administration of IV 100mL Isovue-370 100ML. Post-processing of the angiographic images was performed, with multiplanar reformation and 3D reconstruction. There is image blurring as a result of cardiac motion. Diagnostic accuracy is somewhat reduced. However, there is substantial diagnostic information remaining available on this study. Individualized dose optimization techniques were used for this CT. COMPARISON: CTA chest 07/05/2018. 03/27/2018. FINDINGS: Normal enhancement of the main pulmonary artery and right and left pulmonary arteries. Normal enhancement of the bilateral peripheral pulmonary arteries. There is no demonstrated pulmonary embolism. Normal thoracic aorta and visualized great vessels. There is no demonstrated aortic dissection. Normal heart and pericardium. Normal mediastinum. Normal hilar regions. Normal visualized trachea and bronchi. The lungs are hyper expanded, with flattening of the hemidiaphragms. Right greater than left [id number] centrilobular emphysema in the upper lobes. Large platelike atelectatic changes involving the right lower lobe new since previous exam. Normal pleura. Right lateral lung parenchymal herniation between the eighth and ninth right rib with additional pleural thickening and distortion of parenchyma, and lateral upper abdominal wall herniation superior to the ninth right rib.. Mild degenerative changes of the thoracic spine, mild levoscoliosis of the upper thoracic spine. Normal osseous structures multiple healed right rib deformities predominantly posterior-lateral right hemithorax, anterior right third and fourth rib, pseudoarthrosis formation of the seventh rib, resume surgical defect with missing 1.2 cm distance of the eighth rib. There is diffuse fatty infiltration of the liver. CT/CTA Chest W/WO Contrast IMPRESSION: No demonstrated pulmonary embolism, aneurysm, and the or arterial dissection. New platelike atelectasis right lower lobe. Stable emphysema right upper lobe greater than left upper lobe. Stable right lower lobe parenchymal herniation along the lateral chest wall, stable right abdominal wall herniation along the right inferior hemithorax, stable rib deformities, hepatic steatosis and degenerative changes. Electronically Signed: Kenisha Mota MD at 3:37 EST , Service support ,
[2019-07-30 02:28] LABS: Anion Gap 15 (5-15); BUN 8 mg/dL (7-18); BUN/Creat Ratio 9.8 RATIO (10-20); Chloride 101 mmol/L (98-107); Creatinine, Serum 0.82 mg/dL (0.70-1.30); EST Glomerular Filtration Rate 107 mL/min (>60); Est Glom Filt Rate - Afr Amer 129 mL/min (>60); Estimated Creatinine Clearance 120.92 ml/min; Glucose 131 mg/dL (74-106); Potassium 3.3 mmol/L (3.5-5.1); Sodium Level 140 mmol/L (136-145)
--- NOTE | 2019-07-30 04:01 | HP.PCM_ITS ---
Problem List (1) Prediabetes Status: Chronic (2) Obesity (BMI 30-39.9) Status: Chronic (3) HTN (hypertension) Status: Chronic Qualifiers: Hypertension type: essential hypertension Qualified Code(s): I10 - Essential (primary) hypertension (4) Bipolar disorder Status: Chronic Qualifiers: Active/Remission status: remission status unspecified Qualified Code(s): F31.9 - Bipolar disorder, unspecified (5) Non-compliant patient Status: Chronic (6) Nicotine addiction Status: Chronic Qualifiers: Nicotine product type: cigarettes (7) Hepatitis C Status: Chronic Qualifiers: Viral hepatitis chronicity: chronic (8) Alcohol dependence Status: Chronic (9) Alcohol withdrawal Status: Acute History of Present Illness Date of Admission: 07/30/19 Chief Complaint: chest pain The patient is a 48 year old M with a previous history of rib deformities, tobacco abuse; PE and alcoholism who presented to the ED with left sided chest pain that began to radiate to her right chest. His symptoms started about 3 days prior to presentation. He describes his pain as sharp; and at times dull and aching. At rest his pain is 3 out of 10. However if he coughs or take a deep breath his pain increases to 7 or 8 on a scale scale of 1-10. Associated with his symptoms is dry cough; nausea without vomiting. He denies diaphoresis. His symptoms began about 3 to 4 days ago. Patient reported he was on multiple medications but he took himself of these medication and after taking himself of these medications he felt better. Past Medical History Past Medical History (Chronic Problems): Chronic Problems Alcohol dependence (Chronic) Prediabetes (Chronic) Obesity (BMI 30-39.9) (Chronic) HTN (hypertension) (Chronic) Bipolar disorder (Chronic) Non-compliant patient (Chronic) Nicotine addiction (Chronic) Hepatitis C (Chronic) Allergies oxycodone [From OxyContin] Adverse Reaction (Mild, Verified 07/05/18 07:51) Itching Home Medications: Ambulatory Orders Medication Instructions Recorded NK 07/30/19 Surgical History: total knee arthroplasty - On the left knee, - - Umbilical hernia repair, bilateral knee arthroscopic surgeries and ligament repair, great toe trauma with several follow-up surgical interventions. Psychiatric History: Anxiety, Bipolar - Not on any medication at the present time, Depression Lives: Alone Smoking Status: Current every day smoker Drugs: Marijuana - *Family History Maternal History Items: - - he states his mother from having a tooth extracted....when she went home sheburnt up Paternal History Items: - - his doctor put him on medication for diabetes and it killed him Review of Systems Constitutional: Denies: Chills, Fever, Weight Change HEENT: Denies: Head Aches, Sinus Congestion, Sinus Drainage Cardiovascular: Reports: Chest Pain. Denies: Palpitations Respiratory: Reports: Cough, Shortness of Breath. Denies: Sputum production Gastrointestinal: Denies: Abdominal Pain, Nausea, Vomiting Genitourinary: Denies: Dysuria Musculoskeletal: Denies: Joint Pain, Joint Tenderness Skin: Denies: Rash, Wounds Neurological: Denies: Numbness, Tingling, Focal weakness Psychiatric: Reports: Anxiety. Denies: Depression, Homicidal Ideations, Suicidal Ideations Hematologic/ Lymphatic: Denies: Easy Bruising, Easy Bleeding VTE Information - Inpt Only VTE Present on Admission: No VTE Mechan Device Prophylaxis: None VTE Pharm Prophylaxis ordered?: Yes Patient Problems: Active and Suspected Problems Alcohol withdrawal (Acute) - Physical Exam Vitals/I&O's: Vital Signs Temp Pulse Resp BP Pulse Ox 98.9 F 117 H 23 H 153/96 H 88 07/30/19 01:57 07/30/19 02:23 07/30/19 02:23 07/30/19 02:23 07/30/19 03:43 Oxygen Delivery Method Room Air Weight: 120.202 kg Body Mass Index (BMI) 35.9 General: Alert, Oriented x3, Cooperative HEENT: Atraumatic, PERRLA, EOMI, Normocephalic Neck: Supple, No JVD, Negative Carotid Bruits Lungs: Clear to auscultation, Diminished - Patient reported that he cannot take a deep breath as it hurts to take a deep breath., Tachypneic, - - Tender left chest Cardiovascular: Normal S1, Normal S2, No murmurs, Tachycardic Abdomen: Bowel Sounds Present, Soft, Non Tender Extremities: No edema, Capillary Refill Less than 3 Seconds Skin: No rashes, No breakdown Musculoskeletal: No Tenderness to Palpation of Joints or Extremities Neurological: Cranial nerves II-XII grossly intact, - - Noted to have tremors. Asterixis on stretch hands. Psych/Mental Status: Normal Affect, Appropriate Laboratory Results 07/30/19 02:03: WBC 10.0, RBC 5.63, Hgb 16.9 H, Hct 50.1, MCV 89.0, MCH 30.0, MCHC 33.7, RDW Std Deviation 42.7, RDW Coeff of Shirin 13.2, Plt Count 401, MPV 8.4, Immature Gran % (Auto) 0.200, Neut % (Auto) 41.3 L, Lymph % (Auto) 48.8 H, [place] % (Auto) 8.6, Eos % (Auto) 0.4, Baso % (Auto) 0.7, Absolute Neuts (auto) 4.1, Absolute Lymphs (auto) 4.89 H, Nucleated RBC % 0 07/30/19 02:03: Sodium 140, Potassium 3.3 L, Chloride 101, Carbon Dioxide 24.0, Anion Gap 15, BUN 8, Creatinine 0.82, Estim Creat Clear Calc 120.92, Est GFR (MDRD) Af Amer 129, Est GFR (MDRD) Non-Af 107, BUN/Creatinine Ratio 9.8 L, Glucose 131 H, Calcium 9.0, Troponin I < 0.015 Current Medications Sodium Chloride () 1,000 mls @ 150 mls/hr IV .[id number] ONE Stop: 07/30/19 08:39 Assessment/Plan All Active Problems Alcohol withdrawal (Acute) The patient is a 48 year old M with a previous history of rib deformities, tobacco abuse; PE and alcoholism who presented to the ED with left sided chest pain the muscle skeletal; probable COPD exacerbation; and probable alcohol withdrawal. Chest pain EKG at the emergency department did not show any ST or T wave abnormalities. Likely muscular as it is tender to touch.. We will put patient on telemetry Tylenol as needed Trend troponin. COPD exacerbation Received Solu-Medrol the emergency department. We will put patient on prednisone 40 mg daily. Received azithromycin at the emergency department. Clinically does not look like patient may be having bacterial infection. Will hold off azithromycin at this time. Scheduled DuoNeb and PRN albuterol ordered. Cough medicine ordered Alcohol withdrawal Patient was noted to have tremors. He attributed tremors to the breathing treatment. However, can rule out alcohol withdrawal. Will put patient on CIWA protocol with Ativan; multivitamin; folic acid and thiamine. Counselled. Will put patient on beta-minnie as patient has elevated blood pressure. Elevated blood pressure without diagnosis of hypertension. Unclear whether patient has a history of hypertension. However on presentation his blood pressure is not within goal. This could be due to alcohol withdrawal or essential hypertension. Beta-minnie as above Trend blood pressures and adjust blood pressure medication. Prediabetes Noted to have elevated blood glucose. Accu-Chek with sliding scale insulin ordered. Tobacco abuse counseled Patient declined nicotine patch. Marijuana abuse Counselled DVT prophylaxis Subcutaneous Lovenox. Code Visit Inpatient E&M: 36397 Init Hosp L3
[2019-07-30] MEDS: 0.9% Normal Saline 1,000 ML 150 ML IV (04:48)
[2019-07-30] MEDS: Metoprolol Tartrate 25 MG Tablet 12.5 MG PO ×2 (06:10→22:43)
[2019-07-30] MEDS: Acetaminophen 325 MG Tablet 650 MG PO ×3 (06:11→22:42)
[2019-07-30 06:20] LABS: Bedside Glucose 173 mg/dL (70-110)
--- NOTE | 2019-07-30 06:32 | NURSING ---
Pt refusing seizure pads on siderails of bed, states that they're too confining. Explained indications for seizure pads and pt understands risks of leaving them off the bed.
[2019-07-30] MEDS: Insulin Lispro 100 UNIT/ML INSULN.PEN SC ×4 (06:59→22:47)
[2019-07-30] MEDS: Folic Acid 1 MG Tablet PO (08:43)
[2019-07-30] MEDS: Multivitamins,Therapeutic Tablet 1 TABLET PO (08:43)
[2019-07-30] MEDS: predniSONE 20 MG Tablet 40 MG PO (08:43)
[2019-07-30] MEDS: Thiamine Hydrochloride 100 MG Tablet PO (08:44)
[2019-07-30] MEDS: LORazepam 1 MG Tablet 2 MG PO ×3 (08:53→20:30)
--- NOTE | 2019-07-30 10:33 | CASEMGMT ---
Assessment- SW went to patient's room to complete assessment. His room was dark and he was lying in bed. He did agree to complete assessment with SW. Living situation- Patient lives alone in a 2 story apartment with several entry steps. PCP: Dr Calhoun Specialists: None Pharmacy: [facility] DME: cane, walker, crutches, and wheelchair ADL's/IADL's: Patient is normally independent with most activities. He uses his cane and crutches most of the time as he has a bad knee. He does not drive. He uses cabs or [employer] for transportation. Past SNF/rehab: None Past HH: None LW: None and not interested POA: None and not interested SW spoke with patient about his Bipolar Disorder. He said he no longer goes to [facility] for his treatment as he feels they overmedicated him. He also stopped taking all of his other medications and he said he feels fine. SW asked if he would like to connect with another mental health agency and he declined. SW asked about his alcohol use. He said he drinks a 1/2 of a 1/2 gallon of whiskey Fridays and Saturdays. He said he doesn't drink on any other days. SW asked him if he would like resources to help him with his alcohol abuse. He declined stating he does not feel he has a problem. Patient told SW he is in pain right now. SW told him if he would like to talk with SW when he is feeling better to just ask his nurse. SW will try and talk with patient again when he is feeling better as it is concerning that he is not taking any of his medications including his Bipolar medications. Georgina JUNIOR MSW
[2019-07-30] MEDS: Enoxaparin 40 MG/0.4 ML Syringe SC (10:53)
[2019-07-30] MEDS: guaiFENesin 1,200 MG Tablet 1200 MG PO ×2 (10:53→22:44)
[2019-07-30] MEDS: hydrOXYzine PAM 25 MG Capsule 50 MG PO (11:01)
[2019-07-30] MEDS: Methocarbamol 750 MG Tablet PO (11:01)
[2019-07-30] MEDS: Dicyclomine 10 MG Capsule 20 MG PO ×2 (11:01→20:31)
[2019-07-30 11:21] LABS: Bedside Glucose 221 mg/dL (70-110)
[2019-07-30 16:35] LABS: Bedside Glucose 232 mg/dL (70-110)
[2019-07-30] MEDS: 0.9% Saline Lock 10 ML Syringe IV ×3 (20:31→23:56)
[2019-07-30 22:55] LABS: Bedside Glucose 260 mg/dL (70-110)
--- NOTE | 2019-07-30 23:33 | NURSING ---
Patient wanting to sign out AMA he is painful and he wants stronger pain med than Tylenol, discussed with him Doctors are not going to order stronger pain meds. Read AMA papers to him with his primary nurse FLACO Diaz in room. He agreed to stay if he could have sleeping pill. Talked with Dr. Sinha and he agreed to Melatonin po and Toradol prn.
[2019-07-31] VITALS (10 sets, daily range): BP systolic 130–137; BP diastolic 77–89; PULSE 68–90; RESP 18–20; TEMP 36.4–36.7; O2SAT 91–95
[2019-07-31] MEDS: Ketorolac 15 MG/ML Vial IV ×3 (00:05→12:01)
[2019-07-31] MEDS: MELATONIN 3 MG TABLET 6 MG PO (00:05)
[2019-07-31] MEDS: 0.9% Saline Lock 10 ML Syringe IV ×2 (00:06→06:44)
[2019-07-31] MEDS: Methocarbamol 750 MG Tablet PO (05:03)
[2019-07-31] MEDS: LORazepam 1 MG Tablet 2 MG PO (05:04)
[2019-07-31] MEDS: Acetaminophen 325 MG Tablet 650 MG PO (05:04)
--- NOTE | 2019-07-31 05:15 | NURSING ---
pt discussing leaving [facility]a with this RN. educated pt regarding dayshift hospitalist rounding and the disadvantages to leaving [facility]. pt states i'd like to just go get a bottle of whiskey and go home. emotional support and education continuously provided regarding pt's POC and medication options. pt agreed to try medications offered and wait to see MD today.
[2019-07-31 06:50] LABS: Bedside Glucose 157 mg/dL (70-110)
[2019-07-31] MEDS: Insulin Lispro 100 UNIT/ML INSULN.PEN SC ×2 (06:50→12:04)
[2019-07-31] MEDS: Ipratropium/Albuterol Sulfate 3 ML AMPUL.NEB INHALATION ×3 (07:05→15:19)
[2019-07-31] MEDS: Multivitamins,Therapeutic Tablet 1 TABLET PO (09:23)
[2019-07-31] MEDS: guaiFENesin 1,200 MG Tablet 1200 MG PO (09:23)
[2019-07-31] MEDS: Folic Acid 1 MG Tablet PO (09:23)
[2019-07-31] MEDS: Enoxaparin 40 MG/0.4 ML Syringe SC (09:23)
[2019-07-31] MEDS: predniSONE 20 MG Tablet 40 MG PO (09:23)
[2019-07-31] MEDS: Metoprolol Tartrate 25 MG Tablet 12.5 MG PO (09:23)
[2019-07-31] MEDS: Thiamine Hydrochloride 100 MG Tablet PO (09:23)
[2019-07-31] MEDS: Glucerna Shake 120 ML LIQUID PO (09:24)
--- NOTE | 2019-07-31 10:29 | NURSING ---
resting with eyes closed
[2019-07-31 12:11] LABS: Bedside Glucose 151 mg/dL (70-110)
--- NOTE | 2019-07-31 12:53 | PN_ITS ---
Patient Problems: Active and Suspected Problems Alcohol withdrawal (Acute) Subjective: Still with some SOB and chest wall pain Vitals/I&O's: Vital Signs Temp Pulse Resp BP Pulse Ox 98.1 F 90 18 132/89 H 94 07/31/19 12:19 07/31/19 12:19 07/31/19 12:19 07/31/19 12:19 07/31/19 12:19 Oxygen Flow Rate (L/min) 2 Oxygen Delivery Method Room Air Weight: 234 lb 2.095 oz Body Mass Index (BMI) 31.7 Intake and Output for Last 24 Hours 07/29/19 07/30/19 07/31/19 23:59 23:59 23:59 Intake Total 2782.5 / 3202.5 1020 / 1020 Balance 2782.5 / 3202.5 1020 / 1020 General: Alert, Oriented x3, Cooperative, No apparent distress HEENT: Atraumatic, PERRLA, EOMI, Normocephalic Oral: Moist Mucosa Neck: Supple, No JVD Lungs: Clear to auscultation, Normal air movement, No rhonchi, No wheeze, No rales, Diminished, - - Pain to palpation of the left chest Cardiovascular: Regular rate, Regular Rhythm, Normal S1, Normal S2, No murmurs Abdomen: Soft, Non Tender, Non-Distended, No Hepato-splenomegaly Extremities: No edema, Capillary Refill Less than 3 Seconds Skin: No rashes, No breakdown Neurological: Neuro grossly intact, Sensory exam intact to light touch and pain Psych/Mental Status: Anxious Laboratory Results 07/30/19 16:13: POC Glucose 232 H 07/30/19 22:47: POC Glucose 260 H 07/31/19 06:47: POC Glucose 157 H 07/31/19 12:03: POC Glucose 151 H Current Medications Acetaminophen (Tylenol) 650 mg PO Q6H PRN PRN PRN Reason: Pain Score 1-10/Temp > 100.7 F Last Admin: 07/31/19 05:04 Dose: 650 mg Documented by: Albuterol Sulfate (Ventolin Aerosols) 2.5 mg INHALATION Q2H PRN PRN PRN Reason: Shortness of Breath/Wheezing Albuterol/Ipratropium (Duoneb) 3 ml INHALATION Q4H.RT EDWARD Last Admin: 07/31/19 11:12 Dose: 3 ml Documented by: Dextrose (D50w Syringe) 0 gm IV X1 PRN; Protocol PRN Reason: Hypoglycemia Dicyclomine HCl (Bentyl) 20 mg PO Q6H PRN PRN PRN Reason: abdominal discomfort Last Admin: 07/30/19 20:31 Dose: 20 mg Documented by: Enoxaparin Sodium (Lovenox) 40 mg SC DAILY@1000 EDWARD Last Admin: 07/31/19 09:23 Dose: 40 mg Documented by: Folic Acid (Folic Acid) 1 mg PO DAILYCM [facility] Stop: 08/01/19 08:01 Last Admin: 07/31/19 09:23 Dose: 1 mg Documented by: Glucagon () 1 mg IM .X1 PRN PRN Reason: Hypoglycemia Guaifenesin (Mucinex) 1,200 mg PO BID [facility] Last Admin: 07/31/19 09:23 Dose: 1,200 mg Documented by: Hydroxyzine Pamoate (Vistaril Pamoate Capsule) 50 mg PO Q6H PRN PRN PRN Reason: Mild Anxiety (score 1/3) Last Admin: 07/30/19 11:01 Dose: 50 mg Documented by: Sodium Chloride () 250 mls @ 15 mls/hr IV .[id number] PRN PRN Reason: Saline Flush Insulin Human Lispro (Humalog Kwikpen (Bkc)) 0 unit SC [facility]; Protocol Last Admin: 07/31/19 12:04 Dose: 1 u Documented by: Ketorolac Tromethamine (Toradol) 15 mg IV Q6H PRN PRN PRN Reason: Pain Score 4-10/10 Stop: 08/04/19 23:29 Last Admin: 07/31/19 12:01 Dose: 15 mg Documented by: Lorazepam (Ativan) 2 mg IV X1 PRN PRN Reason: Seizure Lorazepam (Ativan) 2 mg PO Q2H PRN PRN; Protocol PRN Reason: CIWA score > 8 but <15 Last Admin: 07/31/19 05:04 Dose: 2 mg Documented by: Lorazepam (Ativan) 2 mg PO UD PRN; Protocol PRN Reason: CIWA score >/=15. Lorazepam (Ativan) 2 mg IV Q2H PRN PRN; Protocol PRN Reason: CIWA score > 8 but <15 Lorazepam (Ativan) 2 mg IV UD PRN; Protocol PRN Reason: CIWA score >/=15. Melatonin (Melatonin) 6 mg PO QHS PRN PRN PRN Reason: SLEEP Last Admin: 07/31/19 00:05 Dose: 6 mg Documented by: Methocarbamol (Methocarbamol) 750 mg PO Q6H PRN PRN PRN Reason: Muscle Aches Last Admin: 07/31/19 05:03 Dose: 750 mg Documented by: Metoprolol Tartrate (Lopressor (Beta Samantha)) 12.5 mg PO BID [facility] Last Admin: 07/31/19 09:23 Dose: 12.5 mg Documented by: [facility]ivit[facility] ([facility]ivitamin) [facility] Last Admin: 07/31/19 09:23 Dose: 1 tablet Documented by: Nutritional Formula (Lactose Free) (Glucerna Shake) 120 ml PO 4X/DAY [facility] Last Admin: 07/31/19 09:24 Dose: 120 ml Documented by: Ondansetron HCl (Zofran) 4 mg IV Q8H PRN PRN PRN Reason: Nausea Last Admin: 07/30/19 20:31 Dose: 4 mg Documented by: Prednisone () 40 mg PO DAILY@0800 [facility] Last Admin: 07/31/19 09:23 Dose: 40 mg Documented by: Sodium Chloride () 10 - 40 ml IV UD PRN PRN Reason: SALINE FLUSH Last Admin: 07/31/19 06:44 Dose: 10 ml Documented by: Thiamine HCl (Vitamin B1) [facility] Stop: 08/01/19 08:01 Last Admin: 07/31/19 09:23 Dose: 100 mg Documented by: STROKE Vital Signs/Narrative: Vital Signs Temp Pulse Resp BP Pulse Ox 07/31/19 12:19 98.1 F 90 18 132/89 H 94 07/31/19 11:12 78 18 07/31/19 09:23 85 Medical Necessity - Tobacco Use Smoking Status: Current every day smoker Tobacco Use: Cigarettes Assessment/Plan All Active Problems Alcohol withdrawal (Acute) 1. Cough with chest pain and sputum production with possible COPD/Tobacco abuse - He has not been officially diagnosed with COPD, would recommend outpt PFT given his smoking history - C/w prednisone and inhaler - CTA chest was negative for pneumonia and PE - EKG and troponin unremarkable, there is tenderness to palpation therefore not cardiac - counseled on cessation 2. Alcohol use - States that he has never gone through withdrawal and he only drinks on fridays and monday - C/w CIWA last score was a 7 - C/w withdrawal protocol 3. Prediabetes - no formal diagnosis - c/w ssi and accucheck DVT: Lovenox Code Visit Inpatient E&M: 35285 Subs Hosp L2
--- NOTE | 2019-07-31 16:48 | NURSING ---
pt used call light told nursing home assistant administrator i want pain meds or i'm going to leave. this RN went in to room read to pt what medications were available for pain. pt unhappy with medications. pt stated i want what they gave me in ER. expressed if he does no get anything stronger he will leave. this RN explained risks of leaving AMA. pt states understanding. this RN called dr. lam, he was not agreeable to give pt narcotics at this time. this RN told patient dr. lam response. pt unhappy. stated he will go home and get narcotics himself and whiskey for pain this RN brought AMA paper for pt. he did not want a copy.
== END 2019-07-31 16:44 | disposition left against medical advice (07) | DRG 140 ==
LOC: ED 02:49 → PCU 05:11
PROVIDERS: Admitting Provider Hospitalist; Emergency Provider Emergency Medicine; Family Provider Family Medicine; PCP Family Medicine; Visit Provider Family Medicine
DX: R07.89 Other chest pain (principal); F17.210 Nicotine dependence, cigarettes, uncomplicated; F10.239 Alcohol dependence with withdrawal, unspecified; Y90.9 Presence of alcohol in blood, level not specified; R73.03 Prediabetes; Z86.711 Personal history of pulmonary embolism; Z91.14 Patient's other noncompliance with medication regimen; Z53.29 Procedure and treatment not carried out because of patient's decision for other reasons; E66.9 Obesity, unspecified; Z68.31 Body mass index [BMI] 31.0-31.9, adult; I10 Essential (primary) hypertension; F12.10 Cannabis abuse, uncomplicated; B18.2 Chronic viral hepatitis C
CPT/HCPCS: 36415; 71045; 71275; 80048; 82962; 84484; 85025; 93005; 94640; 97161; 97165; 97802; 99218; 99285; 99406; J7030; J7050; Q9967; A4216; G0378; J2405

== ENCOUNTER 2020-04-18 17:47 | Inpatient (IN) | payer MEDICAID, SELFPAY ==
[2019-07-30 05:12] VITALS: BMI 31.7
[2020-04-18] VITALS (8 sets, daily range): BP systolic 144–182; BP diastolic 91–119; PULSE 77–90; RESP 14–22; TEMP 36.2–37; O2SAT 95–99; BMI 30.9; BMI 30.4; BMI 30.5
--- NOTE | 2020-04-18 18:23 | CT_ITS ---
STUDY: CT ABDOMEN AND PELVIS WITH CONTRAST REASON FOR EXAM: Male, 49 years old. ABDOMEN AND LOW BACK PAIN,DIARRHEA,CHILLS,COUGH AND HEADACHE RADIATION DOSAGE (If Supplied By Facility): CTDIvol = ( 12.57 ) mGy, DLP = ( 1176.50 ) mGycm TECHNIQUE: Transaxial images were obtained from the dome of the diaphragm to the symphysis pubis without oral contrast. IV 100mL Isovue-300 was administered. Sagittal and coronal images were reconstructed. Individualized dose optimization techniques were used for this CT. COMPARISON: 07/05/2018. FINDINGS: The visualized lung bases are unremarkable. The visualized portions of the heart are within normal limits. There is decreased attenuation of the liver consistent with steatosis. There is hepatomegaly. Normal gallbladder and extrahepatic biliary system. Normal spleen. Normal pancreas. Normal bilateral adrenal glands. Normal right kidney. Normal left kidney. Evaluation of the GI tract is limited by absence of oral contrast. Cannot exclude stomach wall thickening. There is a 3.3 cm duodenal diverticulum. No dilated loops of bowel or evidence for obstruction. Cannot exclude segmental thickening of the crabtree of the small or large bowel. Cannot exclude enteritis or colitis. Moderate diffuse fecal retention. Appendix within normal limits. Normal abdominal aorta. Normal inferior vena cava. Normal retroperitoneum. Normal urinary bladder. Normal abdominal wall. There are diffuse degenerative changes of the visualized lumbar spine. CT/Abdomen/Pelvis W IV Cont ONLY IMPRESSION: Fatty liver and hepatomegaly, no definite acute or significant abnormality seen. Electronically Signed: Shaun Melara MD at 20:59 EDT , Service support ,
--- NOTE | 2020-04-18 18:24 | EKG12_ITS ---
Test Reason : GEN ILLNESS Blood Pressure : / mmHG Vent. Rate : 088 BPM Atrial Rate : 088 BPM P-R Int : 130 ms QRS Dur : 104 ms QT Int : 418 ms P-R-T Axes : 040 067 063 degrees QTc Int : 505 ms Normal sinus rhythm Incomplete right bundle branch block Nonspecific ST abnormality Prolonged QT Abnormal ECG Confirmed by DOC ALVARADO, VICKI ([id number]), commissioning editor AMADA HARDY ([id number]) on 04/20/2020 2:41:41 PM Referred By: ROXANA Confirmed By:VICKI ROACH MD
--- NOTE | 2020-04-18 19:02 | RAD_ITS ---
STUDY: X-RAY CHEST REASON FOR EXAM: Male, 49 years old. low back pain with chills TECHNIQUE: Single AP portable view of the chest. COMPARISON: 07/30/2019. FINDINGS: There is hyperinflation of the lungs consistent with chronic obstructive lung disease (COPD). No infiltrates or effusions. There is no demonstrated pleural abnormality. Normal size heart. Normal mediastinum and lupe. Normal visualized pulmonary arteries. Normal visualized aortic arch and descending thoracic aorta. Normal visualized thoracic spine. Stable old right rib fractures. There is no demonstrated abnormality of the visualized soft tissue structures of the upper abdomen. RAD/Chest 1 View (Portable) IMPRESSION: There are findings consistent with COPD. There is no evidence of acute chest disease. Electronically Signed: Shaun Melara MD at 19:51 EDT , Service support ,
[2020-04-18] MEDS: Morphine 4 MG/ML Syringe IV (19:11)
[2020-04-18] MEDS: Ondansetron 4 MG/2 ML Vial IV (19:11)
[2020-04-18 19:23] LABS: Absolute Lymphocyte Count 1.56 X10^3/uL (0.83-4.51); Absolute Neutrophil Count 7.1 X10^3/uL (2.0-7.7); Basophil# 0.04 X10^3/uL; Basophil% 0.4 % (0-1); Eosinophil# 0.03 X10^3/uL; Eosinophils% 0.3 % (0-5); Hematocrit 43.2 % (40-54); Hemoglobin 14.7 g/dL (13.0-16.5); Lymphocyte # 1.56 X10^3/ul (4.0); Lymphocyte % 16.6 % (19-41); Mean Corpuscular Hgb 30.8 pg (27.0-32.0); Mean Corpuscular Volume 90.4 fL (80-94); Mean Platelet Vol. 8.9 fl (6.2-12.0); Monocyte# 0.69 X10^3/uL; Monocyte% 7.3 % (0-10); NRBC Flagged by Analyzer 0 % (0-5); Neutrophil # 7.05 X10^3/uL (2.7-7.7); Neutrophil % 75.2 % (47-70); Platelet Count 295 K/mm3 (150-450); RBC Distribution Width SD 42.7 fl (35.1-43.9); Red Blood Count 4.78 M/mm3 (4.6-6.2); White Blood Count 9.4 K/mm3 (4.4-11.0)
[2020-04-18 19:30] LABS: Alcohol, Blood (Medical)-Serum < 3.0 mg/dL
[2020-04-18] MEDS: HYDROmorphone 1 MG/ML Syringe IV (19:38)
[2020-04-18 19:40] LABS: Prothrombin Time (Protime)PT. 12.8 SECONDS (11.7-14.9)
[2020-04-18 19:41] LABS: Partial Thromboplast Time 23.7 Seconds (24.1-36.2)
[2020-04-18 19:43] LABS: Lactic Acid 2.8 mmol/L (0.4-1.9)
[2020-04-18 19:57] LABS: AST(SGOT) 92 U/L (15-37); Alanine Aminotransfer ALT/SGPT 93 U/L (16-61); Alkaline Phosphatase 98 U/L (45-117); Anion Gap 11 (5-15); BUN 12 mg/dL (7-18); BUN/Creat Ratio 15.9 RATIO (10-20); Calcium,Total 8.3 mg/dL (8.5-10.1); Chloride 102 mmol/L (98-107); Creatinine, Serum 0.76 mg/dL (0.70-1.30); EST Glomerular Filtration Rate 116 mL/min (>60); Est Glom Filt Rate - Afr Amer 141 mL/min (>60); Estimated Creatinine Clearance 125.22 ml/min; Globulin 4.2 g/dL (2.2-4.2); Glucose 132 mg/dL (74-106); Potassium 3.7 mmol/L (3.5-5.1); Protein, Total 8.2 g/dL (6.4-8.2); Sodium Level 138 mmol/L (136-145)
--- NOTE | 2020-04-18 21:33 | ED.VISSUMM ---
- ER Visit Summary Date of Service: 04/18/20 Chief Complaint: Back pain History of Present Illness: The patient is a 49 M with bilateral low back pain since yesterday. Nothing seemed to bring this on. Nothing made it worse. Nothing seems to make it better. Associated with shakes, chills, body aches, and diarrhea. Patient denies COVID exposure. He said he had similar symptoms in the past and ended up on dialysis years ago, but he could not provide further information. He is not currently on dialysis. He does have a history of hepatitis C, diabetes, hypertension, bipolar disorder. History of alcohol and drug abuse. He uses marijuana now but does not endorse any opioid use. His last alcohol use was yesterday, he had 2 shots. He denies regular alcohol use. He is a smoker. Physical Examination: Afebrile. Blood pressure 160/108. Otherwise vitals normal. Patient is shaking and will not make eye contact. He has back pain diffusely and bilateral CVA tenderness. Abdomen is soft and nontender. Heart is regular. Lungs are clear. Skin appears normal. Test Results: EKG showed sinus rhythm at a rate of [address] segment changes, right bundle branch block pattern, QTC 505. CBC normal. Glucose 132, ALT and AST in the 90s. INR and PTT unremarkable. Urinalysis pending. Troponin normal. Lactate 2.8. Cultures pending. Alcohol negative. Tox screen pending. COVID test pending. Chest x-ray showed COPD findings. CT abdomen and pelvis showed fatty liver and hepatomegaly. Emergency Department Course and Treatment: Patient was treated with IV fluids and morphine/Zofran. He required additional pain medicine received Dilaudid. He was more comfortable on reevaluation. Work-up as above. He has a lactic acidosis, but no signs of sepsis. I am awaiting urinalysis and urine drug screen. Awaiting COVID testing. Patient denies any recent opioid abuse. He said that he is not withdrawing from alcohol or opioids. I am not sure what is causing his lactic acidosis. He is not septic. He received IV fluids. Kidney function is normal. I believe he is appropriate for observation for pain control and fluids. Again, urinalysis, tox screen, and COVID testing pending. Hospitalist was contacted. Treatment Plan: As above Disposition: Observation Impression: Back pain, lactic acidosis This note was generated with [employer] dictation software. It may contain incorrect words, spelling, and punctuation that were not noted in review of the chart prior to signing ED Disposition - Plan for ED Patient: Referrals: Chirag Calhoun MD [Primary Care Provider] -
--- NOTE | 2020-04-18 21:45 | PCM.HP.STD ---
Problem List (1) Intractable back pain Status: Acute (2) Diarrhea Status: Acute Qualifiers: Diarrhea type: unspecified type Qualified Code(s): R19.7 - Diarrhea, unspecified (3) Alcohol withdrawal Status: Acute Qualifiers: Complication of substance-induced condition: with unspecified complication Qualified Code(s): F10.239 - Alcohol dependence with withdrawal, unspecified (4) HLD (hyperlipidemia) Status: Chronic Qualifiers: Hyperlipidemia type: unspecified Qualified Code(s): E78.5 - Hyperlipidemia, unspecified (5) Prediabetes Status: Chronic (6) Obesity (BMI 30-39.9) Status: Chronic (7) HTN (hypertension) Status: Chronic Qualifiers: Hypertension type: essential hypertension Qualified Code(s): I10 - Essential (primary) hypertension (8) Bipolar disorder Status: Chronic Qualifiers: Active/Remission status: remission status unspecified Qualified Code(s): F31.9 - Bipolar disorder, unspecified (9) Nicotine addiction Status: Chronic Qualifiers: Nicotine product type: cigarettes Substance use status: unspecified nicotine-induced disorder Qualified Code(s): F17.219 - Nicotine dependence, cigarettes, with unspecified nicotine-induced disorders History of Present Illness Date of Admission: 04/18/20 Chief Complaint: Headache, Cough, Back pain, Diarrhea The patient is a 49 y/o M w/ PMHx: HTN, HLD, Prediabetes mellitus type II, Chronic Hepatitis C, Hx Prior Opiate Abuse, Bipolar disorder, Obesity, Tobacco use, ? DHARMESH, Prior PE, Chronic COPD, Alcohol abuse who presents to the [facility] ED on 04/18/20 with history of ongoing lumbar back discomfort, worse with certain movements, ranging from 5-10/10 in severity over the last week with recent chills, diaphoresis, non-productive cough with dyspnea in addition to frontal throbbing headache as well as diarrhea (3x on day of ED presentation) without marked abdominal pain prompting eventual ED presentation. He denies any urinary symptoms. He denies any recent ill contacts. He denies any recent alteration to sense of taste or smell. Work-up in the ED included T 97.7, heart rate 90, BP 160/108, respiratory rate 17, 99% on room air, CBC with WBC 9.4, hemoglobin 14.7, platelet 295 without market shift, coags with PT 12.8, INR 1.0, PTT 23.7, lactic acid 2.8, CMP with glucose 132, calcium 8.3, AST/ALT 92/93, troponin less than 0.015, ethyl alcohol less than 3, COVID pending upon requested evaluation of patient, culture x2 pending per ED, chest x-ray with chronic COPD changes with no acute cardiopulmonary findings, CT abdomen and pelvis with fatty liver and hepatomegaly with no acute intra-abdominal finding, EKG with sinus rhythm with nonspecific changes with no acute evidence of ischemia. In the ED patient ministered normal saline, Zofran, morphine, Dilaudid. Past Medical History Past Medical History (Chronic Problems): Chronic Problems Alcohol dependence (Chronic) HLD (hyperlipidemia) (Chronic) Prediabetes (Chronic) Obesity (BMI 30-39.9) (Chronic) HTN (hypertension) (Chronic) Bipolar disorder (Chronic) Non-compliant patient (Chronic) Nicotine addiction (Chronic) Hepatitis C (Chronic) Allergies oxycodone [From OxyContin] Adverse Reaction (Mild, Verified 04/18/20 17:53) Itching Home Medications: Ambulatory Orders Medication Instructions Recorded NK 07/30/19 Surgical History: total knee arthroplasty - On the left knee, - - Umbilical hernia repair, bilateral knee arthroscopic surgeries and ligament repair, great toe trauma with several follow-up surgical interventions. Psychiatric History: Anxiety, Bipolar - Not on any medication at the present time, Depression Lives: Alone Smoking Status: Current every day smoker - Going 1 pack/day cigarette tobacco usage. Tobacco Use: Cigarettes Alcohol: Heavy - Patient reports 1/2-1 bottle of whiskey over the weekends; however, he notes this is decreased from his previous and does not consider this abuse. Drugs: Marijuana, - - Historically prior opiate abuse. - *Family History Maternal History Items: High Cholesterol, Heart Disease, Hypertension Paternal History Items: High Cholesterol, Heart Disease, Hypertension Review of Systems Constitutional: Reports: Anorexia, Chills, Malaise, Weakness, Fatigue. Denies: Fever, Weight Change HEENT: Reports: Head Aches, Nasal Congestion. Denies: Sinus Congestion, Sinus Drainage Cardiovascular: Denies: Chest Pain, Chest Pressure, Chest Tightness, Light Headedness, Orthopnea, Palpitations, Syncope Respiratory: Reports: Cough, Shortness of Breath, Shortness of breath at rest, Shortness of breath upon exertion. Denies: Sputum production, Wheezing Gastrointestinal: Reports: Diarrhea, Nausea, Vomiting. Denies: Abdominal Pain Genitourinary: Denies: Dysuria Musculoskeletal: Reports: Back Pain, Joint Pain. Denies: Joint Tenderness Skin: Denies: Rash, Wounds Neurological: Reports: Headaches, Tremor. Denies: Focal weakness, Numbness, Tingling Psychiatric: Denies: Anxiety, Depression, Homicidal Ideations, Suicidal Ideations Hematologic/ Lymphatic: Reports: Easy Bruising, Easy Bleeding VTE Information - Inpt Only VTE Present on Admission: No VTE Mechan Device Prophylaxis: SCD's VTE Pharm Prophylaxis ordered?: Yes Patient Problems: Active and Suspected Problems Intractable back pain (Acute) Diarrhea (Acute) Subjective: Seated upright in the ED bed, tremors evident, no obvious distress but stating he is having ongoing back pain. Objective: Physical Examination: General: awake, alert, oriented x 3 and cooperative, seated upright in the ED bed in no apparent distress, active tremoring, notes ongoing back discomfort but moving for examination with more ease than expected. Skin: normal color, turgor, no icterus, cyanosis. HEENT: AT/NC, EOMI, PERRLA, dry MM, no carotid bruits or JVD noted. Lungs: Diminished breath sounds, greater bilateral bases, occasional end expiratory wheeze, no obvious rales or rhonchi, noted deformity to the right inferior chest with evidence of a hernia between 2 ribs sections. Heart: Regular rate and rhythm; no gallop, rub audible. Abdomen: soft, obese, NTTP, ND, normal BS, no HSM. Extremities: no cyanosis, clubbing, or edema. Neurological: patient awake, alert, oriented x 3; cognitive function intact; pupils equally reactive to light and accomodation; cranial nerves II-XII grossly normal, moving all 4 extremities, no focal deficits, strength moderately to severely globally decreased secondary to acute presentation, active tremors evident. Psychiatric: affect appears fatigued otherwise normal, no acute evidence of depressive or anxiety feelings. - Physical Exam Vitals/I&O's: Vital Signs Temp Pulse Resp BP Pulse Ox 98.0 F 77 14 153/97 H 95 04/18/20 20:55 04/18/20 20:55 04/18/20 20:55 04/18/20 20:55 04/18/20 20:55 Oxygen Delivery Method Room Air Weight: 221 lb 12.56 oz Body Mass Index (BMI) 30.9 Laboratory Results 04/18/20 18:30: Sodium 138, Potassium 3.7, Chloride 102, Carbon Dioxide 25.0, Anion Gap 11, BUN 12, Creatinine 0.76, Estim Creat Clear Calc 125.22, Est GFR (MDRD) Af Amer 141, Est GFR (MDRD) Non-Af 116, BUN/Creatinine Ratio 15.9, Glucose 132 H, Calcium 8.3 L, Total Bilirubin 0.60, AST 92 H, ALT 93 H, Alkaline Phosphatase 98, Troponin I < 0.015, Total Protein 8.2, Albumin 4.0, Globulin 4.2, Albumin/Globulin Ratio 1.0 04/18/20 18:30: WBC 9.4, RBC 4.78, Hgb 14.7, Hct 43.2, MCV 90.4, MCH 30.8, MCHC 34.0, RDW Std Deviation 42.7, RDW Coeff of Shirin 13.0, Plt Count 295, MPV 8.9, Immature Gran % (Auto) 0.200, Neut % (Auto) 75.2 H, Lymph % (Auto) 16.6 L, [place] % (Auto) 7.3, Eos % (Auto) 0.3, Baso % (Auto) 0.4, Absolute Neuts (auto) 7.1, Absolute Lymphs (auto) 1.56, Nucleated RBC % 0 04/18/20 18:30: Lactic Acid 2.8 H* 04/18/20 18:40: COVID-19 (DOUG) Pending 04/18/20 18:50: Ethyl Alcohol < 3.0 04/18/20 19:24: PT 12.8, INR 1.0, APTT 23.7 L Assessment/Plan All Active Problems Alcohol withdrawal (Acute) Intractable back pain (Acute) Diarrhea (Acute) The patient is a 49 y/o M w/ PMHx: HTN, HLD, Prediabetes mellitus type II, Chronic Hepatitis C, Hx Prior Opiate Abuse, Bipolar disorder, Obesity, Tobacco use, Chronic COPD, Alcohol abuse who presents to the [facility] ED on 04/18/20 with history of ongoing lumbar back discomfort, worse with certain movements, ranging from 5-10/10 in severity over the last week with recent chills, diaphoresis, non-productive cough with dyspnea in addition to frontal throbbing headache as well as diarrhea without marked abdominal pain. 1. Headache, Dyspnea, Cough, Back pain, unclear etiology, Possible Acute viral syndrome with Lactic Acidosis: Will admit MS, awaiting COVID testing and if negative with plan regular floor otherwise COVID unit, if necessary will obtain COVID panel testing, plan to obtain also urinalysis in addition to stool culture and C. difficile, pending urine drug screen per ED as some concern opiate withdrawal as etiology, will initiate DuoNeb therapy as well as PRN albuterol as patient underlying COPD history previously on inhalers, continue judicious hydration, trend lactic acid, plan repeat CBC, CMP in a.m. 2. Acute EtOH Withdrawal: Patient denies ongoing heavy EtOH usage however when discussing his current intake he notes half a bottle to 1 bottle of whiskey over the weekends with last intake the day prior noting 2 shots. Given appearance in the ED with significant tremoring will initiate phenobarbital taper as well as scheduled gabapentin for seizure prophylaxis. Mag, phos pending. Maintain on CIWA protocol concurrently. 3. Hypertension: Not on regimen per current list but previously had been on lisinopril, hydrochlorothiazide 10/12.5 mg, will resume given elevated blood pressures, PRN IV hydralazine. 4. Chronic COPD: Patient previously had been on Advair and as needed albuterol, will maintain during current presentation on ATC duonebs, PRN albuterol, HOB, IS parameters. 5. History of pulmonary emboli: PE in 2017, at that time had been on Xarelto, no longer taking. 6. Tobacco Abuse: Encouraged cessation, inpatient consultation per RT, NR if desired. 7. Pre-diabetes mellitus type 2: Previously had been on metformin, will obtain A1c to assess current status, in interim will maintain on ADA diet, Accu-Cheks with insulin sliding scale. 8. GERD: We will place on famotidine. 9. ? DHARMESH: Encourage outpatient assessment. 10. DVT prophylaxis: SCDs, Lovenox. OBSV E&M: 81912 Initial observation care L3
[2020-04-18] MEDS: HYDROmorphone 0.5 MG/0.5 ML SYRINGE IV (22:18)
[2020-04-18 22:33] LABS: Probe Check PASS; Specimen Processing Control PASS
[2020-04-18 22:58] LABS: Reflex Lactate? Y
[2020-04-18 22:58] LABS: Bacteria 0 SEEN /hpf (None Seen); Mucous, Urine 0 SEEN /hpf (<or=2+); Red Blood Cells-Urine 0 SEEN /hpf (0-5); White Blood Cells 0 SEEN /hpf (0-5)
[2020-04-18 23:01] LABS: Color, Urine Yellow (Yellow); Glucose, Dipstick Normal (Normal); Leukocyte Esterase-Dipstick 25 /ul (Negative); Nitrite-Dipstick Negative (Negative); Occult Blood-Urine Negative /ul (Negative); Protein-Dipstick 15 mg/dl (Negative); Urine Bilirubin Dipstick Negative (Negative); Urine Clarity Clear (Clear); Urine Urobilinogen 1 mg/dl (Normal); Urine pH 6.5 (5.0 - 8.0)
[2020-04-18 23:08] LABS: Ketone-Dipstick 150 mg/dl (Negative)
[2020-04-18 23:15] LABS: Hyaline Cast 0-5 SEEN /lpf (0-5)
[2020-04-18 23:16] LABS: Transitional Epithelial - Ur 0-5 SEEN /hpf (0-5)
[2020-04-18 23:19] LABS: Squamous Epithelial Cells - UA 0-5 SEEN /hpf (0-5)
[2020-04-18 23:21] LABS: Amphetamine Urine VISTA NEGATIVE (<1000 ng/mL); Barbiturate Urine VISTA NEGATIVE (< 200 ng/mL); Benzodiazepine Urine VISTA NEGATIVE (< 200 ng/mL); Cocaine Urine VISTA NEGATIVE (< 300 ng/mL); Ecstacy Urine VISTA NEGATIVE (< 500 ng/mL); Methadone Urine VISTA NEGATIVE (< 300 ng/mL); PCP Urine VISTA NEGATIVE (< 25 ng/mL); THC Urine VISTA POSITIVE (< 50 ng/mL); Vista UDS pH Range 6
[2020-04-18 23:56] LABS: Lactic Acid 0.8 mmol/L (0.4-1.9)
[2020-04-19] VITALS (9 sets, daily range): BP systolic 108–177; BP diastolic 72–114; PULSE 72–82; RESP 18–20; TEMP 36.6–36.8; O2SAT 91–96
[2020-04-19] MEDS: 0.9% Normal Saline 1,000 ML 125 ML IV ×3 (00:09→17:19)
[2020-04-19] MEDS: hydrALAZINE 20 MG/ML Vial 10 MG IV ×2 (00:13→20:07)
[2020-04-19 00:18] LABS: Magnesium 1.5 mg/dL (1.6-2.6); Phosphorus 2.8 mg/dL (2.5-4.9)
[2020-04-19 00:21] LABS: Bedside Glucose 153 mg/dL (70-110)
[2020-04-19] MEDS: Ondansetron 4 MG/2 ML Vial IV (00:24)
[2020-04-19 00:28] LABS: Procalcitonin 0.07 ng/mL (0.00-0.09)
[2020-04-19] MEDS: Insulin Lispro 100 UNIT/ML INSULN.PEN SC ×2 (00:30→12:04)
[2020-04-19] MEDS: Famotidine 20 MG Tablet PO ×3 (00:31→21:58)
[2020-04-19] MEDS: Phenobarbital 32.4 MG Tablet 64.8 MG PO ×7 (00:31→23:15)
[2020-04-19] MEDS: HYDROmorphone 1 MG/ML Syringe IV ×4 (00:51→21:51)
[2020-04-19] MEDS: Ipratropium/Albuterol Sulfate 3 ML AMPUL.NEB INHALATION ×2 (01:23→19:00)
[2020-04-19] MEDS: proCHLORPERazine 10 MG/2 ML Vial 5 MG IV (04:26)
[2020-04-19] MEDS: Acetaminophen 325 MG Tablet 650 MG PO ×2 (05:00→17:32)
[2020-04-19 05:49] LABS: Absolute Lymphocyte Count 2.24 X10^3/uL (0.83-4.51); Absolute Neutrophil Count 4.8 X10^3/uL (2.0-7.7); Basophil# 0.02 X10^3/uL; Basophil% 0.3 % (0-1); Eosinophil# 0.05 X10^3/uL; Eosinophils% 0.6 % (0-5); Hemoglobin 13.5 g/dL (13.0-16.5); Lymphocyte # 2.24 X10^3/ul (4.0); Lymphocyte % 28.7 % (19-41); Mean Corp Hgb Conc 32.1 g/dL (32-36); Mean Corpuscular Hgb 30.7 pg (27.0-32.0); Mean Corpuscular Volume 95.5 fL (80-94); Mean Platelet Vol. 8.9 fl (6.2-12.0); Monocyte# 0.71 X10^3/uL; Monocyte% 9.1 % (0-10); NRBC Flagged by Analyzer 0 % (0-5); Neutrophil # 4.77 X10^3/uL (2.7-7.7); Platelet Count 232 K/mm3 (150-450); RBC Distribution Width CV 13.2 % (11.6-14.6); RBC Distribution Width SD 46.1 fl (35.1-43.9); White Blood Count 7.8 K/mm3 (4.4-11.0)
[2020-04-19 06:07] LABS: ALB/GLOB Ratio 0.8 RATIO (0.9-2.4); AST(SGOT) 55 U/L (15-37); Alanine Aminotransfer ALT/SGPT 73 U/L (16-61); Albumin, Serum 3.2 g/dL (3.2-5.0); Alkaline Phosphatase 83 U/L (45-117); Anion Gap 6 (5-15); BUN 12 mg/dL (7-18); BUN/Creat Ratio 20.9 RATIO (10-20); Calcium,Total 7.4 mg/dL (8.5-10.1); Chloride 102 mmol/L (98-107); Creatinine, Serum 0.57 mg/dL (0.70-1.30); EST Glomerular Filtration Rate 160 mL/min (>60); Est Glom Filt Rate - Afr Amer 194 mL/min (>60); Estimated Creatinine Clearance 166.97 ml/min; Globulin 3.8 g/dL (2.2-4.2); Glucose 110 mg/dL (74-106); Potassium 3.3 mmol/L (3.5-5.1); Sodium Level 138 mmol/L (136-145)
[2020-04-19 06:55] LABS: Bedside Glucose 142 mg/dL (70-110)
[2020-04-19 08:01] LABS: Hemoglobin A1c 5.7 % (3.8-5.6)
[2020-04-19] MEDS: Enoxaparin 40 MG/0.4 ML Syringe SC (09:13)
[2020-04-19] MEDS: Thiamine Hydrochloride 100 MG Tablet PO ×2 (09:13→17:25)
[2020-04-19] MEDS: Folic Acid 1 MG Tablet PO (09:13)
[2020-04-19] MEDS: Multivitamins,Ther W-Minerals Tablet 1 TABLET PO (09:13)
--- NOTE | 2020-04-19 10:53 | PCM.PN.HOSP ---
Patient Problems: Active and Suspected Problems Intractable back pain (Acute) Diarrhea (Acute) Subjective: Patient seen and examined. He was admitted with a complaint of headache, cough, back pain and diarrhea. He also had lactic acidosis on admission. He still complains of back pain today and is mainly in the lumbar region. Headache is better he denies any cough, nausea vomiting. Review of systems otherwise negative. He has remained hemodynamically stable. Labs and vitals reviewed. Vitals/I&O's: Vital Signs Temp Pulse Resp BP Pulse Ox 98.2 F 72 18 141/83 H 93 04/19/20 08:57 04/19/20 08:57 04/19/20 08:57 04/19/20 08:57 04/19/20 08:57 Oxygen Delivery Method Room Air Weight: 218 lb 7.649 oz Body Mass Index (BMI) 30.4 Intake and Output for Last 24 Hours 04/17/20 04/18/20 04/19/20 23:59 23:59 23:59 Intake Total 500 / 500 1225.25 / 1225.25 Output Total 200 / 200 Balance 500 / 500 1025.25 / 1025.25 General: Alert, Oriented x3, Cooperative, No apparent distress HEENT: Atraumatic, PERRLA, EOMI, Normocephalic Oral: Dry Mucosa Neck: Supple, No JVD, Negative Carotid Bruits Lungs: - - has some wheezing and coarse crackles bilaterally. on room air. Cardiovascular: Regular rate, Regular Rhythm, Normal S1, Normal S2, No murmurs Abdomen: Bowel Sounds Present, Soft, Non Tender Extremities: No clubbing, No cyanosis, No edema, Capillary Refill Less than 3 Seconds Skin: No rashes, No breakdown Musculoskeletal: No Tenderness to Palpation of Joints or Extremities Lymphatic: No Cervical, Supraclavicular, or Inguinal Adenopathy Neurological: Cranial nerves II-XII grossly intact, Neuro grossly intact, Motor Exam 5/5 strength throughout Psych/Mental Status: Normal Affect, Appropriate, Alert and oriented to time, place, person, mood and affect Microbiology Past 72 Hours 04/19/20 01:15 Mucosa - Nasopharyngeal Respiratory Panel (PCR) - Final Laboratory Results 04/18/20 18:30: Sodium 138, Potassium 3.7, Chloride 102, Carbon Dioxide 25.0, Anion Gap 11, BUN 12, Creatinine 0.76, Estim Creat Clear Calc 125.22, Est GFR (MDRD) Af Amer 141, Est GFR (MDRD) Non-Af 116, BUN/Creatinine Ratio 15.9, Glucose 132 H, Calcium 8.3 L, Total Bilirubin 0.60, AST 92 H, ALT 93 H, Alkaline Phosphatase 98, Troponin I < 0.015, Total Protein 8.2, Albumin 4.0, Globulin 4.2, Albumin/Globulin Ratio 1.0 04/18/20 18:30: WBC 9.4, RBC 4.78, Hgb 14.7, Hct 43.2, MCV 90.4, MCH 30.8, MCHC 34.0, RDW Std Deviation 42.7, RDW Coeff of Shirin 13.0, Plt Count 295, MPV 8.9, Immature Gran % (Auto) 0.200, Neut % (Auto) 75.2 H, Lymph % (Auto) 16.6 L, Yell % (Auto) 7.3, Eos % (Auto) 0.3, Baso % (Auto) 0.4, Absolute Neuts (auto) 7.1, Absolute Lymphs (auto) 1.56, Nucleated RBC % 0 04/18/20 18:30: Lactic Acid 2.8 H* 04/18/20 18:30: Phosphorus 2.8, Magnesium 1.5 L 04/18/20 18:30: Procalcitonin 0.07 04/18/20 18:40: COVID-19 (DOUG) Negative 04/18/20 18:50: Ethyl Alcohol < 3.0 04/18/20 19:24: PT 12.8, INR 1.0, APTT 23.7 L 04/18/20 22:55: Urine Opiates Screen POSITIVE H, Urine Methadone Screen NEGATIVE, Ur Barbiturates Screen NEGATIVE, Ur Phencyclidine Scrn NEGATIVE, Ur Amphetamines Screen NEGATIVE, U Methamphetamin-MDMA NEGATIVE, U Benzodiazepines Scrn NEGATIVE, Urine Cocaine Screen NEGATIVE, U Cannabinoids Screen POSITIVE H, Ur Drug Screen Comment 04/18/20 22:55: Urine Color Yellow, Urine Clarity Clear, Urine pH 6.5, Ur Specific [place] 1.010, Urine Protein 15 H, Urine Glucose (UA) Normal, Urine Ketones 150 H, Urine Occult Blood Negative, Urine Nitrite Negative, Urine Bilirubin Negative, Urine Urobilinogen 1 H, Ur Leukocyte Esterase 25 H, Urine RBC 0 SEEN, Urine WBC 0 SEEN, Ur Squamous Epith Cells 0-5 SEEN, Ur Transition Epith Cell 0-5 SEEN, Urine Bacteria 0 SEEN, Hyaline Casts 0-5 SEEN, Urine Mucus 0 SEEN 04/18/20 23:20: Lactic Acid 0.8 04/19/20 00:10: POC Glucose 153 H 04/19/20 05:36: WBC 7.8, RBC 4.40 L, Hgb 13.5, Hct 42.0, MCV 95.5 H D, MCH 30.7, MCHC 32.1 D, RDW Std Deviation 46.1 H, RDW Coeff of Shirin 13.2, Plt Count 232, MPV 8.9, Immature Gran % (Auto) 0.300, Neut % (Auto) 61.0, Lymph % (Auto) 28.7, Yell % (Auto) 9.1, Eos % (Auto) 0.6, Baso % (Auto) 0.3, Absolute Neuts (auto) 4.8, Absolute Lymphs (auto) 2.24, Nucleated RBC % 0 04/19/20 05:36: Sodium 138, Potassium 3.3 L, Chloride 102, Carbon Dioxide 30.0, Anion Gap 6, BUN 12, Creatinine 0.57 L, Estim Creat Clear Calc 166.97, Est GFR (MDRD) Af Amer 194, Est GFR (MDRD) Non-Af 160, BUN/Creatinine Ratio 20.9 H, Glucose 110 H, Calcium 7.4 L, Total Bilirubin 0.50, AST 55 H, ALT 73 H, Alkaline Phosphatase 83, Total Protein 7.0, Albumin 3.2, Globulin 3.8, Albumin/Globulin Ratio 0.8 L 04/19/20 05:36: Hemoglobin A1c 5.7 H 04/19/20 06:39: POC Glucose 142 H Diagnostic Data Abdomen/Pelvis CT 04/18/20 18:23 IMPRESSION: Fatty liver and hepatomegaly, no definite acute or significant abnormality seen. Electronically Signed: Shaun Melara MD at 20:59 EDT , Service support , Chest X-Ray 04/18/20 19:02 IMPRESSION: There are findings consistent with COPD. There is no evidence of acute chest disease. Electronically Signed: Shaun Melara MD at 19:51 EDT , Service support , Current Medications Acetaminophen (Tylenol) 650 mg PO Q6H PRN PRN PRN Reason: Pain Score 1-10/Temp > 100.7 F Last Admin: 04/19/20 05:00 Dose: 650 mg Documented by: Al Hydroxide/Mg Hydroxide (Mylanta Ii) 30 ml PO Q6H PRN PRN PRN Reason: Gastric Burning Albuterol Sulfate (Ventolin Aerosols) 2.5 mg INHALATION Q2H PRN PRN PRN Reason: Dyspnea, wheezing Albuterol/Ipratropium (Duoneb) 3 ml INHALATION Q6HWA.RT [facility] Last Admin: 04/19/20 07:07 Dose: Not Given Documented by: Dicyclomine HCl (Bentyl) 20 mg PO Q6H PRN PRN PRN Reason: abdominal discomfort Diphenhydramine HCl (Benadryl) 25 mg IV Q6H PRN PRN PRN Reason: PRURITIS Enoxaparin Sodium (Lovenox) 40 mg SC DAILY [facility] Last Admin: 04/19/20 09:13 Dose: 40 mg Documented by: Famotidine (Pepcid) 20 mg PO BID [facility] Last Admin: 04/19/20 09:13 Dose: 20 mg Documented by: Folic Acid (Folic Acid) 1 mg PO DAILY@0800 [facility] Stop: 04/21/20 08:01 Last Admin: 04/19/20 09:13 Dose: 1 mg Documented by: Gabapentin (Neurontin) 300 mg PO Q8H PRN PRN PRN Reason: moderate to severe anxiety Guaifenesin (Robitussin) 20 ml PO Q4H PRN PRN PRN Reason: COUGH Hydralazine HCl (Apresoline Iv) 10 mg IV Q4H PRN PRN PRN Reason: SBP > 160 Last Admin: 04/19/20 00:13 Dose: 10 mg Documented by: Hydromorphone HCl (Dilaudid Inj) 1 mg IV Q4H PRN PRN PRN Reason: Pain Score 6-10/10 Last Admin: 04/19/20 05:01 Dose: 1 mg Documented by: Hydroxyzine Pamoate (Vistaril Pamoate Capsule) 50 mg PO Q4H PRN PRN PRN Reason: mild anxiety Sodium Chloride () 1,000 mls @ 125 mls/hr IV .Q8H [facility] Last Admin: 04/19/20 09:13 Dose: 125 mls/hr Documented by: Insulin Human Lispro (Humalog Kwikpen (Bkc)) 0 unit SC [facility]; Protocol Last Admin: 04/19/20 06:41 Dose: Not Given Documented by: Lorazepam (Ativan) 2 mg PO Q2H PRN PRN; Protocol PRN Reason: CIWA score > 8 but <15 Lorazepam (Ativan) 2 mg PO UD PRN; Protocol PRN Reason: CIWA score >/=15. Lorazepam (Ativan) 2 mg IV Q2H PRN PRN; Protocol PRN Reason: CIWA score > 8 but <15 Lorazepam (Ativan) 2 mg IV UD PRN; Protocol PRN Reason: CIWA score >/=15. Multivitamins/Minerals (Multivitamin With Minerals (Bkc)) 1 tablet PO DAILYCM [facility] Last Admin: 04/19/20 09:13 Dose: 1 tablet Documented by: Nicotine (Nicoderm Cq (Pbkc)) 21 mg TRANSDERM. DAILY PRN PRN Reason: Nicotine Craving Ondansetron HCl (Zofran) 4 mg IV Q8H PRN PRN PRN Reason: NAUSEA/VOMITING Last Admin: 04/19/20 00:24 Dose: 4 mg Documented by: Oxycodone HCl (Oxyir) 10 mg PO Q4H PRN PRN PRN Reason: Pain Score 4-5/10 Phenobarbital (Phenobarbital) 97.2 mg PO Q4H [facility]; Taper Stop: 04/23/20 08:14 Last Admin: 04/19/20 09:13 Dose: 97.2 mg Documented by: Prochlorperazine Edisylate (Compazine Iv) 5 mg IV Q4H PRN PRN PRN Reason: Breakthrough nausea/vomiting Last Admin: 04/19/20 04:26 Dose: 5 mg Documented by: Sodium Chloride () 10 - 40 ml IV UD PRN PRN Reason: SALINE FLUSH Temazepam (Restoril) 15 mg PO QHS PRN PRN PRN Reason: INSOMNIA Thiamine HCl (Vitamin B1) 100 mg PO BIDCM [facility] Stop: 04/21/20 17:01 Last Admin: 04/19/20 09:13 Dose: 100 mg Documented by: Throat Lozenges (Cepacol Sore Throat Lozenge) 1 lozenge MUCOUS MEM Q2H PRN PRN PRN Reason: SORE THROAT Trazodone HCl (Desyrel) 100 mg PO QHS PRN PRN PRN Reason: INSOMNIA STROKE Vital Signs/Narrative: Vital Signs Temp Pulse Resp BP Pulse Ox 04/19/20 08:57 98.2 F 72 18 141/83 H 93 04/19/20 07:07 94 Medical Necessity - Tobacco Use Smoking Status: Current every day smoker Tobacco Use: Cigarettes Assessment/Plan All Active Problems Alcohol withdrawal (Acute) Intractable back pain (Acute) Diarrhea (Acute) #Back pain still complaining of back pain again. has mild tenderness in lumbar paraspinal muscles CT of the abdomen and pelvis showed fatty liver and hepatosplenomegaly with no definite acute or significant abnormality seen. There were diffuse degenerative changes of the visualized lumbar spine. Will get x-ray of the lumbar spine. Give pain meds as needed. #Lactic acidosis: Resolved. Was admitted with headache, shortness of breath, as well as cough. It was thought to be due to acute viral syndrome. These have all however resolved. continue to monitor #Acute alcohol withdrawal Drinks about half to 1 bottle of whiskey over the weekends with last intake being the day prior. On phenobarbital withdrawal protocol. Monitor CIWA score. #Hypertension: On lisinopril and hydrochlorothiazide. #COPD: Does have some coarse crackles in his lungs. On room air. On Advair and DuoNebs as needed. #: Prediabetes: A1c is 5.7. On insulin sliding scale. Accu-Cheks AC at bedtime. Says he used to be on metformin but is now stopped. To follow-up with his PCP. #GERD: On famotidine #History of PE: Had PE in March 2018 and was on Xarelto but this has been discontinued. #Nicotine dependence: Counseled to quit. Nicotine patch 21 mg daily. DVT prophylaxis: Lovenox Inpatient E&M: 07161 Subs Hosp L2
--- NOTE | 2020-04-19 11:20 | RAD_ITS ---
STUDY: X-RAY - LUMBAR SPINE REASON FOR EXAM: Male, 49 years old. LOW BACK PAIN. NKI TECHNIQUE: 3 view(s) of the lumbar spine were obtained. COMPARISON: CT scan 07/05/2019 FINDINGS: Normal lumbar lordosis. There is no substantial scoliosis. There is a normal alignment of the vertebrae. Mild partial compression fractures of T12 and L2, not present on the previous CT scan. Otherwise normal vertebral bodies and endplates. Stable moderate to marked degenerative disc disease at L5-S1. Otherwise normal disc space heights. The soft tissue structures are unremarkable. RAD/Lumbar Spine 2 or 3 Views IMPRESSION: Degenerative disc disease at L5-S1. Mild compression fractures of the superior endplates of L2 and T12 of indeterminate age. Electronically Signed: Shaun Melara MD at 15:55 EDT , Service support ,
[2020-04-19 12:06] LABS: Bedside Glucose 156 mg/dL (70-110)
[2020-04-19 17:36] LABS: Bedside Glucose 142 mg/dL (70-110)
[2020-04-19] MEDS: oxyCODONE 5 MG Tablet 10 MG PO (20:06)
[2020-04-19] MEDS: 0.9% Saline Lock 10 ML Syringe IV ×2 (20:07→21:51)
[2020-04-19 22:01] LABS: Bedside Glucose 149 mg/dL (70-110)
[2020-04-19] MEDS: hydroCHLOROthiazide 12.5mg 12.5 MG PO (23:16)
[2020-04-19] MEDS: Lisinopril 10 MG Tablet PO (23:17)
[2020-04-20] VITALS (12 sets, daily range): BP systolic 133–156; BP diastolic 91–109; PULSE 71–95; RESP 16–20; TEMP 36.4–36.6; O2SAT 88–95
[2020-04-20] MEDS: 0.9% Normal Saline 1,000 ML 125 ML IV ×2 (01:25→09:27)
[2020-04-20] MEDS: oxyCODONE 5 MG Tablet 10 MG PO ×4 (01:25→21:32)
[2020-04-20] MEDS: HYDROmorphone 1 MG/ML Syringe IV ×6 (02:22→23:37)
[2020-04-20] MEDS: DiphenhydrAMINE 50 MG/ML Syringe 25 MG IV ×3 (02:22→19:42)
[2020-04-20] MEDS: 0.9% Saline Lock 10 ML Syringe IV ×4 (02:22→23:37)
[2020-04-20] MEDS: Phenobarbital 32.4 MG Tablet 64.8 MG PO ×6 (05:09→23:37)
[2020-04-20 06:33] LABS: Bedside Glucose 101 mg/dL (70-110)
[2020-04-20] MEDS: Ipratropium/Albuterol Sulfate 3 ML AMPUL.NEB INHALATION ×3 (07:14→18:57)
[2020-04-20] MEDS: Thiamine Hydrochloride 100 MG Tablet PO ×2 (07:35→16:23)
[2020-04-20] MEDS: Multivitamins,Ther W-Minerals Tablet 1 TABLET PO (07:35)
[2020-04-20] MEDS: Acetaminophen 325 MG Tablet 650 MG PO ×2 (07:35→19:42)
[2020-04-20] MEDS: Gabapentin 300 MG Capsule PO ×2 (07:35→21:32)
--- NOTE | 2020-04-20 07:35 | PCM.PN.HOSP ---
Patient Problems: Active and Suspected Problems Intractable back pain (Acute) Diarrhea (Acute) Flail chest (Acute) Reason for Visit: Follow-up on back pain Subjective: Patient was seen and examined. He complains of severe lower back pain, paraspinal, worse on the right side. He has evidence of right lower ribs bulging that he believes is related to his pain. History of trauma with rib fractures almost 2 years ago. He denies any fever or chills. Objective: Physical exam: General: Alert, Oriented x3, Cooperative, No apparent distress HEENT: Atraumatic, PERRLA, EOMI, Normocephalic Oral: Dry Mucosa Neck: Supple, No JVD, Negative Carotid Bruits Lungs: - - has some wheezing and coarse crackles bilaterally. on room air. Cardiovascular: Regular rate, Regular Rhythm, Normal S1, Normal S2, No murmurs Abdomen: Bowel Sounds Present, Soft, Non Tender Extremities: No clubbing, No cyanosis, No edema, Capillary Refill Less than 3 Seconds Skin: No rashes, No breakdown Musculoskeletal: No Tenderness to Palpation of Joints or Extremities Lymphatic: No Cervical, Supraclavicular, or Inguinal Adenopathy Neurological: Cranial nerves II-XII grossly intact, Neuro grossly intact, Motor Exam 5/5 strength throughout Psych/Mental Status: Normal Affect, Appropriate, Alert and oriented to time, place, person, mood and affect Vitals/I&O's: Vital Signs Temp Pulse Resp BP Pulse Ox 97.7 F L 84 20 H 149/99 H 90 04/20/20 02:31 04/20/20 07:14 04/20/20 07:14 04/20/20 03:16 04/20/20 07:14 Oxygen Delivery Method Room Air Weight: 99.1 kg Body Mass Index (BMI) 30.4 Intake and Output for Last 24 Hours 04/18/20 04/19/20 04/20/20 23:59 23:59 23:59 Intake Total 500 / 500 3125.25 / 3125.25 1360 / 1360 Output Total 750 / 750 1600 / 1600 Balance 500 / 500 2375.25 / 2375.25 -240 / -240 Microbiology Past 72 Hours 04/19/20 16:15 Stool C. difficile DNA Amplification - Final 04/19/20 01:15 Mucosa - Nasopharyngeal Respiratory Panel (PCR) - Final Laboratory Results 04/19/20 05:36: Hemoglobin A1c 5.7 H 04/19/20 12:00: POC Glucose 156 H 04/19/20 17:15: POC Glucose 142 H 04/19/20 21:54: POC Glucose 149 H 04/20/20 06:26: POC Glucose 101 Current Medications Acetaminophen (Tylenol) 650 mg PO Q6H PRN PRN PRN Reason: Pain Score 1-10/Temp > 100.7 F Last Admin: 04/19/20 17:32 Dose: 650 mg Documented by: Al Hydroxide/Mg Hydroxide (Mylanta Ii) 30 ml PO Q6H PRN PRN PRN Reason: Gastric Burning Albuterol Sulfate (Ventolin Aerosols) 2.5 mg INHALATION Q2H PRN PRN PRN Reason: Dyspnea, wheezing Albuterol/Ipratropium (Duoneb) 3 ml INHALATION Q6HWA.RT [facility] Last Admin: 04/20/20 07:14 Dose: 3 ml Documented by: Dicyclomine HCl (Bentyl) 20 mg PO Q6H PRN PRN PRN Reason: abdominal discomfort Diphenhydramine HCl (Benadryl) 25 mg IV Q6H PRN PRN PRN Reason: PRURITIS Last Admin: 04/20/20 02:22 Dose: 25 mg Documented by: Enoxaparin Sodium (Lovenox) 40 mg SC DAILY [facility] Last Admin: 04/19/20 09:13 Dose: 40 mg Documented by: Famotidine (Pepcid) 20 mg PO BID [facility] Last Admin: 04/19/20 21:58 Dose: 20 mg Documented by: Folic Acid (Folic Acid) 1 mg PO DAILY@0800 [facility] Stop: 04/21/20 08:01 Last Admin: 04/19/20 09:13 Dose: 1 mg Documented by: Gabapentin (Neurontin) 300 mg PO Q8H PRN PRN PRN Reason: moderate to severe anxiety Guaifenesin (Robitussin) 20 ml PO Q4H PRN PRN PRN Reason: COUGH Hydralazine HCl (Apresoline Iv) 10 mg IV Q4H PRN PRN PRN Reason: SBP > 160 Last Admin: 04/19/20 20:07 Dose: 10 mg Documented by: Hydrochlorothiazide () 12.5 mg PO DAILY [facility] Last Admin: 04/19/20 23:16 Dose: 12.5 mg Documented by: Hydromorphone HCl (Dilaudid Inj) 1 mg IV Q4H PRN PRN PRN Reason: Pain Score 6-10/10 Last Admin: 04/20/20 06:21 Dose: 1 mg Documented by: Hydroxyzine Pamoate (Vistaril Pamoate Capsule) 50 mg PO Q4H PRN PRN PRN Reason: mild anxiety Sodium Chloride () 1,000 mls @ 125 mls/hr IV .Q8H [facility] Last Admin: 04/20/20 01:25 Dose: 125 mls/hr Documented by: Insulin Human Lispro (Humalog Kwikpen (Bkc)) 0 unit SC [facility]; Protocol Last Admin: 04/20/20 06:27 Dose: Not Given Documented by: Lisinopril (Zestril) 10 mg PO DAILY [facility] Last Admin: 04/19/20 23:17 Dose: 10 mg Documented by: Lorazepam (Ativan) 2 mg PO Q2H PRN PRN; Protocol PRN Reason: CIWA score > 8 but <15 Lorazepam (Ativan) 2 mg PO UD PRN; Protocol PRN Reason: CIWA score >/=15. Lorazepam (Ativan) 2 mg IV Q2H PRN PRN; Protocol PRN Reason: CIWA score > 8 but <15 Lorazepam (Ativan) 2 mg IV UD PRN; Protocol PRN Reason: CIWA score >/=15. Multivitamins/Minerals (Multivitamin With Minerals (Bkc)) [facility] Last Admin: 04/19/20 09:13 Dose: 1 tablet Documented by: Nicotine (Nicoderm Cq (Pbkc)) 21 mg TRANSDERM. DAILY PRN PRN Reason: Nicotine Craving Ondansetron HCl (Zofran) 4 mg IV Q8H PRN PRN PRN Reason: NAUSEA/VOMITING Last Admin: 04/19/20 00:24 Dose: 4 mg Documented by: Oxycodone HCl (Oxyir) 10 mg PO Q4H PRN PRN PRN Reason: Pain Score 4-5/10 Last Admin: 04/20/20 01:25 Dose: 10 mg Documented by: Phenobarbital (Phenobarbital) 97.2 mg PO Q4H [facility]; Taper Stop: 04/23/20 08:14 Last Admin: 04/20/20 05:09 Dose: 97.2 mg Documented by: Prochlorperazine Edisylate (Compazine Iv) 5 mg IV Q4H PRN PRN PRN Reason: Breakthrough nausea/vomiting Last Admin: 04/19/20 04:26 Dose: 5 mg Documented by: Sodium Chloride () 10 - 40 ml IV UD PRN PRN Reason: SALINE FLUSH Last Admin: 04/20/20 06:21 Dose: 10 ml Documented by: Temazepam (Restoril) 15 mg PO QHS PRN PRN PRN Reason: INSOMNIA Thiamine HCl (Vitamin B1) 100 mg PO BIDCM [facility] Stop: 04/21/20 17:01 Last Admin: 04/19/20 17:25 Dose: 100 mg Documented by: Throat Lozenges (Cepacol Sore Throat Lozenge) 1 lozenge MUCOUS MEM Q2H PRN PRN PRN Reason: SORE THROAT Trazodone HCl (Desyrel) 100 mg PO QHS PRN PRN PRN Reason: INSOMNIA STROKE Vital Signs/Narrative: Vital Signs Pulse Resp Pulse Ox 04/20/20 07:14 84 20 H 90 Medical Necessity - Tobacco Use Smoking Status: Current every day smoker Tobacco Use: Cigarettes Assessment/Plan All Active Problems Alcohol withdrawal (Acute) Intractable back pain (Acute) Diarrhea (Acute) Flail chest (Acute) 1. Acute on chronic back pain contrary to compression fractures in T12 and L2, indeterminate age Continue with pain control, add Flexeril, Pain management consulted, PT and OT to evaluate 2. Right lower rib mass/abnormality, secondary to flail chest, nontender to touch Appreciate general surgery consult and recommendations Will recommend cardiothoracic surgery in the outpatient 3. Lactic acidosis, resolved 4. Acute alcohol withdrawal, continue with withdrawal protocol 5. Hypertension, controlled, continue on hydrochlorothiazide, lisinopril 6. COPD, stable, not in acute exacerbation, Continue prn breathing treatments 7. GERD, on famotidine 8. DVT PPx- Lovenox SC Inpatient E&M: 25389 Subs Hosp L2
[2020-04-20] MEDS: Enoxaparin 40 MG/0.4 ML Syringe SC (07:36)
[2020-04-20] MEDS: Famotidine 20 MG Tablet PO ×2 (07:36→21:31)
[2020-04-20] MEDS: Folic Acid 1 MG Tablet PO (07:36)
[2020-04-20 08:22] LABS: ALB/GLOB Ratio 0.9 RATIO (0.9-2.4); AST(SGOT) 40 U/L (15-37); Alanine Aminotransfer ALT/SGPT 60 U/L (16-61); Albumin, Serum 3.2 g/dL (3.2-5.0); Alkaline Phosphatase 80 U/L (45-117); Anion Gap 5 (5-15); BUN 5 mg/dL (7-18); BUN/Creat Ratio 9.3 RATIO (10-20); Calcium,Total 7.8 mg/dL (8.5-10.1); Chloride 104 mmol/L (98-107); Creatinine, Serum 0.54 mg/dL (0.70-1.30); EST Glomerular Filtration Rate 172 mL/min (>60); Est Glom Filt Rate - Afr Amer 208 mL/min (>60); Estimated Creatinine Clearance 176.24 ml/min; Globulin 3.6 g/dL (2.2-4.2); Glucose 103 mg/dL (74-106); Potassium 3.3 mmol/L (3.5-5.1); Protein, Total 6.8 g/dL (6.4-8.2); Sodium Level 138 mmol/L (136-145)
[2020-04-20] MEDS: LORazepam 1 MG Tablet 2 MG PO ×3 (08:24→19:35)
[2020-04-20] MEDS: Lisinopril 10 MG Tablet PO (08:31)
[2020-04-20] MEDS: hydroCHLOROthiazide 12.5mg 12.5 MG PO (08:32)
[2020-04-20] MEDS: cycloBENZAPRine HCl 10 MG Tablet PO ×2 (10:29→19:26)
--- NOTE | 2020-04-20 10:31 | CON.PCM_ITS ---
Problem List (1) Flail chest Status: Acute Qualifiers: Encounter type: initial encounter Fracture type: closed Qualified Code(s): S22.5XXA - Flail chest, initial encounter for closed fracture Reason for Consult Date of Consultation: 04/20/20 History of Present Illness: The patient is a 49 year old M who I have been asked to see by Dr. Murphy for a suspected ventral hernia and a written copy of my surgical consult and recommendations will be present in the chart. 49-year-old gentleman. He is admitted on April 18, 2020 with intractable back pain diarrhea alcohol withdrawal in addition to his chronic medical illnesses. He complains that he feels that a right chest wall problem is etiologic to his back pain. He had lumbar x-rays showing mild compression of L2 and T12 indeterminate age. Chest x-ray was interpreted as COPD no acute findings. The chest x-ray does not discuss the fact that the patient has evidence of previous multiple right-sided rib fractures. A previous CTA of the chest performed July 30, 2019 suggested right lateral lung parenchymal herniation between the eighth and ninth ribs on the right with pleural thickening and distortion of the parenchyma. The lateral upper abdominal wall herniation superior to the ninth rib. Rib deformities posterior lateral right hemithorax and anterior right third and fourth ribs with pseudarthrosis formation of the seventh rib. Surgical defect with missing 1.2 cm distance of the eighth rib. The patient claims that he previously had to give himself a Heimlich maneuver and subsequently caused rib fractures on the right. The patient has bipolar disorder and I did not get a consistent history regarding this particular problem. It is additionally of note that the patient's had a supraumbilical ventral hernia repaired. He suggest this was done by Dr. Razia Escobar but he is unsure. He recognizes that he does have a recurrence there as well but that is not what is of interest to him today. He states that the right thoracic cage problem with herniation is what he thinks is causing his back pain and that the two are linked. Past Medical History Past Medical History (Chronic Problems): Chronic Problems Alcohol dependence (Chronic) HLD (hyperlipidemia) (Chronic) Prediabetes (Chronic) Obesity (BMI 30-39.9) (Chronic) HTN (hypertension) (Chronic) Bipolar disorder (Chronic) Non-compliant patient (Chronic) Nicotine addiction (Chronic) Hepatitis C (Chronic) Allergies oxycodone [From OxyContin] Adverse Reaction (Mild, Verified 04/18/20 17:53) Itching Home Medications: Ambulatory Orders Medication Instructions Recorded NK 07/30/19 Surgical History: total knee arthroplasty - On the left knee, - - Umbilical hernia repair, bilateral knee arthroscopic surgeries and ligament repair, great toe trauma with several follow-up surgical interventions. Psychiatric History: Anxiety, Bipolar - Not on any medication at the present time, Depression Lives: Alone Smoking Status: Current every day smoker Tobacco Use: Cigarettes Alcohol: Heavy - Patient reports 1/2-1 bottle of whiskey over the weekends; however, he notes this is decreased from his previous and does not consider this abuse. Drugs: Marijuana, - - Historically prior opiate abuse. - *Family History Maternal History Items: High Cholesterol, Heart Disease, Hypertension Paternal History Items: High Cholesterol, Heart Disease, Hypertension Review of Systems Constitutional: Denies: Fever Cardiovascular: Reports: - - Patient claims some discomfort right chest wall Respiratory: Reports: - - Patient has a chronic cough from tobacco use Gastrointestinal: Reports: - - Vertical incision superior to the umbilicus with palpable defect at that location and palpable defect approximately 3 cm to the right lateral Neurological: Reports: - - Tert replies Patient Problems: Active and Suspected Problems Intractable back pain (Acute) Diarrhea (Acute) Flail chest (Acute) - Physical Exam Vitals/I&O's: Vital Signs Temp Pulse Resp BP Pulse Ox 97.6 F L 84 16 149/109 H 92 04/20/20 07:58 04/20/20 07:58 04/20/20 07:58 04/20/20 07:58 04/20/20 07:58 Oxygen Delivery Method Room Air Weight: 218 lb 7.649 oz Body Mass Index (BMI) 30.4 Intake and Output for Last 24 Hours 04/18/20 04/19/20 04/20/20 23:59 23:59 23:59 Intake Total 500 / 500 3125.25 / 3125.25 2360 / 2360 Output Total 750 / 750 1600 / 1600 Balance 500 / 500 2375.25 / 2375.25 760 / 760 General: Alert, No apparent distress Oral: Moist Mucosa Lungs: Clear to auscultation, - - Paradoxical motion of the right inferior mid lateral chest wall with palpable chest wall separation defect. Nontender Cardiovascular: Regular rate, Regular Rhythm Abdomen: - - Superior to umbilicus recurrent ventral incisional hernia with a vertical incision and palpable defect there and a palpable defect 2 cm right lateral Extremities: No Calf Tenderness Neurological: - - Cognition intact Microbiology Past 72 Hours 04/19/20 20:00 Sputum, Expectorated/Coughed Respiratory Culture - Preliminary Appears to be normal respiratory óscar. Further studies to follow. 04/18/20 22:55 Urine, Clean Catch Urine Culture - Preliminary Culture exhibits no growth. 04/19/20 16:15 Stool C. difficile DNA Amplification - Final 04/19/20 01:15 Mucosa - Nasopharyngeal Respiratory Panel (PCR) - Final Laboratory Results 04/19/20 12:00: POC Glucose 156 H 04/19/20 17:15: POC Glucose 142 H 04/19/20 21:54: POC Glucose 149 H 04/20/20 06:26: POC Glucose 101 04/20/20 07:50: Sodium 138, Potassium 3.3 L, Chloride 104, Carbon Dioxide 29.0, Anion Gap 5, BUN 5 L, Creatinine 0.54 L, Estim Creat Clear Calc 176.24, Est GFR (MDRD) Af Amer 208, Est GFR (MDRD) Non-Af 172, BUN/Creatinine Ratio 9.3 L, Glucose 103, Calcium 7.8 L, Total Bilirubin 0.30, AST 40 H, ALT 60, Alkaline Phosphatase 80, Total Protein 6.8, Albumin 3.2, Globulin 3.6, Albumin/Globulin Ratio 0.9 Current Medications Acetaminophen (Tylenol) 650 mg PO Q6H PRN PRN PRN Reason: Pain Score 1-10/Temp > 100.7 F Last Admin: 04/20/20 07:35 Dose: 650 mg Documented by: Al Hydroxide/Mg Hydroxide (Mylanta Ii) 30 ml PO Q6H PRN PRN PRN Reason: Gastric Burning Albuterol Sulfate (Ventolin Aerosols) 2.5 mg INHALATION Q2H PRN PRN PRN Reason: Dyspnea, wheezing Albuterol/Ipratropium (Duoneb) 3 ml INHALATION Q6HWA.RT [facility] Last Admin: 04/20/20 07:14 Dose: 3 ml Documented by: Cyclobenzaprine HCl (Flexeril) 10 mg PO TID PRN PRN PRN Reason: SPASMS Dicyclomine HCl (Bentyl) 20 mg PO Q6H PRN PRN PRN Reason: abdominal discomfort Diphenhydramine HCl (Benadryl) 25 mg IV Q6H PRN PRN PRN Reason: PRURITIS Last Admin: 04/20/20 08:24 Dose: 25 mg Documented by: Enoxaparin Sodium (Lovenox) 40 mg SC DAILY [facility] Last Admin: 04/20/20 07:36 Dose: 40 mg Documented by: Famotidine (Pepcid) 20 mg PO BID [facility] Last Admin: 04/20/20 07:36 Dose: 20 mg Documented by: Folic Acid (Folic Acid) 1 mg PO DAILY@0800 [facility] Stop: 04/21/20 08:01 Last Admin: 04/20/20 07:36 Dose: 1 mg Documented by: Gabapentin (Neurontin) 300 mg PO Q8H PRN PRN PRN Reason: moderate to severe anxiety Last Admin: 04/20/20 07:35 Dose: 300 mg Documented by: Guaifenesin (Robitussin) 20 ml PO Q4H PRN PRN PRN Reason: COUGH Hydralazine HCl (Apresoline Iv) 10 mg IV Q4H PRN PRN PRN Reason: SBP > 160 Last Admin: 04/19/20 20:07 Dose: 10 mg Documented by: Hydrochlorothiazide () 12.5 mg PO DAILY [facility] Last Admin: 04/20/20 08:32 Dose: 12.5 mg Documented by: Hydromorphone HCl (Dilaudid Inj) 1 mg IV Q4H PRN PRN PRN Reason: Pain Score 6-10/10 Last Admin: 04/20/20 06:21 Dose: 1 mg Documented by: Hydroxyzine Pamoate (Vistaril Pamoate Capsule) 50 mg PO Q4H PRN PRN PRN Reason: mild anxiety Sodium Chloride () 1,000 mls @ 125 mls/hr IV .Q8H [facility] Last Admin: 04/20/20 09:27 Dose: 125 mls/hr Documented by: Insulin Human Lispro (Humalog Kwikpen (Bkc)) 0 unit SC [facility]; Protocol Last Admin: 04/20/20 06:27 Dose: Not Given Documented by: Lisinopril (Zestril) 10 mg PO DAILY [facility] Last Admin: 04/20/20 08:31 Dose: 10 mg Documented by: Lorazepam (Ativan) 2 mg PO Q2H PRN PRN; Protocol PRN Reason: CIWA score > 8 but <15 Last Admin: 04/20/20 08:24 Dose: 2 mg Documented by: Lorazepam (Ativan) 2 mg PO UD PRN; Protocol PRN Reason: CIWA score >/=15. Lorazepam (Ativan) 2 mg IV Q2H PRN PRN; Protocol PRN Reason: CIWA score > 8 but <15 Lorazepam (Ativan) 2 mg IV UD PRN; Protocol PRN Reason: CIWA score >/=15. Multivitamins/Minerals (Multivitamin With Minerals (Bkc)) [facility] Last Admin: 04/20/20 07:35 Dose: 1 tablet Documented by: Nicotine (Nicoderm Cq (Pbkc)) 21 mg TRANSDERM. DAILY PRN PRN Reason: Nicotine Craving Last Admin: 04/20/20 07:36 Dose: 21 mg Documented by: Ondansetron HCl (Zofran) 4 mg IV Q8H PRN PRN PRN Reason: NAUSEA/VOMITING Last Admin: 04/19/20 00:24 Dose: 4 mg Documented by: Oxycodone HCl (Oxyir) 10 mg PO Q4H PRN PRN PRN Reason: Pain Score 4-5/10 Last Admin: 04/20/20 08:23 Dose: 10 mg Documented by: Phenobarbital (Phenobarbital) 97.2 mg PO Q4H [facility]; Taper Stop: 04/23/20 08:14 Last Admin: 04/20/20 08:32 Dose: 64.8 mg Documented by: Prochlorperazine Edisylate (Compazine Iv) 5 mg IV Q4H PRN PRN PRN Reason: Breakthrough nausea/vomiting Last Admin: 04/19/20 04:26 Dose: 5 mg Documented by: Sodium Chloride () 10 - 40 ml IV UD PRN PRN Reason: SALINE FLUSH Last Admin: 04/20/20 06:21 Dose: 10 ml Documented by: Temazepam (Restoril) 15 mg PO QHS PRN PRN PRN Reason: INSOMNIA Thiamine HCl (Vitamin B1) [facility] Stop: 04/21/20 17:01 Last Admin: 08/17/20 07:35 Dose: 100 mg Documented by: Throat Lozenges (Cepacol Sore Throat Lozenge) 1 lozenge MUCOUS MEM Q2H PRN PRN PRN Reason: SORE THROAT Trazodone HCl (Desyrel) 100 mg PO QHS PRN PRN PRN Reason: INSOMNIA Assessment/Plan All Active Problems Alcohol withdrawal (Acute) Intractable back pain (Acute) Diarrhea (Acute) Flail chest (Acute) 49-year-old gentleman with history of right chest wall trauma rib fractures and rib separation with some eventration of some pulmonary parenchymal tissue. Findings are consistent with a flail chest wall with paradoxical motion. This does not however appear to be embarrassing his respiratory capacity. This appears to be a chronic issue present for a year and a half perhaps longer. This is outside of the realm of general surgery consultation. The patient would need to see a noncardiac chest surgeon for consultation. My suspicion is that the repair would lead to more pain and complication than benefit but this is not my area of expertise Regarding the patient's recurrent ventral incisional hernia located superior to the umbilicus. I have offered him consideration for future repair. He is not interested at this time. I appreciate the opportunity of assisting with his surgical care Henry Knox M.D., F.A.C.S.
--- NOTE | 2020-04-20 10:50 | CASEMGMT ---
RN ELYSIA Face to Face with patient for initial transition planning/care coordination assessment. RN CM introduced self and role at [facility]. Patient lying in bed, alert and oriented. Patient willing to participate in assessment and is able to answer all questions appropriately. Care providers, pharmacy, and demographics verified. Patient wishes to discharge home, denies need for home health at this time. Patient states he has no further needs or concerns at this time. CM to follow for discharge planning needs that may arise. PCP: Lj Specialists: none Preferred Pharmacy: [facility] Insurance: [employer] Prescription Benefit: yes Living Will/HPOA: none LNOK: Niece Living Arrangements: Patient lives alone in a 2nd floor apartment with stairs. Patient states he is independent at home and is able to ambulate stairs. [facility] DME/HHC: Patient states he has shower chair, cane, crutches, and grab bars at home. Patient interested in walker at discharge and possible nebulizer. Patient prefers [employer] for DME Disposition Plan: Patient to discharge home with follow-up plans in place. aJlyn ARAYA, RN, CM
[2020-04-20 11:11] LABS: Bedside Glucose 113 mg/dL (70-110)
--- NOTE | 2020-04-20 15:31 | CASEMGMT ---
Social Work Note Pt has history of alcohol use, currently going through alcohol withdrawal. SW in to speak with pt. SW introduced self and role at [facility]. Pt is alert and orientated x3. Pt denied wanting substance abuse or counseling resources. Jalyn Harris ROTARY PLANER SET UP OPERATOR, OUTGOING INSPECTOR
[2020-04-20 16:31] LABS: Bedside Glucose 99 mg/dL (70-110)
[2020-04-20 21:41] LABS: Bedside Glucose 122 mg/dL (70-110)
[2020-04-20] MEDS: Albuterol 2.5 MG/3 ML VIAL.NEB. INHALATION (23:15)
[2020-04-21] MEDS: Phenobarbital 32.4 MG Tablet 64.8 MG PO ×2 (05:10→08:13)
[2020-04-21] MEDS: 0.9% Saline Lock 10 ML Syringe IV ×2 (05:10→05:23)
[2020-04-21] MEDS: HYDROmorphone 1 MG/ML Syringe IV (05:10)
[2020-04-21 05:14] VITALS: BP 157/105; PULSE 93; RESP 18; TEMP 36.5; O2SAT 92
[2020-04-21] MEDS: DiphenhydrAMINE 50 MG/ML Syringe 25 MG IV (05:23)
[2020-04-21] MEDS: Ondansetron 4 MG/2 ML Vial IV (05:24)
[2020-04-21] MEDS: oxyCODONE 5 MG Tablet 10 MG PO ×2 (06:35→10:38)
[2020-04-21 06:36] LABS: Bedside Glucose 120 mg/dL (70-110)
[2020-04-21 06:53] VITALS: PULSE 93; RESP 16; O2SAT 90
[2020-04-21] MEDS: Ipratropium/Albuterol Sulfate 3 ML AMPUL.NEB INHALATION ×2 (06:53→13:27)
[2020-04-21 07:49] VITALS: BP 149/82; PULSE 78; RESP 18; TEMP 36.7; O2SAT 98
[2020-04-21] MEDS: Multivitamins,Ther W-Minerals Tablet 1 TABLET PO (08:14)
[2020-04-21] MEDS: Folic Acid 1 MG Tablet PO (08:14)
[2020-04-21] MEDS: Thiamine Hydrochloride 100 MG Tablet PO (08:14)
[2020-04-21] MEDS: hydroCHLOROthiazide 12.5mg 12.5 MG PO (08:18)
[2020-04-21] MEDS: Famotidine 20 MG Tablet PO (08:19)
[2020-04-21] MEDS: Enoxaparin 40 MG/0.4 ML Syringe SC (08:19)
[2020-04-21] MEDS: Lisinopril 10 MG Tablet PO (08:19)
[2020-04-21 11:36] LABS: Bedside Glucose 120 mg/dL (70-110)
--- NOTE | 2020-04-21 11:45 | NURSING ---
Upon entering room pt snoring. Awake to do blood sugar assessment. Pt upset that he was awakened. When Awakened and asked what pain was. patient stated it was 7/10. Education provided on pain medications that patient will be going home with and encouraged to use oral pain meds to control pain to ensure they will be effective for discharge. Offered to give patient tylenol or flexeril for pain. Patient refused stating, get the fuck out of my room. This nurse paged the hospitalist. Hospitalist stated she was d/c the dilaudid and that she just got off the phone with Dr. El and would be up to speak to the patient and to discharge. Pt currently angry and cursing in room setting bed exit off refusing to wear oxygen.
--- NOTE | 2020-04-21 11:57 | DCINST_ITS ---
- Discharge Diagnoses Current Active Problems: Current Active and Chronic Problems HLD (hyperlipidemia) (Chronic) Intractable back pain (Acute) Diarrhea (Acute) Flail chest (Acute) Reason(s) for Visit for Discharge Instructions: Back pain You will use the following diet at home:: Regular Your food should be the consistency of: Regular Your liquids should be the consistency of: Regular/Thin Discharge Activity: Return to Normal Activity Instructions: Alcoholism: Resources for Family and Friends, The Impact of Alcoholism, Alcoholism: Getting Help Additional Instructions: Follow-up with Dr. El in pain management. You have been discharged on oxycodone and Flexeril. You are strongly advised not to drive or use heavy machinery whilst on these medications. Allergies/Adverse Reactions: Allergies oxycodone [From OxyContin] Adverse Reaction (Mild, Verified 04/18/20 17:53) Itching Medications to take at Discharge Ipratropium/Albuterol Sulfate [Duoneb] 3 ml INHALATION Q6HWA.RT 30 Days #30 ampul.neb 04/21/20 Multivitamins,Ther W-Minerals [Multivitamin With Minerals (BKC)] 1 tab PO DAILYCM 30 Days #30 tab 04/21/20 Nicotine [Nicoderm Cq] 21 mg TRANSDERM. DAILY PRN 30 Days #30 patch 04/21/20 Oxycodone [Oxyir] 10 mg PO Q4H PRN PRN 5 Days #20 tablet 04/21/20 Thiamine Hydrochloride [Vitamin B1] 100 mg PO BIDCM 30 Days #60 tab 04/21/20 cycloBENZAPRine HCl [Flexeril] 10 mg PO TID PRN PRN 10 Days #30 tab 04/21/20 hydroCHLOROthiazide [Hydrochlorothiazide] 12.5 mg PO DAILY 30 Days #30 cap 04/21/20 The following prescriptions were given: Ipratropium/Albuterol Sulfate [Duoneb] 3 ml INHALATION Q6HWA.RT 30 Days #30 ampul.neb Transmission Status: Pending to [facility] #30 cycloBENZAPRine HCl [Flexeril] 10 mg PO TID PRN PRN 10 Days #30 tab PRN Reason: Spasms Transmission Status: Pending to [facility] #30 hydroCHLOROthiazide [Hydrochlorothiazide] 12.5 mg PO DAILY 30 Days #30 cap Transmission Status: Pending to [facility] Multivitamins,Ther W-Minerals [Multivitamin With Minerals (BKC)] 1 tab PO DAILYCM 30 Days #30 tab Transmission Status: Pending to [facility] Nicotine [Nicoderm Cq] 21 mg TRANSDERM. DAILY PRN 30 Days #30 patch PRN Reason: Nicotine Craving Transmission Status: Pending to [facility] Oxycodone [Oxyir] 10 mg PO Q4H PRN PRN 5 Days #20 tablet PRN Reason: Pain Score 4-10/10 Transmission Status: Sent to [facility] Thiamine Hydrochloride [Vitamin B1] 100 mg PO BIDCM 30 Days #60 tab Transmission Status: Pending to [facility] Primary Care Physician: Chirag Calhoun MD [Primary Care Provider] - Please follow up with your Primary Care Physician in: within 1-2 weeks Test Results: Test results from this visit will be discussed in further detail at your follow- up appointment, if applicable. Please Follow Up With: Kendall El MD When: on 04/27/20 Proposed Discharge Date: 04/21/20
--- NOTE | 2020-04-21 12:01 | PCM.DC.SUM ---
Discharge Date and Diagnosis Date of Admission: 04/18/20 Date of Discharge: 04/21/20 - Primary Discharge Diagnosis Acute Problems: Active Problems Acute intractable back pain Chronic flail chest Lactic acidosis Acute alcohol withdrawal - Secondary Discharge Diagnosis Chronic Problems: Chronic Problems Alcohol dependence (Chronic) HLD (hyperlipidemia) (Chronic) Prediabetes (Chronic) Obesity (BMI 30-39.9) (Chronic) HTN (hypertension) (Chronic) Bipolar disorder (Chronic) Non-compliant patient (Chronic) Nicotine addiction (Chronic) Hepatitis C (Chronic) Hospital Course and Treatment Imaging Results: Clinical Impression(s) from Imaging Studies Abdomen/Pelvis CT 04/18/20 18:23 IMPRESSION: Fatty liver and hepatomegaly, no definite acute or significant abnormality seen. Electronically Signed: Shaun Melara MD at 20:59 EDT , Service support , Chest X-Ray 04/18/20 19:02 IMPRESSION: There are findings consistent with COPD. There is no evidence of acute chest disease. Electronically Signed: Shaun Melara MD at 19:51 EDT , Service support , Lumbar Spine X-Ray 04/19/20 11:20 IMPRESSION: Degenerative disc disease at L5-S1. Mild compression fractures of the superior endplates of L2 and T12 of indeterminate age. Electronically Signed: Shaun Melara MD at 15:55 EDT , Service support , Pain management Operations: None Procedures: None Summary of Care Provided: The patient is a 49 year old M with past medical history of hypertension, hyperlipidemia, bipolar disorder, nicotine dependence, alcohol use disorder who comes in complaints of back pain, worse with movement, associated with chills, diaphoresis and cough. Patient initially had an elevated lactic acid believed likely to be due to a viral syndrome. COVID testing was negative. Lactic acid then resolved. He was also managed as acute alcohol withdrawal and acute on chronic low back pain. Patient was on different pain management. Showed the lumbar spine showed mild compression fractures in T12 and L2. Pain management was consulted. Patient however was fast asleep and could not be seen by pain management. Patient continued to complain of pain. He was managed on Flexeril, oxycodone, IV Dilaudid. He was discharged on oxycodone, Flexeril and asked to follow-up with pain management in the next day at 4 PM. During this hospital stay, patient was seen by general surgery for concern for chronic right lower rib mass. General surgery believes it was secondary to flu chest from history of rib fractures. Recommended patient follows up with cardiothoracic surgery for further management. Patient was insistent on the day of discharge that he be given IV Dilaudid or oral Dilaudid. He was discharged on oxycodone and highly recommended to follow-up with pain management in the next day. Subjective: On the day of discharge, patient was seen and examined. Complains of severe back pain. He insists on being given IV Dilaudid or oral Dilaudid. Objective: Physical exam: General: Alert, Oriented x3, Cooperative, No apparent distress HEENT: Atraumatic, PERRLA, EOMI, Normocephalic Oral: Dry Mucosa Neck: Supple, No JVD, Negative Carotid Bruits Lungs: - -Diminished at the lung bases, right lower thorax mass with evidence of rib bulging during coughing Cardiovascular: Regular rate, Regular Rhythm, Normal S1, Normal S2, No murmurs Abdomen: Bowel Sounds Present, Soft, Non Tender Extremities: No edema, Capillary Refill Less than 3 Seconds Skin: No rashes, No breakdown Musculoskeletal: Tenderness on palpation to the paraspinal muscles. Lymphatic: No Cervical, Supraclavicular, or Inguinal Adenopathy Neurological: Cranial nerves II-XII grossly intact, Neuro grossly intact, Motor Exam 5/5 strength throughout Psych/Mental Status: Normal Affect, Appropriate, Alert and oriented to time, place, person, mood and affect - Physical Exam Vitals/I&O's: Vital Signs Temp Pulse Resp BP Pulse Ox 98.1 F 78 18 149/82 H 98 04/21/20 07:49 04/21/20 07:49 04/21/20 07:49 04/21/20 07:49 04/21/20 07:49 Oxygen Flow Rate (L/min) 2 Oxygen Delivery Method Nasal Cannula Weight: 99.1 kg Body Mass Index (BMI) 30.4 Intake and Output for Last 24 Hours 04/19/20 04/20/20 04/21/20 23:59 23:59 23:59 Intake Total 3125.25 / 3125.25 4176.67 / 4776.67 1140 / 1140 Output Total 750 / 750 2600 / 3600 1800 / 1800 Balance 2375.25 / 2375.25 1576.67 / 1176.67 -660 / -660 Microbiology Past 72 Hours 04/18/20 19:24 Blood Culture (Wb) - No Site/Description Given Blood Culture - Preliminary No growth in 48 hours. 04/18/20 18:30 Blood Culture (Wb) - Anticubital Left Blood Culture - Preliminary No growth in 48 hours. 04/19/20 20:00 Sputum, Expectorated/Coughed Gram Stain - Final 04/19/20 20:00 Sputum, Expectorated/Coughed Respiratory Culture - Preliminary Appears to be normal respiratory óscar. Further studies to follow. 04/18/20 22:55 Urine, Clean Catch Urine Culture - Final Culture exhibits no growth. 04/19/20 16:15 Stool Enteric Bacteriology - Final 04/19/20 16:15 Stool C. difficile DNA Amplification - Final 04/19/20 01:15 Mucosa - Nasopharyngeal Respiratory Panel (PCR) - Final Laboratory Results 04/20/20 16:19: POC Glucose 99 04/20/20 21:36: POC Glucose 122 H 04/21/20 06:32: POC Glucose 120 H 04/21/20 11:28: POC Glucose 120 H Current Medications Acetaminophen (Tylenol) 650 mg PO Q6H PRN PRN PRN Reason: Pain Score 1-10/Temp > 100.7 F Last Admin: 04/20/20 19:42 Dose: 650 mg Documented by: Al Hydroxide/Mg Hydroxide (Mylanta Ii) 30 ml PO Q6H PRN PRN PRN Reason: Gastric Burning Albuterol Sulfate (Ventolin Aerosols) 2.5 mg INHALATION Q2H PRN PRN PRN Reason: Dyspnea, wheezing Last Admin: 04/20/20 23:15 Dose: 2.5 mg Documented by: Albuterol/Ipratropium (Duoneb) 3 ml INHALATION Q6HWA.RT EDWARD Last Admin: 04/21/20 06:53 Dose: 3 ml Documented by: Cyclobenzaprine HCl (Flexeril) 10 mg PO TID PRN PRN PRN Reason: SPASMS Last Admin: 04/20/20 19:26 Dose: 10 mg Documented by: Dicyclomine HCl (Bentyl) 20 mg PO Q6H PRN PRN PRN Reason: abdominal discomfort Enoxaparin Sodium (Lovenox) 40 mg SC DAILY [facility] Last Admin: 04/21/20 08:19 Dose: 40 mg Documented by: Famotidine (Pepcid) 20 mg PO BID [facility] Last Admin: 04/21/20 08:19 Dose: 20 mg Documented by: Guaifenesin (Robitussin) 20 ml PO Q4H PRN PRN PRN Reason: COUGH Hydrochlorothiazide () 12.5 mg PO DAILY [facility] Last Admin: 04/21/20 08:18 Dose: 12.5 mg Documented by: Hydroxyzine Pamoate (Vistaril Pamoate Capsule) 50 mg PO Q4H PRN PRN PRN Reason: mild anxiety Insulin Human Lispro (Humalog Avelinoikpen (Bkc)) 0 unit SC [facility]; Protocol Last Admin: 04/21/20 11:29 Dose: Not Given Documented by: Lisinopril (Zestril) 10 mg PO DAILY [facility] Last Admin: 04/21/20 08:19 Dose: 10 mg Documented by: Lorazepam (Ativan) 2 mg PO Q2H PRN PRN; Protocol PRN Reason: CIWA score > 8 but <15 Last Admin: 04/20/20 19:35 Dose: 2 mg Documented by: Lorazepam (Ativan) 2 mg PO UD PRN; Protocol PRN Reason: CIWA score >/=15. Lorazepam (Ativan) 2 mg IV Q2H PRN PRN; Protocol PRN Reason: CIWA score > 8 but <15 Lorazepam (Ativan) 2 mg IV UD PRN; Protocol PRN Reason: CIWA score >/=15. Multivitamins/Minerals ([facility]ivitamin With Minerals (Bkc)) [facility] Last Admin: 04/21/20 08:14 Dose: 1 tablet Documented by: Nicotine (Nicoderm Cq (Pbkc)) 21 mg TRANSDERM. DAILY PRN PRN Reason: Nicotine Craving Last Admin: 04/21/20 06:35 Dose: 21 mg Documented by: Ondansetron HCl (Zofran) 4 mg IV Q8H PRN PRN PRN Reason: NAUSEA/VOMITING Last Admin: 04/21/20 05:24 Dose: 4 mg Documented by: Oxycodone HCl (Oxyir) 10 mg PO Q4H PRN PRN PRN Reason: Pain Score 4-10/10 Last Admin: 04/21/20 10:38 Dose: 10 mg Documented by: Phenobarbital (Phenobarbital) 64.8 mg PO Q6H EDWARD; Taper Stop: 04/23/20 08:14 Last Admin: 04/21/20 08:13 Dose: 64.8 mg Documented by: Prochlorperazine Edisylate (Compazine Iv) 5 mg IV Q4H PRN PRN PRN Reason: Breakthrough nausea/vomiting Last Admin: 04/19/20 04:26 Dose: 5 mg Documented by: Sodium Chloride () 10 - 40 ml IV UD PRN PRN Reason: SALINE FLUSH Last Admin: 04/21/20 05:23 Dose: 10 ml Documented by: Temazepam (Restoril) 15 mg PO QHS PRN PRN PRN Reason: INSOMNIA Thiamine HCl (Vitamin B1) 100 mg PO BIDCM [facility] Stop: 04/21/20 17:01 Last Admin: 04/21/20 08:14 Dose: 100 mg Documented by: Throat Lozenges (Cepacol Sore Throat Lozenge) 1 lozenge MUCOUS MEM Q2H PRN PRN PRN Reason: SORE THROAT Trazodone HCl (Desyrel) 100 mg PO QHS PRN PRN PRN Reason: INSOMNIA Discharge Diet: No Restrictions Discharge Activity: Return to Normal Activity Home Medications: Medications to take at Discharge Albuterol IH (ProAir) [Proair Hfa] 2 puff INHALATION Q4H PRN PRN 30 Days #1 inhaler 04/21/20 Ipratropium/Albuterol Sulfate [Duoneb] 3 ml INHALATION Q6HWA.RT 30 Days #30 ampul.neb 04/21/20 Multivitamins,Ther W-Minerals [Multivitamin With Minerals (BKC)] 1 tab PO DAILYCM 30 Days #30 tab 04/21/20 Nicotine [Nicoderm Cq] 21 mg TRANSDERM. DAILY PRN 30 Days #30 patch 04/21/20 Oxycodone HCl 10 mg PO Q4H PRN PRN 3 Days #20 tab 04/21/20 Thiamine Hydrochloride [Vitamin B1] 100 mg PO BIDCM 30 Days #60 tab 04/21/20 cycloBENZAPRine HCl [Flexeril] 10 mg PO TID PRN PRN 10 Days #30 tab 04/21/20 hydroCHLOROthiazide [Hydrochlorothiazide] 12.5 mg PO DAILY 30 Days #30 cap 04/21/20 Following Prescriptions Were Given to Patient: Ipratropium/Albuterol Sulfate [Duoneb] 3 ml INHALATION Q6HWA.RT 30 Days #30 ampul.neb Transmission Status: Received by [facility] cycloBENZAPRine HCl [Flexeril] 10 mg PO TID PRN PRN 10 Days #30 tab PRN Reason: Spasms Transmission Status: Received by [facility] hydroCHLOROthiazide [Hydrochlorothiazide] 12.5 mg PO DAILY 30 Days #30 cap Transmission Status: Received by [facility] Multivitamins,Ther W-Minerals [Multivitamin With Minerals (BKC)] 1 tab PO DAILYCM 30 Days #30 tab Transmission Status: Received by [facility] Nicotine [Nicoderm Cq] 21 mg TRANSDERM. DAILY PRN 30 Days #30 patch PRN Reason: Nicotine Craving Transmission Status: Received by [facility] Oxycodone HCl 10 mg PO Q4H PRN PRN 3 Days #20 tab PRN Reason: severe pain Albuterol IH (ProAir) [Proair Hfa] 2 puff INHALATION Q4H PRN PRN 30 Days #1 inhaler PRN Reason: Sob &/Or Wheezing Transmission Status: Received by [facility] Thiamine Hydrochloride [Vitamin B1] 100 mg PO BIDCM 30 Days #60 tab Transmission Status: Received by [facility] Primary Care Physician: Chirag Calhoun MD [Primary Care Provider] - Please follow up with your Primary Care Physician in: within 1-2 weeks Please Follow Up With: Kendall El MD When: on 04/27/20 Patient Instructions: The Impact of Alcoholism, Alcoholism: Resources for Family and Friends, Alcoholism: Getting Help Disposition: Home Minutes spent on discharge:: 40 Patient Condition:: Stable Medical Necessity - Tobacco Use Smoking Status: Current every day smoker Tobacco Use: Cigarettes Meaningful Use Info Meaningful Use Diagnoses (Choose all that apply): None applicable Inpatient E&M: 05588 Disch Hosp
[2020-04-21] MEDS: cycloBENZAPRine HCl 10 MG Tablet PO (13:16)
[2020-04-21] MEDS: Acetaminophen 325 MG Tablet 650 MG PO (13:16)
[2020-04-21 13:27] VITALS: PULSE 95; RESP 14
--- NOTE | 2020-04-21 13:34 | CASEMGMT ---
Social Work Note Pt is currently upset, wanting to leave [facility] stating he is going to go home and take his oxycodone more than prescribed and drink alcohol. SW in to speak with pt. Pt states he is still in a lot of pain and every time he leaves this hospital he doesn't get fixed. SW offered support to pt and offered to provide pt with patient advocate number to express his concerns. Pt denied. Pt states I don't need it I am not coming back to this hospital. SW asked pt about his comment about going home and taking his oxycodone more than prescribed with alcohol. Pt states they ain't going to prescribe me any pain medications, I would only take it for the pain. SW asked pt about suicidal/homicidal thoughts/plans/ideations. Pt denied any current suicidal/homicidal thoughts/plans/ideations. Jalyn Harris [employer], SENIOR DIRECTOR
--- NOTE | 2020-04-21 13:45 | CASEMGMT ---
FLACO NAIDU updated by nursing that patient will need nebulizer at discharge. Therapy also updated FLACO NAIDU that patient will need walker. FLACO NAIDU back to discuss DME with patient. Patient would like [employer]. Patient states that he is leaving now and is not waiting for DME. 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 FLACO NAIDU explained that equipment could be delivered to patient's home next day and billed to insurance if he did not want to pick it up or wait for delivery to hospital. Patient agrees to have equipment delivered to his home tomorrow. FLACO NAIDU updated hospitalist and nursing. Script received for nebulizer and [place] and [place] [facility] [place]
--- NOTE | 2020-04-23 15:24 | CASEMGMT ---
FLACO NAIDU Discharge Follow-up Phone Call: LUIS: William Strata: 3 Call Date: 04/23/20 Discharge Date: 04/21/20 Time of Call: 1524 Duration: 1 min Admitting Diagnosis: Lactic acidosis, Acute Viral Syndrome FLACO NAIDU attempted to complete follow-up phone call after recent hospitalization. No answer, voice message left with return contact information. Patient had follow-up appts scheduled prior to discharge.
== END 2020-04-21 13:43 | disposition home or self-care (01) | DRG 347 ==
LOC: ED 18:49 → MS3 22:42
PROVIDERS: Student in an Organized Health Care Education/Training Program; Admitting Provider Family Medicine; Emergency Provider Emergency Medicine; PCP Family Medicine; Visit Provider Internal Medicine
DX: M48.54XA Collapsed vertebra, not elsewhere classified, thoracic region, initial encounter for fracture (principal); M48.56XA Collapsed vertebra, not elsewhere classified, lumbar region, initial encounter for fracture; M54.5 Low back pain; G89.29 Other chronic pain; S22.5XXS Flail chest, sequela; X58.XXXS Exposure to other specified factors, sequela; Y93.9 Activity, unspecified; Y92.9 Unspecified place or not applicable; Y99.9 Unspecified external cause status; E87.2 Acidosis; F10.239 Alcohol dependence with withdrawal, unspecified; I10 Essential (primary) hypertension; R73.03 Prediabetes; E78.5 Hyperlipidemia, unspecified; G47.33 Obstructive sleep apnea (adult) (pediatric); K21.9 Gastro-esophageal reflux disease without esophagitis; F17.210 Nicotine dependence, cigarettes, uncomplicated; E66.9 Obesity, unspecified; Z68.30 Body mass index [BMI] 30.0-30.9, adult; Z91.19 Patient's noncompliance with other medical treatment and regimen; Z79.899 Other long term (current) drug therapy; Z86.19 Personal history of other infectious and parasitic diseases; Z86.711 Personal history of pulmonary embolism; Z96.652 Presence of left artificial knee joint
CPT/HCPCS: 36415; 71045; 72100; 74177; 80053; 80307; 80320; 81001; 82962; 83036; 83605; 83735; 84100; 84145; 84484; 85025; 85610; 85730; 87040; 87070; 87086; 87205; 87493; 87506; 87633; 87635; 93005; 94640; 94667; 94668; 94799; 97162; 97166; 97802; 99251; 99285; 99406; J7030; Q9967; A4216; G0463; G0480; J2405; U0003

== ENCOUNTER 2021-02-06 06:41 | Observation (INO) | payer MEDICAID, SELFPAY ==
[2020-04-18 23:45] VITALS: BMI 30.4
[2021-02-06 06:42] VITALS: BP 149/85; PULSE 120; RESP 20; TEMP 36.6; O2SAT 95; BMI 32.5
--- NOTE | 2021-02-06 07:00 | CT_ITS ---
STUDY: CT ABDOMEN AND PELVIS WITHOUT CONTRAST REASON FOR EXAM: Male, 50 years old. back pain, n/v RADIATION DOSAGE (If Supplied By Facility): CTDIvol = ( 15.70 ) mGy, DLP = ( 819.77 ) mGycm TECHNIQUE: Transaxial images were obtained from the dome of the diaphragm to the symphysis pubis without oral contrast, and without intravenous contrast. Sagittal and coronal images were reconstructed. Individualized dose optimization techniques were used for this CT. COMPARISON: None. FINDINGS: The visualized lung bases are unremarkable. The visualized portions of the heart are within normal limits. Normal liver. Normal gallbladder and extrahepatic biliary system. Normal spleen. Normal pancreas. Normal bilateral adrenal glands. Normal right kidney. Normal left kidney. Normal visualized stomach. Diverticulum of the second portion the duodenum. Normal colon. The appendix is visualized and appears normal. Normal abdominal aorta. Normal inferior vena cava. Normal retroperitoneum. Normal urinary bladder. Small hernia in the midline in the intra-abdominal wall superior to the iliacus containing fat. Normal osseous structures. CT/Abdomen/Pelvis without Cont IMPRESSION: No acute abnormality. Electronically Signed: Sebastián Noel MD at 8:45 EDT Tel , Service support ,
--- NOTE | 2021-02-06 07:01 | EX.ED.DYSGE1 ---
HPI History of Present Illness Chief Complaint: Flank Pain Informant: patient Onset/Context/Timing Onset: Today Context: Gradual Onset Timing: Continuous Quality: achy Location: bilat low back Current Severity: Severe Maximum Severity: Severe Worsened by: nothing Relieved by: nothing Associated Symptoms Associated Symptoms: n/v and hardly urinating. no abd/chest pain. Narrative Narrative: Patient states this discomfort started gradually in the middle of the night at some point, gradually worsening to the point of severity. Patient states it is on both sides of his back as far as the pain, it is making him vomit. States it feels like something renal. He has a history of renal failure at one point in the past, but he does not remember history of stones or prostate problems. He states he is hardly urinating since this started but it has only been several hours. He denies any hematuria. No fevers. Well before this. PFSH PFSH Medical History Anxiety Bipolar disorder Chronic pain COPD (chronic obstructive pulmonary disease) Depression Flail chest HTN (hypertension) Hypertension Prediabetes Smoker Allergy/AdvReac Type Severity Reaction Status Date / Time oxycodone [From OxyContin] AdvReac Mild Itching Verified 02/06/21 06:46 Social History Smoking Status: Current every day smoker tobacco type: cigarettes ROS ROS ED Constitutional Constitutional ED: Denies chills or fever(s) Eyes Eyes: Denies change in vision or diplopia ENT ENT ED: Denies rhinorrhea or sore throat Cardiovascular Cardiovascular: Denies chest pain or palpitations Respiratory/Chest Respiratory/Chest: Denies cough or dyspnea Gastrointestinal Gastrointestinal: Reports as per HPI, nausea and vomiting; Denies abdominal pain or diarrhea Genitourinary Genitourinary ED: Reports as per HPI and decreased urination; Denies dysuria or hematuria Musculoskeletal Musculoskeletal: Reports as per HPI and back pain; Denies neck pain Integumentary Denies abscess or rash Neurologic Neurologic: Denies headache(s), paresthesias or weakness Psychiatric Psychiatric: Reports anxiety; Denies suicidal thoughts EXAM Physical Exam Const Vital Signs: 02/06/21 06:42 Temperature 97.8 F Temperature Source Oral Pulse Rate 120 H Respiratory Rate 20 H Blood Pressure 149/85 H Blood Pressure Mean 106 Pulse Ox 95 Oxygen Delivery Method Room Air Positive well nourished and well developed Constitutional Narrative: painful distress, sitting on side of bed dry heaving General Appearance ED: well developed HEENT Reports moist mucous membranes normocephalic and atraumatic Eyes PERRL and EOMs intact bilaterally Neck full ROM and supple Chest Wall Chest Narrative: Patient has a gap between approximately right ribs 8 and 9 and the more proximal ones. There is a large soft tissue defect in this area in between the ribs, he states this occurred due to an injury remotely, and this is a chronic deformity, he has no tenderness or pain here, states his pain does not seem to be related to this chronic deformity. Resp normal respiratory effort and clear to auscultation bilaterally Cardio regular rate, regular rhythm and no murmurs Rate: tachycardic GI non-tender, non-distended and no masses Inspection: Negative for fluid wave present Auscultation: normoactive bowel sounds Palpation: soft; Negative for pulsatile mass Back/Spine normal to inspection and straight leg raise negative bilaterally General Back: CVA tenderness bilateral (with no superficial pain to muscular palpation) and other FROM Extremity normal to inspection General Extremety ED: Negative for edema, pulses abnormal or tenderness General Extremity: Negative for edema or pulses abnormal Neuro oriented x3, CN's II-XII intact bilaterally and no sensory deficits noted Sensorium / Orientation: awake and alert Motor Exam: strength 5/5 throughout and clonus absent Deep Tendon Reflexes: Rt Patellar (L4): 2+, Lt Patellar (L4): 2+, Rt Ankle (S1): 2+ and Lt Ankle (S1): 2+ Deep Tendon Reflexes Back: Rt Patellar (L4): 2+, Lt Patellar (L4): 2+, Rt Ankle (S1): 2+ and Lt Ankle (S1): 2+ Plantar Reflex: Downgoing: bilateral Psych thought process normal Skin no rashes or lesions noted and no wounds MDM MDM MDM Narrative Medical decision making narrative: Patient was initially given IV Zofran and morphine because he appeared to be in significant discomfort, he states that did nothing for his pain so he was given another 10 mg of morphine which did help. He ended up lying left lateral decubitus the majority of his stay because lying on his back made it hurt worse. He does not have pleuritic pulmonary discomfort. The discomfort is lower in his back, more like T9 or 10 and down a little, but not as low as his sacrum. His initial CT scanning was performed without contrast and was completely normal as shown below. On reexamining him, and considering other emergent problems such as spinal canal and aortic dissection, I reexamined him carefully. He has equal bilateral 2+/4 dorsalis pedis pulses, normal reflexes in his lower extremities, downgoing toes, negative straight leg raises. His neurologic exam is essentially normal. I cannot reproduce his pain in his back easily with palpation, and with him sitting up, there is no significant increase in his pain and actively using the musculature. I sent him back for CT angiography of the chest, abdomen, pelvis, it was negative for dissection or renal perfusion defect. His pain was again treated. My suspicion given the normal appearance of the spinal canal on CT is that he could have a ruptured disc in his back. He states he is in too much pain to go home, he lives alone and fears he will not be able to function. I do think this patient is having real pain, and I will seek inpatient observation for him. He states he did have pain similar to this 5 years ago or so, however he had coexisting renal failure for which he was admitted to the hospital for some time and ended up with temporary dialysis. He has good renal perfusion now with normal function although he does have proteinuria which he does not always have, which is of unknown significance at this time. Lab Data Attestation: I reviewed the patient's lab results. Labs: Laboratory Results - last 24 hr 02/06/21 02/06/21 02/06/21 06:45 06:45 06:45 WBC 18.5 H RBC 4.90 Hgb 14.6 Hct 45.3 MCV 92.4 MCH 29.8 MCHC 32.2 RDW Std Deviation 43.4 RDW Coeff of Shirin 12.8 Plt Count 421 MPV 8.7 Immature Gran % (Auto) 0.400 Neut % (Auto) 82.2 H Lymph % (Auto) 7.6 L [place] % (Auto) 9.4 Eos % (Auto) 0.1 Baso % (Auto) 0.3 Absolute Neuts (auto) 15.2 H Absolute Lymphs (auto) 1.41 Nucleated RBC % 0 [address] Review May foll Sodium 136 Potassium 4.1 Chloride 102 Carbon Dioxide 24.0 Anion Gap 10 BUN 9 Creatinine 1.13 Estim Creat Clear Calc 83.30 Est GFR (MDRD) Af Amer 88 Est GFR (MDRD) Non-Af 73 BUN/Creatinine Ratio 8.0 L Glucose 160 H Calcium 8.0 L Total Bilirubin 0.50 Direct Bilirubin 0.16 AST 45 H ALT 70 H Alkaline Phosphatase 107 Total Protein 8.7 H Albumin 4.2 Globulin 4.5 H Lipase 164 Urine Color Urine Clarity Urine pH Ur Specific [place] Urine Protein Urine Glucose (UA) Urine Ketones Urine Occult Blood Urine Nitrite Urine Bilirubin Urine Urobilinogen Ur Leukocyte Esterase Urine RBC Urine WBC Ur Squamous Epith Cells Urine Bacteria Urine Mucus 02/06/21 08:55 WBC RBC Hgb Hct MCV MCH MCHC RDW Std Deviation RDW Coeff of Shirin Plt Count MPV Immature Gran % (Auto) Neut % (Auto) Lymph % (Auto) [place] % (Auto) Eos % (Auto) Baso % (Auto) Absolute Neuts (auto) Absolute Lymphs (auto) Nucleated RBC % Diff Path Review Sodium Potassium Chloride Carbon Dioxide Anion Gap BUN Creatinine Estim Creat Clear Calc Est GFR (MDRD) Af Amer Est GFR (MDRD) Non-Af BUN/Creatinine Ratio Glucose Calcium Total Bilirubin Direct Bilirubin AST ALT Alkaline Phosphatase Total Protein Albumin Globulin Lipase Urine Color Yellow Urine Clarity Sl. Cloudy Urine pH 7.0 Ur Specific [place] 1.010 Urine Protein 500 H Urine Glucose (UA) 50 H Urine Ketones Negative Urine Occult Blood 10 H Urine Nitrite Negative Urine Bilirubin Negative Urine Urobilinogen Normal Ur Leukocyte Esterase Negative Urine RBC 0-5 SEEN Urine WBC 0 SEEN Ur Squamous Epith Cells 0-5 SEEN Urine Bacteria RARE Urine Mucus 1+ Radiography Diagnostic Testing: Radiology Impression Abdomen/Pelvis CT 02/06/21 07:00 IMPRESSION: No acute abnormality. Electronically Signed: Sebastián Noel MD at 8:45 EDT Tel , Service support , Chest/Abdomen/Pelvis CTA 02/06/21 09:34 IMPRESSION: 1. No evidence of aortic dissection or aneurysm. No evidence of definitive underlying pulmonary embolism. 2. Right lower lateral wall pleural base scarring and rib irregularity, clinically correlate for previous injury/surgery. Otherwise no evidence of acute cardiopulmonary or intra-abdominal process. Electronically Signed: Rolando Rodriguez DO at 10:40 EDT , Service support , Discharge Plan Dx/Rx/DC Orders Clinical Impression: Intractable back pain Disposition Disposition: Acute Care Hospital [facility]
[2021-02-06 07:08] LABS: Absolute Lymphocyte Count 1.41 X10^3/uL (0.83-4.51); Absolute Neutrophil Count 15.2 X10^3/uL (2.0-7.7); Basophil# 0.06 X10^3/uL; Basophil% 0.3 % (0-1); Eosinophil# 0.02 X10^3/uL; Eosinophils% 0.1 % (0-5); Hematocrit 45.3 % (40-54); Hemoglobin 14.6 g/dL (13.0-16.5); Lymphocyte # 1.41 X10^3/ul (0.83-4.51); Lymphocyte % 7.6 % (19-41); Mean Corp Hgb Conc 32.2 g/dL (32-36); Mean Corpuscular Hgb 29.8 pg (27.0-32.0); Mean Corpuscular Volume 92.4 fL (80-94); Mean Platelet Vol. 8.7 fl (6.2-12.0); Monocyte# 1.73 X10^3/uL; Monocyte% 9.4 % (0-10); NRBC Flagged by Analyzer 0 % (0-5); Neutrophil # 15.17 X10^3/uL (2.7-7.7); Neutrophil % 82.2 % (47-70); POSITIVE DIFFERENTIAL YES; Platelet Count 421 K/mm3 (150-450); RBC Distribution Width CV 12.8 % (11.6-14.6); RBC Distribution Width SD 43.4 fl (35.1-43.9); White Blood Count 18.5 K/mm3 (4.4-11.0)
[2021-02-06] MEDS: Ondansetron 4 MG/2 ML Vial IV (07:09)
[2021-02-06 07:12] LABS: Differential Indicated SCAN CRITERIA MET
[2021-02-06] MEDS: Morphine 4 MG/ML Syringe IV ×2 (07:16→10:09)
[2021-02-06 07:20] LABS: Anion Gap 10 (5-15); BUN 9 mg/dL (7-18); Chloride 102 mmol/L (98-107); Creatinine, Serum 1.13 mg/dL (0.70-1.30); EST Glomerular Filtration Rate 73 mL/min (>60); Est Glom Filt Rate - Afr Amer 88 mL/min (>60); Glucose 160 mg/dL (74-106); Potassium 4.1 mmol/L (3.5-5.1); Sodium Level 136 mmol/L (136-145)
[2021-02-06] MEDS: Ketorolac 15 MG/ML Vial IV (07:32)
[2021-02-06] MEDS: morphine 8 MG/ML Syringe IV (07:34)
[2021-02-06 08:39] LABS: AST(SGOT) 45 U/L (15-37); Alanine Aminotransfer ALT/SGPT 70 U/L (16-61); Albumin, Serum 4.2 g/dL (3.2-5.0); Alkaline Phosphatase 107 U/L (45-117); Bilirubin, Direct 0.16 mg/dL (0.00-0.30); Globulin 4.5 g/dL (2.2-4.2); Lipase 164 U/L (73-393); Protein, Total 8.7 g/dL (6.4-8.2)
[2021-02-06 09:11] LABS: White Blood Cells 0 SEEN /hpf (0-5)
[2021-02-06 09:19] LABS: Color, Urine Yellow (Yellow); Glucose, Dipstick 50 mg/dl (Normal); Ketone-Dipstick Negative (Negative); Leukocyte Esterase-Dipstick Negative /ul (Negative); Nitrite-Dipstick Negative (Negative); Occult Blood-Urine 10 /ul (Negative); Protein-Dipstick 500 mg/dl (Negative); Urine Bilirubin Dipstick Negative (Negative); Urine Clarity Sl. Cloudy (Clear); Urine Urobilinogen Normal (Normal)
[2021-02-06 09:27] LABS: Bacteria RARE /hpf (None Seen); Mucous, Urine 1+ /hpf (<or=2+); Red Blood Cells-Urine 0-5 SEEN /hpf (0-5); Squamous Epithelial Cells - UA 0-5 SEEN /hpf (0-5)
--- NOTE | 2021-02-06 09:34 | CT_ITS ---
STUDY: CTA CHEST AND CT ABDOMEN/PELVIS WITH CONTRAST REASON FOR EXAM: Male, 50 years old. back pain, proteinuria, neg CT RADIATION DOSAGE (If Supplied By Facility): CTDIvol = ( 23.41 ) mGy, DLP = ( 2956.71 ) mGycm TECHNIQUE: The examination was performed with the intravenous administration of IV 100mL Isovue-370. Post-processing of the angiographic images was performed, with multiplanar reformation and 3D reconstruction. Individualized dose optimization techniques were used for this CT. COMPARISON: 02/06/2021 CT abdomen, 07/30/2019 CT chest FINDINGS: CTA Chest Normal enhancement of the main pulmonary artery and right and left pulmonary arteries. Normal enhancement of the bilateral peripheral pulmonary arteries. There is no demonstrated pulmonary embolism. Normal thoracic aorta and visualized great vessels. There is no demonstrated aortic dissection. Normal heart and pericardium. Normal mediastinum. Normal hilar regions. Normal visualized trachea and bronchi. The lungs are well expanded. Diffuse predominantly upper lobe centrilobular emphysematous changes are present. Right lower lobe peripheral pleural-based scarring is noted likely from previous injury given appearance. Right lower rib likely previous injury versus postsurgical change with noted rib cortical irregularities and pleural-based scarring, clinically correlate. Normal osseous structures. Normal visualized upper abdomen. CT Abdomen T Pelvis The visualized lung bases are unremarkable. The visualized portions of the heart are within normal limits. Normal liver. Normal gallbladder and extrahepatic biliary system. Normal spleen. Normal pancreas. Normal bilateral adrenal glands. Normal right kidney. Normal left kidney. Normal visualized stomach. Normal small intestine. Normal colon. The appendix is visualized and appears normal. Atherosclerotic calcifications of the lower abdominal aorta extending to the iliac arteries are present with noted patency of contrast extending to the proximal femoral arteries. Normal inferior vena cava. Normal retroperitoneum. Bladder is contracted. Normal abdominal wall. Normal osseous structures. CT/CTA Chst, Abd, Pel W and/or WO IMPRESSION: 1. No evidence of aortic dissection or aneurysm. No evidence of definitive underlying pulmonary embolism. 2. Right lower lateral wall pleural base scarring and rib irregularity, clinically correlate for previous injury/surgery. Otherwise no evidence of acute cardiopulmonary or intra-abdominal process. Electronically Signed: Rolando Rodriguez DO at 10:40 EDT , Service support ,
--- NOTE | 2021-02-06 11:00 | NURSING ---
MED SURG OBS KITTOE INTRACTABLE BACK PAIN
--- NOTE | 2021-02-06 11:02 | PCM.HP.STD ---
HPI - General General Date of Admission: 02/06/21 Date of Service: 02/06/21 Chief Complaint: Bilateral flank pain HPI Narrative SOHA DE LA PAZ, is a 50 M with past medical history segment for compression fractures involving the thoracolumbar spine, dyslipidemia, tobacco dependence who presented with bilateral flank pain. Patient symptoms started a day prior to coming in. Per patient symptoms started suddenly. He felt he was experiencing renal colic he subsequently presented to the emergency department imaging studies obtained in the ED came back unremarkable patient was however found to have leukocytosis with WBC count of 18.5 with no infectious etiology. In view of patient persistent pain decision was made to admit patient to the regular nursing floor for symptomatic treatment [facility] Medical History Anxiety Bipolar disorder Chronic pain COPD (chronic obstructive pulmonary disease) Depression Flail chest HTN (hypertension) Hypertension Prediabetes Smoker Allergy/AdvReac Type Severity Reaction Status Date / Time oxycodone [From OxyContin] AdvReac Mild Itching Verified 02/06/21 06:46 Family History (Updated 02/06/21 @ 11:[address] Percy Hoff MD) Mother Hypertension Social History Smoking Status: Current every day smoker tobacco type: cigarettes ROS ROS Narrative GENERAL: denies fever, chills, night sweats, HEENT: denies headache, sinus congestion, RESPIRATORY: denies cough, sputum production, CARDIAC: denies chest pain, palpitations, orthopnea, GASTROINTESTINAL: denies abdominal pain, nausea, GENITOURINARY: denies dysuria, urgency, frequency, EXTREMITY: denies swelling MUSCULOSKELETAL: Bilateral flank pain NEUROLOGIC: denies focal numbness, weakness, tingling HEMATOLOGIC: denies easy bruising and/or hemorrhage INTEGUMENT: denies rashes PSYCHIATRIC: denies suicidal or homicidal ideation Vital Signs Vital Signs Vital Signs: 02/06/21 06:42 Temperature 97.8 F Temperature Source Oral Pulse Rate 120 H Respiratory Rate 20 H Blood Pressure 149/85 H Blood Pressure Mean 106 Pulse Ox 95 Oxygen Delivery Method Room Air Weight Weight: 105.8 kg Body Mass Index (BMI) 32.5 Physical Exam Narrative GENERAL: cooperative but appears to be in some discomfort HEENT: Atraumatic; EYES; Anicteric, Normal Conjunctiva NECK; supple, normal thyroid, RESPIRATORY: Diminished to auscultation CARDIOVASCULAR: Regular S1 S2, GI: soft, normoactive bowel sounds, : No Renal angle tenderness; EXTREMITIES: No edema, no clubbing, MUSCULOSKELETAL: no muscle waisting NEURO: Awake; no lateralizing signs. SKIN: No Rash PSYCH; Flat affect Results Lab / Micro Data Result Diagrams: 02/06/21 06:45 02/06/21 06:45 Labs: Laboratory Results - last 24 hr 02/06/21 02/06/21 02/06/21 06:45 06:45 06:45 WBC 18.5 H RBC 4.90 Hgb 14.6 Hct 45.3 MCV 92.4 MCH 29.8 MCHC 32.2 RDW Std Deviation 43.4 RDW Coeff of Shirin 12.8 Plt Count 421 MPV 8.7 Immature Gran % (Auto) 0.400 Neut % (Auto) 82.2 H Lymph % (Auto) 7.6 L [place] % (Auto) 9.4 Eos % (Auto) 0.1 Baso % (Auto) 0.3 Absolute Neuts (auto) 15.2 H Absolute Lymphs (auto) 1.41 Nucleated RBC % 0 Diff Path Review May foll Sodium 136 Potassium 4.1 Chloride 102 Carbon Dioxide 24.0 Anion Gap 10 BUN 9 Creatinine 1.13 Estim Creat Clear Calc 83.30 Est GFR (MDRD) Af Amer 88 Est GFR (MDRD) Non-Af 73 BUN/Creatinine Ratio 8.0 L Glucose 160 H Calcium 8.0 L Total Bilirubin 0.50 Direct Bilirubin 0.16 AST 45 H ALT 70 H Alkaline Phosphatase 107 Total Protein 8.7 H Albumin 4.2 Globulin 4.5 H Lipase 164 Urine Color Urine Clarity Urine pH Ur Specific [place] Urine Protein Urine Glucose (UA) Urine Ketones Urine Occult Blood Urine Nitrite Urine Bilirubin Urine Urobilinogen Ur Leukocyte Esterase Urine RBC Urine WBC Ur Squamous Epith Cells Urine Bacteria Urine Mucus 02/06/21 08:55 WBC RBC Hgb Hct MCV MCH MCHC RDW Std Deviation RDW Coeff of Shirin Plt Count MPV Immature Gran % (Auto) Neut % (Auto) Lymph % (Auto) [place] % (Auto) Eos % (Auto) Baso % (Auto) Absolute Neuts (auto) Absolute Lymphs (auto) Nucleated RBC % Diff Path Review Sodium Potassium Chloride Carbon Dioxide Anion Gap BUN Creatinine Estim Creat Clear Calc Est GFR (MDRD) Af Amer Est GFR (MDRD) Non-Af BUN/Creatinine Ratio Glucose Calcium Total Bilirubin Direct Bilirubin AST ALT Alkaline Phosphatase Total Protein Albumin Globulin Lipase Urine Color Yellow Urine Clarity Sl. Cloudy Urine pH 7.0 Ur Specific [place] 1.010 Urine Protein 500 H Urine Glucose (UA) 50 H Urine Ketones Negative Urine Occult Blood 10 H Urine Nitrite Negative Urine Bilirubin Negative Urine Urobilinogen Normal Ur Leukocyte Esterase Negative Urine RBC 0-5 SEEN Urine WBC 0 SEEN Ur Squamous Epith Cells 0-5 SEEN Urine Bacteria RARE Urine Mucus 1+ Radiology Impression Abdomen/Pelvis CT 02/06/21 07:00 IMPRESSION: No acute abnormality. Electronically Signed: Sebastián Noel MD at 8:45 EDT Tel , Service support , Chest/Abdomen/Pelvis CTA 02/06/21 09:34 IMPRESSION: 1. No evidence of aortic dissection or aneurysm. No evidence of definitive underlying pulmonary embolism. 2. Right lower lateral wall pleural base scarring and rib irregularity, clinically correlate for previous injury/surgery. Otherwise no evidence of acute cardiopulmonary or intra-abdominal process. Electronically Signed: Rolando Rodriguez DO at 10:40 EDT , Service support , Assessment & Plan Assessment/Plan (1) Intractable back pain: PLAN: Patient is a 50-year-old gentleman who presented with bilateral paraspinal back pain 1. Acute back pain ?Work-up so far unremarkable. Patient has history of compression fractures involving the thoracolumbar spine. Admitted to regular nursing floor for symptomatic management 2. Leukocytosis ?Possibly stress related infectious work-up so far negative to date 3. Hyperglycemia ?Patient is not a known diabetic ordered hemoglobin A1c to rule out diabetes mellitus type 2 4. Dyslipidemia ?Apparently managed with diet 5. Obesity with BMI of 32.5 ?Weight loss advised 6. Tobacco dependence - Counseled on cessation, offered nicotine patch for tobacco cravings 7. Previous history of alcohol dependence with withdrawal ?Patient states he is remained relatively sober and drinks mainly on the weekends 8. History of hep C ?Patient to follow-up with PCP for subsequent care 9. DVT prophylaxis - On enoxaparin Charges/Coding Visit Charges OBSV E&M: 89657 Initial observation care L3
--- NOTE | 2021-02-06 11:06 | NURSING ---
DR MUHAMMAD IN ROOM
[2021-02-06 11:21] VITALS: BP 141/111; PULSE 90; RESP 18; TEMP 36.4; O2SAT 95
[2021-02-06 11:37] LABS: Hemoglobin A1c 5.6 % (3.8-5.6)
[2021-02-06] MEDS: Enoxaparin 40 MG/0.4 ML Syringe SC (12:37)
[2021-02-06] MEDS: 0.9% Normal Saline 1,000 ML 100 ML IV ×2 (12:37→22:34)
[2021-02-06] MEDS: HYDROmorphone 1 MG/ML Syringe IV ×3 (12:38→22:32)
[2021-02-06 12:43] VITALS: BP 149/90; PULSE 95; RESP 16; TEMP 36.8; O2SAT 94
[2021-02-06 12:47] VITALS: BMI 31.6
[2021-02-06] MEDS: DiphenhydrAMINE 50 MG/ML Syringe IV ×2 (13:32→21:30)
[2021-02-06] MEDS: 0.9% Saline Lock 10 ML Syringe IV (18:35)
[2021-02-06 20:00] VITALS: BP 126/94; PULSE 86; RESP 18; TEMP 36.8; O2SAT 94
[2021-02-06] MEDS: cycloBENZAPRine HCl 10 MG Tablet PO (21:30)
[2021-02-06] MEDS: Acetaminophen 325 MG Tablet 650 MG PO (21:30)
[2021-02-07] MEDS: HYDROmorphone 1 MG/ML Syringe IV ×6 (02:46→23:40)
[2021-02-07 02:53] VITALS: BP 128/86; PULSE 90; RESP 18; TEMP 36.8; O2SAT 96
[2021-02-07 06:01] LABS: Absolute Lymphocyte Count 1.46 X10^3/uL (0.83-4.51); Absolute Neutrophil Count 5.7 X10^3/uL (2.0-7.7); Basophil# 0.02 X10^3/uL; Basophil% 0.2 % (0-1); Eosinophil# 0.19 X10^3/uL; Eosinophils% 2.2 % (0-5); Hematocrit 40.6 % (40-54); Hemoglobin 13.1 g/dL (13.0-16.5); Lymphocyte # 1.46 X10^3/ul (0.83-4.51); Mean Corp Hgb Conc 32.3 g/dL (32-36); Mean Corpuscular Hgb 30.4 pg (27.0-32.0); Mean Corpuscular Volume 94.2 fL (80-94); Monocyte# 1.23 X10^3/uL; Monocyte% 14.3 % (0-10); NRBC Flagged by Analyzer 0 % (0-5); Neutrophil # 5.68 X10^3/uL (2.7-7.7); Neutrophil % 66.2 % (47-70); Platelet Count 323 K/mm3 (150-450); RBC Distribution Width CV 12.7 % (11.6-14.6); RBC Distribution Width SD 44.5 fl (35.1-43.9); Red Blood Count 4.31 M/mm3 (4.6-6.2); White Blood Count 8.6 K/mm3 (4.4-11.0)
[2021-02-07 06:19] LABS: Anion Gap 4 (5-15); BUN 17 mg/dL (7-18); BUN/Creat Ratio 10.8 RATIO (10-20); Calcium,Total 7.6 mg/dL (8.5-10.1); Chloride 109 mmol/L (98-107); Creatinine, Serum 1.58 mg/dL (0.70-1.30); EST Glomerular Filtration Rate 50 mL/min (>60); Est Glom Filt Rate - Afr Amer 60 mL/min (>60); Estimated Creatinine Clearance 59.57 ml/min; Glucose 110 mg/dL (74-106); Phosphorus 4.5 mg/dL (2.5-4.9); Potassium 3.8 mmol/L (3.5-5.1); Sodium Level 141 mmol/L (136-145)
[2021-02-07] MEDS: cycloBENZAPRine HCl 10 MG Tablet PO ×3 (06:42→22:30)
[2021-02-07 07:18] VITALS: O2SAT 90
--- NOTE | 2021-02-07 07:32 | PN.HOSP_ITS ---
Subjective Subjective Patient symptoms somewhat improved plan is for patient to be discharged home this morning Objective Data Objective Data Vital Signs: Vital Signs Temp Pulse Resp BP Pulse Ox 98.2 F 90 18 128/86 H 96 02/07/21 02:53 02/07/21 02:53 02/07/21 02:53 02/07/21 02:53 02/07/21 02:53 Oxygen Delivery Method Room Air Weight: 103 kg Body Mass Index (BMI) 31.6 Intake & Output: Intake and Output for Last 24 Hours 02/05/21 02/06/21 02/07/21 23:59 23:59 23:59 Intake Total 1250.68 / 1750.68 500 / 500 Output Total 1350 / 1350 Balance 1250.68 / 1000.68 -850 / -850 Lab / Micro Data Result Diagrams: 02/07/21 05:28 02/07/21 05:28 Labs: Laboratory Results - last 24 hr 02/06/21 02/06/21 02/06/21 06:45 06:45 08:55 WBC RBC Hgb Hct MCV MCH MCHC RDW Std Deviation RDW Coeff of Shirin Plt Count MPV Immature Gran % (Auto) Neut % (Auto) Lymph % (Auto) [place] % (Auto) Eos % (Auto) Baso % (Auto) Absolute Neuts (auto) Absolute Lymphs (auto) Nucleated RBC % Sodium Potassium Chloride Carbon Dioxide Anion Gap BUN Creatinine Estim Creat Clear Calc Est GFR (MDRD) Af Amer Est GFR (MDRD) Non-Af BUN/Creatinine Ratio Glucose Hemoglobin A1c 5.6 Calcium Phosphorus Magnesium Total Bilirubin 0.50 Direct Bilirubin 0.16 AST 45 H ALT 70 H Alkaline Phosphatase 107 Total Protein 8.7 H Albumin 4.2 Globulin 4.5 H Lipase 164 Urine Color Yellow Urine Clarity Sl. Cloudy Urine pH 7.0 Ur Specific [place] 1.010 Urine Protein 500 H Urine Glucose (UA) 50 H Urine Ketones Negative Urine Occult Blood 10 H Urine Nitrite Negative Urine Bilirubin Negative Urine Urobilinogen Normal Ur Leukocyte Esterase Negative Urine RBC 0-5 SEEN Urine WBC 0 SEEN Ur Squamous Epith Cells 0-5 SEEN Urine Bacteria RARE Urine Mucus 1+ 02/07/21 02/07/21 05:28 05:28 WBC 8.6 RBC 4.31 L Hgb 13.1 Hct 40.6 MCV 94.2 H MCH 30.4 MCHC 32.3 RDW Std Deviation 44.5 H RDW Coeff of Shirin 12.7 Plt Count 323 MPV 9.0 Immature Gran % (Auto) 0.100 Neut % (Auto) 66.2 Lymph % (Auto) 17.0 L [place] % (Auto) 14.3 H Eos % (Auto) 2.2 Baso % (Auto) 0.2 Absolute Neuts (auto) 5.7 Absolute Lymphs (auto) 1.46 Nucleated RBC % 0 Sodium 141 Potassium 3.8 Chloride 109 H Carbon Dioxide 28.0 Anion Gap 4 L BUN 17 Creatinine 1.58 H Estim Creat Clear Calc 59.57 Est GFR (MDRD) Af Amer 60 Est GFR (MDRD) Non-Af 50 L BUN/Creatinine Ratio 10.8 Glucose 110 H Hemoglobin A1c Calcium 7.6 L Phosphorus 4.5 Magnesium 2.0 Total Bilirubin Direct Bilirubin AST ALT Alkaline Phosphatase Total Protein Albumin Globulin Lipase Urine Color Urine Clarity Urine pH Ur Specific [place] Urine Protein Urine Glucose (UA) Urine Ketones Urine Occult Blood Urine Nitrite Urine Bilirubin Urine Urobilinogen Ur Leukocyte Esterase Urine RBC Urine WBC Ur Squamous Epith Cells Urine Bacteria Urine Mucus Radiography Diagnostic Testing: Radiology Impression Abdomen/Pelvis CT 02/06/21 07:00 IMPRESSION: No acute abnormality. Electronically Signed: Sebastián Noel MD at 8:45 EDT Tel , Service support , Chest/Abdomen/Pelvis CTA 02/06/21 09:34 IMPRESSION: 1. No evidence of aortic dissection or aneurysm. No evidence of definitive underlying pulmonary embolism. 2. Right lower lateral wall pleural base scarring and rib irregularity, clinically correlate for previous injury/surgery. Otherwise no evidence of acute cardiopulmonary or intra-abdominal process. Electronically Signed: Rolando Rodriguez DO at 10:40 EDT , Service support , Physical Exam Narrative GENERAL: cooperative but appears to be in some discomfort HEENT: Atraumatic; EYES; Anicteric, Normal Conjunctiva NECK; supple, normal thyroid, RESPIRATORY: Diminished to auscultation CARDIOVASCULAR: Regular S1 S2, GI: soft, normoactive bowel sounds, : No Renal angle tenderness; EXTREMITIES: No edema, no clubbing, MUSCULOSKELETAL: no muscle waisting NEURO: Awake; no lateralizing signs. SKIN: No Rash PSYCH; Flat affect Assessment & Plan Assessment/Plan (1) Intractable back pain: PLAN: Patient is a 50-year-old gentleman who presented with bilateral paraspinal back pain 1. Acute back pain ?Work-up so far unremarkable. Patient has history of compression fractures involving the thoracolumbar spine. Admitted to regular nursing floor for symptomatic management 2. Leukocytosis ?Possibly stress related infectious work-up so far negative to date 3. Hyperglycemia ?Patient is not a known diabetic ordered hemoglobin A1c to rule out diabetes mellitus type 2 4. Dyslipidemia ?Apparently managed with diet 5. Obesity with BMI of 32.5 ?Weight loss advised 6. Tobacco dependence - Counseled on cessation, offered nicotine patch for tobacco cravings 7. Previous history of alcohol dependence with withdrawal ?Patient states he is remained relatively sober and drinks mainly on the weeken ds 8. History of hep C ?Patient to follow-up with PCP for subsequent care 9. DVT prophylaxis - On enoxaparin
[2021-02-07 08:55] VITALS: BP 130/93; PULSE 94; RESP 18; TEMP 36.9; O2SAT 96
[2021-02-07] MEDS: Enoxaparin 40 MG/0.4 ML Syringe SC (08:58)
--- NOTE | 2021-02-07 09:17 | DS.PCM_ITS ---
Providers Date of Admission: 02/06/21 Primary Care Physician: Dr. Chirag Calhoun MD Reason For Visit: BILATERAL FLANK PAIN Diagnosis Discharge Diagnosis (1) Intractable back pain: Status: Acute Code(s): M54.9 - Dorsalgia, unspecified Medications at Discharge Home Medications acetaminophen [Tylenol] 650 mg PO Q6H PRN PRN #0 tab 02/07/21 cyclobenzaprine 10 mg PO TID PRN PRN #30 tab 02/07/21 ibuprofen 400 mg PO Q6H #20 tab 02/07/21 pantoprazole [Protonix] 40 mg PO DAILY #30 tab 02/07/21 Hospital Course Summary of Care Provided Minutes Spent on Discharge: 35 Hospital Course: Patient is a 50-year-old gentleman who presented with bilateral paraspinal back pain 1. Acute back pain ?Work-up so far unremarkable. Patient has history of compression fractures involving the thoracolumbar spine. Admitted to regular nursing floor for symptomatic management 2. Leukocytosis ?Possibly stress related infectious work-up so far negative to date -; Resolved at the time of discharge 3. Hyperglycemia ?Patient is not a known diabetic ordered hemoglobin A1c to rule out diabetes mellitus type 2 -Patient's hemoglobin globin A1c was 5.6 not consistent with diabetes 4. Dyslipidemia ?Apparently managed with diet 5. Obesity with BMI of 32.5 ?Weight loss advised 6. Tobacco dependence - Counseled on cessation, offered nicotine patch for tobacco cravings 7. Previous history of alcohol dependence with withdrawal ?Patient states he is remained relatively sober and drinks mainly on the weekends 8. History of hep C ?Patient to follow-up with PCP for subsequent care 9. DVT prophylaxis - On enoxaparin Physical Exam Narrative GENERAL: cooperative HEENT: Atraumatic; EYES; Anicteric, Normal Conjunctiva NECK; supple, normal thyroid, RESPIRATORY: Diminished to auscultation CARDIOVASCULAR: Regular S1 S2, GI: soft, normoactive bowel sounds, : No Renal angle tenderness; EXTREMITIES: No edema, no clubbing, MUSCULOSKELETAL: no muscle waisting NEURO: Awake; no lateralizing signs. SKIN: No Rash PSYCH; Flat affect ABG / Lab / Microbiology Data Result Diagrams: 02/07/21 05:28 02/07/21 05:28 Laboratory: Laboratory Results - last 24 hr 02/06/21 02/06/21 02/07/21 06:45 08:55 05:28 WBC 8.6 RBC 4.31 L Hgb 13.1 Hct 40.6 MCV 94.2 H MCH 30.4 MCHC 32.3 RDW Std Deviation 44.5 H RDW Coeff of Shirin 12.7 Plt Count 323 MPV 9.0 Immature Gran % (Auto) 0.100 Neut % (Auto) 66.2 Lymph % (Auto) 17.0 L [place] % (Auto) 14.3 H Eos % (Auto) 2.2 Baso % (Auto) 0.2 Absolute Neuts (auto) 5.7 Absolute Lymphs (auto) 1.46 Nucleated RBC % 0 Sodium Potassium Chloride Carbon Dioxide Anion Gap BUN Creatinine Estim Creat Clear Calc Est GFR (MDRD) Af Amer Est GFR (MDRD) Non-Af BUN/Creatinine Ratio Glucose Hemoglobin A1c 5.6 Calcium Phosphorus Magnesium Urine Color Yellow Urine Clarity Sl. Cloudy Urine pH 7.0 Ur Specific [place] 1.010 Urine Protein 500 H Urine Glucose (UA) 50 H Urine Ketones Negative Urine Occult Blood 10 H Urine Nitrite Negative Urine Bilirubin Negative Urine Urobilinogen Normal Ur Leukocyte Esterase Negative Urine RBC 0-5 SEEN Urine WBC 0 SEEN Ur Squamous Epith Cells 0-5 SEEN Urine Bacteria RARE Urine Mucus 1+ 02/07/21 05:28 WBC RBC Hgb Hct MCV MCH MCHC RDW Std Deviation RDW Coeff of Shirin Plt Count MPV Immature Gran % (Auto) Neut % (Auto) Lymph % (Auto) [place] % (Auto) Eos % (Auto) Baso % (Auto) Absolute Neuts (auto) Absolute Lymphs (auto) Nucleated RBC % Sodium 141 Potassium 3.8 Chloride 109 H Carbon Dioxide 28.0 Anion Gap 4 L BUN 17 Creatinine 1.58 H Estim Creat Clear Calc 59.57 Est GFR (MDRD) Af Amer 60 Est GFR (MDRD) Non-Af 50 L BUN/Creatinine Ratio 10.8 Glucose 110 H Hemoglobin A1c Calcium 7.6 L Phosphorus 4.5 Magnesium 2.0 Urine Color Urine Clarity Urine pH Ur Specific [place] Urine Protein Urine Glucose (UA) Urine Ketones Urine Occult Blood Urine Nitrite Urine Bilirubin Urine Urobilinogen Ur Leukocyte Esterase Urine RBC Urine WBC Ur Squamous Epith Cells Urine Bacteria Urine Mucus Radiography Diagnostic Testing: Radiology Impression Chest/Abdomen/Pelvis CTA 02/06/21 09:34 IMPRESSION: 1. No evidence of aortic dissection or aneurysm. No evidence of definitive underlying pulmonary embolism. 2. Right lower lateral wall pleural base scarring and rib irregularity, clinically correlate for previous injury/surgery. Otherwise no evidence of acute cardiopulmonary or intra-abdominal process. Electronically Signed: Rolando Rodriguez DO at 10:40 EDT , Service support , D/C Instructions Discharge Diet: No restrictions Discharge Activity: Return to Normal Activity Call your doctor if you observe: Fever of 101 or Higher, Shortness of breath, Fainting spells and Chest pain Meaningful Use Info Meaningful Use Diagnoses (Choose all that apply): None applicable Discharge Plan Admission Admit Date/Time: 02/06/21 11:01 Primary Reason for Your Visit: Low back pain Attending Provider: Percy Hoff Primary Care Provider: Chirag Calhoun Discharge Orders/Prescriptions Prescriptions: New cyclobenzaprine 10 mg Tablet 10 mg PO TID PRN PRN (Reason: Muscle Spasm) Qty: 30 RF: 0 ibuprofen 400 mg tablet 400 mg PO Q6H Qty: 20 RF: 0 pantoprazole [Protonix] 40 mg tablet,delayed release (DR/EC) 40 mg PO DAILY Qty: 30 RF: 0 acetaminophen [Tylenol] 325 mg Tablet 650 mg PO Q6H PRN PRN (Reason: Pain Score 1-10/Temp > 100.7 F) Qty: 0 RF: 0 Referrals / Follow Up: Chirag Calhoun MD [Primary Care Provider] - In 1 Week Disposition Disposition (needs filled in before D/C Order can be placed): Home, self care Charges/Coding Visit Charges OBSV E&M: 79362 Observation care discharge
[2021-02-07] MEDS: 0.9% Saline Lock 10 ML Syringe IV ×2 (10:54→19:19)
--- NOTE | 2021-02-07 12:29 | MRI_ITS ---
EXAM: MR LUMBAR SPINE WITHOUT INTRAVENOUS CONTRAST : 1970 CLINICAL INDICATION: Intractable back pain TECHNIQUE: Multiplanar and multisequence MR images of the lumbar spine without intravenous contrast. This report was created using [employer] report ByRead technology. COMPARISON: CT abdomen and pelvis February 06, 2021 FINDINGS: VERTEBRAE: Endplate deformities at the T12, L1 and L2 levels appear to be chronic. Vertebral body heights are preserved. Normal alignment. No spondylolisthesis. There is preservation of the normal lumbar lordosis. INTERSPACES: Multilevel disc space narrowing and vertebral body hypertrophy noted. SPINAL CORD: Unremarkable. Normal position and signal intensity of the conus medullaris. SOFT TISSUES: Unremarkable. DISCS/SPINAL CANAL/NEURAL FORAMINA: L1-L2: Normal spinal canal, lateral recesses and neuroforamina. L2-L3: Normal spinal canal, lateral recesses and neuroforamina. L3-L4: Normal spinal canal, lateral recesses and neuroforamina. L4-L5: Neural foraminal narrowing at the L4-5 level related to facet hypertrophy and prominent disc osteophyte complexes. L5-S1: Mild narrowing of the L5-S1 neural foramina related to disc osteophyte complex and facet arthropathy. MRI/Spine Lumbar (Routine) IMPRESSION: 1. Multilevel disc degeneration and facet arthropathy. 2. No spinal stenosis. 3. Neural foraminal narrowing at L4-5 and L5-S1 related to facet arthropathy and prominent disc osteophyte complexes. at 1056 Reported and signed by: Filipe Ayoub MD Electronically Signed: Filipe Ayoub MD at 10:55 EDT Tel , Service support ,
[2021-02-07] MEDS: 0.9% Normal Saline 1,000 ML 150 ML IV ×2 (14:22→22:28)
[2021-02-07 14:26] VITALS: BP 134/78; PULSE 80; RESP 18; TEMP 36.5; O2SAT 96
[2021-02-07 20:50] VITALS: BP 158/89; PULSE 79; RESP 18; TEMP 36.6; O2SAT 95
[2021-02-07] MEDS: Acetaminophen 325 MG Tablet 650 MG PO (22:30)
[2021-02-08] VITALS (8 sets, daily range): BP systolic 157–173; BP diastolic 91–115; PULSE 72–82; RESP 16–20; TEMP 36.6–37.2; O2SAT 93–98
[2021-02-08] MEDS: HYDROmorphone 1 MG/ML Syringe IV ×6 (03:37→23:10)
[2021-02-08] MEDS: 0.9% Normal Saline 1,000 ML 150 ML IV ×2 (05:11→14:19)
[2021-02-08] MEDS: cycloBENZAPRine HCl 10 MG Tablet PO ×2 (07:58→21:09)
[2021-02-08] MEDS: 0.9% Saline Lock 10 ML Syringe IV ×6 (07:59→23:11)
[2021-02-08] MEDS: Enoxaparin 40 MG/0.4 ML Syringe SC (08:10)
--- NOTE | 2021-02-08 13:15 | PCM.PN.HOSP ---
Subjective Subjective Patient was seen and examined. Complains of severe low back pain. MRI of the back showed multilevel disc degeneration and facet arthropathy with neural foraminal narrowing at L4-L5 and L5-S1. Objective Data Objective Data Vital Signs: Vital Signs Temp Pulse Resp BP Pulse Ox 97.9 F 82 18 166/91 H 96 02/08/21 08:04 02/08/21 08:04 02/08/21 08:04 02/08/21 08:04 02/08/21 08:04 Oxygen Delivery Method Room Air Weight: 103 kg Body Mass Index (BMI) 31.6 Intake & Output: Intake and Output for Last 24 Hours 02/06/21 02/07/21 02/08/21 23:59 23:59 23:59 Intake Total 1250.68 / 1750.68 3750 / 4500 2767.5 / 2767.5 Output Total 3350 / 4650 2150 / 2150 Balance 1250.68 / 1000.68 400 / -150 617.5 / 617.5 Lab / Micro Data Result Diagrams: 02/07/21 05:28 02/07/21 05:28 Radiography Diagnostic Testing: Radiology Impression Lumbar Spine MRI 02/07/21 12:29 IMPRESSION: 1. Multilevel disc degeneration and facet arthropathy. 2. No spinal stenosis. 3. Neural foraminal narrowing at L4-5 and L5-S1 related to facet arthropathy and prominent disc osteophyte complexes. at 1056 Reported and signed by: Filipe Ayoub MD Electronically Signed: Filipe Ayoub MD at 10:55 EDT Tel , Service support , Physical Exam Narrative Physical exam: General: Alert, Oriented x3, Cooperative, in moderate pain, Well developed HEENT: Atraumatic Oral: Moist Mucosa Neck: Supple Lungs: Diminished at lung bases Cardiovascular: HS I+II, regular, no murmurs Abdomen: Bowel Sounds Present, Soft, Non Tender Extremities: No edema Assessment & Plan Assessment/Plan (1) Intractable back pain: (2) Nicotine addiction: QUALIFIERS: Nicotine product type: cigarettes Substance use status: unspecified nicotine-induced disorder Qualified Code(s): F17.219 - Nicotine dependence, cigarettes, with unspecified nicotine-induced disorders (3) Obesity (BMI 30-39.9): PLAN: 1. Acute on chronic intractable back pain, pain remains uncontrolled Patient could not be discharged yesterday on account of uncontrolled pain. MRI of the back showed degenerative changes at the multilevel Pain management consulted; will follow up on recommendations PT/OT to evaluate and treat. 2. AMAURY, likely pre-renal, on IVF Will recheck renal function 3. Obesity, BMI 31.7, complicates care, lifestyle modification recommended Charges/Coding Visit Charges Inpatient E&M: 64297 Subs Hosp L2
[2021-02-08 13:30] LABS: Pathologist Review Reviewed
[2021-02-08 14:18] LABS: ALB/GLOB Ratio 0.8 RATIO (0.9-2.4); AST(SGOT) 36 U/L (15-37); Alanine Aminotransfer ALT/SGPT 48 U/L (16-61); Albumin, Serum 3.3 g/dL (3.2-5.0); Alkaline Phosphatase 97 U/L (45-117); Anion Gap 8 (5-15); BUN 8 mg/dL (7-18); BUN/Creat Ratio 8.8 RATIO (10-20); Calcium,Total 9.1 mg/dL (8.5-10.1); Chloride 105 mmol/L (98-107); Creatinine, Serum 0.91 mg/dL (0.70-1.30); EST Glomerular Filtration Rate 94 mL/min (>60); Est Glom Filt Rate - Afr Amer 114 mL/min (>60); Estimated Creatinine Clearance 103.43 ml/min; Globulin 4.4 g/dL (2.2-4.2); Glucose 131 mg/dL (74-106); Potassium 3.8 mmol/L (3.5-5.1); Protein, Total 7.7 g/dL (6.4-8.2); Sodium Level 139 mmol/L (136-145)
--- NOTE | 2021-02-08 16:11 | NURSING ---
Pt was sleeping but when awakened to get vitals, Pt states he is still painful. Bp obtained and while it was being obtained, pt fell back to sleep. BP elevated still. Cortext sent to Dr. Estrada regarding hypertension.
[2021-02-08] MEDS: hydrALAZINE 20 MG/ML Vial 5 MG IV (18:04)
[2021-02-08] MEDS: oxyCODONE 5 MG Tablet PO ×2 (18:05→22:11)
[2021-02-08] MEDS: Acetaminophen 325 MG Tablet 650 MG PO (21:09)
[2021-02-08] MEDS: DiphenhydrAMINE 50 MG/ML Syringe IV (21:09)
[2021-02-08] MEDS: MELATONIN 3 MG TABLET PO (23:10)
[2021-02-09] VITALS (10 sets, daily range): BP systolic 140–169; BP diastolic 87–115; PULSE 60–88; RESP 16–18; TEMP 36.6–37; O2SAT 92–97
[2021-02-09] MEDS: oxyCODONE 5 MG Tablet PO ×5 (02:19→20:18)
[2021-02-09] MEDS: HYDROmorphone 1 MG/ML Syringe IV ×5 (03:17→22:28)
[2021-02-09] MEDS: 0.9% Saline Lock 10 ML Syringe IV ×6 (03:17→22:28)
[2021-02-09] MEDS: cycloBENZAPRine HCl 10 MG Tablet PO ×2 (06:19→15:31)
[2021-02-09 07:12] LABS: Absolute Lymphocyte Count 1.43 X10^3/uL (0.83-4.51); Absolute Neutrophil Count 3.1 X10^3/uL (2.0-7.7); Basophil# 0.02 X10^3/uL; Basophil% 0.4 % (0-1); Eosinophil# 0.15 X10^3/uL; Eosinophils% 2.7 % (0-5); Hematocrit 38.4 % (40-54); Hemoglobin 12.8 g/dL (13.0-16.5); Lymphocyte # 1.43 X10^3/ul (0.83-4.51); Lymphocyte % 26.1 % (19-41); Mean Corp Hgb Conc 33.3 g/dL (32-36); Mean Corpuscular Hgb 30.2 pg (27.0-32.0); Mean Corpuscular Volume 90.6 fL (80-94); Mean Platelet Vol. 8.7 fl (6.2-12.0); Monocyte# 0.72 X10^3/uL; Monocyte% 13.2 % (0-10); NRBC Flagged by Analyzer 0 % (0-5); Neutrophil # 3.13 X10^3/uL (2.7-7.7); Neutrophil % 57.2 % (47-70); Platelet Count 338 K/mm3 (150-450); RBC Distribution Width CV 12.3 % (11.6-14.6); RBC Distribution Width SD 40.6 fl (35.1-43.9); Red Blood Count 4.24 M/mm3 (4.6-6.2); White Blood Count 5.5 K/mm3 (4.4-11.0)
[2021-02-09] MEDS: hydrALAZINE 20 MG/ML Vial 5 MG IV (07:26)
[2021-02-09 07:40] LABS: ALB/GLOB Ratio 0.7 RATIO (0.9-2.4); AST(SGOT) 34 U/L (15-37); Alanine Aminotransfer ALT/SGPT 48 U/L (16-61); Albumin, Serum 3.3 g/dL (3.2-5.0); Alkaline Phosphatase 90 U/L (45-117); Anion Gap 7 (5-15); BUN 10 mg/dL (7-18); BUN/Creat Ratio 12.7 RATIO (10-20); Calcium,Total 9.5 mg/dL (8.5-10.1); Chloride 104 mmol/L (98-107); Creatinine, Serum 0.79 mg/dL (0.70-1.30); EST Glomerular Filtration Rate 111 mL/min (>60); Est Glom Filt Rate - Afr Amer 134 mL/min (>60); Estimated Creatinine Clearance 119.15 ml/min; Globulin 4.5 g/dL (2.2-4.2); Glucose 100 mg/dL (74-106); Potassium 3.5 mmol/L (3.5-5.1); Protein, Total 7.8 g/dL (6.4-8.2); Sodium Level 135 mmol/L (136-145)
--- NOTE | 2021-02-09 09:11 | PCM.PN.HOSP ---
Subjective Subjective Patient was seen and examined. Pain is fairly controlled. Denies chest pain, dizziness. Objective Data Objective Data Vital Signs: Vital Signs Temp Pulse Resp BP Pulse Ox 97.8 F 76 16 169/115 H 94 02/09/21 07:20 02/09/21 07:26 02/09/21 07:20 02/09/21 07:20 02/09/21 07:35 Oxygen Delivery Method Room Air Weight: 103 kg Body Mass Index (BMI) 31.6 Intake & Output: Intake and Output for Last 24 Hours 02/07/21 02/08/21 02/09/21 23:59 23:59 23:59 Intake Total 3750 / 4500 5150.0 / 6050.0 1050 / 1050 Output Total 3350 / 4650 7250 / 9800 3450 / 3450 Balance 400 / -150 -2100.0 / -3750.0 -2400 / -2400 Lab / Micro Data Result Diagrams: 02/09/21 06:52 02/09/21 06:52 Labs: Laboratory Results - last 24 hr 02/06/21 02/08/21 02/09/21 06:45 13:50 06:52 WBC 5.5 RBC 4.24 L Hgb 12.8 L Hct 38.4 L MCV 90.6 MCH 30.2 MCHC 33.3 RDW Std Deviation 40.6 RDW Coeff of Shirin 12.3 Plt Count 338 MPV 8.7 Immature Gran % (Auto) 0.400 Neut % (Auto) 57.2 Lymph % (Auto) 26.1 Converse % (Auto) 13.2 H Eos % (Auto) 2.7 Baso % (Auto) 0.4 Absolute Neuts (auto) 3.1 Absolute Lymphs (auto) 1.43 Nucleated RBC % 0 Diff Path Review Reviewed Sodium 139 Potassium 3.8 Chloride 105 Carbon Dioxide 26.0 Anion Gap 8 BUN 8 Creatinine 0.91 Estim Creat Clear Calc 103.43 Est GFR (MDRD) Af Amer 114 Est GFR (MDRD) Non-Af 94 BUN/Creatinine Ratio 8.8 L Glucose 131 H Calcium 9.1 Total Bilirubin 0.30 AST 36 ALT 48 Alkaline Phosphatase 97 Total Protein 7.7 Albumin 3.3 Globulin 4.4 H Albumin/Globulin Ratio 0.8 L 02/09/21 06:52 WBC RBC Hgb Hct MCV MCH MCHC RDW Std Deviation RDW Coeff of Shirin Plt Count MPV Immature Gran % (Auto) Neut % (Auto) Lymph % (Auto) Converse % (Auto) Eos % (Auto) Baso % (Auto) Absolute Neuts (auto) Absolute Lymphs (auto) Nucleated RBC % Diff Path Review Sodium 135 L Potassium 3.5 Chloride 104 Carbon Dioxide 24.0 Anion Gap 7 BUN 10 Creatinine 0.79 Estim Creat Clear Calc 119.15 Est GFR (MDRD) Af Amer 134 Est GFR (MDRD) Non-Af 111 BUN/Creatinine Ratio 12.7 Glucose 100 Calcium 9.5 Total Bilirubin 0.40 AST 34 ALT 48 Alkaline Phosphatase 90 Total Protein 7.8 Albumin 3.3 Globulin 4.5 H Albumin/Globulin Ratio 0.7 L Radiography Diagnostic Testing: Radiology Impression Lumbar Spine MRI 02/07/21 12:29 IMPRESSION: 1. Multilevel disc degeneration and facet arthropathy. 2. No spinal stenosis. 3. Neural foraminal narrowing at L4-5 and L5-S1 related to facet arthropathy and prominent disc osteophyte complexes. at 1056 Reported and signed by: Filipe Ayoub MD Electronically Signed: Filipe Ayoub MD at 10:55 EDT Tel , Service support , Physical Exam Narrative Physical exam: General: Alert, Oriented x3, Cooperative, appears more comfortable, well developed HEENT: Atraumatic Oral: Moist Mucosa Neck: Supple Lungs: Diminished at lung bases Cardiovascular: HS I+II, regular, no murmurs Abdomen: Bowel Sounds Present, Soft, Non Tender Extremities: No edema Assessment & Plan Assessment/Plan (1) Intractable back pain: (2) Nicotine addiction: QUALIFIERS: Nicotine product type: cigarettes Substance use status: unspecified nicotine-induced disorder Qualified Code(s): F17.219 - Nicotine dependence, cigarettes, with unspecified nicotine-induced disorders (3) Obesity (BMI 30-39.9): PLAN: 1. Acute on chronic intractable back pain, on IV hydromorphone, Flexeril Had severe itching to oxycodone yesterday MRI of the back showed degenerative changes at the multilevel Pain management consulted; will follow up on recommendations 2. AMAURY, likely pre-renal, resolved We will discontinue IV fluids 3. Obesity, BMI 31.7, complicates care, lifestyle modification recommended Charges/Coding Visit Charges Inpatient E&M: 39027 Subs Hosp L2
[2021-02-09] MEDS: Enoxaparin 40 MG/0.4 ML Syringe SC (09:35)
[2021-02-09] MEDS: Senna/Docusate Sodium 1 Tablet 2 TABLET PO ×2 (09:35→20:18)
[2021-02-09] MEDS: amLODIPine 5 MG Tablet PO (09:35)
[2021-02-09] MEDS: Magnesium Hydroxide 30 ML UDC PO (09:35)
--- NOTE | 2021-02-09 12:02 | CASEMGMT ---
Social Work Note BRYSON reviewed chart. Pt with history of ETOH dependence and withdrawal, and substance use. SW in to speak with pt. SW introduced self and role at [facility]. Pt states that he will social drinking on the weekends when he is playing card games. Pt states he does smoke marijuana. Pt denied his ETOH being a problem or having any concerns with ETOH or other substances. Pt with history of anxiety and depression. Pt states he used to go to counseling at [facility] about 4-5 years ago but is not currently in counseling. Pt denied wanting to get linked up with counseling. Pt states he feels that his anxiety and depression is being well managed. Pt states he will sometimes get anxiety attacks. Pt denied any history of suicidal thoughts/plans/ideations. Pt denied any current suicidal thoughts/plans/ideations. Pt denied additional needs or concerns at this time. Jalyn Harris CODING COORDINATOR, SCHOOL CHILD CARE ATTENDANT
--- NOTE | 2021-02-09 12:06 | CASEMGMT ---
RN CM in to discuss discharge planning. Therapy notes reviewed, patient states he is doing well and feels he is at his baseline and denies HHC at this time. Patient states he has walker and crutches at home. Patient had no concerns or questions at this time.
[2021-02-09] MEDS: Acetaminophen 325 MG Tablet 650 MG PO (15:31)
[2021-02-09] MEDS: DiphenhydrAMINE 50 MG/ML Syringe IV (20:18)
[2021-02-09] MEDS: MELATONIN 3 MG TABLET PO (22:28)
[2021-02-10] VITALS (12 sets, daily range): BP systolic 129–158; BP diastolic 82–102; PULSE 74–95; RESP 16–18; TEMP 36.5–37.2; O2SAT 94–99; BMI 31.6
[2021-02-10] MEDS: cycloBENZAPRine HCl 10 MG Tablet PO ×2 (00:46→18:30)
[2021-02-10] MEDS: Acetaminophen 325 MG Tablet 650 MG PO ×2 (00:46→15:08)
[2021-02-10] MEDS: HYDROmorphone 1 MG/ML Syringe IV ×5 (02:36→20:44)
[2021-02-10] MEDS: 0.9% Saline Lock 10 ML Syringe IV ×5 (02:37→20:44)
--- NOTE | 2021-02-10 05:00 | EKG12_ITS ---
Test Reason : AM EKG Blood Pressure : / mmHG Vent. Rate : 065 BPM Atrial Rate : 065 BPM P-R Int : 174 ms QRS Dur : 122 ms QT Int : 452 ms P-R-T Axes : 043 020 071 degrees QTc Int : 470 ms Normal sinus rhythm Normal ECG Confirmed by MAIA ALVARADO, KHOI ([id number]), editor greeting card AMADA HARDY ([id number]) on 02/12/2021 8:03:44 AM Referred By: RABIA Confirmed By:KHOI CARVALHO MD
--- NOTE | 2021-02-10 11:12 | PCM.PN.HOSP ---
Subjective Subjective Patient was seen and examined. Going for epidural injection this morning. Denies any fever chills or lower extremity weakness. Objective Data Objective Data Vital Signs: Vital Signs Temp Pulse Resp BP Pulse Ox 97.7 F L 88 18 140/82 H 96 02/10/21 08:25 02/10/21 08:25 02/10/21 08:25 02/10/21 08:25 02/10/21 08:25 Oxygen Delivery Method Room Air Weight: 103 kg Body Mass Index (BMI) 31.6 Intake & Output: Intake and Output for Last 24 Hours 02/08/21 02/09/21 02/10/21 23:59 23:59 23:59 Intake Total 5150.0 / 6050.0 2250 / 2990 740 / 740 Output Total 7250 / 9800 4400 / 4400 Balance -2100.0 / -3750.0 -2150 / -1410 740 / 740 Lab / Micro Data Result Diagrams: 02/09/21 06:52 02/09/21 06:52 Physical Exam Narrative Physical exam: General: Alert, Oriented x3, Cooperative, appears more comfortable, well developed HEENT: Atraumatic Oral: Moist Mucosa Neck: Supple Lungs: Diminished at lung bases Cardiovascular: HS I+II, regular, no murmurs Abdomen: Bowel Sounds Present, Soft, Non Tender Extremities: No edema Assessment & Plan Assessment/Plan (1) Intractable back pain: (2) Nicotine addiction: QUALIFIERS: Nicotine product type: cigarettes Substance use status: unspecified nicotine-induced disorder Qualified Code(s): F17.219 - Nicotine dependence, cigarettes, with unspecified nicotine-induced disorders (3) Obesity (BMI 30-39.9): PLAN: 1. Acute on chronic intractable back pain, pain remains uncontrolled Going for epidural injection with pain management today Continue on IV hydromorphone, Nealeril Had severe itching to oxycodone on 02/08/21 MRI of the back showed degenerative changes at the multilevel Will follow up on recommendations after epidural injection 2. AMAURY, likely pre-renal, resolved 3. Obesity, BMI 31.7, complicates care, lifestyle modification recommended Charges/Coding Visit Charges Inpatient E&M: 00308 Subs Hosp L2
--- NOTE | 2021-02-10 11:57 | NURSING ---
pt transported off unit at this time via bed
[2021-02-10] MEDS: 0.9% Normal Saline 1,000 ML 75 ML IV (12:45)
--- NOTE | 2021-02-10 13:30 | RAD_ITS ---
STUDY: X-RAY - LUMBAR SPINE REASON FOR EXAM: Male, 50 years old. EPIDURAL BLOCK TECHNIQUE: 1 view(s) of the lumbar spine were obtained. COMPARISON: None FINDINGS: Single intraoperative view for epidural block at the L5-S1 level. RAD/Spine 1 View Any Level IMPRESSION: Epidural block at the L5-S1 level. Electronically Signed: Iain Tracy MD at 15:39 EDT , Service support ,
[2021-02-10] MEDS: Triamcinolone Acetonide 40 MG/ML Vial ×2 (13:37)
[2021-02-10] MEDS: Lidocaine 0.5% (50 ml) 50 ML Vial (13:38)
[2021-02-10] MEDS: oxyCODONE 5 MG Tablet PO ×3 (14:27→22:42)
[2021-02-10] MEDS: Senna/Docusate Sodium 1 Tablet 2 TABLET PO ×2 (15:08→20:47)
[2021-02-10] MEDS: amLODIPine 5 MG Tablet PO (15:09)
[2021-02-10] MEDS: MELATONIN 3 MG TABLET PO (22:42)
[2021-02-11] MEDS: 0.9% Saline Lock 10 ML Syringe IV ×3 (01:26→09:32)
[2021-02-11] MEDS: HYDROmorphone 1 MG/ML Syringe IV ×3 (01:27→09:32)
[2021-02-11 04:45] VITALS: BP 145/86; PULSE 84; RESP 16; TEMP 36.4; O2SAT 95
[2021-02-11] MEDS: oxyCODONE 5 MG Tablet PO ×2 (04:51→08:57)
[2021-02-11] MEDS: Acetaminophen 325 MG Tablet 650 MG PO (04:52)
[2021-02-11] MEDS: cycloBENZAPRine HCl 10 MG Tablet PO (08:57)
[2021-02-11] MEDS: amLODIPine 5 MG Tablet PO (08:58)
[2021-02-11 09:10] VITALS: BP 143/91; PULSE 88; RESP 16; TEMP 36.6; O2SAT 95
--- NOTE | 2021-02-11 10:21 | PCM.DC ---
Discharge Instructions Diet Discharge Diet: No restrictions Activity Discharge Activity: Return to Normal Activity Dressing / Incision Call your doctor if you observe: Fever of 101 or Higher, Shortness of breath, Fainting spells and Chest pain Follow Up Care Test Results: Test results from this visit will be discussed in further detail at your follow-up appointment, if applicable. Discharge Plan Admission Admit Date/Time: 02/06/21 11:01 Primary Reason for Your Visit: Low back pain Attending Provider: Estela Estrada Primary Care Provider: Chirag Calhoun Consulting Providers: Kendall El Instructions Additional Instructions / Restrictions: Continue to take your Flexeril as scheduled. Be careful not to drive whilst on Flexeril. Follow-up with Dr. El in the outpatient Discharge Orders/Prescriptions Prescriptions: New cyclobenzaprine 10 mg Tablet 10 mg PO TID PRN PRN (Reason: Muscle Spasm) Qty: 30 RF: 0 ibuprofen 400 mg tablet 400 mg PO Q6H Qty: 20 RF: 0 pantoprazole [Protonix] 40 mg tablet,delayed release (DR/EC) 40 mg PO DAILY Qty: 30 RF: 0 amlodipine 5 mg Tablet 5 mg PO DAILY 30 Days Qty: 30 RF: 0 Referrals / Follow Up: Chirag Calhoun MD [Primary Care Provider] - In 1 Week Kendall El MD [STAFF PHYSICIAN] - Within 2 Weeks Disposition Disposition (needs filled in before D/C Order can be placed): Home, self care
--- NOTE | 2021-02-11 10:25 | PCM.DC.SUM ---
Providers Date of Admission: 02/06/21 Date of Discharge: 02/11/21 Primary Care Physician: Dr. Chirag Calhoun MD Consultations 02/08/21 13:13 Consult: Pain Management Routine Consulting Provider: Kendall El Reason for Consult: Acute on chronic back pain EMERGENT Consult: No MD Notified: Yes Date Notified: 02/08/21 Time Notified: 14:50 Method of Notification: office Reason For Visit: BILATERAL FLANK PAIN Diagnosis Discharge Diagnosis (1) Intractable back pain: Status: Acute Code(s): M54.9 - Dorsalgia, unspecified (2) Nicotine addiction: Status: Chronic Code(s): F17.200 - Nicotine dependence, unspecified, uncomplicated Qualifiers: Nicotine product type: cigarettes Substance use status: unspecified nicotine-induced disorder Qualified Code(s): F17.219 - Nicotine dependence, cigarettes, with unspecified nicotine-induced disorders (3) Obesity (BMI 30-39.9): Status: Chronic Code(s): E66.9 - Obesity, unspecified Medications at Discharge Home Medications cyclobenzaprine 10 mg PO TID PRN PRN #30 tab 02/07/21 ibuprofen 400 mg PO Q6H #20 tab 02/07/21 pantoprazole [Protonix] 40 mg PO DAILY #30 tab 02/07/21 amlodipine 5 mg PO DAILY 30 Days #30 tab 02/11/21 Hospital Course Operations None Procedures - (Status post lumbar epidural injection on 02/10/21) Summary of Care Provided Minutes Spent on Discharge: 45 Hospital Course: 50-year-old male with multiple comorbidities significant for compression fractures of the thoracolumbar spine, tobacco dependence who comes in with bilateral flank pain. Patient was admitted with twice a count of 18.5 with [address] etiology. CT of the abdomen and pelvis as well as CTA of the abdomen and pelvis was unremarkable. Patient was admitted to the [facility] floor for pain control. Patient was going to be discharged on 02/07/21 but he insisted on his pain being uncontrolled. An MRI of the spine was done the next day that was unremarkable. Pain management was consulted. Patient underwent lumbar epidural injection on 02/10/21. Patient was insistent on pain medications and requested for IV Dilaudid [id number]. He will was given a trial of oxycodone but complained of itching with oxycodone. He was seen walking around the unit but when seen, complains of severe back pain. At discharge, patient stated that his pain was not controlled and he wanted to be discharged on pain medications. I recommended he follows up with pain management. He stated that he was going to go to the ED and just get himself checked in again. He was belligerent and rude to the staff. Patient left without having his IV access removed. The police were contacted to trace him to have the IV access removed Physical Exam Narrative Physical exam: General: Alert, Oriented x3, Cooperative, appears more comfortable, well developed HEENT: Atraumatic Oral: Moist Mucosa Neck: Supple Lungs: Diminished at lung bases Cardiovascular: HS I+II, regular, no murmurs Abdomen: Bowel Sounds Present, Soft, Non Tender Extremities: No edema Weight / BMI Weight Weight: 103 kg Body Mass Index (BMI) 31.6 ABG / Lab / Microbiology Data Result Diagrams: 02/09/21 06:52 02/09/21 06:52 Radiography Diagnostic Testing: Radiology Impression Spine X-Ray 02/10/21 13:30 IMPRESSION: Epidural block at the L5-S1 level. Electronically Signed: Iain Tracy MD at 15:39 EDT , Service support , D/C Instructions Discharge Diet: No restrictions Call your doctor if you observe: Fever of 101 or Higher, Shortness of breath, Fainting spells and Chest pain Meaningful Use Info Meaningful Use Diagnoses (Choose all that apply): None applicable Discharge Plan Admission Admit Date/Time: 02/06/21 11:01 Primary Reason for Your Visit: Low back pain Attending Provider: Estela Estrada Primary Care Provider: Chirag Calhoun Consulting Providers: Kendall El Instructions Additional Instructions / Restrictions: Continue to take your Flexeril as scheduled. Be careful not to drive whilst on Flexeril. Follow-up with Dr. El in the outpatient Discharge Orders/Prescriptions Prescriptions: New cyclobenzaprine 10 mg Tablet 10 mg PO TID PRN PRN (Reason: Muscle Spasm) Qty: 30 RF: 0 ibuprofen 400 mg tablet 400 mg PO Q6H Qty: 20 RF: 0 pantoprazole [Protonix] 40 mg tablet,delayed release (DR/EC) 40 mg PO DAILY Qty: 30 RF: 0 amlodipine 5 mg Tablet 5 mg PO DAILY 30 Days Qty: 30 RF: 0 Referrals / Follow Up: Kendall El MD [STAFF PHYSICIAN] - Within 2 Weeks Chirag Calhoun MD [Primary Care Provider] - In 1 Week Disposition Disposition (needs filled in before D/C Order can be placed): Home, self care Charges/Coding Visit Charges Inpatient E&M: 64070 Disch Hosp
--- NOTE | 2021-02-11 11:04 | NURSING ---
pt upset that dr was discharging pt. told landry pt advocate that pt upset. Landry went into room and talked with pt. nursing went into room and pt left. pt walked out of hospital without waiting on discharge papers. pt stated he was going down to ER. since he was not getting pain medication
--- NOTE | 2021-02-11 11:05 | NURSING ---
Patient leaving unit, had not received his discharge instructions. Patient stated that he was going to go to the Emergency room. This nurse informed patient that since he was leaving, he needed his IV removed. Patient raised his middle finger to this nurse and got on the elevator. ER called at this time and they will notify [facility].
== END 2021-02-11 10:59 | disposition home or self-care (01) ==
LOC: ED 10:54 → MS3 11:47
PROVIDERS: Anesthesiology Pain Medicine; Admitting Provider Internal Medicine; Emergency Provider Emergency Medicine; PCP Family Medicine; Visit Provider Internal Medicine
PROC: 3E0S3BZ Introduction of Anesthetic Agent into Epidural Space, Percutaneous Approach (ICD-10-PCS; CPT 62322; principal; 2021-02-10 12:55)
DX: M54.9 Dorsalgia, unspecified (principal); R10.9 Unspecified abdominal pain; F17.210 Nicotine dependence, cigarettes, uncomplicated; E66.9 Obesity, unspecified; J44.9 Chronic obstructive pulmonary disease, unspecified; R11.10 Vomiting, unspecified; I10 Essential (primary) hypertension; R73.03 Prediabetes; E78.5 Hyperlipidemia, unspecified; R73.9 Hyperglycemia, unspecified; Z68.32 Body mass index [BMI] 32.0-32.9, adult; Z86.19 Personal history of other infectious and parasitic diseases; F10.21 Alcohol dependence, in remission; D72.829 Elevated white blood cell count, unspecified; N17.9 Acute kidney failure, unspecified
CPT/HCPCS: 01992; 62323; 36415; 64483; 71275; 72020; 72148; 74174; 74176; 80048; 80053; 80076; 81001; 83036; 83690; 83735; 84100; 85025; 93005; 96361; 96372; 96374; 96375; 96376; 97162; 97166; 97530; 97535; 99218; 99284; 99406; J7030; Q9967; A4216; G0378; J2405

== ENCOUNTER 2022-05-11 06:55 | Emergency (ER) | payer MEDICAID, SELFPAY ==
[2022-05-11 06:56] VITALS: BP 157/100; PULSE 101; RESP 16; TEMP 36.3; O2SAT 98; BMI 27.6
--- NOTE | 2022-05-11 07:14 | RAD_ITS ---
STUDY: X-RAY - RIGHT CLAVICLE REASON FOR EXAM: Male, 51 years old. Injury/Pain TECHNIQUE: 2 view(s) of the clavicle. COMPARISON: None. FINDINGS: No demonstrated acute fracture, there has been previous resection of the distal aspect of the clavicle. This has resulted in widening of the AC joint. Normal visualized sternoclavicular articulation. Normal visualized pulmonary apex. RAD/Clavicle IMPRESSION: No acute fracture or suspicious osseous lesion Previous resection of the distal clavicle Normal alignment of the glenohumeral joint Electronically Signed: Sony Wong MD at 8:17 EDT ,
--- NOTE | 2022-05-11 07:14 | RAD_ITS ---
STUDY: X-RAY - RIGHT SHOULDER REASON FOR EXAM: Male, 51 years old. Injury/Pain TECHNIQUE: 3 view(s) of the shoulder. COMPARISON: None. FINDINGS: Normal glenohumeral articulation. The AC joint is slightly widened due to previous resection of the distal clavicle. Normal acromion. Normal humeral head and visualized proximal humerus. The soft tissue structures are unremarkable. Normal visualized pulmonary apex. Old healed right rib fractures RAD/Shoulder min 2 Views IMPRESSION: No acute fracture or suspicious osseous lesion Electronically Signed: Sony Wong MD at 8:19 EDT ,
--- NOTE | 2022-05-11 07:14 | RAD_ITS ---
STUDY: X-RAY - UNILATERAL RIBS ( RIGHT ) WITH CHEST REASON FOR EXAM: Male, 51 years old. Chest and rib pain after a fall TECHNIQUE - RIBS: 5 view(s) of the ribs. TECHNIQUE - CHEST: Single PA view of the chest. COMPARISON: None. FINDINGS - RIBS: No demonstrated acute displaced rib fracture, pleural thickening or pneumothorax. Multiple old healed right rib fractures noted. FINDINGS - CHEST: The lungs are clear and expanded. There is no demonstrated pleural abnormality. Normal size heart. Normal mediastinum and lupe. Normal visualized pulmonary arteries. Normal visualized aortic arch and descending thoracic aorta. There are diffuse degenerative changes of the visualized thoracic spine. There is no demonstrated abnormality of the visualized soft tissue structures of the upper abdomen. RAD/Ribs Uni Min 3V w/PA Chest IMPRESSION: RIBS: Multiple old healed right rib fractures without acute displaced rib fracture, pleural thickening or pneumothorax. CHEST: No acute pulmonary process Electronically Signed: Sony Wong MD at 8:18 EDT ,
--- NOTE | 2022-05-11 07:14 | RAD_ITS ---
STUDY: X-RAY - RIGHT HUMERUS REASON FOR EXAM: Male, 51 years old. Injury/Pain TECHNIQUE: 4 view(s) of the humerus. COMPARISON: None. FINDINGS: Normal visualized humerus. There is no demonstrated fracture or osseous destructive process. There has been previous resection of the distal clavicle There is no demonstrated soft tissue abnormality. RAD/Humerus min 2 Views IMPRESSION: No demonstrated fracture or suspicious osseous lesion. Joint spaces well-preserved. Electronically Signed: Sony Wong MD at 8:16 EDT ,
--- NOTE | 2022-05-11 07:16 | ED.VIS.FALL ---
HPI HPI - Fall History of Present Illness Chief Complaint: Fall Informant: patient Narrative Narrative: Is a 51-year-old male with history of alcohol abuse, hepatitis C, tobacco use and bipolar disorder presenting after a fall. Patient states he was getting out of the shower when he slipped and fell. He put his right hand out to catch himself. He is having significant pain and is right shoulder/clavicle area. He notes his ribs also hurt a little bit on the right side. He denies any head injury or loss of consciousness. He is not on any blood thinners and states he does not take any medications. He denies any associated numbness or tingling. He is right-hand dominant. [facility] Medical History Alcohol use Anxiety Asthma Back pain due to injury Bipolar disorder Chronic pain COPD (chronic obstructive pulmonary disease) Depression Dialysis patient Flail chest Hepatitis History of stress test Hoarseness HTN (hypertension) Hypertension Injury of head and neck Prediabetes Restless legs Rheumatoid arthritis Sleep apnea Smoker Substance use Home Medications cyclobenzaprine 10 mg tablet 10 mg PO TID PRN PRN Muscle Spasm #30 tabs 02/07/21 [Rx Last Taken Unknown] ibuprofen 400 mg tablet 400 mg PO Q6H #20 tabs 02/07/21 [Rx Last Taken Unknown] pantoprazole 40 mg tablet,delayed release (Protonix) 40 mg PO DAILY #30 tabs 02/07/21 [Rx Last Taken Unknown] amlodipine 5 mg tablet 5 mg PO DAILY 30 days #30 tabs 02/11/21 [Rx Last Taken Unknown] ibuprofen 600 mg tablet 600 mg PO Q6H PRN pain #20 tabs 05/11/22 [Rx Last Taken Unknown] oxycodone-acetaminophen 5 mg-325 mg tablet (Percocet) 1 tab PO Q6H PRN pain 3 days #12 tabs 05/11/22 [Rx Last Taken Unknown] Allergy/AdvReac Type Severity Reaction Status Date / Time No Known Allergies Allergy Verified 05/11/22 07:01 Family History Mother Hypertension Social History Smoking Status: Current every day smoker tobacco type: cigarettes ROS ROS ED Constitutional Constitutional ED: Denies chills or fever(s) Eyes Eyes: Denies change in vision or diplopia ENT ENT ED: Denies sore throat Cardiovascular Cardiovascular: Reports other Details: Right-sided rib pain ; Denies chest pain or palpitations Respiratory/Chest Respiratory/Chest: Denies cough or dyspnea Gastrointestinal Gastrointestinal: Denies abdominal pain or nausea Musculoskeletal Musculoskeletal: Reports other Details: Right shoulder and clavicle pain Integumentary Denies Abrasions or rash Neurologic Neurologic: Denies paresthesias or weakness Hematologic/Lymphatic Hematologic/Lymphatic: Denies easy bleeding or easy bruising EXAM Physical Exam Const Vital Signs: 05/11/22 06:56 05/11/22 07:02 Temperature 97.4 F L Temperature Source Temporal Pulse Rate 101 H Respiratory Rate 16 Respiratory Effort Normal Respiratory Depth Normal Respiratory Pattern Normal Blood Pressure 157/100 H Blood Pressure Mean 119 Pulse Ox 98 Oxygen Delivery Method Room Air Positive well nourished and well developed Constitutional Narrative: Patient is moaning in pain General Appearance ED: well developed HEENT Reports normocephalic atraumatic; Negative for contusion Eyes PERRL and EOMs intact bilaterally Neck full ROM and supple Neck Narrative: Right-sided paraspinal tenderness to palpation Chest Wall inspection of chest normal and palpation of chest normal Chest Narrative: No flail chest. No chest wall crepitus appreciated. Resp normal respiratory effort and clear to auscultation bilaterally Effort and Inspection: pain with movement Cardio regular rate, regular rhythm and no murmurs Cardio Narrative: 2+ radial pulses GI non-tender and non-distended Back/Spine no CVA tenderness Extremity Extremity Narrative: Patient is holding his right shoulder elevated with no obvious deformity. Significant tenderness palpation of the superior aspect of the shoulder and over the clavicle. Increased range of motion of the shoulder secondary to pain. Normal range of motion movement of the elbow and distally. No other bony tenderness. Neuro oriented x3, moves all extremities and no focal motor deficits Psych mental status grossly normal Mood & Affect: anxious Skin Trauma: Negative for abrasion or laceration MDM MDM MDM Narrative Medical decision making narrative: Patient is evaluated after mechanical fall. He has pain of his superior shoulder. Not hit his head. No loss of consciousness. Vital signs are significant for hypertension mild tachycardia which I suspect is secondary to discomfort. Patient is given IV morphine in the ER. X-rays obtained showed abnormal AC joints with no acute fracture. X-rays interpreted by myself as well as radiology. Initially radiology thought that patient had evidence of prior resection of the distal clavicle however patient denies a history of surgery and he has no overlying scars. I suspect he has an AC joint separation that is causing his pain and that is why he has that abnormal x-ray. Patient is given a second dose of morphine and we started on a course of oxycodone for pain control. Is given a sling. Instructed to follow-up with ortho. Is also given a dose of Toradol in the ER prior to discharge. Radiography Diagnostic Testing: Clinical Impression(s) from Imaging Studies Clavicle X-Ray 05/11/22 07:14 IMPRESSION: No acute fracture or suspicious osseous lesion Previous resection of the distal clavicle Normal alignment of the glenohumeral joint Electronically Signed: Sony Wong MD at 8:17 EDT , ADDENDUM: 05/11/22 0937 IMPRESSION: Findings consistent with type I AC joint separation Electronically Signed: Sony Wong MD at 9:30 EDT , Humerus X-Ray 05/11/22 07:14 IMPRESSION: No demonstrated fracture or suspicious osseous lesion. Joint spaces well-preserved. Electronically Signed: Sony Wong MD at 8:16 EDT , Ribs w/Chest X-Ray 05/11/22 07:14 IMPRESSION: RIBS: Multiple old healed right rib fractures without acute displaced rib fracture, pleural thickening or pneumothorax. CHEST: No acute pulmonary process Electronically Signed: Sony Wong MD at 8:18 EDT , Shoulder X-Ray 05/11/22 07:14 IMPRESSION: No acute fracture or suspicious osseous lesion Electronically Signed: Sony Wong MD at 8:19 EDT Reading Location ID and State: [address] [place] [address] , Service support , Discharge Plan Triage Chief Complaint: Fall ED Provider: Kailey Almeida Dx/Rx/DC Orders Clinical Impression: Acromioclavicular joint separation, type 1, Fall, Acute pain of right shoulder Instructions: ED Sprain AC Joint Prescriptions: New ibuprofen 600 mg tablet 600 mg PO Q6H PRN (Reason: pain) Qty: 20 0RF oxycodone-acetaminophen [Percocet] 5-325 mg tablet 1 tab PO Q6H PRN (Reason: pain) 3 Days Qty: 12 0RF No Action cyclobenzaprine 10 mg Tablet 10 mg PO TID PRN PRN (Reason: Muscle Spasm) Qty: 30 0RF ibuprofen 400 mg tablet 400 mg PO Q6H Qty: 20 0RF pantoprazole [Protonix] 40 mg tablet,delayed release (DR/EC) 40 mg PO DAILY Qty: 30 0RF amlodipine 5 mg Tablet 5 mg PO DAILY 30 Days Qty: 30 0RF Primary Care Provider: Chirag Calhoun Referrals: Jean Carlos Goel DO [Med Staff - Active Staff] - As Needed Chirag Calhoun MD [Primary Care Provider] - Activity Restrictions/Additional Instructions: Please wear sling for comfort. Take your arm out of the sling a couple of days and move your shoulder around in small circles clockwise and counterclockwise. Disposition Disposition: Home, Self Care Discharge Date/Time: 05/11/22 10:33
[2022-05-11] MEDS: Morphine 4 MG/ML Syringe IV ×2 (07:25→09:47)
[2022-05-11] MEDS: Ketorolac 15 MG/ML Vial IV (10:26)
[2022-05-11] MEDS: oxyCODONE 5 MG Tablet PO (10:27)
== END 2022-05-11 10:33 | disposition home or self-care (01) ==
PROVIDERS: Emergency Provider Emergency Medicine; PCP Family Medicine; Visit Provider Emergency Medicine
DX: S43.51XA Sprain of right acromioclavicular joint, initial encounter (principal); F17.210 Nicotine dependence, cigarettes, uncomplicated; G47.30 Sleep apnea, unspecified; W18.2XXA Fall in (into) shower or empty bathtub, initial encounter
CPT/HCPCS: 71101; 73000; 73030; 73060; 96374; 96375; 96376; 99283; A4216

== ENCOUNTER 2022-09-25 11:01 | Emergency (ER) | payer MEDICAID, SELFPAY ==
[2022-09-25 11:02] VITALS: BP 216/125; PULSE 108; RESP 18; TEMP 36.7; O2SAT 97; BMI 34.2
--- NOTE | 2022-09-25 11:23 | CT_ITS ---
STUDY: CT BRAIN WITHOUT CONTRAST REASON FOR EXAM: Male, 51 years old. Headache RADIATION DOSAGE (If Supplied By Facility): CTDIvol = ( 44.99 ) mGy, DLP = ( 846.73 ) mGycm TECHNIQUE: Transaxial CT imaging of the brain was performed without administration of intravenous contrast material. Individualized dose optimization techniques were used for this CT. COMPARISON: None. FINDINGS: There is no acute bleed or infarct. There are normal white matter tracts. The ventricles are normal in configuration. There is no hydrocephalus. The visualized paranasal sinuses are clear. The mastoid air cells are well aerated. There is no skull fracture. CT/Brain/Head without Contrast IMPRESSION: No acute intracranial abnormality. Electronically Signed: Ray Huerta MD at 12:39 EST ,
--- NOTE | 2022-09-25 11:23 | CT_ITS ---
STUDY: CT CERVICAL SPINE WITHOUT CONTRAST REASON FOR EXAM: Male, 51 years old. Neck pain RADIATION DOSAGE (If Supplied By Facility): CTDIvol = ( 30.63 ) mGy, DLP = ( 636.75 ) mGycm TECHNIQUE: High resolution transaxial imaging was performed without contrast material. Sagittal and coronal images were reconstructed. Individualized dose optimization techniques were used for this CT. COMPARISON: None available. FINDINGS: There is no evidence of fracture or dislocation in the cervical spine. There are multilevel degenerative changes in the cervical spine which are most pronounced at the right sided C1/C2 articulation with with erosions at the articulation of the right lateral mass of C1 and the right superior articular facet of C2. Alignment is normal. The vertebral body heights are well-maintained. The visualized paraspinal soft tissues are within normal limits. There are emphysematous changes noted in the visualized lung apices. CT/Spine Cervical without Contras IMPRESSION: No fracture or dislocation in the cervical spine. Multilevel degenerative changes in the cervical spine which are most pronounced at the right sided C1/C2 articulation with with erosions in the right lateral mass of C1 and the right superior articular facet of C2. Emphysema. Electronically Signed: Ray Huerta MD at 12:46 EST ,
--- NOTE | 2022-09-25 11:24 | EKG12_ITS ---
Test Reason : Blood Pressure : / mmHG Vent. Rate : 108 BPM Atrial Rate : 108 BPM P-R Int : 158 ms QRS Dur : 110 ms QT Int : 368 ms P-R-T Axes : 040 014 062 degrees QTc Int : 493 ms Sinus tachycardia Incomplete right bundle branch block Borderline ECG Confirmed by DOC ALVARADO, VICKI ([id number]), editor managing director JEANNETTE LOUIE ([id number]) on 09/26/2022 10:53:17 AM Referred By: Confirmed By:VICKI ROACH MD
--- NOTE | 2022-09-25 11:27 | EDS_ITS ---
HPI History of Present Illness Chief Complaint: Other, Pain/Inj Narrative Narrative: 51-year-old male presenting with multiple complaints. He states that he does have right shoulder pain which is not new. He states he was diagnosed with an AC separation in the emergency room a couple of months ago. He states he never followed up with anybody because nobody is accepting new patients. I did pet adoption counselor him that orthopedics would have been an appropriate follow-up and I would have seen him, and he says he hates physicians and he does not like to go to the doctor. I asked him if he had any medical problems and he said yes, no, maybe so. Patient at this point became very hostile and yelling. He states that the shoulder pain is not new but now it is radiating into his neck and he is having pain that radiates into the left side of the face and into his occiput. He states it feels like my face is stoved. I asked him if he had a headache and again he became angry and states its not a headache, well maybe it is. He does admit to light and sound sensitivity. He also states that pain sometimes radiates into the right side of his jaw into his neck. This is on the anterior surface. He states he is also had a long-term problem with right rib pain which has been ongoing for a long time. He states that his ribs are and this is causing him pain. He states he has distant rib fractures and rib abnormalities in this region on the right. It is causing a rib deformity. Patient also has a history of pulmonary embolism and states that he does not take any blood thinners. He states he does not take anything for blood pressure on a regular basis either. He has not seen his doctor in years. Patient admits to alcohol abuse. He states that he drinks about a gallon of whiskey daily. Patient also states that his tongue intermittently feels swollen, and this occurs nightly. He denies fevers, nausea or vomiting. He denies abdominal pain. [facility] Medical History Alcohol use Anxiety Asthma Back pain due to injury Bipolar disorder Chronic pain COPD (chronic obstructive pulmonary disease) Depression Dialysis patient Flail chest Hepatitis History of stress test Hoarseness HTN (hypertension) Hypertension Injury of head and neck Prediabetes Restless legs Rheumatoid arthritis Sleep apnea Smoker Substance use Home Medications acetaminophen 650 mg tablet,extended release (Tylenol 8 Hour) 650 mg PO Q8H PRN pain #20 tabs 09/25/22 [Rx Last Taken Unknown] albuterol sulfate 90 mcg/actuation aerosol inhaler (ProAir HFA) 1 inh inhalation Q6H PRN shortness of breath or wheezing #8.5 grams 09/25/22 [Rx Last Taken Unknown] Allergy/AdvReac Type Severity Reaction Status Date / Time No Known Allergies Allergy Verified 05/11/22 07:01 Family History Mother Hypertension Social History Smoking Status: Current every day smoker tobacco type: cigarettes alcohol intake: current details: 1 GA DAILY ROS ROS ED Constitutional Constitutional ED: Denies chills or fever(s) Eyes Eyes: Denies change in vision ENT ENT ED: Reports rhinorrhea Cardiovascular Cardiovascular: Reports chest pain Respiratory/Chest Respiratory/Chest: Denies cough or dyspnea Gastrointestinal Gastrointestinal: Denies abdominal pain, nausea or vomiting Genitourinary Genitourinary ED: Denies dysuria or hematuria Musculoskeletal Musculoskeletal: Reports other Details: Right shoulder and right sided neck pain Integumentary Denies abscess Neurologic Neurologic: Denies headache(s) or paresthesias Psychiatric Psychiatric: Denies anxiety or depression Endocrine Endocrinology: Denies polydipsia or polyphagia EXAM Physical Exam Const Vital Signs: 09/25/22 11:02 09/25/22 11:07 09/25/22 12:08 Temperature 98.1 F Temperature Source Oral Pulse Rate 108 H Respiratory Rate 18 Respiratory Effort Normal Non-Labored Respiratory Pattern Normal Blood Pressure 216/125 H 176/127 H Blood Pressure Mean 155 143 Pulse Ox 97 Oxygen Delivery Method Room Air 09/25/22 12:57 09/25/22 14:37 Temperature Temperature Source Pulse Rate Respiratory Rate Respiratory Effort Respiratory Pattern Blood Pressure 140/106 H Blood Pressure Mean 117 Pulse Ox 97 Oxygen Delivery Method Room Air Positive obese General Appearance ED: NAD; Negative for pallor Nutritional Appearance: obese HEENT Reports moist mucous membranes Eyes PERRL and EOMs intact bilaterally General Eye ED: Negative for pale conjunctiva or scleral icterus Neck no lymphadenopathy Chest Wall Chest Narrative: Obvious right-sided rib deformity. Patient reports tenderness to this area on palpation. Equal symmetric breath sounds and chest wall rise. No bruising, crepitance. Resp normal respiratory effort and clear to auscultation bilaterally Auscultation: Negative for rales, rhonchi or wheezes Cardio regular rhythm Rate: tachycardic GI normal to inspection, nondistended, normoactive bowel sounds Back/Spine no CVA tenderness Back/Spine Narrative: Tenderness to palpation right cervical paraspinal muscular trigger extending to the right trapezius. No midline deformities or step-offs. Extremity Extremity Narrative: Tenderness palpation over the right AC joint and right distal clavicle. Patient having no limitation on range of motion in the right shoulder but does have pain with rotation and range of motion. No tenderness over the deltoid. Neuro oriented x3 and CN's II-XII intact bilaterally Sensorium / Orientation: alert Motor Exam: strength 5/5 throughout Psych Attitude: agitated Skin General Skin Exam: Negative for jaundice or pallor MDM MDM MDM Narrative Medical decision making narrative: 51-year-old male presenting with multiple complaints. He has right-sided headache, neck pain, shoulder pain, right rib pain he also feels his face is burning. Patient has not noncompliant and is hypertensive. He reports that he is drinking about half a gallon of whiskey a day. After I talked to him at length about this when he was calm he states his last drink was Monday. He denies that he could be withdrawing from alcohol and states that he does not withdrawal. He was hypertensive and tachycardic. He does appear to have a headache and light and sound sensitivity. Differential is very broad because he has multiple complaints in different body systems. Differential for the headache includes migraine, hypertensive headache, stroke, tension headache, intracranial hemorrhage. Patient complaining of right-sided neck pain and into the right shoulder which could be cervical radiculopathy, muscle spasm, compression fracture,. AC separation, clavicular fracture, C-spine. Fracture. Insofar as his right rib pain he does have history of rib fractures and he states floating ribs.. Differential here is pneumonia, PE, ACS, rib fractures, pneumothorax. Patient is significantly hypertensive and this could be due to EtOH withdrawal, medical noncompliance. Patient states he does not take anything for blood pressure and he refuses to believe that he is withdrawing. CBC was obtained to assess white blood cell count and differential. This appears to be within normal limits. CMP was used to assess the liver function, renal function, glucose and anion gap as patient is a significant drinker. Lipase to assess for pancreatitis. EKG was obtained due to the patient's right-sided chest wall pain and this appears to be a normal sinus rhythm with a ventricular rate of 108 bpm without sign of ischemic change. There is a right bundle branch block. She is on my interpretation. High- sensitivity troponin 34. This pain is chronic and I do not believe he needs a repeat troponin. Right rib series shows no acute fractures, and does identify multiple old healing right rib fractures. Do some interpretation. Radiologist are persistent agrees. No other acute cardiopulmonary process. X-rays of the right shoulder were obtained due to the patient's history of AC separation and right shoulder pain. This does not show any acute fracture or subluxation on my interpretation. There appears to be chronic changes here. CT brain was obtained Patient's headache. There is no evidence of acute intercranial bleed, stroke, other acute process. CT cervical spine shows chronic degenerative changes worse at C1-C2. Patient was medicated initially with morphine and Zofran. He was given a dose of labetalol. His blood pressure responded to 140 /106. His other vital signs are normal. Due to history of abuse I did check an EtOH level which was normal. I also checked a drug abuse screen which showed opiates, amphetamines, MDMA, cannabinoids. After extended discussion with the patient he still states that he does not want to take anything for blood pressure. He states he does not want to follow-up with his PCP either. He does not want to be admitted for EtOH detox. I feel he does have capacity to make this decision. I do not feel comfortable treating him with narcotic pain medication or muscle relaxers given his abuse history. At this point I did call his PCP to discuss follow-up. The patient will be discharged home. Return precautions discussed. Impression: 1. Headache 2. Cervical radiculopathy 3. Right shoulder strain 4. Right rib pain 5. Drug abuse 6. Hypertension 7. EtOH abuse 8. EtOH withdrawal Lab Data Attestation: I reviewed the patient's lab results. Labs: Laboratory Results - last 24 hr 09/25/22 09/25/22 09/25/22 11:05 11:05 11:05 WBC 9.2 RBC 4.44 L Hgb 14.0 Hct 41.9 MCV 94.4 H MCH 31.5 MCHC 33.4 RDW Std Deviation 46.5 H RDW Coeff of Shirin 13.3 Plt Count 386 MPV 8.5 D-Dimer Quant (PE/DVT) Sodium 135 L Potassium 3.6 Chloride 98 Carbon Dioxide 29.0 Anion Gap 8 BUN 11 Creatinine 0.79 Estim Creat Clear Calc 114.22 Est GFR (MDRD) Af Amer 132 Est GFR (MDRD) Non-Af 109 BUN/Creatinine Ratio 13.9 Glucose 135 H Calcium 9.4 Total Bilirubin 0.30 Direct Bilirubin 0.10 AST 40 H ALT 59 Alkaline Phosphatase 126 H Troponin I High Sens 34 Total Protein 9.4 H Albumin 4.5 Globulin 4.9 H Lipase 128 Urine Opiates Screen Urine Methadone Screen Ur Barbiturates Screen Ur Phencyclidine Scrn Ur Amphetamines Screen MDMA (Ecstasy) Screen U Benzodiazepines Scrn Urine Cocaine Screen U Cannabinoids Screen Ur Drug Screen Comment Ethyl Alcohol < 3.0 09/25/22 09/25/22 09/25/22 11:05 13:35 13:42 WBC RBC Hgb Hct MCV MCH MCHC RDW Std Deviation RDW Coeff of Shirin Plt Count MPV D-Dimer Quant (PE/DVT) < 0.27 L Sodium Potassium Chloride Carbon Dioxide Anion Gap BUN Creatinine Estim Creat Clear Calc Est GFR (MDRD) Af Amer Est GFR (MDRD) Non-Af BUN/Creatinine Ratio Glucose Calcium Total Bilirubin Direct Bilirubin AST ALT Alkaline Phosphatase Troponin I High Sens 28 Total Protein Albumin Globulin Lipase Urine Opiates Screen POSITIVE H Urine Methadone Screen NEGATIVE Ur Barbiturates Screen NEGATIVE Ur Phencyclidine Scrn NEGATIVE Ur Amphetamines Screen POSITIVE H MDMA (Ecstasy) Screen POSITIVE H U Benzodiazepines Scrn NEGATIVE Urine Cocaine Screen NEGATIVE U Cannabinoids Screen POSITIVE H Ur Drug Screen Comment Ethyl Alcohol Radiography Diagnostic Testing: Clinical Impression(s) from Imaging Studies Brain CT 09/25/22 11:23 IMPRESSION: No acute intracranial abnormality. Electronically Signed: Ray Huerta MD at 12:39 EST , Cervical Spine CT 09/25/22 11:23 IMPRESSION: No fracture or dislocation in the cervical spine. Multilevel degenerative changes in the cervical spine which are most pronounced at the right sided C1/C2 articulation with with erosions in the right lateral mass of C1 and the right superior articular facet of C2. Emphysema. Electronically Signed: Ray Huerta MD at 12:46 EST , Shoulder X-Ray 09/25/22 11:54 IMPRESSION: No fracture or dislocation in the right shoulder. Stable erosions of the right distal clavicle.. Electronically Signed: Ray Huerta MD at 12:54 EST Reading Location ID and State: [facility] / [place] Tel , Service support , Ribs w/Chest X-Ray 09/25/22 13:19 IMPRESSION: RIBS: Multiple right-sided rib fractures which appear chronic in nature and are on changed when compared with the radiograph dated 05/11/2022. No definite acute fracture is identified. If indicated, further evaluation with CT can be performed. CHEST: Clear lungs. Electronically Signed: Ray Huerta MD at 14:15 EST , Discharge Plan Triage Chief Complaint: Other, Pain/Inj ED Provider: Patrice Fountain Dx/Rx/DC Orders Instructions: ED Chest Pain, Noncardiac, ED Chronic Pain, ED Drug Abuse, ED Hypertension, Established, ED Shoulder Pain, Uncertain Cause Prescriptions: New acetaminophen [Tylenol 8 Hour] 650 mg tablet extended release 650 mg PO Q8H PRN (Reason: pain) Qty: 20 0RF albuterol sulfate [ProAir HFA] 90 mcg/actuation HFA aerosol inhaler 1 inh inhalation Q6H PRN (Reason: shortness of breath or wheezing) Qty: 8.5 0RF Primary Care Provider: Chirag Calhoun Referrals: Chirag Calhoun MD [Primary Care Provider] - Disposition Disposition: Home, Self Care
[2022-09-25 11:32] LABS: Hematocrit 41.9 % (40-54); Mean Corp Hgb Conc 33.4 g/dL (32-36); Mean Corpuscular Hgb 31.5 pg (27.0-32.0); Mean Corpuscular Volume 94.4 fL (80-94); Mean Platelet Vol. 8.5 fl (6.2-12.0); Platelet Count 386 K/mm3 (150-450); RBC Distribution Width CV 13.3 % (11.6-14.6); RBC Distribution Width SD 46.5 fl (35.1-43.9); Red Blood Count 4.44 M/mm3 (4.6-6.2); White Blood Count 9.2 K/mm3 (4.4-11.0)
[2022-09-25] MEDS: Ondansetron 4 MG/2 ML Vial IV (11:40)
[2022-09-25] MEDS: Morphine 4 MG/ML Syringe IV (11:40)
[2022-09-25 11:52] LABS: Alcohol, Blood (Medical)-Serum < 3.0 mg/dL; D-Dimer Quantitative (DVT/PE) < 0.27 FEU/ug/m (0.27-0.49)
--- NOTE | 2022-09-25 11:54 | RAD_ITS ---
STUDY: X-RAY - RIGHT SHOULDER REASON FOR EXAM: Male, 51 years old. Pain TECHNIQUE: 2 view(s) of the shoulder. COMPARISON: 05/11/2022 FINDINGS: There is no evidence of fracture or dislocation. There are stable erosions of the right distal clavicle. There are no radiodense foreign bodies. RAD/Shoulder min 2 Views IMPRESSION: No fracture or dislocation in the right shoulder. Stable erosions of the right distal clavicle.. Electronically Signed: Ray Huerta MD at 12:54 EST ,
[2022-09-25 11:55] LABS: AST(SGOT) 40 U/L (15-37); Alanine Aminotransfer ALT/SGPT 59 U/L (16-61); Albumin, Serum 4.5 g/dL (3.2-5.0); Alkaline Phosphatase 126 U/L (45-117); Anion Gap 8 (5-15); BUN 11 mg/dL (7-18); BUN/Creat Ratio 13.9 RATIO (10-20); Calcium,Total 9.4 mg/dL (8.5-10.1); Chloride 98 mmol/L (98-107); Creatinine, Serum 0.79 mg/dL (0.70-1.30); EST Glomerular Filtration Rate 109 mL/min (>60); Est Glom Filt Rate - Afr Amer 132 mL/min (>60); Estimated Creatinine Clearance 114.22 ml/min; Globulin 4.9 g/dL (2.2-4.2); Glucose 135 mg/dL (74-106); Lipase 128 U/L (73-393); Potassium 3.6 mmol/L (3.5-5.1); Protein, Total 9.4 g/dL (6.4-8.2); Sodium Level 135 mmol/L (136-145); Troponin-I HS (w/2H Reflex) 34 pg/mL (3.0-78.0)
[2022-09-25 12:08] VITALS: BP 176/127
[2022-09-25] MEDS: Labetalol (Prefilled) 20 MG/4 ML IV (12:09)
[2022-09-25 12:57] VITALS: BP 140/106
--- NOTE | 2022-09-25 13:19 | RAD_ITS ---
STUDY: X-RAY - UNILATERAL RIBS ( RIGHT ) WITH CHEST REASON FOR EXAM: Male, 51 years old. Rib pain TECHNIQUE - RIBS: 4 view(s) of the ribs. TECHNIQUE - CHEST: Frontal view COMPARISON: Chest x-ray dated 05/11/2022. FINDINGS - RIBS: There are multiple right-sided rib fractures which appear chronic in nature and are on changed when compared with the radiograph dated 05/11/2022. No definite acute fracture is identified. If indicated, further evaluation with CT can be performed. FINDINGS - CHEST: The lungs are clear. There are no pleural effusions. There is no pneumothorax. The heart is normal in size. RAD/Ribs Uni Min 3V w/PA Chest IMPRESSION: RIBS: Multiple right-sided rib fractures which appear chronic in nature and are on changed when compared with the radiograph dated 05/11/2022. No definite acute fracture is identified. If indicated, further evaluation with CT can be performed. CHEST: Clear lungs. Electronically Signed: Ray Huerta MD at 14:15 EST ,
[2022-09-25 13:30] LABS: Reflex Troponin-HS? (from REC) Y
[2022-09-25 13:56] LABS: Amphetamine Urine VISTA POSITIVE (<1000 ng/mL); Barbiturate Urine VISTA NEGATIVE (< 200 ng/mL); Benzodiazepine Urine VISTA NEGATIVE (< 200 ng/mL); Cocaine Urine VISTA NEGATIVE (< 300 ng/mL); Ecstacy Urine VISTA POSITIVE (< 500 ng/mL); Methadone Urine VISTA NEGATIVE (< 300 ng/mL); PCP Urine VISTA NEGATIVE (< 25 ng/mL); THC Urine VISTA POSITIVE (< 50 ng/mL); Vista UDS pH Range 5
[2022-09-25 14:04] LABS: Troponin-I HS 28 pg/mL (3.0-78.0)
[2022-09-25 14:37] VITALS: O2SAT 97
[2022-09-25 15:01] VITALS: BP 157/119; PULSE 88; RESP 15
== END 2022-09-25 15:02 | disposition home or self-care (01) ==
PROVIDERS: Emergency Provider Student in an Organized Health Care Education/Training Program; PCP Family Medicine; Visit Provider Student in an Organized Health Care Education/Training Program
DX: R51.9 Headache, unspecified (principal); F10.239 Alcohol dependence with withdrawal, unspecified; S46.911A Strain of unspecified muscle, fascia and tendon at shoulder and upper arm level, right arm, initial encounter; M54.12 Radiculopathy, cervical region; I10 Essential (primary) hypertension; F17.210 Nicotine dependence, cigarettes, uncomplicated; R07.81 Pleurodynia; G47.30 Sleep apnea, unspecified; E66.9 Obesity, unspecified; Z86.711 Personal history of pulmonary embolism; X58.XXXA Exposure to other specified factors, initial encounter
CPT/HCPCS: 70450; 71101; 72125; 73030; 80048; 80076; 80307; 82077; 83690; 84484; 85027; 85379; 93005; 96374; 96375; 99284; A4216; J2405